=== PATIENT | male | born 1965 | race Caucasian/White ===

== ENCOUNTER 2017-11-29 12:58 | Inpatient (IN) | payer OTHER ==
[~2017-11-29] VITALS: Ht 182.9 cm; Wt 134.9 kg
[2017-11-29 18:39] VITALS: BP 126/82; PULSE 64; RESP 18; TEMP 98.6; O2SAT 96
[2017-11-29 18:43] VITALS: BP 146/83; PULSE 92; RESP 18; TEMP 97.7; O2SAT 97
[2017-11-29 20:00] VITALS: BP 136/78; PULSE 95; RESP 18; TEMP 97.8; O2SAT 96
[2017-11-29] MEDS ORDERED: HUMALOG SQ (20:04)
[2017-11-29] MEDS ORDERED: GLUCAGON 1 MG/ML VIAL OTHER PRN (22:45)
[2017-11-29] MEDS ORDERED: DEXTROSE 50% IN WATER 50 ML VIAL(D50) IV PUSH PRN (22:45)
[2017-11-29] MEDS ORDERED: SODIUM CHLORIDE 0.9% FLUSH 10 ML FLUSH IV FLUSH PRN (22:45)
[2017-11-29] MEDS ORDERED: ONDANSETRON HCL 4 MG/2 ML VIAL IVP PRN (22:45)
[2017-11-29] MEDS ORDERED: NALOXONE HCL 0.4 MG/ML AMP IV PUSH PRN (22:45)
[2017-11-29] MEDS ORDERED: ACETAMINOPHEN 325 MG TAB PO PRN (22:45)
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
[2017-11-30] VITALS: BP 156/86; PULSE 97; RESP 18; TEMP 99; O2SAT 95
[2017-11-30] MEDS ORDERED: MORPHINE SULFATE 4 MG/ML INJ IV SCH (00:20)
[2017-11-30] MEDS ORDERED: SODIUM CHLORIDE 0.9% FLUSH 10 ML FLUSH IVF PRN ×2 (00:45)
[2017-11-30 01:10] LABS: AUTOMATED NEUTROPHIL # 6.8 TH/MM3 (1.8-7.7); BASOPHIL # 0.1 TH/MM3 (0-0.2); BASOPHIL % 0.9 % (0.0-2.0); EOSINOPHIL # 0.1 TH/MM3 (0-0.4); HEMATOCRIT 22.2 % (39.0-51.0); HEMOGLOBIN 7.8 GM/DL (13.0-17.0); LYMPH % 9.5 % (9.0-44.0); LYMPHOCYTE # 0.8 TH/MM3 (1.0-4.8); MEAN CELL VOLUME 104.9 FL (80.0-100.0); MEAN CORPUSCULAR HEMOGLOBIN 36.7 PG (27.0-34.0); MEAN PLATELET VOLUME 6.1 FL (7.0-11.0); MONO % 4.4 % (0.0-8.0); MONOCYTE # 0.4 TH/MM3 (0-0.9); NEUT % 84.2 % (16.0-70.0); PLATELET COUNT 181 TH/MM3 (150-450); RED BLOOD COUNT 2.12 MIL/MM3 (4.50-5.90); WHITE BLOOD COUNT 8.1 TH/MM3 (4.0-11.0)
[2017-11-30] MEDS ORDERED: PROCHLORPERAZINE INJ 10 MG/2 ML VIAL IV PUSH PRN (01:30)
[2017-11-30] MEDS ORDERED: RESP: ALBUTEROL 2.5 MG/IPRATROPIUM 0.5 MG NEB (PRN) NEB (01:30)
[2017-11-30 01:56] LABS: ALBUMIN 1.3 GM/DL (3.4-5.0); BICARBONATE 29.5 MEQ/L (21.0-32.0); CALCIUM 7.3 MG/DL (8.5-10.1); CALCIUM-PROTEIN CORRECTED 7.8 MG/DL (8.5-10.1); CREATININE 2.07 MG/DL (0.60-1.30); MAGNESIUM 1.4 MG/DL (1.5-2.5); TOTAL BILIRUBIN ADULT 0.5 MG/DL (0.2-1.0); TOTAL PROTEIN 6.1 GM/DL (6.4-8.2)
[2017-11-30] MEDS: LINEZOLID 600 MG PREMIX 300 ML IV SCH ×2 (01:56→14:41)
[2017-11-30] MEDS: LEVOFLOXACIN 250 MG PREMIX INJ 50 ML IV SCH (01:56)
[2017-11-30] MEDS: ACETAMINOPHEN/HYDROcodone 325 MG/10 MG TAB PO PRN ×4 (01:58→20:02)
[2017-11-30] MEDS ORDERED: MAGNESIUM SULFATE 1 GM PREMIX 100 ML IV ONE (02:15)
[2017-11-30 04:00] VITALS: BP 134/80; PULSE 98; RESP 18; TEMP 98.2; O2SAT 93
[2017-11-30 08:00] VITALS: BP 132/77; PULSE 93; RESP 18; TEMP 98.5; O2SAT 93
[2017-11-30] MEDS: INSULIN ASPART SUPPLEMENTAL SCALE SQ SCH ×4 (08:00→20:59)
[2017-11-30] MEDS: SODIUM CHLORIDE 0.9% FLUSH 10 ML FLUSH IVF SCH (08:41)
[2017-11-30] MEDS: PANTOPRAZOLE SOD 40 MG DELAYED RELEASE TAB PO SCH ×2 (08:41→20:58)
[2017-11-30] MEDS: MAGNESIUM OXIDE 400 MG TAB PO SCH ×2 (08:41→20:58)
[2017-11-30] MEDS: FOLIC ACID 1 MG TAB PO SCH (08:41)
[2017-11-30] MEDS: MULTIVITAMINS/MINERALS THERAPEUTIC TAB PO SCH (08:41)
[2017-11-30] MEDS: THIAMINE HCL 100 MG TAB PO SCH (08:41)
[2017-11-30] MEDS: CARVEDILOL 12.5 MG TAB PO SCH ×2 (08:41→20:58)
[2017-11-30] MEDS: SODIUM CHLORIDE 0.9% FLUSH 10 ML FLUSH IV FLUSH SCH ×2 (08:45→20:59)
--- NOTE | 2017-11-30 09:01 | HHI.PR ---
Subjective Remarks in no acute distress. no fever. pain is mild. overall looks comfortable. Objective Vitals Vital Signs Date Time Temp Pulse Resp B/P (MAP) Pulse Ox O2 Delivery O2 Flow Rate FiO2 11/30/17 08:00 98.5 93 18 132/77 (95) 93 11/30/17 04:00 98.2 98 18 134/80 (98) 93 11/30/17 00:00 99.0 97 18 156/86 (109) 95 11/29/17 20:00 97.8 95 18 136/78 (97) 96 11/29/17 18:43 97.7 92 18 146/83 (104) 97 I/O 11/29/17 11/29/17 11/29/17 11/30/17 11/30/17 11/30/17 07:00 15:00 23:00 07:00 15:00 23:00 Intake Total 450 ml Output Total 1000 ml Balance -550 ml Intake Oral 0 ml IV Total 450 ml Output Urine Total 1000 ml Result Diagram: 11/30/17 0059 11/30/17 0059 Objective Remarks GENERAL: This is a well-nourished, well-developed patient, in no apparent distress. CARDIOVASCULAR: Regular rate and regular rhythm without murmurs, gallops, or rubs. RESPIRATORY: diminished air entry in right base. GASTROINTESTINAL: Abdomen soft, non-tender, nondistended. Normal, active bowel sounds MUSCULOSKELETAL: Extremities without clubbing, cyanosis, or edema. NEURO: Alert & Oriented x4 to person, place, time, situation. Moves all ext x4 Medications and IVs Inpatient Medications Acetaminophen (Tylenol) 650 mg Q4H PRN PO TEMP > 100.4; Start 11/29/17 at 22:45 Acetaminophen/ Hydrocodone Bitart ([place] 10-325 Mg) 1 tab Q4H PRN PO pain > 4 Last administered on 11/30/17at 07:59; Start 11/30/17 at 00:45 Albuterol/ Ipratropium (Duoneb Neb) 1 ampule Q4HR NEB PRN NEB SOB/WHEEZING; Start 11/30/17 at 01:30 Carvedilol (Coreg) 12.5 mg Q12HR PO Last administered on 11/30/17at 08:41; Start 11/30/17 at 09:00 Dextrose (D50w (Vial) Inj) 50 ml UNSCH PRN IV PUSH HYPOGLYCEMIA-SEE COMMENTS; Start 11/29/17 at 22:45 Folic Acid (Folate) 1 mg DAILY PO Last administered on 11/30/17at 08:41; Start at 09:00; Stop 12/05/17 at 08:59 Glucagon (Glucagon Inj) 1 mg UNSCH PRN OTHER HYPOGLYCEMIA-SEE COMMENTS; Start 11/29/17 at 22:45 Heparin Sodium (Porcine) (Heparin Central Flush) UNSCH PRN IV FLUSH SEE PROTOCOL; Start 11/30/17 at 00:45 Insulin Aspart (NovoLOG SUPPLEMENTAL SCALE) 1 ACHS SLIDING SCALE SQ ; Start 11/30/17 at 08:00 Insulin Detemir (Levemir Inj) 10 units HS SQ ; Start 11/30/17 at 21:00 Levofloxacin/ Dextrose 50 ml @ 50 mls/hr Q24H IV Last administered on 11/30/17at 01:56; Start 11/30/17 at 01:30 Linezolid 300 ml @ 300 mls/hr Q12H IV Last administered on 11/30/17at 01:56; Start 11/30/17 at 02:30 Magnesium Oxide (Mag-Ox) 400 mg Q12HR PO Last administered on 11/30/17at 08:41; Start 11/30/17 at 09:00 Magnesium Sulfate/ Dextrose 100 ml @ 100 mls/hr ONCE ONCE IV Last administered on 11/30/17at 02:10; Start 11/30/17 at 02:15; Stop 11/30/17 at 03:14; Status DC Morphine Sulfate (Morphine Inj) 4 mg NOW IV Last administered on 11/30/17at 00:53 ; Start 11/30/17 at 00:20; Stop 11/30/17 at 02:30; Status DC Multivitamins/ Minerals Therapeutic (Theragran M Tab) 1 tab DAILY PO Last administered on 11/30/17at 08:41; Start 11/30/17 at 09:00; Stop 12/05/17 at 08:59 Naloxone HCl (Narcan Inj) 0.4 mg UNSCH PRN IV PUSH SEE LABEL COMMENTS; Start at 22:45 Ondansetron HCl (Zofran Inj) 4 mg Q6H PRN IVP NAUSEA OR VOMITING; Start at 22:45; Stop 11/30/17 at 01:24; Status DC Pantoprazole Sodium (Protonix) 40 mg Q12HR PO Last administered on 11/30/17at 08: 41; Start 11/30/17 at 09:00 Prochlorperazine Edisylate (Compazine Inj) 5 mg Q4H PRN IV PUSH NAUSEA OR VOMITING; Start 11/30/17 at 01:30 Sodium Chloride (NS Flush) UNSCH PRN IVF SEE PROTOCOL; Start 11/30/17 at 00:45 Thiamine HCl (Vitamin B1) 100 mg DAILY PO Last administered on 11/30/17at 08:41; Start 11/30/17 at 09:00 A/P Problem List: (1) Empyema lung ICD Code: J86.9 - Pyothorax without fistula Assessment and Plan A/P Right lung empyema MRSA cultures from thoracentesis and urine specimen at [place] -Consult cardiothoracic surgery -appreciate assistance -NPO. -Continue Linezolide 600 mg IV BID and Levaquin 250 mg IV QD -Patient had a history of respiratory failure requiring BiPAP at [place], monitor respiratory status -Contact isolation -Duonebulizers q4h PRN sob/wheezing -[place] 10/325 q4h p.o. PRN pain with Morphine 2 mg IV q3h breakthrough for pain -will consider ID consult Type 2 Diabetes Mellitus -Continue Levemir 10 units subcu nightly -Accu-Cheks before meals and at bedtime with low-dose NovoLog sliding scale coverage -PRN Hypoglycemia protocol -Monitor trends and blood glucose readings and adjust treatments as indicated Anemia - Hgb 7.8/HCT 22.2 - recheck CBC in a.m. and follow results, transfuse if needed Acute renal failure - BUN - 26, creatinine 2.07, egfr 34 -Monitor renal indices -Avoid nephrotoxins -Monitor I&O -consider nephrology consultation Hypertension -Lisinopril from home was held at [place] due to acute renal failure -Continue to hold lisinopril while awaiting results of CMP -Continue carvedilol 12.5 mg twice daily Hypomagnesemia -Magnesium 1.4 -continue p.o. Mag Ox 400 mg BID -Magnesium 1 gm IV x one dose -recheck with am labs and replace as needed History of DVT Bilateral LE edema and pain -bilateral LE doppler us to r/o DVT Visual floaters Cataracts and diabetic retinopathy -Evaluated and diagnosed by an l[facility] at [facility] -Patient to follow-up with ophthalmology as an outpatient DVT prophylaxis -Await results of lower extremity Doppler prior to initiating SCDs/teds - patient has a history of DVT left lower extremity 2005 -Hold chemoprophylaxis secondary to possible lung decortication surgery Jolanta Christianson MD Nov 30, 2017 09:01
--- NOTE | 2017-11-30 10:44 | PD.WCN.NOT ---
Wound Consult Description: Wound consult ordered by Sharif GERONTOLOGY AIDE for wound management Communicated with: Adele LYNNE , Recommendation: 1. Encourage patient to reposition every 2 hours for comfort and offloading. 2. Apply thin layer of Remedy Calazime cream to inner buttocks and R lateral thigh daily or as needed for comfort.Leave open to air 3. Please do not use foam on sacrum nor cotton underpad.Ensure patient is not laying on any devices. Additional Information: Patient was seen today by marketing copywriter on for wound management .Patient alert and oriented x3 no complaints of distress/discomfort at this time.Patient was able to independently reposition self to left side.Foam dressing dated 11/28 removed from sacral area to reveal dried BM under dressing.Sacral/buttocks cleansed with normal saline .Operations Dispatcher visualized sacral/inner buttocks area patient is 100% intact skin blanchable in all areas Partially removed scab noted to R sacral area suggestive of old partial thickness wound.scab removed with skin care.Patient denies any sacral/buttocks discomfort.Assessment of R thigh find Partial thickness open area measuring 0.4cm x 0.3cm x0.1cm to lateral right thigh Wound base is 100% pink non granular tissue,wound edges well defined and even with wound base, no odor or drainage noted.Periwound is unremarkable with no erythema noted.Patient has Calix catheter with StatLock placed on right side of inner thigh.Wound is asymmetrical circular shape which might indicate pressure related device injury.Patient states he does not know cause of injury But, would not be surprised if he fell asleep on Calix catheter tubing/ specimen port.Calazime cream applied in thin layer to inner buttocks and R lateral thigh.Patient had no further questions or concerns for marketing copywriter. [facility] Nov 30, 2017 10:44
[2017-11-30 12:00] VITALS: BP 127/78; PULSE 83; RESP 16; TEMP 97.9; O2SAT 92
--- NOTE | 2017-11-30 12:58 | RADRPT ---
EXAM DATE/TIME: 11/30/2017 12:45 [place] COMPARISON: No previous studies available for comparison. INDICATIONS : Pleural effusion. RADIATION DOSE: 18.56 CTDIvol (mGy) MEDICAL HISTORY : Cardiovascular disease. Hypertension. Diabetes mellitus type 2. SURGICAL HISTORY : None. ENCOUNTER: Initial ACUITY: 1 day PAIN SCALE: 5/10 LOCATION: chest TECHNIQUE: Volumetric scanning of the chest was performed. Using automated exposure control and adjustment of t he mA and/or kV according to patient size, radiation dose was kept as low as reasonably achievable to obtain optimal diagnostic quality images. DICOM format image data is available electronically for r eview and comparison. Follow-up recommendations for detected pulmonary nodules are based at a minimum on nodule size and pa tient risk factors according to Fleischner Society Guidelines. FINDINGS: There is a complex right pleural effusion containing multiple locules of air and fluid most character istic of an empyema. There is a loculated smaller left effusion without loculated air. There is lung consolidation adjacent to the loculated right effusion is present right lung base. Mini mal left basilar airspace disease as well. No significant adenopathy. Right-sided PICC line tip is in the superior vena cava. Heart size is normal. Trace pericardial fluid . Upper abdomen reveals slightly lobulated liver which can indicate cirrhosis. No acute findings in the upper abdomen. CONCLUSION: 1. Complex right pleural effusion with multiple locules of air and fluid. Primary differential diagno sis is a right-sided empyema. 2. Smaller left effusion without loculated air. 3. Lung consolidation adjacent to complex right effusion as above. Minimal left basal airspace diseas e. 4. Right PICC line tip in superior vena cava. Edis Wetzel MD on November 30, 2017 at 12:54 Board Certified Radiologist. This report was verified electronically.
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
--- NOTE | 2017-11-30 15:00 | RADRPT ---
EXAM DATE/TIME: 11/30/2017 14:01 [place] COMPARISON: No previous studies available for comparison. INDICATIONS : Bilateral leg swelling. MEDICAL HISTORY : Hypertension. Dizziness. Chest pain. Diabetes. Alcohol abuse. SURGICAL HISTORY : Orbital socket repair. ENCOUNTER: Initial ACUITY: 1 day PAIN SCORE: 0/10 LOCATION: Bilateral legs. TECHNIQUE: Venous ultrasound of the left and right leg was performed from the inguinal ligament to the proximal calf. Real-time, color Doppler and spectral tracing, compression and augmentation techniques were us ed. FINDINGS: RIGHT LEG: There is normal compressibility of the deep venous system from the inguinal region to the proximal ca lf. No echogenic clot is seen in the lumen of the common femoral, femoral, popliteal, and posterior tibial veins. There is a normal response of the venous system to proximal and distal augmentation an d respiration. LEFT LEG: There is normal compressibility of the deep venous system from the inguinal region to the proximal ca lf. No echogenic clot is seen in the lumen of the common femoral, femoral, popliteal, and posterior tibial veins. There is a normal response of the venous system to proximal and distal augmentation an d respiration. CONCLUSION: 1. Negative for deep venous thrombosis bilateral lower extremity. Raghavendra Escobar MD on November 30, 2017 at 14:56 Board Certified Radiologist. This report was verified electronically.
[2017-11-30 16:00] VITALS: BP 127/78; PULSE 88; RESP 16; TEMP 97.7; O2SAT 96
[2017-11-30 20:00] VITALS: BP 127/76; PULSE 78; RESP 18; TEMP 97.7; O2SAT 95
[2017-11-30] MEDS: INSULIN DETEMIR 100 UNITS/ML VIAL SQ SCH (20:59)
[2017-11-30] MEDS: MORPHINE SULFATE 2 MG/ML SYRINGE IV PUSH PRN (21:05)
[2017-12-01] VITALS: BP 131/76; PULSE 88; RESP 18; TEMP 98.1; O2SAT 91
[2017-12-01] MEDS: ACETAMINOPHEN/HYDROcodone 325 MG/10 MG TAB PO PRN ×6 (00:06→21:27)
[2017-12-01] MEDS: LEVOFLOXACIN 250 MG PREMIX INJ 50 ML IV SCH (01:06)
[2017-12-01] MEDS: MORPHINE SULFATE 2 MG/ML SYRINGE IV PUSH PRN (01:06)
[2017-12-01] MEDS: LINEZOLID 600 MG PREMIX 300 ML IV SCH ×2 (02:09→14:39)
[2017-12-01 06:45] LABS: AUTOMATED NEUTROPHIL # 6.2 TH/MM3 (1.8-7.7); BASOPHIL # 0.1 TH/MM3 (0-0.2); EOSINOPHIL # 0.1 TH/MM3 (0-0.4); EOSINOPHIL % 1.1 % (0.0-4.0); HEMATOCRIT 21.1 % (39.0-51.0); HEMOGLOBIN 7.4 GM/DL (13.0-17.0); LYMPHOCYTE # 0.7 TH/MM3 (1.0-4.8); MEAN CELL VOLUME 105.1 FL (80.0-100.0); MEAN CORPUSCULAR HEMOGLOBIN 36.8 PG (27.0-34.0); MEAN PLATELET VOLUME 6.5 FL (7.0-11.0); MONO % 4.7 % (0.0-8.0); MONOCYTE # 0.3 TH/MM3 (0-0.9); NEUT % 83.2 % (16.0-70.0); PLATELET COUNT 155 TH/MM3 (150-450); RED BLOOD COUNT 2.01 MIL/MM3 (4.50-5.90); RED CELL DISTRIBUTION WIDTH 13.9 % (11.6-17.2); WHITE BLOOD COUNT 7.4 TH/MM3 (4.0-11.0)
[2017-12-01 07:05] LABS: BICARBONATE 27.2 MEQ/L (21.0-32.0); CALCIUM 7.5 MG/DL (8.5-10.1); CREATININE 1.73 MG/DL (0.60-1.30)
[2017-12-01] MEDS: INSULIN ASPART SUPPLEMENTAL SCALE SQ SCH ×4 (07:25→21:39)
[2017-12-01] MEDS: MAGNESIUM OXIDE 400 MG TAB PO SCH ×2 (07:57→21:28)
[2017-12-01] MEDS: THIAMINE HCL 100 MG TAB PO SCH (07:57)
[2017-12-01] MEDS: PANTOPRAZOLE SOD 40 MG DELAYED RELEASE TAB PO SCH ×2 (07:57→21:27)
[2017-12-01] MEDS: SODIUM CHLORIDE 0.9% FLUSH 10 ML FLUSH IV FLUSH SCH ×2 (07:58→21:31)
[2017-12-01] MEDS: SODIUM CHLORIDE 0.9% FLUSH 10 ML FLUSH IVF SCH (07:58)
[2017-12-01] MEDS: FOLIC ACID 1 MG TAB PO SCH (07:58)
[2017-12-01] MEDS: MULTIVITAMINS/MINERALS THERAPEUTIC TAB PO SCH (07:58)
[2017-12-01] MEDS: CARVEDILOL 12.5 MG TAB PO SCH ×2 (07:58→21:26)
[2017-12-01 08:00] VITALS: BP 127/75; PULSE 86; RESP 17; TEMP 98.2; O2SAT 92
--- NOTE | 2017-12-01 10:31 | HHI.PR ---
Subjective Remarks in no acute distress. resting comfortably. denies pain or sob. no fever. Objective Vitals Vital Signs Date Time Temp Pulse Resp B/P (MAP) Pulse Ox O2 Delivery O2 Flow Rate FiO2 12/01/17 08:00 98.2 86 17 127/75 (92) 92 12/01/17 01:11 18 12/01/17 00:00 98.1 88 18 131/76 (94) 91 11/30/17 21:10 18 11/30/17 20:00 97.7 78 18 127/76 (93) 95 11/30/17 16:00 97.7 88 16 127/78 (94) 96 11/30/17 12:00 97.9 83 16 127/78 (94) 92 I/O 11/30/17 11/30/17 11/30/17 12/01/17 12/01/17 12/01/17 07:00 15:00 23:00 07:00 15:00 23:00 Intake Total 450 ml 480 ml 240 ml Output Total 1000 ml 850 ml 450 ml Balance -550 ml -370 ml 240 ml -450 ml Intake Oral 0 ml 480 ml 240 ml IV Total 450 ml Output Urine Total 1000 ml 850 ml 450 ml # Bowel Movements 1 Result Diagram: 12/01/17 0513 12/01/17 0513 Imaging Last Impressions Chest CT 11/30/17 1232 Signed Impressions: Service Date/Time: Thursday, November 30, 2017 12:45 - CONCLUSION: 1. Complex right pleural effusion with multiple locules of air and fluid. Primary differential diagnosis is a right-sided empyema. 2. Smaller left effusion without loculated air. 3. Lung consolidation adjacent to complex right effusion as above. Minimal left basal airspace disease. 4. Right PICC line tip in superior vena cava. Edis Wetzel MD Lower Extremity Ultrasound 11/30/17 0000 Signed Impressions: Service Date/Time: Thursday, November 30, 2017 14:01 - CONCLUSION: 1. Negative for deep venous thrombosis bilateral lower extremity. Raghavendra Escobar MD Objective Remarks GENERAL: This is a well-nourished, well-developed patient, in no apparent distress. CARDIOVASCULAR: Regular rate and regular rhythm without murmurs, gallops, or rubs. RESPIRATORY: diminished air entry in right base. GASTROINTESTINAL: Abdomen soft, non-tender, nondistended. Normal, active bowel sounds MUSCULOSKELETAL: Extremities without clubbing, cyanosis, or edema. NEURO: Alert & Oriented x4 to person, place, time, situation. Moves all ext x4 Medications and IVs Inpatient Medications Acetaminophen (Tylenol) 650 mg Q4H PRN PO TEMP > 100.4; Start 11/29/17 at 22:45 Acetaminophen/ Hydrocodone Bitart ([place] 10-325 Mg) 1 tab Q4H PRN PO pain > 4 Last administered on 12/01/17at 07:56; Start 11/30/17 at 00:45 Albuterol/ Ipratropium (Duoneb Neb) 1 ampule Q4HR NEB PRN NEB SOB/WHEEZING; Start 11/30/17 at 01:30 Carvedilol (Coreg) 12.5 mg Q12HR PO Last administered on 12/01/17at 07:58; Start 11/30/17 at 09:00 Dextrose (D50w (Vial) Inj) 50 ml UNSCH PRN IV PUSH HYPOGLYCEMIA-SEE COMMENTS; Start 11/29/17 at 22:45 Folic Acid (Folate) 1 mg DAILY PO Last administered on 12/01/17at 07:58; Start at 09:00; Stop 12/05/17 at 08:59 Glucagon (Glucagon Inj) 1 mg UNSCH PRN OTHER HYPOGLYCEMIA-SEE COMMENTS; Start 11/29/17 at 22:45 Heparin Sodium (Porcine) (Heparin Central Flush) UNSCH PRN IV FLUSH SEE PROTOCOL; Start 11/30/17 at 00:45 Insulin Aspart (NovoLOG SUPPLEMENTAL SCALE) 1 ACHS SLIDING SCALE SQ Last administered on 11/30/17at 16:58; Start 11/30/17 at 08:00 Insulin Detemir (Levemir Inj) 10 units HS SQ Last administered on 11/30/17at 20: 59; Start 11/30/17 at 21:00 Levofloxacin/ Dextrose 50 ml @ 50 mls/hr Q24H IV Last administered on 12/01/17at 01:06; Start 11/30/17 at 01:30 Linezolid 300 ml @ 300 mls/hr Q12H IV Last administered on 12/01/17at 02:09; Start 11/30/17 at 02:30 Magnesium Oxide (Mag-Ox) 400 mg Q12HR PO Last administered on 12/01/17 07:57; Start 11/30/17 at 09:00 Magnesium Sulfate/ Dextrose 100 ml @ 100 mls/hr ONCE ONCE IV Last administered on 11/30/17at 02:10; Start 11/30/17 at 02:15; Stop 11/30/17 at 03:14; Status DC Morphine Sulfate (Morphine Inj) 4 mg NOW IV Last administered on 11/30/17at 00:53 ; Start 11/30/17 at 00:20; Stop 11/30/17 at 02:30; Status DC Multivitamins/ Minerals Therapeutic (Theragran M Tab) 1 tab DAILY PO Last administered on 12/01/17 07:58; Start 11/30/17 at 09:00; Stop 12/05/17 at 08:59 Naloxone HCl (Narcan Inj) 0.4 mg UNSCH PRN IV PUSH SEE LABEL COMMENTS; Start at 22:45 Ondansetron HCl (Zofran Inj) 4 mg Q6H PRN IVP NAUSEA OR VOMITING; Start at 22:45; Stop 11/30/17 at 01:24; Status DC Pantoprazole Sodium (Protonix) 40 mg Q12HR PO Last administered on 12/01/17at 07: 57; Start 11/30/17 at 09:00 Prochlorperazine Edisylate (Compazine Inj) 5 mg Q4H PRN IV PUSH NAUSEA OR VOMITING; Start 11/30/17 at 01:30 Sodium Chloride (NS Flush) UNSCH PRN IVF SEE PROTOCOL; Start 11/30/17 at 00:45 Thiamine HCl (Vitamin B1) 100 mg DAILY PO Last administered on 12/01/17at 07:57; Start 11/30/17 at 09:00 A/P Problem List: (1) Empyema lung ICD Code: J86.9 - Pyothorax without fistula Assessment and Plan A/P Right lung empyema MRSA cultures from thoracentesis and urine specimen at [facility] -CT of the chest with Complex right pleural effusion with multiple locules of air and fluid. Primary differential diagnosis is a right-sided empyema. 2. Smaller left effusion without loculated air. 3. Lung consolidation adjacent to complex right effusion and minimal left basal airspace disease. -Consulted cardiothoracic surgery -appreciate assistance -Continue Linezolide 600 mg IV BID and Levaquin 250 mg IV QD -ID consult appreciated. -Patient had a history of respiratory failure requiring BiPAP at [facility], monitor respiratory status -Contact isolation -Duonebulizers q4h PRN sob/wheezing -[place] 10/325 q4h p.o. PRN pain with Morphine 2 mg IV q3h breakthrough for pain Type 2 Diabetes Mellitus -Continue Levemir 10 units subcu nightly -Accu-Cheks before meals and at bedtime with low-dose NovoLog sliding scale coverage -PRN Hypoglycemia protocol -Monitor trends and blood glucose readings and adjust treatments as indicated Anemia - chronic likely due to chronic disease - will monitor. Acute renal failure - improving. -Monitor renal indices -Avoid nephrotoxins -Monitor I&O Hypertension -Lisinopril from home was held at [facility] due to acute renal failure -Continue to hold lisinopril while awaiting results of CMP -Continue carvedilol 12.5 mg twice daily Hypomagnesemia-replaced. History of DVT Bilateral LE edema and pain -bilateral LE doppler us negative for DVT. Visual floaters Cataracts and diabetic retinopathy -Evaluated and diagnosed by an oil burner at [facility] -Patient to follow-up with ophthalmology as an outpatient DVT prophylaxis -Await results of lower extremity Doppler prior to initiating SCDs/teds - patient has a history of DVT left lower extremity 2004 -Hold chemoprophylaxis secondary to possible lung decortication surgery Jolanta Christianson MD Dec 01, 2017 10:31
[2017-12-01 12:00] VITALS: BP 111/60; PULSE 75; RESP 18; TEMP 97.5; O2SAT 96
[2017-12-01 16:00] VITALS: BP 116/67; PULSE 75; RESP 17; TEMP 97.8; O2SAT 97
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
[2017-12-01 20:00] VITALS: BP 127/75; PULSE 82; RESP 17; TEMP 97.7; O2SAT 96
[2017-12-01] MEDS: INSULIN DETEMIR 100 UNITS/ML VIAL SQ SCH (21:38)
[2017-12-02] VITALS (8 sets, daily range): BP systolic 114–136; BP diastolic 71–85; PULSE 81–106; RESP 16–18; TEMP 97.9–98.9; O2SAT 92–96
[2017-12-02] MEDS: ACETAMINOPHEN/HYDROcodone 325 MG/10 MG TAB PO PRN ×6 (01:47→21:47)
[2017-12-02] MEDS: LINEZOLID 600 MG PREMIX 300 ML IV SCH ×2 (01:47→13:53)
[2017-12-02] MEDS: LEVOFLOXACIN 250 MG PREMIX INJ 50 ML IV SCH (01:47)
[2017-12-02] MEDS: INSULIN ASPART SUPPLEMENTAL SCALE SQ SCH ×4 (08:00→21:00)
[2017-12-02] MEDS: FOLIC ACID 1 MG TAB PO SCH (08:14)
[2017-12-02] MEDS: MAGNESIUM OXIDE 400 MG TAB PO SCH ×2 (08:14→21:47)
[2017-12-02] MEDS: THIAMINE HCL 100 MG TAB PO SCH (08:14)
[2017-12-02] MEDS: MULTIVITAMINS/MINERALS THERAPEUTIC TAB PO SCH (08:14)
[2017-12-02] MEDS: PANTOPRAZOLE SOD 40 MG DELAYED RELEASE TAB PO SCH ×2 (08:15→21:47)
[2017-12-02] MEDS: CARVEDILOL 12.5 MG TAB PO SCH ×2 (08:15→21:47)
[2017-12-02] MEDS: SODIUM CHLORIDE 0.9% FLUSH 10 ML FLUSH IV FLUSH SCH ×3 (08:16→21:52)
[2017-12-02] MEDS: SODIUM CHLORIDE 0.9% FLUSH 10 ML FLUSH IVF SCH (08:16)
--- NOTE | 2017-12-02 09:25 | HHI.PR ---
Subjective Remarks in no acute distress. denies sob. no fever. Objective Vitals Vital Signs Date Time Temp Pulse Resp B/P (MAP) Pulse Ox O2 Delivery O2 Flow Rate FiO2 12/02/17 08:00 98.4 101 16 128/76 (93) 92 12/02/17 04:00 97.9 81 17 127/79 (95) 94 12/02/17 01:02 94 12/02/17 00:00 98.1 94 17 127/71 (89) 95 12/01/17 20:00 97.7 82 17 127/75 (92) 96 12/01/17 16:00 97.8 75 17 116/67 (83) 97 12/01/17 12:00 97.5 75 18 111/60 (77) 96 I/O 12/01/17 12/01/17 12/01/17 12/02/17 12/02/17 12/02/17 07:00 15:00 23:00 07:00 15:00 23:00 Intake Total 240 ml 300 ml 840 ml 240 ml Output Total 450 ml 300 ml 600 ml Balance 240 ml -150 ml 540 ml -360 ml Intake Oral 240 ml 840 ml 240 ml IV Total 300 ml Output Urine Total 450 ml 300 ml 600 ml # Bowel Movements 1 0 Result Diagram: 12/01/17 0513 12/01/17 0513 Imaging Last Impressions Chest CT 11/30/17 1232 Signed Impressions: Service Date/Time: Thursday, November 30, 2017 12:45 - CONCLUSION: 1. Complex right pleural effusion with multiple locules of air and fluid. Primary differential diagnosis is a right-sided empyema. 2. Smaller left effusion without loculated air. 3. Lung consolidation adjacent to complex right effusion as above. Minimal left basal airspace disease. 4. Right PICC line tip in superior vena cava. Edis Wetzel MD Lower Extremity Ultrasound 11/30/17 0000 Signed Impressions: Service Date/Time: Thursday, November 30, 2017 14:01 - CONCLUSION: 1. Negative for deep venous thrombosis bilateral lower extremity. Raghavendra Escobar MD Objective Remarks GENERAL: This is a well-nourished, well-developed patient, in no apparent distress. CARDIOVASCULAR: Regular rate and regular rhythm without murmurs, gallops, or rubs. RESPIRATORY: diminished air entry in right base. GASTROINTESTINAL: Abdomen soft, non-tender, nondistended. Normal, active bowel sounds MUSCULOSKELETAL: Extremities without clubbing, cyanosis, or edema. NEURO: Alert & Oriented x4 to person, place, time, situation. Moves all ext x4 Medications and IVs Inpatient Medications Acetaminophen (Tylenol) 650 mg Q4H PRN PO TEMP > 100.4; Start 11/29/17 at 22:45 Acetaminophen/ Hydrocodone Bitart ([place]oy 10-325 Mg) 1 tab Q4H PRN PO pain > 4 Last administered on 12/02/17at 05:35; Start 11/30/17 at 00:45 Albuterol/ Ipratropium (Duoneb Neb) 1 ampule Q4HR NEB PRN NEB SOB/WHEEZING; Start 11/30/17 at 01:30 Carvedilol (Coreg) 12.5 mg Q12HR PO Last administered on 12/02/17at 08:15; Start 11/30/17 at 09:00 Dextrose (D50w (Vial) Inj) 50 ml UNSCH PRN IV PUSH HYPOGLYCEMIA-SEE COMMENTS; Start 11/29/17 at 22:45 Folic Acid (Folate) 1 mg DAILY PO Last administered on 12/02/17at 08:14; Start at 09:00; Stop 12/05/17 at 08:59 Glucagon (Glucagon Inj) 1 mg UNSCH PRN OTHER HYPOGLYCEMIA-SEE COMMENTS; Start 11/29/17 at 22:45 Heparin Sodium (Porcine) (Heparin Central Flush) UNSCH PRN IV FLUSH SEE PROTOCOL; Start 11/30/17 at 00:45 Insulin Aspart (NovoLOG SUPPLEMENTAL SCALE) 1 ACHS SLIDING SCALE SQ Last administered on 12/01/17at 21:39; Start 11/30/17 at 08:00 Insulin Detemir (Levemir Inj) 10 units HS SQ Last administered on 12/01/17 21: 38; Start 11/30/17 at 21:00 Levofloxacin/ Dextrose 50 ml @ 50 mls/hr Q24H IV Last administered on 12/02/17at 01:47; Start 11/30/17 at 01:30 Linezolid 300 ml @ 300 mls/hr Q12H IV Last administered on 12/02/17at 01:47; Start 11/30/17 at 02:30 Magnesium Oxide (Mag-Ox) 400 mg Q12HR PO Last administered on 12/02/17at 08:14; Start 11/30/17 at 09:00 Magnesium Sulfate/ Dextrose 100 ml @ 100 mls/hr ONCE ONCE IV Last administered on 11/30/17at 02:10; Start 11/30/17 at 02:15; Stop 11/30/17 at 03:14; Status DC Morphine Sulfate (Morphine Inj) 4 mg NOW IV Last administered on 11/30/17at 00:53 ; Start 11/30/17 at 00:20; Stop 11/30/17 at 02:30; Status DC Multivitamins/ Minerals Therapeutic (Theragran M Tab) 1 tab DAILY PO Last administered on 12/02/17at 08:14; Start 11/30/17 at 09:00; Stop 12/05/17 at 08:59 Naloxone HCl (Narcan Inj) 0.4 mg UNSCH PRN IV PUSH SEE LABEL COMMENTS; Start at 22:45 Ondansetron HCl (Zofran Inj) 4 mg Q6H PRN IVP NAUSEA OR VOMITING; Start at 22:45; Stop 11/30/17 at 01:24; Status DC Pantoprazole Sodium (Protonix) 40 mg Q12HR PO Last administered on 12/02/17at 08: 15; Start 11/30/17 at 09:00 Prochlorperazine Edisylate (Compazine Inj) 5 mg Q4H PRN IV PUSH NAUSEA OR VOMITING; Start 11/30/17 at 01:30 Sodium Chloride (NS Flush) UNSCH PRN IVF SEE PROTOCOL; Start 11/30/17 at 00:45 Thiamine HCl (Vitamin B1) 100 mg DAILY PO Last administered on 12/02/17at 08:14; Start 11/30/17 at 09:00 A/P Problem List: (1) Empyema lung ICD Code: J86.9 - Pyothorax without fistula Assessment and Plan A/P Right lung empyema MRSA cultures from thoracentesis and urine specimen at [place] -CT of the chest with Complex right pleural effusion with multiple locules of air and fluid. Primary differential diagnosis is a right-sided empyema. 2. Smaller left effusion without loculated air. 3. Lung consolidation adjacent to complex right effusion and minimal left basal airspace disease. -awaiting CT surgery f/u and recommendations. -Continue Linezolide and Levaquin -ID following. -Patient had a history of respiratory failure requiring BiPAP at [place], monitor respiratory status -Contact isolation -continue neb treatment. -continue pain control. Type 2 Diabetes Mellitus -Continue Levemir 10 units subcu nightly -Accu-Cheks before meals and at bedtime with low-dose NovoLog sliding scale coverage -PRN Hypoglycemia protocol -Monitor trends and blood glucose readings and adjust treatments as indicated Anemia - chronic likely due to chronic disease - will monitor. Acute renal failure - improving. -Monitor renal indices -Avoid nephrotoxins -Monitor I&O Hypertension- BP controlled. -Lisinopril from home was held at [place] due to acute renal failure -Continue to hold lisinopril. -Continue carvedilol 12.5 mg twice daily Hypomagnesemia-replaced. History of DVT Bilateral LE edema and pain -bilateral LE doppler us negative for DVT. Visual floaters Cataracts and diabetic retinopathy -Evaluated and diagnosed by an nuclear equipment research engineer at [facility] -Patient to follow-up with ophthalmology as an outpatient DVT prophylaxis -Hold chemoprophylaxis secondary to possible lung decortication surgery Jolanta Christianson MD Dec 02, 2017 09:25
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
[2017-12-02] MEDS ORDERED: CEFAZOLIN INJ 500 MG in SODIUM CHLORIDE 0.9% IRR BTL 500 ML IRRIGATION SCH (16:15)
[2017-12-02] MEDS ORDERED: CHLORHEXIDINE GLUCONATE 4% SOLN 120 ML BTL TOPICAL SCH (16:15)
[2017-12-02] MEDS ORDERED: ceFAZolin 2 GM PREMIX 50 ML IV SCH (16:15)
[2017-12-02] MEDS ORDERED: CEFAZOLIN INJ 2,000 MG in SODIUM CHLORIDE 0.9% INJ 100 ML IV SCH (17:30)
[2017-12-02] MEDS: INSULIN DETEMIR 100 UNITS/ML VIAL SQ SCH (21:51)
[2017-12-03] VITALS (13 sets, daily range): BP systolic 113–146; BP diastolic 59–89; PULSE 84–105; RESP 16–19; TEMP 97.6–98.8; O2SAT 92–97
[2017-12-03] MEDS: ACETAMINOPHEN/HYDROcodone 325 MG/10 MG TAB PO PRN ×6 (02:03→23:28)
[2017-12-03] MEDS: LINEZOLID 600 MG PREMIX 300 ML IV SCH ×2 (02:04→14:04)
[2017-12-03] MEDS: LEVOFLOXACIN 250 MG PREMIX INJ 50 ML IV SCH (02:04)
[2017-12-03 07:01] LABS: INTERNATIONAL NORMALIZED RATIO 1.3 RATIO; PROTHROMBIN TIME - PATIENT 12.8 SEC (9.8-11.6)
[2017-12-03] MEDS: INSULIN ASPART SUPPLEMENTAL SCALE SQ SCH ×4 (07:54→21:00)
[2017-12-03] MEDS: MULTIVITAMINS/MINERALS THERAPEUTIC TAB PO SCH (08:49)
[2017-12-03] MEDS: CARVEDILOL 12.5 MG TAB PO SCH ×2 (08:49→21:28)
[2017-12-03] MEDS: MAGNESIUM OXIDE 400 MG TAB PO SCH ×2 (08:49→21:29)
[2017-12-03] MEDS: PANTOPRAZOLE SOD 40 MG DELAYED RELEASE TAB PO SCH ×2 (08:49→21:29)
[2017-12-03] MEDS: THIAMINE HCL 100 MG TAB PO SCH (08:49)
[2017-12-03] MEDS: FOLIC ACID 1 MG TAB PO SCH (08:49)
[2017-12-03] MEDS: SODIUM CHLORIDE 0.9% FLUSH 10 ML FLUSH IVF SCH (08:50)
[2017-12-03] MEDS: SODIUM CHLORIDE 0.9% FLUSH 10 ML FLUSH IV FLUSH SCH ×4 (08:50→21:28)
--- NOTE | 2017-12-03 09:38 | HHI.PR ---
Subjective Remarks in no acute distress. resting comfortably with no sob, pain or new complaints. d/w the RN and no acute issues over night. Objective Vitals Vital Signs Date Time Temp Pulse Resp B/P (MAP) Pulse Ox O2 Delivery O2 Flow Rate FiO2 12/03/17 08:00 98.4 88 19 115/62 (79) 92 12/03/17 04:00 98.7 95 18 129/62 (84) 92 12/03/17 00:00 98.7 92 18 135/82 (99) 94 12/02/17 23:14 94 12/02/17 20:00 98.9 97 18 132/85 (101) 96 12/02/17 16:00 98.1 88 18 136/76 (96) 95 12/02/17 12:00 98.5 93 17 114/76 (89) 92 I/O 12/02/17 12/02/17 12/02/17 12/03/17 12/03/17 12/03/17 07:00 15:00 23:00 07:00 15:00 23:00 Intake Total 590 ml 1620 ml 290 ml 300 ml Output Total 600 ml 875 ml 750 ml Balance -10 ml 745 ml -460 ml 300 ml Intake Oral 240 ml 1320 ml 240 ml IV Total 350 ml 300 ml 50 ml 300 ml Output Urine Total 600 ml 875 ml 750 ml # Bowel Movements 0 1 0 Result Diagram: 12/01/17 0513 12/01/17 0513 Imaging Last Impressions Chest CT 11/30/17 1232 Signed Impressions: Service Date/Time: Thursday, November 30, 2017 12:45 - CONCLUSION: 1. Complex right pleural effusion with multiple locules of air and fluid. Primary differential diagnosis is a right-sided empyema. 2. Smaller left effusion without loculated air. 3. Lung consolidation adjacent to complex right effusion as above. Minimal left basal airspace disease. 4. Right PICC line tip in superior vena cava. Edis Wetzel MD Lower Extremity Ultrasound 11/30/17 0000 Signed Impressions: Service Date/Time: Thursday, November 30, 2017 14:01 - CONCLUSION: 1. Negative for deep venous thrombosis bilateral lower extremity. Raghavendra Escobar MD Objective Remarks GENERAL: This is a well-nourished, well-developed patient, in no apparent distress. CARDIOVASCULAR: Regular rate and regular rhythm without murmurs, gallops, or rubs. RESPIRATORY: diminished air entry in right base. GASTROINTESTINAL: Abdomen soft, non-tender, nondistended. Normal, active bowel sounds MUSCULOSKELETAL: Extremities without clubbing, cyanosis, or edema. NEURO: Alert & Oriented x4 to person, place, time, situation. Moves all ext x4 Medications and IVs Inpatient Medications Acetaminophen (Tylenol) 650 mg Q4H PRN PO TEMP > 100.4; Start 11/29/17 at 22:45 Acetaminophen/ Hydrocodone Bitart ([place] 10-325 Mg) 1 tab Q4H PRN PO pain > 4 Last administered on 12/03/17at 06:06; Start 11/30/17 at 00:45 Albuterol/ Ipratropium (Duoneb Neb) 1 ampule Q4HR NEB PRN NEB SOB/WHEEZING; Start 11/30/17 at 01:30 Carvedilol (Coreg) 12.5 mg Q12HR PO Last administered on 12/03/17at 08:49; Start 11/30/17 at 09:00 Cefazolin Sodium 500 mg/Sodium Chloride 505 ml @ 0 mls/hr MARINE GEOLOGIST IRRIGATION ; Start 12/02/17 at 16:15; Stop 12/09/17 at 16:14 Cefazolin Sodium 2000 mg/Sodium Chloride 120 ml @ 240 mls/hr MARINE GEOLOGIST IV ; Start 12/02/17 at 17:30; Stop 12/07/17 at 17:29 Cefazolin Sodium/ Dextrose 50 ml @ 150 mls/hr MARINE GEOLOGIST IV ; Start 12/02/17 at 16 :15; Stop 12/02/17 at 17:21; Status DC Chlorhexidine Gluconate (Hibiclens 4% Top Soln) 1 applic MARINE GEOLOGIST TOPICAL ; Start 12/02/17 at 16:15; Stop 12/09/17 at 16:14 Dextrose (D50w (Vial) Inj) 50 ml UNSCH PRN IV PUSH HYPOGLYCEMIA-SEE COMMENTS; Start 11/29/17 at 22:45 Folic Acid (Folate) 1 mg DAILY PO Last administered on 12/03/17at 08:49; Start at 09:00; Stop 12/05/17 at 08:59 Glucagon (Glucagon Inj) 1 mg UNSCH PRN OTHER HYPOGLYCEMIA-SEE COMMENTS; Start 11/29/17 at 22:45 Heparin Sodium (Porcine) (Heparin Central Flush) UNSCH PRN IV FLUSH SEE PROTOCOL; Start 11/30/17 at 00:45 Insulin Aspart (NovoLOG SUPPLEMENTAL SCALE) 1 ACHS SLIDING SCALE SQ Last administered on 12/01/17 21:39; Start 11/30/17 at 08:00 Insulin Detemir (Levemir Inj) 10 units HS SQ Last administered on 12/02/17 21: 51; Start 11/30/17 at 21:00 Levofloxacin/ Dextrose 50 ml @ 50 mls/hr Q24H IV Last administered on 12/03/17 02:04; Start 11/30/17 at 01:30 Linezolid 300 ml @ 300 mls/hr Q12H IV Last administered on 12/03/17 02:04; Start 11/30/17 at 02:30 Magnesium Oxide (Mag-Ox) 400 mg Q12HR PO Last administered on 12/03/17 08:49; Start 11/30/17 at 09:00 Magnesium Sulfate/ Dextrose 100 ml @ 100 mls/hr ONCE ONCE IV Last administered on 11/30/17 02:10; Start 11/30/17 at 02:15; Stop 11/30/17 at 03:14; Status DC Morphine Sulfate (Morphine Inj) 4 mg NOW IV Last administered on 11/30/17 00:53 ; Start 11/30/17 at 00:20; Stop 11/30/17 at 02:30; Status DC Multivitamins/ Minerals Therapeutic (Theragran M Tab) 1 tab DAILY PO Last administered on 12/03/17at 08:49; Start 11/30/17 at 09:00; Stop 12/05/17 at 08:59 Naloxone HCl (Narcan Inj) 0.4 mg UNSCH PRN IV PUSH SEE LABEL COMMENTS; Start at 22:45 Ondansetron HCl (Zofran Inj) 4 mg Q6H PRN IVP NAUSEA OR VOMITING; Start at 22:45; Stop 11/30/17 at 01:24; Status DC Pantoprazole Sodium (Protonix) 40 mg Q12HR PO Last administered on 12/03/17at 08: 49; Start 11/30/17 at 09:00 Prochlorperazine Edisylate (Compazine Inj) 5 mg Q4H PRN IV PUSH NAUSEA OR VOMITING; Start 11/30/17 at 01:30 Sodium Chloride (NS Flush) 2 ml UNSCH PRN IV FLUSH FLUSH AFTER USING IV ACCESS ; Start 12/02/17 at 16:15 Thiamine HCl (Vitamin B1) 100 mg DAILY PO Last administered on 12/03/17at 08:49; Start 11/30/17 at 09:00 A/P Problem List: (1) Empyema lung ICD Code: J86.9 - Pyothorax without fistula Assessment and Plan A/P Right lung empyema MRSA cultures from thoracentesis and urine specimen at [facility] -CT of the chest with Complex right pleural effusion with multiple locules of air and fluid. Primary differential diagnosis is a right-sided empyema. 2. Smaller left effusion without loculated air. 3. Lung consolidation adjacent to complex right effusion and minimal left basal airspace disease. -CT surgery f/u appreciated and plan for decortication on Tuesday. -Continue Linezolide and Levaquin -ID following. -Patient had a history of respiratory failure requiring BiPAP at [facility], monitor respiratory status -Contact isolation -continue neb treatment. -continue pain control. Type 2 Diabetes Mellitus -Continue Levemir 10 units subcu nightly -Accu-Cheks before meals and at bedtime with low-dose NovoLog sliding scale coverage -PRN Hypoglycemia protocol -Monitor trends and blood glucose readings and adjust treatments as indicated Anemia - chronic likely due to chronic disease - repeat CBC today and will transfuse with PRBC if needed. Acute renal failure - improving. -Monitor renal indices -Avoid nephrotoxins -Monitor I&O Hypertension- BP controlled. -Lisinopril from home was held at [facility] due to acute renal failure -Continue to hold lisinopril. -Continue carvedilol 12.5 mg twice daily Hypomagnesemia-replaced. History of DVT Bilateral LE edema and pain -bilateral LE doppler us negative for DVT. Visual floaters Cataracts and diabetic retinopathy -Evaluated and diagnosed by an automotive welder at [facility] -Patient to follow-up with ophthalmology as an outpatient DVT prophylaxis -Hold chemoprophylaxis secondary to possible lung decortication surgery Discharge Planning awaiting decortication on Tuesday- per CT surgery. Jolanta Christianson MD Dec 03, 2017 09:38
[2017-12-03 14:54] LABS: AUTOMATED NEUTROPHIL # 4.1 TH/MM3 (1.8-7.7); BASOPHIL % 0.6 % (0.0-2.0); LYMPH % 10.6 % (9.0-44.0); LYMPHOCYTE # 0.5 TH/MM3 (1.0-4.8); MEAN CORPUSCULAR HEMOGLOBIN 36.3 PG (27.0-34.0); MEAN CORPUSCULAR HGB CONC 34.6 % (32.0-36.0); MONO % 5.4 % (0.0-8.0); MONOCYTE # 0.3 TH/MM3 (0-0.9); NEUT % 82.4 % (16.0-70.0); PLATELET COUNT 84 TH/MM3 (150-450); RED CELL DISTRIBUTION WIDTH 14.2 % (11.6-17.2); WHITE BLOOD COUNT 4.9 TH/MM3 (4.0-11.0)
[2017-12-03 15:00] LABS: HEMOGLOBIN 6.5 GM/DL (13.0-17.0)
[2017-12-03 15:01] LABS: HEMATOCRIT 18.9 % (39.0-51.0)
[2017-12-03] MEDS ORDERED: FUROSEMIDE 20 MG/2 ML VIAL IV PUSH PRN (16:30)
[2017-12-03] MEDS: INSULIN DETEMIR 100 UNITS/ML VIAL SQ SCH (21:29)
[2017-12-04] VITALS (12 sets, daily range): BP systolic 119–154; BP diastolic 73–91; PULSE 82–103; RESP 16–19; TEMP 97.7–98.7; O2SAT 92–96
[2017-12-04] MEDS: LINEZOLID 600 MG PREMIX 300 ML IV SCH ×2 (02:38→18:29)
[2017-12-04] MEDS: LEVOFLOXACIN 250 MG PREMIX INJ 50 ML IV SCH (02:38)
[2017-12-04] MEDS: ACETAMINOPHEN/HYDROcodone 325 MG/10 MG TAB PO PRN ×5 (03:56→20:39)
[2017-12-04] MEDS: INSULIN ASPART SUPPLEMENTAL SCALE SQ SCH ×4 (07:16→20:38)
[2017-12-04] MEDS: SODIUM CHLORIDE 0.9% FLUSH 10 ML FLUSH IV FLUSH SCH ×4 (07:16→20:34)
[2017-12-04 07:31] LABS: HEMATOCRIT 20.2 % (39.0-51.0); HEMOGLOBIN 7.2 GM/DL (13.0-17.0)
[2017-12-04] MEDS: MAGNESIUM OXIDE 400 MG TAB PO SCH ×2 (07:43→20:35)
[2017-12-04] MEDS: MULTIVITAMINS/MINERALS THERAPEUTIC TAB PO SCH (07:43)
[2017-12-04] MEDS: FOLIC ACID 1 MG TAB PO SCH (07:43)
[2017-12-04] MEDS: CARVEDILOL 12.5 MG TAB PO SCH ×2 (07:44→20:35)
[2017-12-04] MEDS: PANTOPRAZOLE SOD 40 MG DELAYED RELEASE TAB PO SCH ×2 (07:44→20:35)
[2017-12-04] MEDS: THIAMINE HCL 100 MG TAB PO SCH (07:44)
[2017-12-04] MEDS: SODIUM CHLORIDE 0.9% FLUSH 10 ML FLUSH IVF SCH (07:45)
[2017-12-04 08:04] LABS: BICARBONATE 28.7 MEQ/L (21.0-32.0); CALCIUM 7.2 MG/DL (8.5-10.1); CREATININE 1.43 MG/DL (0.60-1.30)
[2017-12-04 08:21] LABS: CALCIUM-PROTEIN CORRECTED 7.7 MG/DL (8.5-10.1); TOTAL PROTEIN 6.1 GM/DL (6.4-8.2)
--- NOTE | 2017-12-04 10:52 | HHI.PR ---
Subjective Remarks in no acute distress. resting comfortably with no sob. no fever. H/H trend noted. d/w the RN. Objective Vitals Vital Signs Date Time Temp Pulse Resp B/P (MAP) Pulse Ox O2 Delivery O2 Flow Rate FiO2 12/04/17 08:00 98.4 91 19 137/86 (103) 92 12/04/17 04:05 96 12/04/17 04:00 98.6 94 17 137/80 (99) 92 12/04/17 00:00 98.7 100 17 133/76 (95) 92 12/03/17 23:47 105 12/03/17 23:35 98.5 105 16 131/82 94 12/03/17 23:24 98.8 101 16 146/89 (108) 94 12/03/17 20:04 90 12/03/17 20:00 97.7 99 17 131/83 (99) 94 12/03/17 19:00 97.6 93 16 121/73 93 12/03/17 18:45 98.3 18 118/66 92 12/03/17 18:40 98.3 91 16 118/66 92 12/03/17 16:00 98.1 89 19 127/74 (91) 97 12/03/17 12:00 98.3 84 19 113/59 (77) 96 I/O 12/03/17 12/03/17 12/03/17 12/04/17 12/04/17 12/04/17 07:00 15:00 23:00 07:00 15:00 23:00 Intake Total 290 ml 300 ml 1365 ml 670 ml Output Total 750 ml 1000 ml 1800 ml Balance -460 ml 300 ml 365 ml -1130 ml Intake Oral 240 ml 960 ml 240 ml IV Total 50 ml 300 ml Packed Cells 400 ml 400 ml Blood Product IV Normal Saline Flush 5 ml 30 ml Output Urine Total 750 ml 1000 ml 1800 ml # Bowel Movements 0 1 Result Diagram: 12/04/17 0600 12/04/17 0600 Imaging Last Impressions Chest CT 11/30/17 1232 Signed Impressions: Service Date/Time: Thursday, November 30, 2017 12:45 - CONCLUSION: 1. Complex right pleural effusion with multiple locules of air and fluid. Primary differential diagnosis is a right-sided empyema. 2. Smaller left effusion without loculated air. 3. Lung consolidation adjacent to complex right effusion as above. Minimal left basal airspace disease. 4. Right PICC line tip in superior vena cava. Edis Wetzel MD Lower Extremity Ultrasound 11/30/17 0000 Signed Impressions: Service Date/Time: Thursday, November 30, 2017 14:01 - CONCLUSION: 1. Negative for deep venous thrombosis bilateral lower extremity. Raghavendra Escobar MD Objective Remarks GENERAL: This is a well-nourished, well-developed patient, in no apparent distress. CARDIOVASCULAR: Regular rate and regular rhythm without murmurs, gallops, or rubs. RESPIRATORY: diminished air entry in right base. GASTROINTESTINAL: Abdomen soft, non-tender, nondistended. Normal, active bowel sounds MUSCULOSKELETAL: Extremities without clubbing, cyanosis, or edema. NEURO: Alert & Oriented x4 to person, place, time, situation. Moves all ext x4 Medications and IVs Inpatient Medications Acetaminophen (Tylenol) 650 mg Q4H PRN PO TEMP > 100.4; Start 11/29/17 at 22:45 Acetaminophen/ Hydrocodone Bitart ([place] 10-325 Mg) 1 tab Q4H PRN PO pain > 4 Last administered on 12/04/17at 07:44; Start 11/30/17 at 00:45 Albuterol/ Ipratropium (Duoneb Neb) 1 ampule Q4HR NEB PRN NEB SOB/WHEEZING; Start 11/30/17 at 01:30 Carvedilol (Coreg) 12.5 mg Q12HR PO Last administered on 12/04/17at 07:44; Start 11/30/17 at 09:00 Cefazolin Sodium 500 mg/Sodium Chloride 505 ml @ 0 mls/hr SLINGER SEQUINS IRRIGATION ; Start 12/02/17 at 16:15; Stop 12/09/17 at 16:14 Cefazolin Sodium 2000 mg/Sodium Chloride 120 ml @ 240 mls/hr SLINGER SEQUINS IV ; Start 12/02/17 at 17:30; Stop 12/07/17 at 17:29 Cefazolin Sodium/ Dextrose 50 ml @ 150 mls/hr SLINGER SEQUINS IV ; Start 12/02/17 at 16 :15; Stop 12/02/17 at 17:21; Status DC Chlorhexidine Gluconate (Hibiclens 4% Top Soln) 1 applic SLINGER SEQUINS TOPICAL ; Start 12/02/17 at 16:15; Stop 12/09/17 at 16:14 Dextrose (D50w (Vial) Inj) 50 ml UNSCH PRN IV PUSH HYPOGLYCEMIA-SEE COMMENTS; Start 11/29/17 at 22:45 Folic Acid (Folate) 1 mg DAILY PO Last administered on 12/04/17 07:43; Start at 09:00; Stop 12/05/17 at 08:59 Furosemide (Lasix Inj) 20 mg UNSCH X1 PRN IV PUSH INBETWEEN BLOOD INFUSING Last administered on 12/03/17at 21:34; Start 12/03/17 at 16:30; Stop 12/04/17 at 16: 29 Glucagon (Glucagon Inj) 1 mg UNSCH PRN OTHER HYPOGLYCEMIA-SEE COMMENTS; Start 11/29/17 at 22:45 Heparin Sodium (Porcine) (Heparin Central Flush) UNSCH PRN IV FLUSH SEE PROTOCOL; Start 11/30/17 at 00:45 Insulin Aspart (NovoLOG SUPPLEMENTAL SCALE) 1 ACHS SLIDING SCALE SQ Last administered on 12/01/17at 21:39; Start 11/30/17 at 08:00 Insulin Detemir (Levemir Inj) 10 units HS SQ Last administered on 12/03/17 21: 29; Start 11/30/17 at 21:00 Levofloxacin/ Dextrose 50 ml @ 50 mls/hr Q24H IV Last administered on 12/04/17 02:38; Start 11/30/17 at 01:30 Linezolid 300 ml @ 300 mls/hr Q12H IV Last administered on 12/04/17at 02:38; Start 11/30/17 at 02:30 Magnesium Oxide (Mag-Ox) 400 mg Q12HR PO Last administered on 12/04/17 07:43; Start 11/30/17 at 09:00 Magnesium Sulfate/ Dextrose 100 ml @ 100 mls/hr ONCE ONCE IV Last administered on 11/30/17 02:10; Start 11/30/17 at 02:15; Stop 11/30/17 at 03:14; Status DC Morphine Sulfate (Morphine Inj) 4 mg NOW IV Last administered on 11/30/17at 00:53 ; Start 11/30/17 at 00:20; Stop 11/30/17 at 02:30; Status DC Multivitamins/ Minerals Therapeutic (Theragran M Tab) 1 tab DAILY PO Last administered on 12/04/17at 07:43; Start 11/30/17 at 09:00; Stop 12/05/17 at 08:59 Naloxone HCl (Narcan Inj) 0.4 mg UNSCH PRN IV PUSH SEE LABEL COMMENTS; Start at 22:45 Ondansetron HCl (Zofran Inj) 4 mg Q6H PRN IVP NAUSEA OR VOMITING; Start at 22:45; Stop 11/30/17 at 01:24; Status DC Pantoprazole Sodium (Protonix) 40 mg Q12HR PO Last administered on 12/04/17at 07: 44; Start 11/30/17 at 09:00 Prochlorperazine Edisylate (Compazine Inj) 5 mg Q4H PRN IV PUSH NAUSEA OR VOMITING; Start 11/30/17 at 01:30 Sodium Chloride (NS Flush) 2 ml UNSCH PRN IV FLUSH FLUSH AFTER USING IV ACCESS ; Start 12/02/17 at 16:15 Thiamine HCl (Vitamin B1) 100 mg DAILY PO Last administered on 12/04/17at 07:44; Start 11/30/17 at 09:00 A/P Problem List: (1) Empyema lung ICD Code: J86.9 - Pyothorax without fistula Assessment and Plan A/P Right lung empyema MRSA cultures from thoracentesis and urine specimen at [facility] -CT of the chest with Complex right pleural effusion with multiple locules of air and fluid. Primary differential diagnosis is a right-sided empyema. 2. Smaller left effusion without loculated air. 3. Lung consolidation adjacent to complex right effusion and minimal left basal airspace disease. -CT surgery f/u appreciated and plan for decortication on Tuesday. -Continue Linezolide and Levaquin -ID following. -Patient had a history of respiratory failure requiring BiPAP at [facility], monitor respiratory status -Contact isolation -continue neb treatment. -continue pain control. Type 2 Diabetes Mellitus -Continue Levemir 10 units subcu nightly -Accu-Cheks before meals and at bedtime with low-dose NovoLog sliding scale coverage -PRN Hypoglycemia protocol -Monitor trends and blood glucose readings and adjust treatments as indicated Anemia - chronic likely due to chronic disease -H/H is still 7.220- and patient is going to OR tomorrow - will transfuse with PRBC again today- H/H tomorrow. Acute renal failure - improving. -Monitor renal indices -Avoid nephrotoxins -Monitor I&O Hypertension- BP controlled. -Lisinopril from home was held at [facility] due to acute renal failure -Continue to hold lisinopril. -Continue carvedilol 12.5 mg twice daily Hypomagnesemia-replaced. History of DVT Bilateral LE edema and pain -bilateral LE doppler us negative for DVT. Visual floaters Cataracts and diabetic retinopathy -Evaluated and diagnosed by an carton forming machine helper at [facility] -Patient to follow-up with ophthalmology as an outpatient DVT prophylaxis -Hold chemoprophylaxis secondary to possible lung decortication surgery Discharge Planning awaiting decortication on Tuesday- per CT surgery. Jolanta Christianson MD Dec 04, 2017 10:52
[2017-12-04] MEDS ORDERED: FUROSEMIDE 20 MG/2 ML VIAL IV PUSH ONE (11:00)
[2017-12-04] MEDS: INSULIN DETEMIR 100 UNITS/ML VIAL SQ SCH (20:36)
[2017-12-05] VITALS: BP 151/87; PULSE 104; RESP 18; TEMP 98.3; O2SAT 94
[2017-12-05] MEDS: ACETAMINOPHEN/HYDROcodone 325 MG/10 MG TAB PO PRN ×3 (01:29→09:52)
[2017-12-05] MEDS: LEVOFLOXACIN 250 MG PREMIX INJ 50 ML IV SCH (01:29)
[2017-12-05] MEDS: LINEZOLID 600 MG PREMIX 300 ML IV SCH ×2 (01:32→13:30)
[2017-12-05] MEDS ORDERED: LACTATED RINGER'S 1000 ML IV PRN (02:00)
[2017-12-05] MEDS ORDERED: CHLORHEXIDINE GLUCONATE 2 % 1 PACK (2 CLOTHS) TOPICAL PRN (02:00)
[2017-12-05] MEDS ORDERED: POVIDONE IODINE 5% (ANTISEPSIS KIT) 4 APPLICATIONS EACH NARE PRN (02:00)
[2017-12-05 03:23] VITALS: PULSE 91
[2017-12-05 04:00] VITALS: BP 137/79; PULSE 94; RESP 20; TEMP 97.9; O2SAT 92
[2017-12-05 06:29] LABS: HEMATOCRIT 23.4 % (39.0-51.0); HEMOGLOBIN 8.4 GM/DL (13.0-17.0)
[2017-12-05 08:00] VITALS: BP 143/81; PULSE 86; RESP 19; TEMP 98.1; O2SAT 94
[2017-12-05] MEDS: INSULIN ASPART SUPPLEMENTAL SCALE SQ SCH ×4 (08:00→21:00)
[2017-12-05] MEDS: SODIUM CHLORIDE 0.9% FLUSH 10 ML FLUSH IV FLUSH SCH ×2 (09:00→21:24)
[2017-12-05] MEDS: MAGNESIUM OXIDE 400 MG TAB PO SCH ×2 (09:06→21:25)
[2017-12-05] MEDS: THIAMINE HCL 100 MG TAB PO SCH (09:06)
[2017-12-05] MEDS: CARVEDILOL 12.5 MG TAB PO SCH ×2 (09:06→21:23)
[2017-12-05] MEDS: PANTOPRAZOLE SOD 40 MG DELAYED RELEASE TAB PO SCH ×2 (09:06→21:23)
[2017-12-05] MEDS: SODIUM CHLORIDE 0.9% FLUSH 10 ML FLUSH IVF SCH (09:07)
--- NOTE | 2017-12-05 09:17 | HHI.PR ---
Subjective Remarks in no acute distress. denies sob or pain. afebrile. Objective Vitals Vital Signs Date Time Temp Pulse Resp B/P (MAP) Pulse Ox O2 Delivery O2 Flow Rate FiO2 12/05/17 08:00 98.1 86 19 143/81 (101) 94 12/05/17 04:00 97.9 94 20 137/79 (98) 92 12/05/17 03:23 91 12/05/17 00:00 98.3 104 18 151/87 (108) 94 12/04/17 23:58 103 12/04/17 22:01 98.5 99 18 154/90 95 12/04/17 20:03 95 12/04/17 20:00 98.7 92 18 140/88 (105) 96 12/04/17 16:00 98.6 86 19 143/84 (103) 96 12/04/17 14:23 97.9 86 16 136/82 95 12/04/17 14:07 97.8 87 16 133/91 95 12/04/17 12:00 97.7 82 19 119/73 (88) 96 I/O 12/04/17 12/04/17 12/04/17 12/05/17 12/05/17 12/05/17 07:00 15:00 23:00 07:00 15:00 23:00 Intake Total 1020 ml 5 ml 1300 ml 765 ml 0 ml Output Total 1800 ml 1000 ml 1600 ml Balance -780 ml 5 ml 300 ml -835 ml 0 ml Intake Oral 240 ml 960 ml 0 ml 0 ml IV Total 350 ml 350 ml Packed Cells 400 ml 325 ml 400 ml Blood Product IV Normal Saline Flush 30 ml 5 ml 15 ml 15 ml Output Urine Total 1800 ml 1000 ml 1600 ml # Bowel Movements 1 Result Diagram: 12/05/17 0600 12/04/17 0600 Imaging Last Impressions Chest CT 11/30/17 1232 Signed Impressions: Service Date/Time: Thursday, November 30, 2017 12:45 - CONCLUSION: 1. Complex right pleural effusion with multiple locules of air and fluid. Primary differential diagnosis is a right-sided empyema. 2. Smaller left effusion without loculated air. 3. Lung consolidation adjacent to complex right effusion as above. Minimal left basal airspace disease. 4. Right PICC line tip in superior vena cava. Edis Wetzel MD Lower Extremity Ultrasound 11/30/17 0000 Signed Impressions: Service Date/Time: Thursday, November 30, 2017 14:01 - CONCLUSION: 1. Negative for deep venous thrombosis bilateral lower extremity. Raghavendra Escobar MD Objective Remarks GENERAL: This is a well-nourished, well-developed patient, in no apparent distress. CARDIOVASCULAR: Regular rate and regular rhythm without murmurs, gallops, or rubs. RESPIRATORY: diminished air entry in right base. GASTROINTESTINAL: Abdomen soft, non-tender, nondistended. Normal, active bowel sounds MUSCULOSKELETAL: Extremities without clubbing, cyanosis, or edema. NEURO: Alert & Oriented x4 to person, place, time, situation. Moves all ext x4 Medications and IVs Inpatient Medications Acetaminophen (Tylenol) 650 mg Q4H PRN PO TEMP > 100.4; Start 11/29/17 at 22:45 Acetaminophen/ Hydrocodone Bitart ([place] 10-325 Mg) 1 tab Q4H PRN PO pain > 4 Last administered on 12/05/17at 05:57; Start 11/30/17 at 00:45 Albuterol/ Ipratropium (Duoneb Neb) 1 ampule Q4HR NEB PRN NEB SOB/WHEEZING; Start 11/30/17 at 01:30 Carvedilol (Coreg) 12.5 mg Q12HR PO Last administered on 12/04/17at 20:35; Start 11/30/17 at 09:00 Cefazolin Sodium 500 mg/Sodium Chloride 505 ml @ 0 mls/hr CLOTH SHEARING SUPERVISOR IRRIGATION ; Start 12/02/17 at 16:15; Stop 12/09/17 at 16:14 Cefazolin Sodium 2000 mg/Sodium Chloride 120 ml @ 240 mls/hr CLOTH SHEARING SUPERVISOR IV ; Start 12/02/17 at 17:30; Stop 12/07/17 at 17:29 Cefazolin Sodium/ Dextrose 50 ml @ 150 mls/hr CLOTH SHEARING SUPERVISOR IV ; Start 12/02/17 at 16 :15; Stop 12/02/17 at 17:21; Status DC Chlorhexidine Gluconate (Chlorhexidine 2% Cloth) 3 pack CLOTH SHEARING SUPERVISOR PRN TOPICAL SEE LABEL COMMENTS; Start 12/05/17 at 02:00; Stop 12/08/17 at 01:59 Chlorhexidine Gluconate (Hibiclens 4% Top Soln) 1 applic CLOTH SHEARING SUPERVISOR TOPICAL ; Start 12/02/17 at 16:15; Stop 12/09/17 at 16:14 Dextrose (D50w (Vial) Inj) 50 ml UNSCH PRN IV PUSH HYPOGLYCEMIA-SEE COMMENTS; Start 11/29/17 at 22:45 Folic Acid (Folate) 1 mg DAILY PO Last administered on 12/04/17at 07:43; Start at 09:00; Stop 12/05/17 at 08:59; Status DC Furosemide (Lasix Inj) 20 mg ONCE ONCE IV PUSH Last administered on 12/04/17at 18:17; Start 12/04/17 at 11:00; Stop 12/04/17 at 11:22; Status DC Glucagon (Glucagon Inj) 1 mg UNSCH PRN OTHER HYPOGLYCEMIA-SEE COMMENTS; Start 11/29/17 at 22:45 Heparin Sodium (Porcine) (Heparin Central Flush) UNSCH PRN IV FLUSH SEE PROTOCOL; Start 11/30/17 at 00:45 Insulin Aspart (NovoLOG SUPPLEMENTAL SCALE) 1 ACHS SLIDING SCALE SQ Last administered on 12/04/17at 20:38; Start 11/30/17 at 08:00 Insulin Detemir (Levemir Inj) 10 units HS SQ Last administered on 12/04/17at 20: 36; Start 11/30/17 at 21:00 Lactated Ringer's 1,000 ml @ 30 mls/hr Q24H PRN IV SEE LABEL COMMENTS; Start at 02:00; Stop 12/08/17 at 01:59 Levofloxacin/ Dextrose 50 ml @ 50 mls/hr Q24H IV Last administered on 12/05/17at 01:29; Start 11/30/17 at 01:30 Linezolid 300 ml @ 300 mls/hr Q12H IV Last administered on 12/05/17at 01:32; Start 11/30/17 at 02:30 Magnesium Oxide (Mag-Ox) 400 mg Q12HR PO Last administered on 12/04/17at 20:35; Start 11/30/17 at 09:00 Magnesium Sulfate/ Dextrose 100 ml @ 100 mls/hr ONCE ONCE IV Last administered on 11/30/17at 02:10; Start 11/30/17 at 02:15; Stop 11/30/17 at 03:14; Status DC Morphine Sulfate (Morphine Inj) 4 mg NOW IV Last administered on 11/30/17at 00:53 ; Start 11/30/17 at 00:20; Stop 11/30/17 at 02:30; Status DC Multivitamins/ Minerals Therapeutic (Theragran M Tab) 1 tab DAILY PO Last administered on 12/04/17at 07:43; Start 11/30/17 at 09:00; Stop 12/05/17 at 08:59; Status DC Naloxone HCl (Narcan Inj) 0.4 mg UNSCH PRN IV PUSH SEE LABEL COMMENTS; Start at 22:45 Ondansetron HCl (Zofran Inj) 4 mg Q6H PRN IVP NAUSEA OR VOMITING; Start at 22:45; Stop 11/30/17 at 01:24; Status DC Pantoprazole Sodium (Protonix) 40 mg Q12HR PO Last administered on 12/04/17at 20: 35; Start 11/30/17 at 09:00 Povidone Iodine (Betadine 5% Antisepsis Kit) 1 applic CLOTH SHEARING SUPERVISOR PRN EACH NARE SEE LABEL COMMENTS; Start 12/05/17 at 02:00; Stop 12/08/17 at 01:59 Prochlorperazine Edisylate (Compazine Inj) 5 mg Q4H PRN IV PUSH NAUSEA OR VOMITING; Start 11/30/17 at 01:30 Sodium Chloride (NS Flush) 2 ml UNSCH PRN IV FLUSH FLUSH AFTER USING IV ACCESS ; Start 12/02/17 at 16:15 Thiamine HCl (Vitamin B1) 100 mg DAILY PO Last administered on 12/04/17at 07:44; Start 11/30/17 at 09:00 A/P Problem List: (1) Empyema lung ICD Code: J86.9 - Pyothorax without fistula Assessment and Plan A/P Right lung empyema MRSA cultures from thoracentesis and urine specimen at [facility] -CT of the chest with Complex right pleural effusion with multiple locules of air and fluid. Primary differential diagnosis is a right-sided empyema. 2. Smaller left effusion without loculated air. 3. Lung consolidation adjacent to complex right effusion and minimal left basal airspace disease. -CT surgery f/u appreciated and plan for decortication today. -Continue Linezolide and Levaquin -ID following. -Patient had a history of respiratory failure requiring BiPAP at [facility], monitor respiratory status -Contact isolation -continue neb treatment. -continue pain control. Type 2 Diabetes Mellitus -Continue Levemir 10 units subq nightly -Accu-Cheks before meals and at bedtime with low-dose NovoLog sliding scale coverage -Monitor trends and blood glucose readings and adjust treatments as indicated Anemia - chronic likely due to chronic disease -s/p PRBC transfusion with improved H/H. - continue to monitor. Acute renal failure - improving. -Monitor renal indices -Avoid nephrotoxins -Monitor I&O Hypertension- BP controlled. -Lisinopril from home was held at [facility] due to acute renal failure -Continue to hold lisinopril. -Continue carvedilol 12.5 mg twice daily Hypomagnesemia-replaced. History of DVT Bilateral LE edema and pain -bilateral LE doppler us negative for DVT. Visual floaters Cataracts and diabetic retinopathy -Evaluated and diagnosed by an workers compensation legal secretary at [facility] -Patient to follow-up with ophthalmology as an outpatient DVT prophylaxis -Hold chemoprophylaxis for planned surgery. Discharge Planning awaiting decortication today- per CT surgery. Jolanta Christianson MD Dec 05, 2017 09:17
[2017-12-05] MEDS ORDERED: ACETAMINOPHEN 1000 MG/100 ML 100 ML IV ONE (11:44)
[2017-12-05] MEDS ORDERED: fentaNYL CITRATE 250 MCG/5 ML AMP ONE (11:45)
[2017-12-05 12:00] VITALS: BP 150/87; PULSE 90; RESP 19; TEMP 97.8; O2SAT 94
[2017-12-05] MEDS ORDERED: ROCURONIUM INJ 50 MG/5 ML SYRINGE IV PUSH ONE (12:00)
[2017-12-05] MEDS ORDERED: LIDOCAINE HCL 1% PF 5 ML SYRINGE OTHER ONE (12:00)
[2017-12-05] MEDS ORDERED: PHENYLEPH/NS 1000 MCG/10 ML SYR IV ONE (12:00)
[2017-12-05] MEDS ORDERED: GLYCOPYRROLATE 1 MG/5 ML SYRINGE IV PUSH ONE (12:00)
[2017-12-05] MEDS ORDERED: LACTATED RINGER'S 1000 ML INJ 1,000 ML IV ONE (12:00)
[2017-12-05] MEDS ORDERED: PROPOFOL 200 MG/20 ML AMP IV ONE (12:00)
[2017-12-05] MEDS ORDERED: NEOSTIGMINE 5 MG/5 ML SYRINGE IV PUSH ONE (12:00)
[2017-12-05] MEDS ORDERED: BUPIVACAINE LIPOSO PF 1.3% INJ 20 ML, DEXAMETHASONE INJ 4 MG, MORPHINE INJ 8 MG in SODI... IRRIGATION ONE (12:30)
[2017-12-05 14:15] LABS: HEMATOCRIT 22.6 % (39.0-51.0); INTERNATIONAL NORMALIZED RATIO 1.3 RATIO; PROTHROMBIN TIME - PATIENT 13.4 SEC (9.8-11.6)
--- NOTE | 2017-12-05 15:20 | EKG ---
Date Performed: 12/05/2017 Time Performed: 07:07:49 PTAGE: 52 years EKG: Sinus rhythm NORMAL ECG NO PREVIOUS TRACING DOCTOR: Brennen Kessler Interpretating Date/Time 12/05/2017 15:13:31
[2017-12-05] MEDS ORDERED: ACETAMINOPHEN 325 MG TAB PO PRN (15:45)
[2017-12-05] MEDS ORDERED: MAGNESIUM HYDROXIDE SUSP 30 ML CUP PO PRN (15:45)
[2017-12-05] MEDS ORDERED: ACETAMINOPHEN/HYDROcodone 325 MG/5 MG TAB PO PRN (15:45)
[2017-12-05] MEDS ORDERED: ONDANSETRON HCL 4 MG/2 ML VIAL IV PUSH PRN (15:45)
[2017-12-05] MEDS ORDERED: Post-op Orders (for Pharmacy) OTHER ONE (15:45)
[2017-12-05] MEDS ORDERED: RESP: ALBUTEROL 2.5 MG/3 ML NEB (PRN) NEB (15:45)
[2017-12-05] MEDS ORDERED: DO NOT ADM ANY ANTICOAGULANT DRUGS PRN (16:30)
[2017-12-05] MEDS ORDERED: *morphine SULFATE 8 MG/ML PERIprocedure ONLY ONE ×2 (16:31→16:49)
--- NOTE | 2017-12-05 16:50 | RADRPT ---
EXAM DATE/TIME: 12/05/2017 16:13 [facility] COMPARISON: CT THORAX W/O CONTRAST, November 30, 2017, 12:45. INDICATIONS : Post thoracotomy. MEDICAL HISTORY : Cardiovascular disease. Hypertension. Diabetes mellitus type 2. SURGICAL HISTORY : None. ENCOUNTER: Initial ACUITY: 1 day PAIN SCORE: Non-responsive. LOCATION: Bilateral chest FINDINGS: A chest tube is noted within the right hydropneumothorax. Minimal residual air and fluid is noted on the right. Subcutaneous emphysema is noted within the right chest wall. Right-sided PICC line is note d with its tip in the superior vena cava. Scattered patchiness is noted bilaterally consistent with p ulmonary vascular congestion or infiltrates. CONCLUSION: Right-sided chest tube noted in good position in the right hydropneumothorax with minimal residual ai r and fluid noted. Scattered patchiness is noted bilaterally suggestive of pulmonary vascular conges tion or infiltrates. Small amount of subcutaneous emphysema within the right chest wall. Valentino Mooney MD on December 05, 2017 at 16:45 Board Certified Radiologist. This report was verified electronically.
[2017-12-05] MEDS: KETOROLAC TROMETHAMINE 30 MG/ML (IVP) VIAL IV PUSH SCH (16:55)
[2017-12-05] MEDS: ACETAMINOPHEN 1000 MG/100 ML 100 ML IV SCH (18:00)
--- NOTE | 2017-12-05 18:44 | PD.OP ---
cc: Adalgisa Biggs MD Operative Report Date of Surgery: Dec 05, 2017 Preoperative Diagnosis: Postoperative Diagnosis: Procedure: 1. Right Posterolateral Thoracotomy 2. Decortication and Drainage of Intrathoracic Abscesses 3. Drainage of Subcutaneous Chest Wall Abscess 4. Placement of Wound Vac 5. Intercostal Nerve Block Surgeon: Adalgisa Biggs Sandfill Operator(s): Hermes Roberts Operation and Findings: PREOPERATIVE DIAGNOSIS 1. Right Organized Empyema 2. Loculated Abscess Cavities 3. Pneumonia 4. Anemia POSTOPERATIVE DIAGNOSIS same PROCEDURES 1. Right Posterolateral Thoracotomy 2. Decortication and Drainage of Intrathoracic Abscesses 3. Drainage of Subcutaneous Chest Wall Abscess 4. Placement of Wound Vac 5. Intercostal Nerve Block SURGEON Adalgisa Biggs MD PIANO STRINGER JANET Ladd ANESTHESIA General endotracheal. ASSIGNMENT MANAGER STEVAN Dean MD OPERATIVE TIME Please see record. COMPLICATIONS None. INDICATION FOR PROCEDURE The patient is a 52 yo gentleman with sepsis and right empyema presenting for surgical correction of above pathology. DESCRIPTION OF PROCEDURE The patient was brought to the operating suite and placed in supine position. Following satisfactory induction of general single-lumen endotracheal anesthesia , the patient was placed in the left lateral decubitus position. The right chest and surrounding area was then prepped and draped in the usual sterile fashion. A standard posterolateral thoracotomy was performed. During this entry process a 11cm x 15 cm abscess cavity was identified and drained in the lateral chest wall. Specimen was sent for cultures. The pleural space was entered. Exploration of the chest revealed a stage IV Empyema with a thick peel encasing the lung as well as the parietal pleura. The peel was very densely adherent to the visceral pleura and the underlying lung was very consolidated. Additional loculated abscess cavities were also identified within the thoracic cavity. All loculations and fluid pockets were evacuated. Circumferential decortication was performed and specimen sent for microbiological analysis. The pleural space was copiously irrigated with antibiotic solution. At this point the closure was undertaken. A 32-Moldovan chest tube was placed. Intercostal nerve block was performed at the level of the incision and 3 rib spaces above and below using Exparel with Decadron solution. The pericostal space was approximated with interrupted #1 Vicryl sutures in a pericostal fashion. The serratus and Latissimus dorsi were closed with running 0-Vicryl and the remaining wounds closed with 3-0, and 4-0 Monocryl. A separate incision was made into the subcutaneous abscess cavity in the anterior axillary line and the cavity drained and irrigated. The wound was then packed with a wound-vac gauze and attached to the suction device. The patient tolerated the procedure well and postoperatively went to the PACU in stable condition. Adalgisa Biggs MD Dec 05, 2017 18:44
[2017-12-05 20:00] VITALS: BP 143/57; PULSE 72; RESP 18; TEMP 97; O2SAT 98
[2017-12-05] MEDS: ACETAMINOPHEN/HYDROcodone 325 MG/5 MG TAB PO PRN (21:22)
[2017-12-05] MEDS: INSULIN DETEMIR 100 UNITS/ML VIAL SQ SCH (21:26)
[2017-12-05] MEDS: DOCUSATE CALCIUM 240 MG CAP PO SCH (21:36)
[2017-12-05] MEDS: RESP: ALBUTEROL 2.5 MG/3 ML NEB (SCH) NEB (21:42)
[2017-12-06] VITALS (8 sets, daily range): BP systolic 105–125; BP diastolic 59–75; PULSE 65–75; RESP 17–18; TEMP 97.1–97.8; O2SAT 95–99
[2017-12-06] MEDS: MORPHINE SULFATE 2 MG/ML SYRINGE IV PUSH PRN ×2 (00:09→03:18)
[2017-12-06] MEDS: ACETAMINOPHEN 1000 MG/100 ML 100 ML IV SCH ×3 (00:11→12:39)
[2017-12-06] MEDS: KETOROLAC TROMETHAMINE 30 MG/ML (IVP) VIAL IV PUSH SCH ×3 (00:11→12:35)
[2017-12-06] MEDS: ACETAMINOPHEN/HYDROcodone 325 MG/5 MG TAB PO PRN ×6 (01:58→20:12)
[2017-12-06] MEDS: LEVOFLOXACIN 250 MG PREMIX INJ 50 ML IV SCH (01:58)
[2017-12-06] MEDS: LINEZOLID 600 MG PREMIX 300 ML IV SCH ×2 (01:59→14:55)
[2017-12-06] MEDS: RESP: ALBUTEROL 2.5 MG/3 ML NEB (SCH) NEB ×4 (04:06→20:56)
--- NOTE | 2017-12-06 05:54 | RADRPT ---
EXAM DATE/TIME: 12/06/2017 04:57 [place] COMPARISON: CT THORAX W/O CONTRAST, November 30, 2017, 12:45. CHEST SINGLE AP, December 05, 2017, 16:13. INDICATIONS : Short of breath, coughing, evaluate post thoracotomy and chest tube right side MEDICAL HISTORY : Diabetes mellitus type II. Hypertension Cardiovascular disease. right lung empyema, MRSA SURGICAL HISTORY : jaw, tear ducts, thoracentesis, thoracotomy ENCOUNTER: Subsequent ACUITY: 4 - 6 days PAIN SCORE: 10/10 LOCATION: Right chest FINDINGS: A single view of the chest demonstrates pleural-parenchymal density throughout the right hemithorax. Right-sided chest tube. Small basilar pneumothorax. Right-sided rib fractures. Minimal left basilar d ensity. Right-sided PICC line with tip in the SVC. CONCLUSION: Small basilar pneumothorax. Alonso Briseno MD on December 06, 2017 at 5:51 Board Certified Radiologist. This report was verified electronically.
[2017-12-06 06:39] LABS: AUTOMATED NEUTROPHIL # 6.9 TH/MM3 (1.8-7.7); BASOPHIL % 0.2 % (0.0-2.0); EOSINOPHIL % 0.1 % (0.0-4.0); HEMATOCRIT 25.9 % (39.0-51.0); HEMOGLOBIN 9.1 GM/DL (13.0-17.0); LYMPH % 6.9 % (9.0-44.0); LYMPHOCYTE # 0.5 TH/MM3 (1.0-4.8); MEAN CELL VOLUME 94.5 FL (80.0-100.0); MEAN CORPUSCULAR HEMOGLOBIN 33.1 PG (27.0-34.0); MEAN PLATELET VOLUME 7.2 FL (7.0-11.0); MONO % 2.8 % (0.0-8.0); MONOCYTE # 0.2 TH/MM3 (0-0.9); PLATELET COUNT 102 TH/MM3 (150-450); RED BLOOD COUNT 2.74 MIL/MM3 (4.50-5.90); RED CELL DISTRIBUTION WIDTH 19.1 % (11.6-17.2); WHITE BLOOD COUNT 7.7 TH/MM3 (4.0-11.0)
[2017-12-06 07:08] LABS: BICARBONATE 27.2 MEQ/L (21.0-32.0); CALCIUM 7.3 MG/DL (8.5-10.1); CREATININE 1.45 MG/DL (0.60-1.30)
[2017-12-06 07:39] LABS: CALCIUM-PROTEIN CORRECTED 8.1 MG/DL (8.5-10.1); TOTAL PROTEIN 5.7 GM/DL (6.4-8.2)
[2017-12-06 08:05] LABS: OVALOCYTES 1+ (NORMAL)
[2017-12-06] MEDS: MAGNESIUM OXIDE 400 MG TAB PO SCH ×2 (08:49→20:11)
[2017-12-06] MEDS: THIAMINE HCL 100 MG TAB PO SCH (08:49)
[2017-12-06] MEDS: CARVEDILOL 12.5 MG TAB PO SCH ×2 (08:49→20:11)
[2017-12-06] MEDS: INSULIN ASPART SUPPLEMENTAL SCALE SQ SCH ×4 (08:50→20:13)
[2017-12-06] MEDS: SODIUM CHLORIDE 0.9% FLUSH 10 ML FLUSH IVF SCH (08:50)
[2017-12-06] MEDS: SODIUM CHLORIDE 0.9% FLUSH 10 ML FLUSH IV FLUSH SCH ×2 (08:51→20:18)
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
[2017-12-06] MEDS: SODIUM CHLOR 0.9% 1000 ML INJ 1,000 ML IV SCH ×2 (14:45→20:15)
--- NOTE | 2017-12-06 14:45 | HHI.PR ---
Subjective Remarks The patient was resting comfortably in bed. He said he felt a lot better. He said the pain control is working. He says his pain gets worse when he moves around. Discussed with nursing at the bedside. Objective Vitals Vital Signs Date Time Temp Pulse Resp B/P (MAP) Pulse Ox O2 Delivery O2 Flow Rate FiO2 12/06/17 12:00 97.8 73 18 121/67 (85) 95 12/06/17 08:00 97.7 65 18 120/66 (84) 98 12/06/17 04:09 99 Nasal Cannula 2.00 12/06/17 04:00 97.1 66 18 116/67 (83) 99 12/06/17 00:00 97.2 75 18 125/75 (92) 98 12/05/17 20:00 97.0 72 18 143/57 (85) 98 12/05/17 18:45 97.8 78 16 126/75 (92) 96 Nasal Cannula 2 12/05/17 18:30 16 12/05/17 18:00 79 16 123/72 (89) 95 Nasal Cannula 2 12/05/17 17:55 15 12/05/17 17:30 81 15 120/70 (87) 95 Nasal Cannula 2 12/05/17 17:15 83 15 119/65 (83) 98 Nasal Cannula 3 12/05/17 17:00 80 15 119/72 (88) 98 Nasal Cannula 3 12/05/17 16:54 15 12/05/17 16:45 83 15 120/68 (85) 97 Nasal Cannula 3 12/05/17 16:36 15 12/05/17 16:30 82 15 127/79 (95) 99 Nasal Cannula 4 12/05/17 16:15 84 15 135/80 (98) 96 Nasal Cannula 4 12/05/17 16:05 97.7 86 16 130/74 (92) 95 Nasal Cannula 4 I/O 12/05/17 12/05/17 12/05/17 12/06/17 12/06/17 12/06/17 07:00 15:00 23:00 07:00 15:00 23:00 Intake Total 765 ml 0 ml 2673 ml 870 ml 200 ml Output Total 1600 ml 1850 ml 1230 ml Balance -835 ml 0 ml 823 ml -360 ml 200 ml Intake Oral 0 ml 0 ml 320 ml IV Total 350 ml 550 ml 200 ml Packed Cells 400 ml 500 ml Platelets 173 ml Blood Product IV Normal Saline Flush 15 ml Other 2000 ml Output Urine Total 1600 ml 950 ml 350 ml Chest Tube Drainage Total 400 ml 580 ml Drainage Total 300 ml Estimated Blood Loss 500 ml # Bowel Movements 0 Result Diagram: 12/06/17 0600 12/06/17 0600 Imaging Last Impressions Chest X-Ray 12/06/17 0500 Signed Impressions: Service Date/Time: Wednesday, December 06, 2017 04:57 - CONCLUSION: Small basilar pneumothorax. Alonso Briseno MD Chest CT 11/30/17 1232 Signed Impressions: Service Date/Time: Thursday, November 30, 2017 12:45 - CONCLUSION: 1. Complex right pleural effusion with multiple locules of air and fluid. Primary differential diagnosis is a right-sided empyema. 2. Smaller left effusion without loculated air. 3. Lung consolidation adjacent to complex right effusion as above. Minimal left basal airspace disease. 4. Right PICC line tip in superior vena cava. Edis Wetzel MD Lower Extremity Ultrasound 11/30/17 0000 Signed Impressions: Service Date/Time: Thursday, November 30, 2017 14:01 - CONCLUSION: 1. Negative for deep venous thrombosis bilateral lower extremity. Raghavendra Escobar MD Objective Remarks GENERAL: This is a well-nourished, well-developed patient, in no apparent distress. CARDIOVASCULAR: Regular rate and regular rhythm without murmurs, gallops, or rubs. RESPIRATORY: diminished air entry in right base. GASTROINTESTINAL: Abdomen soft, non-tender, nondistended. MUSCULOSKELETAL: Extremities without clubbing, cyanosis, or edema. Chest tube and wound VAC in place. NEURO: Alert & Oriented x4 to person, place, time, situation. Moves all ext x4 Medications and IVs Current Medications Medications (Trade) Dose Ordered Sig/Bryan Route Start Time Stop Time Status Last Admin (Narcan Inj) 0.4 mg UNSCH PRN IV PUSH 11/29/17 22:45 (D50w (Vial) Inj) 50 ml UNSCH PRN IV PUSH 11/29/17 22:45 (Glucagon Inj) 1 mg UNSCH PRN OTHER 11/29/17 22:45 (NovoLOG SUPPLEMENTAL SCALE) 1 ACHS SLIDING SCALE SQ 11/30/17 08:00 12/06/17 12:35 (Morphine Inj) 2 mg Q3H PRN IV PUSH 11/30/17 00:15 12/06/17 03:18 (NS Flush) DAILY IVF 11/30/17 09:00 12/06/17 08:50 (Heparin Central Flush) DAILY IV FLUSH 11/30/17 09:00 12/06/17 08:50 (NS Flush) UNSCH PRN IVF 11/30/17 00:45 (Heparin Central Flush) UNSCH PRN IV FLUSH 11/30/17 00:45 (NS Flush) UNSCH PRN IVF 11/30/17 00:45 Linezolid 300 ml @ 300 mls/hr Q12H IV 11/30/17 02:30 12/06/17 01:59 Levofloxacin/ Dextrose 50 ml @ 50 mls/hr Q24H IV 11/30/17 01:30 12/06/17 01:58 (Compazine Inj) 5 mg Q4H PRN IV PUSH 11/30/17 01:30 (Coreg) 12.5 mg Q12HR PO 11/30/17 09:00 12/06/17 08:49 (Levemir Inj) 10 units HS SQ 11/30/17 21:00 12/05/17 21:26 (Vitamin B1) 100 mg DAILY PO 11/30/17 09:00 12/06/17 08:49 (Mag-Ox) 400 mg Q12HR PO 11/30/17 09:00 12/06/17 08:49 (NS Flush) 2 ml BID IV FLUSH 12/02/17 21:00 12/06/17 08:51 (NS Flush) 2 ml UNSCH PRN IV FLUSH 12/02/17 16:15 Cefazolin Sodium 500 mg/Sodium Chloride 505 ml @ 0 mls/hr GARAGE MANAGER IRRIGATION 12/02/17 16:15 12/09/17 16:14 (Hibiclens 4% Top Soln) 1 applic GARAGE MANAGER TOPICAL 12/02/17 16:15 12/09/17 16:14 Cefazolin Sodium 2000 mg/Sodium Chloride 120 ml @ 240 mls/hr GARAGE MANAGER IV 12/02/17 17:30 12/07/17 17:29 12/05/17 13:00 Lactated Ringer's 1,000 ml @ 30 mls/hr Q24H PRN IV 12/05/17 02:00 12/08/17 01:59 (Betadine 5% Antisepsis Kit) 1 applic GARAGE MANAGER PRN EACH NARE 12/05/17 02:00 12/08/17 01:59 (Chlorhexidine 2% Cloth) 3 pack GARAGE MANAGER PRN TOPICAL 12/05/17 02:00 12/08/17 01:59 (Albuterol Neb) 2.5 mg Q6HR NEB NEB 12/05/17 16:00 12/06/17 08:25 (Albuterol Neb) 2.5 mg Q2HR NEB PRN NEB 12/05/17 15:45 (Protonix) 40 mg HS PO 12/05/17 21:00 12/05/17 21:23 (Zofran Inj) 4 mg Q6H PRN IV PUSH 12/05/17 15:45 (Surfak) 240 mg HS PO 12/05/17 21:00 12/05/17 21:36 (Milk Of Magnesia Liq) 30 ml DAILY PRN PO 12/05/17 15:45 (Tylenol) 650 mg Q4H PRN PO 12/05/17 15:45 (Mehoopany 5-325 Mg) 1 tab Q3H PRN PO 12/05/17 15:45 (Mehoopany 5-325 Mg) 2 tab Q3H PRN PO 12/05/17 15:45 12/06/17 12:40 Miscellaneous Information ALL NURSING DEPARTME... UNSCH PRN .XX 12/05/17 16:30 12/06/17 16:29 A/P Problem List: (1) Empyema lung ICD Code: J86.9 - Pyothorax without fistula Assessment and Plan Right lung empyema MRSA cultures from thoracentesis and urine specimen at [place]. CT of the chest with complex right pleural effusion with multiple locules of air and fluid. Primary differential diagnosis is a right-sided empyema; Smaller left effusion without loculated air; Lung consolidation adjacent to complex right effusion and minimal left basal airspace disease. CT surgery consult appreciated. S/p decortication 12/06. - Continue Linezolid and Levaquin per ID. - Patient had a history of respiratory failure requiring BiPAP at [facility], monitor respiratory status. - continue neb treatment. - continue pain control. -Rehab efforts. Type 2 Diabetes Mellitus Well-controlled at this time. - Continue Levemir 10 units subq nightly - Accu-Cheks before meals and at bedtime with low-dose NovoLog sliding scale coverage - Monitor trends and blood glucose readings and adjust treatments as indicated Anemia - chronic likely due to chronic disease -s/p PRBC transfusion with improved H/H. - continue to monitor. Acute renal failure Improving. - Monitor renal indices. - Avoid nephrotoxins. - Monitor I&O. Hypertension BP controlled. Lisinopril from home was held at [facility] due to acute renal failure. - Continue to hold lisinopril. - Continue carvedilol 12.5 mg twice daily. History of DVT Bilateral LE edema and pain. - bilateral LE doppler us negative for DVT. Visual floaters Cataracts and diabetic retinopathy. - Evaluated and diagnosed by an management development specialist at [facility]. - Patient to follow-up with ophthalmology as an outpatient. DVT prophylaxis: Stuart Riley DO Dec 06, 2017 14:45
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
[2017-12-06] MEDS: PANTOPRAZOLE SOD 40 MG DELAYED RELEASE TAB PO SCH (20:11)
[2017-12-06] MEDS: DOCUSATE CALCIUM 240 MG CAP PO SCH (20:12)
[2017-12-06] MEDS: INSULIN DETEMIR 100 UNITS/ML VIAL SQ SCH (20:13)
[2017-12-07] VITALS (7 sets, daily range): BP systolic 114–133; BP diastolic 60–72; PULSE 78–83; RESP 16–18; TEMP 97.6–98.2; O2SAT 95–98
[2017-12-07] MEDS: ACETAMINOPHEN/HYDROcodone 325 MG/5 MG TAB PO PRN ×3 (00:13→12:17)
[2017-12-07] MEDS: LEVOFLOXACIN 250 MG PREMIX INJ 50 ML IV SCH (02:29)
[2017-12-07] MEDS: LINEZOLID 600 MG PREMIX 300 ML IV SCH ×2 (02:29→15:19)
[2017-12-07] MEDS: RESP: ALBUTEROL 2.5 MG/3 ML NEB (SCH) NEB ×4 (03:17→19:52)
[2017-12-07 07:03] LABS: HEMATOCRIT 21.6 % (39.0-51.0); HEMOGLOBIN 7.5 GM/DL (13.0-17.0); MEAN CELL VOLUME 95.2 FL (80.0-100.0); MEAN CORPUSCULAR HEMOGLOBIN 33.1 PG (27.0-34.0); MEAN CORPUSCULAR HGB CONC 34.8 % (32.0-36.0); MEAN PLATELET VOLUME 7.5 FL (7.0-11.0); PLATELET COUNT 71 TH/MM3 (150-450); RED BLOOD COUNT 2.26 MIL/MM3 (4.50-5.90); RED CELL DISTRIBUTION WIDTH 18.7 % (11.6-17.2); WHITE BLOOD COUNT 4.5 TH/MM3 (4.0-11.0)
[2017-12-07 07:23] LABS: BICARBONATE 26.4 MEQ/L (21.0-32.0); CALCIUM 7.4 MG/DL (8.5-10.1); CREATININE 1.54 MG/DL (0.60-1.30); MAGNESIUM 1.8 MG/DL (1.5-2.5)
[2017-12-07 07:50] LABS: CALCIUM-PROTEIN CORRECTED 8.2 MG/DL (8.5-10.1); TOTAL PROTEIN 5.6 GM/DL (6.4-8.2)
[2017-12-07] MEDS: INSULIN ASPART SUPPLEMENTAL SCALE SQ SCH ×4 (08:00→20:01)
[2017-12-07] MEDS: THIAMINE HCL 100 MG TAB PO SCH (08:37)
[2017-12-07] MEDS: SODIUM CHLORIDE 0.9% FLUSH 10 ML FLUSH IV FLUSH SCH ×2 (08:37→20:01)
[2017-12-07] MEDS: MAGNESIUM OXIDE 400 MG TAB PO SCH ×2 (08:37→20:01)
[2017-12-07] MEDS: SODIUM CHLORIDE 0.9% FLUSH 10 ML FLUSH IVF SCH (08:37)
[2017-12-07] MEDS: MORPHINE SULFATE 2 MG/ML SYRINGE IV PUSH PRN ×3 (08:37→22:24)
[2017-12-07] MEDS: CARVEDILOL 12.5 MG TAB PO SCH ×2 (08:38→20:00)
[2017-12-07] MEDS: SODIUM CHLOR 0.9% 1000 ML INJ 1,000 ML IV SCH (08:38)
[2017-12-07] MEDS ORDERED: ACETAMINOPHEN/HYDROcodone 325 MG/5 MG TAB PO PRN (15:00)
--- NOTE | 2017-12-07 15:06 | HHI.PR ---
Subjective Remarks The patient was complaining of pain at the chest tube and wound VAC site. Otherwise he has no acute complaints. He said he has been urinating more. He has been having bowel movements. Discussed with nursing. Objective Vitals Vital Signs Date Time Temp Pulse Resp B/P (MAP) Pulse Ox O2 Delivery O2 Flow Rate FiO2 12/07/17 13:20 16 12/07/17 12:00 97.7 79 18 116/68 (84) 97 12/07/17 09:03 16 12/07/17 08:00 97.8 79 16 126/72 (90) 96 12/07/17 03:18 96 12/07/17 00:00 97.6 78 18 133/60 (84) 95 12/06/17 20:58 99 21 12/06/17 20:00 97.3 72 18 120/66 (84) 98 12/06/17 16:00 97.2 69 17 105/59 (74) 97 I/O 12/06/17 12/06/17 12/06/17 12/07/17 12/07/17 12/07/17 07:00 15:00 23:00 07:00 15:00 23:00 Intake Total 870 ml 200 ml 1500 ml 240 ml Output Total 1230 ml 1130 ml 1100 ml 140 ml Balance -360 ml 200 ml 370 ml -860 ml -140 ml Intake Oral 320 ml 1200 ml 240 ml IV Total 550 ml 200 ml 300 ml Output Urine Total 350 ml 500 ml 1100 ml Stool Total 50 ml Chest Tube Drainage Total 580 ml 260 ml 140 ml Drainage Total 300 ml 320 ml Bladder Scan Volume Amount 35 ml # Bowel Movements 0 0 1 Result Diagram: 12/07/17 0640 12/07/17 0640 Imaging Last Impressions Chest X-Ray 12/06/17 0500 Signed Impressions: Service Date/Time: Wednesday, December 06, 2017 04:57 - CONCLUSION: Small basilar pneumothorax. Alonso Briseno MD Chest CT 11/30/17 1232 Signed Impressions: Service Date/Time: Thursday, November 30, 2017 12:45 - CONCLUSION: 1. Complex right pleural effusion with multiple locules of air and fluid. Primary differential diagnosis is a right-sided empyema. 2. Smaller left effusion without loculated air. 3. Lung consolidation adjacent to complex right effusion as above. Minimal left basal airspace disease. 4. Right PICC line tip in superior vena cava. Edis Wetzel MD Lower Extremity Ultrasound 11/30/17 0000 Signed Impressions: Service Date/Time: Thursday, November 30, 2017 14:01 - CONCLUSION: 1. Negative for deep venous thrombosis bilateral lower extremity. Raghavendra Escobar MD Objective Remarks GENERAL: This is a well-nourished, well-developed patient, in no apparent distress. HEENT: NC, AT. CARDIOVASCULAR: Regular rate and regular rhythm without murmurs, gallops, or rubs. RESPIRATORY: Adventitious sounds on the right, clear on the left. GASTROINTESTINAL: Abdomen soft, non-tender, nondistended. MUSCULOSKELETAL: Extremities without clubbing, cyanosis, or edema. Chest tube and wound VAC in place. NEURO: Alert & Oriented x4 to person, place, time, situation. Moves all ext x4. PSYCH: Mood and affect appropriate. Procedures Right Posterolateral Thoracotomy Decortication and Drainage of Intrathoracic Abscesses Drainage of Subcutaneous Chest Wall Abscess Medications and IVs Current Medications Medications (Trade) Dose Ordered Sig/Bryan Route Start Time Stop Time Status Last Admin (Narcan Inj) 0.4 mg UNSCH PRN IV PUSH 11/29/17 22:45 (D50w (Vial) Inj) 50 ml UNSCH PRN IV PUSH 11/29/17 22:45 (Glucagon Inj) 1 mg UNSCH PRN OTHER 11/29/17 22:45 (NovoLOG SUPPLEMENTAL SCALE) 1 ACHS SLIDING SCALE SQ 11/30/17 08:00 12/07/17 12:21 (NS Flush) DAILY IVF 11/30/17 09:00 12/07/17 08:37 (Heparin Central Flush) DAILY IV FLUSH 11/30/17 09:00 12/07/17 08:37 (NS Flush) UNSCH PRN IVF 11/30/17 00:45 (Heparin Central Flush) UNSCH PRN IV FLUSH 11/30/17 00:45 (NS Flush) UNSCH PRN IVF 11/30/17 00:45 Linezolid 300 ml @ 300 mls/hr Q12H IV 11/30/17 02:30 12/07/17 02:29 Levofloxacin/ Dextrose 50 ml @ 50 mls/hr Q24H IV 11/30/17 01:30 12/07/17 02:29 (Compazine Inj) 5 mg Q4H PRN IV PUSH 11/30/17 01:30 (Coreg) 12.5 mg Q12HR PO 11/30/17 09:00 12/07/17 08:38 (Levemir Inj) 10 units HS SQ 11/30/17 21:00 12/06/17 20:13 (Vitamin B1) 100 mg DAILY PO 11/30/17 09:00 12/07/17 08:37 (Mag-Ox) 400 mg Q12HR PO 11/30/17 09:00 12/07/17 08:37 (NS Flush) 2 ml BID IV FLUSH 12/02/17 21:00 12/07/17 08:37 (NS Flush) 2 ml UNSCH PRN IV FLUSH 12/02/17 16:15 Cefazolin Sodium 500 mg/Sodium Chloride 505 ml @ 0 mls/hr OFFICE MANAGER IRRIGATION 12/02/17 16:15 12/09/17 16:14 (Hibiclens 4% Top Soln) 1 applic OFFICE MANAGER TOPICAL 12/02/17 16:15 12/09/17 16:14 Cefazolin Sodium 2000 mg/Sodium Chloride 120 ml @ 240 mls/hr OFFICE MANAGER IV 12/02/17 17:30 12/07/17 17:29 12/05/17 13:00 Lactated Ringer's 1,000 ml @ 30 mls/hr Q24H PRN IV 12/05/17 02:00 12/08/17 01:59 (Betadine 5% Antisepsis Kit) 1 applic OFFICE MANAGER PRN EACH NARE 12/05/17 02:00 12/08/17 01:59 (Chlorhexidine 2% Cloth) 3 pack OFFICE MANAGER PRN TOPICAL 12/05/17 02:00 12/08/17 01:59 (Albuterol Neb) 2.5 mg Q6HR NEB NEB 12/05/17 16:00 12/07/17 08:21 (Albuterol Neb) 2.5 mg Q2HR NEB PRN NEB 12/05/17 15:45 (Protonix) 40 mg HS PO 12/05/17 21:00 12/06/17 20:11 (Zofran Inj) 4 mg Q6H PRN IV PUSH 12/05/17 15:45 (Surfak) 240 mg HS PO 12/05/17 21:00 12/06/17 20:12 (Milk Of Magnesia Liq) 30 ml DAILY PRN PO 12/05/17 15:45 (Tylenol) 650 mg Q4H PRN PO 12/05/17 15:45 Sodium Chloride 1,000 ml @ 100 mls/hr Q10H IV 12/06/17 14:45 12/07/17 08:38 ([place] 5-325 Mg) 1 tab Q4H PRN PO 12/07/17 15:00 UNV (Morphine Inj) 2 mg Q4H PRN IV PUSH 12/07/17 15:00 UNV (Roxicodone) 15 mg Q4H PRN PO 12/07/17 15:00 UNV A/P Problem List: (1) Empyema lung ICD Code: J86.9 - Pyothorax without fistula Assessment and Plan Right lung empyema MRSA cultures from thoracentesis and urine specimen at [place]. CT of the chest with complex right pleural effusion with multiple locules of air and fluid. Primary differential diagnosis is a right-sided empyema; Smaller left effusion without loculated air; Lung consolidation adjacent to complex right effusion and minimal left basal airspace disease. CT surgery consult appreciated. S/p right posterolateral thoracotomy; Decortication and drainage of intrathoracic abscesses; Drainage of subcutaneous chest wall abscess 12/05. - Continue Linezolid and Levaquin per ID. - Patient had a history of respiratory failure requiring BiPAP at [place], monitor respiratory status. - continue neb treatment. - continue pain control. - Rehab efforts. Type 2 Diabetes Mellitus Well-controlled at this time. - Continue Levemir 10 units subq nightly - Accu-Cheks before meals and at bedtime with low-dose NovoLog sliding scale coverage - Monitor trends and blood glucose readings and adjust treatments as indicated Anemia Exacerbated by surgery. - follow CBC and transfuse as needed. Acute renal failure Improving. - Monitor renal indices. - Avoid nephrotoxins. - Monitor I&O. Hypertension BP controlled. Lisinopril from home was held at [place] due to acute renal failure. - Continue to hold lisinopril. - Continue carvedilol 12.5 mg twice daily. History of DVT Bilateral LE edema and pain. - bilateral LE doppler us negative for DVT. Visual floaters Cataracts and diabetic retinopathy. - Evaluated and diagnosed by an stem dryer maintainer at [facility]. - Patient to follow-up with ophthalmology as an outpatient. DVT prophylaxis: SCDs Discharge Planning Ideally transfer back to [place] if able to manage chest tube and wound vac there Stuart Diamond DO Dec 07, 2017 15:06
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
[2017-12-07] MEDS: DOCUSATE CALCIUM 240 MG CAP PO SCH (20:00)
[2017-12-07] MEDS: PANTOPRAZOLE SOD 40 MG DELAYED RELEASE TAB PO SCH (20:00)
[2017-12-07] MEDS: INSULIN DETEMIR 100 UNITS/ML VIAL SQ SCH (20:05)
[2017-12-08] VITALS: BP 137/81; PULSE 88; RESP 17; TEMP 98.2; O2SAT 97
[2017-12-08] MEDS: LINEZOLID 600 MG PREMIX 300 ML IV SCH ×2 (00:33→13:44)
[2017-12-08] MEDS: LEVOFLOXACIN 250 MG PREMIX INJ 50 ML IV SCH (00:33)
[2017-12-08] MEDS: RESP: ALBUTEROL 2.5 MG/3 ML NEB (SCH) NEB ×4 (03:13→20:56)
[2017-12-08 05:14] LABS: HEMATOCRIT 21.9 % (39.0-51.0); HEMOGLOBIN 7.7 GM/DL (13.0-17.0); MEAN CELL VOLUME 94.5 FL (80.0-100.0); MEAN CORPUSCULAR HEMOGLOBIN 33.1 PG (27.0-34.0); MEAN PLATELET VOLUME 7.7 FL (7.0-11.0); PLATELET COUNT 74 TH/MM3 (150-450); RED BLOOD COUNT 2.32 MIL/MM3 (4.50-5.90); RED CELL DISTRIBUTION WIDTH 17.8 % (11.6-17.2); WHITE BLOOD COUNT 3.5 TH/MM3 (4.0-11.0)
[2017-12-08 05:47] LABS: BICARBONATE 27.1 MEQ/L (21.0-32.0); CALCIUM 7.4 MG/DL (8.5-10.1); CREATININE 1.18 MG/DL (0.60-1.30); MAGNESIUM 1.8 MG/DL (1.5-2.5)
[2017-12-08 07:39] VITALS: BP 120/70; PULSE 82; RESP 18; TEMP 99.2; O2SAT 96
[2017-12-08] MEDS: INSULIN ASPART SUPPLEMENTAL SCALE SQ SCH ×4 (08:00→19:50)
[2017-12-08] MEDS: SODIUM CHLORIDE 0.9% FLUSH 10 ML FLUSH IVF SCH (08:15)
[2017-12-08] MEDS: MAGNESIUM OXIDE 400 MG TAB PO SCH ×2 (08:18→19:39)
[2017-12-08] MEDS: CARVEDILOL 12.5 MG TAB PO SCH ×2 (08:18→19:40)
[2017-12-08] MEDS: SODIUM CHLORIDE 0.9% FLUSH 10 ML FLUSH IV FLUSH SCH ×2 (08:18→19:40)
[2017-12-08] MEDS: THIAMINE HCL 100 MG TAB PO SCH (08:18)
[2017-12-08] MEDS: MORPHINE SULFATE 2 MG/ML SYRINGE IV PUSH PRN ×2 (08:22→19:40)
[2017-12-08 12:00] VITALS: BP 118/64; PULSE 91; RESP 18; TEMP 98.2; O2SAT 95
--- NOTE | 2017-12-08 14:59 | HHI.PR ---
Subjective Remarks The pt was resting comfortably in bed. He had no acute complaints. He said his pain control was better. He has been having bowel movements. Discussed with nursing. Objective Vitals Vital Signs Date Time Temp Pulse Resp B/P (MAP) Pulse Ox O2 Delivery O2 Flow Rate FiO2 12/08/17 07:39 99.2 82 18 120/70 (87) 96 12/08/17 00:00 98.2 88 17 137/81 (99) 97 12/07/17 20:00 98.2 79 17 114/65 (81) 96 12/07/17 19:53 96 12/07/17 16:54 16 12/07/17 16:23 16 12/07/17 16:00 97.8 83 17 117/60 (79) 98 I/O 12/07/17 12/07/17 12/07/17 12/08/17 12/08/17 12/08/17 07:00 15:00 23:00 07:00 15:00 23:00 Intake Total 240 ml 50 ml 2780 ml 590 ml Output Total 1100 ml 140 ml 1225 ml 550 ml Balance -860 ml -90 ml 1555 ml 40 ml Intake Oral 240 ml 1680 ml 240 ml IV Total 50 ml 1100 ml 350 ml Output Urine Total 1100 ml 1025 ml 350 ml Chest Tube Drainage Total 140 ml 150 ml 150 ml Drainage Total 50 ml 50 ml # Bowel Movements 1 2 Result Diagram: 12/08/17 0503 12/08/17 0503 Imaging Last Impressions Chest X-Ray 12/06/17 0500 Signed Impressions: Service Date/Time: Wednesday, December 06, 2017 04:57 - CONCLUSION: Small basilar pneumothorax. Alonso Briseno MD Chest CT 11/30/17 1232 Signed Impressions: Service Date/Time: Thursday, November 30, 2017 12:45 - CONCLUSION: 1. Complex right pleural effusion with multiple locules of air and fluid. Primary differential diagnosis is a right-sided empyema. 2. Smaller left effusion without loculated air. 3. Lung consolidation adjacent to complex right effusion as above. Minimal left basal airspace disease. 4. Right PICC line tip in superior vena cava. Edis Wetzel MD Lower Extremity Ultrasound 11/30/17 0000 Signed Impressions: Service Date/Time: Thursday, November 30, 2017 14:01 - CONCLUSION: 1. Negative for deep venous thrombosis bilateral lower extremity. Raghavendra Escobar MD Objective Remarks GENERAL: This is a well-nourished, well-developed patient, in no apparent distress. HEENT: NC, AT. CARDIOVASCULAR: Regular rate and regular rhythm without murmurs, gallops, or rubs. RESPIRATORY: Adventitious sounds on the right, clear on the left. GASTROINTESTINAL: Abdomen soft, non-tender, nondistended. MUSCULOSKELETAL: Extremities without clubbing, cyanosis, or edema. Chest tube and wound VAC in place. NEURO: Alert & Oriented x4 to person, place, time, situation. Moves all ext x4. PSYCH: Mood and affect appropriate. Procedures Right Posterolateral Thoracotomy Decortication and Drainage of Intrathoracic Abscesses Drainage of Subcutaneous Chest Wall Abscess Medications and IVs Current Medications Medications (Trade) Dose Ordered Sig/Bryan Route Start Time Stop Time Status Last Admin (Narcan Inj) 0.4 mg UNSCH PRN IV PUSH 11/29/17 22:45 (D50w (Vial) Inj) 50 ml UNSCH PRN IV PUSH 11/29/17 22:45 (Glucagon Inj) 1 mg UNSCH PRN OTHER 11/29/17 22:45 (NovoLOG SUPPLEMENTAL SCALE) 1 ACHS SLIDING SCALE SQ 11/30/17 08:00 12/08/17 12:44 (NS Flush) DAILY IVF 11/30/17 09:00 12/07/17 08:37 (Heparin Central Flush) DAILY IV FLUSH 11/30/17 09:00 12/08/17 08:17 (NS Flush) UNSCH PRN IVF 11/30/17 00:45 (Heparin Central Flush) UNSCH PRN IV FLUSH 11/30/17 00:45 (NS Flush) UNSCH PRN IVF 11/30/17 00:45 Linezolid 300 ml @ 300 mls/hr Q12H IV 11/30/17 02:30 12/08/17 13:44 Levofloxacin/ Dextrose 50 ml @ 50 mls/hr Q24H IV 11/30/17 01:30 12/08/17 00:33 (Compazine Inj) 5 mg Q4H PRN IV PUSH 11/30/17 01:30 (Coreg) 12.5 mg Q12HR PO 11/30/17 09:00 12/08/17 08:18 (Levemir Inj) 10 units HS SQ 11/30/17 21:00 12/07/17 20:05 (Vitamin B1) 100 mg DAILY PO 11/30/17 09:00 12/08/17 08:18 (Mag-Ox) 400 mg Q12HR PO 11/30/17 09:00 12/08/17 08:18 (NS Flush) 2 ml BID IV FLUSH 12/02/17 21:00 12/08/17 08:18 (NS Flush) 2 ml UNSCH PRN IV FLUSH 12/02/17 16:15 Cefazolin Sodium 500 mg/Sodium Chloride 505 ml @ 0 mls/hr SUPERVISOR DIAGNOSTIC IRRIGATION 12/02/17 16:15 12/09/17 16:14 (Hibiclens 4% Top Soln) 1 applic SUPERVISOR DIAGNOSTIC TOPICAL 12/02/17 16:15 12/09/17 16:14 (Albuterol Neb) 2.5 mg Q6HR NEB NEB 12/05/17 16:00 12/08/17 08:13 (Albuterol Neb) 2.5 mg Q2HR NEB PRN NEB 12/05/17 15:45 (Protonix) 40 mg HS PO 12/05/17 21:00 12/07/17 20:00 (Zofran Inj) 4 mg Q6H PRN IV PUSH 12/05/17 15:45 (Surfak) 240 mg HS PO 12/05/17 21:00 12/07/17 20:00 (Milk Of Magnesia Liq) 30 ml DAILY PRN PO 12/05/17 15:45 (Tylenol) 650 mg Q4H PRN PO 12/05/17 15:45 ([place] 5-325 Mg) 1 tab Q4H PRN PO 12/07/17 15:00 12/07/17 20:00 (Morphine Inj) 2 mg Q4H PRN IV PUSH 12/07/17 15:00 12/08/17 08:22 (Roxicodone) 15 mg Q4H PRN PO 12/07/17 15:00 12/08/17 13:44 A/P Problem List: (1) Empyema lung ICD Code: J86.9 - Pyothorax without fistula Assessment and Plan Right lung empyema MRSA cultures from thoracentesis and urine specimen at [place]. CT of the chest with complex right pleural effusion with multiple locules of air and fluid. Primary differential diagnosis is a right-sided empyema; Smaller left effusion without loculated air; Lung consolidation adjacent to complex right effusion and minimal left basal airspace disease. CT surgery consult appreciated. S/p right posterolateral thoracotomy; Decortication and drainage of intrathoracic abscesses; Drainage of subcutaneous chest wall abscess 12/05. - Continue Linezolid and Levaquin per ID. - Patient had a history of respiratory failure requiring BiPAP at [place], monitor respiratory status. - continue neb treatment. - continue pain control. - Rehab efforts. - continue chest tube and wound vac per [facility]. Wound care nurse has been consulted. Type 2 Diabetes Mellitus Well-controlled at this time. - Continue Levemir 10 units subq nightly - Accu-Cheks before meals and at bedtime with low-dose NovoLog sliding scale coverage - Monitor trends and blood glucose readings and adjust treatments as indicated Pancytopenia Possibly s/t bone marrow suppression from EtOH abuse, sepsis. - follow CBC and transfuse as needed. Acute renal failure Continues to improve. - Monitor renal indices. - Avoid nephrotoxins. - Monitor I&O. - D/c IVFs. Hypertension BP controlled. Lisinopril from home was held at [place] due to acute renal failure. - Continue to hold lisinopril. - Continue carvedilol 12.5 mg twice daily. History of DVT Bilateral LE edema and pain. - bilateral LE doppler us negative for DVT. Visual floaters Cataracts and diabetic retinopathy. - Evaluated and diagnosed by an customer assistant at [facility]. - Patient to follow-up with ophthalmology as an outpatient. DVT prophylaxis: SCDs Discharge Planning Ideally transfer back to [place] if able to manage chest tube and wound vac there Stuart Diamond DO Dec 08, 2017 14:59
[2017-12-08 16:00] VITALS: BP 129/71; PULSE 90; RESP 20; TEMP 98.2; O2SAT 97
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
[2017-12-08] MEDS ORDERED: POTASSIUM CHLORIDE 20 MEQ CONTROLLED RELEASE TAB PO ONE (17:30)
[2017-12-08] MEDS ORDERED: FUROSEMIDE 40 MG/4 ML VIAL IV PUSH ONE (17:30)
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
[2017-12-08] MEDS: PANTOPRAZOLE SOD 40 MG DELAYED RELEASE TAB PO SCH (19:40)
[2017-12-08] MEDS: DOCUSATE CALCIUM 240 MG CAP PO SCH (19:40)
[2017-12-08] MEDS: INSULIN DETEMIR 100 UNITS/ML VIAL SQ SCH (19:49)
[2017-12-08 20:00] VITALS: BP 149/77; PULSE 96; RESP 18; TEMP 97.6; O2SAT 97
[2017-12-08 20:56] VITALS: O2SAT 99
[2017-12-08] MEDS ORDERED: MAGNESIUM OXIDE 400 MG TAB PO SCH (21:00)
[2017-12-09] VITALS: BP 141/85; PULSE 106; RESP 18; TEMP 98.1; O2SAT 93
[2017-12-09] MEDS: LINEZOLID 600 MG PREMIX 300 ML IV SCH (02:58)
[2017-12-09] MEDS: RESP: ALBUTEROL 2.5 MG/3 ML NEB (SCH) NEB ×2 (03:46→12:14)
[2017-12-09 07:04] LABS: HEMATOCRIT 21.8 % (39.0-51.0); HEMOGLOBIN 7.4 GM/DL (13.0-17.0); MEAN CELL VOLUME 95.7 FL (80.0-100.0); MEAN CORPUSCULAR HEMOGLOBIN 32.6 PG (27.0-34.0); MEAN CORPUSCULAR HGB CONC 34.1 % (32.0-36.0); MEAN PLATELET VOLUME 7.4 FL (7.0-11.0); PLATELET COUNT 82 TH/MM3 (150-450); RED BLOOD COUNT 2.28 MIL/MM3 (4.50-5.90); RED CELL DISTRIBUTION WIDTH 17.7 % (11.6-17.2); WHITE BLOOD COUNT 3.5 TH/MM3 (4.0-11.0)
[2017-12-09] MEDS: INSULIN ASPART SUPPLEMENTAL SCALE SQ SCH ×4 (07:59→19:58)
[2017-12-09 08:00] VITALS: BP 137/85; PULSE 96; RESP 18; TEMP 97.9; O2SAT 94
[2017-12-09] MEDS: MORPHINE SULFATE 2 MG/ML SYRINGE IV PUSH PRN (08:53)
[2017-12-09] MEDS: SODIUM CHLORIDE 0.9% FLUSH 10 ML FLUSH IV FLUSH SCH ×2 (08:54→19:57)
[2017-12-09] MEDS: SODIUM CHLORIDE 0.9% FLUSH 10 ML FLUSH IVF SCH (08:56)
[2017-12-09] MEDS: MAGNESIUM OXIDE 400 MG TAB PO SCH ×2 (08:57→19:57)
[2017-12-09] MEDS: THIAMINE HCL 100 MG TAB PO SCH (08:57)
[2017-12-09] MEDS: CARVEDILOL 12.5 MG TAB PO SCH ×2 (08:57→19:57)
[2017-12-09 12:00] VITALS: BP 141/82; PULSE 93; RESP 18; TEMP 98.5; O2SAT 95
--- NOTE | 2017-12-09 13:06 | HHI.PR ---
Subjective Remarks The patient he was resting comfortably in bed. He said he had a lot of swelling. He said that he was pretty comfortable. No acute complaints. Discussed with nursing. Objective Vitals Vital Signs Date Time Temp Pulse Resp B/P (MAP) Pulse Ox O2 Delivery O2 Flow Rate FiO2 12/09/17 12:10 18 12/09/17 12:00 98.5 93 18 141/82 (101) 95 12/09/17 08:58 18 12/09/17 08:00 97.9 96 18 137/85 (102) 94 12/09/17 00:00 98.1 106 18 141/85 (103) 93 12/08/17 20:56 99 21 12/08/17 20:00 97.6 96 18 149/77 (101) 97 12/08/17 16:00 98.2 90 20 129/71 (90) 97 I/O 12/08/17 12/08/17 12/08/17 12/09/17 12/09/17 12/09/17 07:00 15:00 23:00 07:00 15:00 23:00 Intake Total 590 ml 300 ml 720 ml 240 ml Output Total 550 ml 625 ml 925 ml Balance 40 ml 300 ml 95 ml -685 ml Intake Oral 240 ml 720 ml 240 ml IV Total 350 ml 300 ml Output Urine Total 350 ml 400 ml 600 ml Chest Tube Drainage Total 150 ml 150 ml 270 ml Drainage Total 50 ml 75 ml 55 ml # Voids 1 # Bowel Movements 1 1 Result Diagram: 12/09/17 0636 12/08/17 0503 Imaging Last Impressions Chest X-Ray 12/06/17 0500 Signed Impressions: Service Date/Time: Wednesday, December 06, 2017 04:57 - CONCLUSION: Small basilar pneumothorax. Alonso Briseno MD Chest CT 11/30/17 1232 Signed Impressions: Service Date/Time: Thursday, November 30, 2017 12:45 - CONCLUSION: 1. Complex right pleural effusion with multiple locules of air and fluid. Primary differential diagnosis is a right-sided empyema. 2. Smaller left effusion without loculated air. 3. Lung consolidation adjacent to complex right effusion as above. Minimal left basal airspace disease. 4. Right PICC line tip in superior vena cava. Edis Wetzel MD Lower Extremity Ultrasound 11/30/17 0000 Signed Impressions: Service Date/Time: Thursday, November 30, 2017 14:01 - CONCLUSION: 1. Negative for deep venous thrombosis bilateral lower extremity. Raghavendra Escobar MD Objective Remarks GENERAL: This is a well-nourished, well-developed patient, in no apparent distress. HEENT: NC, AT. CARDIOVASCULAR: Regular rate and regular rhythm without murmurs, gallops, or rubs. RESPIRATORY: Adventitious sounds on the right, clear on the left. GASTROINTESTINAL: Abdomen soft, non-tender, nondistended. MUSCULOSKELETAL: Extremities without clubbing, cyanosis. Has anasarca. Chest tube and wound VAC in place. NEURO: Alert & Oriented x4 to person, place, time, situation. Moves all ext x4. PSYCH: Mood and affect appropriate. Procedures Right Posterolateral Thoracotomy Decortication and Drainage of Intrathoracic Abscesses Drainage of Subcutaneous Chest Wall Abscess Medications and IVs Current Medications Medications (Trade) Dose Ordered Sig/Bryan Route Start Time Stop Time Status Last Admin (Narcan Inj) 0.4 mg UNSCH PRN IV PUSH 11/29/17 22:45 (D50w (Vial) Inj) 50 ml UNSCH PRN IV PUSH 11/29/17 22:45 (Glucagon Inj) 1 mg UNSCH PRN OTHER 11/29/17 22:45 (NovoLOG SUPPLEMENTAL SCALE) 1 ACHS SLIDING SCALE SQ 11/30/17 08:00 12/08/17 19:50 (NS Flush) DAILY IVF 11/30/17 09:00 12/09/17 08:56 (Heparin Central Flush) DAILY IV FLUSH 11/30/17 09:00 12/08/17 08:17 (NS Flush) UNSCH PRN IVF 11/30/17 00:45 12/09/17 08:57 (Heparin Central Flush) UNSCH PRN IV FLUSH 11/30/17 00:45 12/09/17 08:57 (NS Flush) UNSCH PRN IVF 11/30/17 00:45 Linezolid 300 ml @ 300 mls/hr Q12H IV 11/30/17 02:30 12/09/17 02:58 (Compazine Inj) 5 mg Q4H PRN IV PUSH 11/30/17 01:30 (Coreg) 12.5 mg Q12HR PO 11/30/17 09:00 12/09/17 08:57 (Levemir Inj) 10 units HS SQ 11/30/17 21:00 12/08/17 19:49 (Vitamin B1) 100 mg DAILY PO 11/30/17 09:00 12/09/17 08:57 (Mag-Ox) 400 mg Q12HR PO 11/30/17 09:00 12/09/17 08:57 (NS Flush) 2 ml BID IV FLUSH 12/02/17 21:00 12/09/17 08:54 (NS Flush) 2 ml UNSCH PRN IV FLUSH 12/02/17 16:15 Cefazolin Sodium 500 mg/Sodium Chloride 505 ml @ 0 mls/hr SUPERVISOR EVAPORATOR IRRIGATION 12/02/17 16:15 12/09/17 16:14 (Hibiclens 4% Top Soln) 1 applic SUPERVISOR EVAPORATOR TOPICAL 12/02/17 16:15 12/09/17 16:14 (Albuterol Neb) 2.5 mg Q6HR NEB NEB 12/05/17 16:00 12/09/17 12:14 (Albuterol Neb) 2.5 mg Q2HR NEB PRN NEB 12/05/17 15:45 (Protonix) 40 mg HS PO 12/05/17 21:00 12/08/17 19:40 (Zofran Inj) 4 mg Q6H PRN IV PUSH 12/05/17 15:45 (Surfak) 240 mg HS PO 12/05/17 21:00 12/08/17 19:40 (Milk Of Magnesia Liq) 30 ml DAILY PRN PO 12/05/17 15:45 (Tylenol) 650 mg Q4H PRN PO 12/05/17 15:45 ([place] 5-325 Mg) 1 tab Q4H PRN PO 12/07/17 15:00 12/07/17 20:00 (Morphine Inj) 2 mg Q4H PRN IV PUSH 12/07/17 15:00 12/09/17 08:53 (Roxicodone) 15 mg Q4H PRN PO 12/07/17 15:00 12/09/17 11:10 (Mag-Ox) 400 mg Q12HR PO 12/08/17 21:00 12/10/17 09:01 UNV A/P Problem List: (1) Empyema lung ICD Code: J86.9 - Pyothorax without fistula Assessment and Plan Right lung empyema MRSA cultures from thoracentesis and urine specimen at [place]. CT of the chest with complex right pleural effusion with multiple locules of air and fluid. Primary differential diagnosis is a right-sided empyema; Smaller left effusion without loculated air; Lung consolidation adjacent to complex right effusion and minimal left basal airspace disease. CT surgery consult appreciated. S/p right posterolateral thoracotomy; Decortication and drainage of intrathoracic abscesses; Drainage of subcutaneous chest wall abscess 12/05. - Continue Linezolid and DC Levaquin per ID. - Patient had a history of respiratory failure requiring BiPAP at [place], monitor respiratory status. - continue neb treatment. - continue pain control. - Rehab efforts. - continue chest tube and wound vac per CTS. Wound care nurse consult appreciated. Type 2 Diabetes Mellitus Well-controlled at this time. - Continue Levemir 10 units subq nightly - Accu-Cheks before meals and at bedtime with low-dose NovoLog sliding scale coverage - Monitor trends and blood glucose readings and adjust treatments as indicated Pancytopenia Possibly s/t bone marrow suppression from EtOH abuse, sepsis. - follow CBC and transfuse as needed. Acute renal failure Continues to improve. - Monitor renal indices as being diuresed. - Avoid nephrotoxins. - Monitor I&O. Hypertension BP controlled. Lisinopril from home was held at [place] due to acute renal failure. - Continue to hold lisinopril. - Continue carvedilol 12.5 mg twice daily. History of DVT Bilateral LE edema and pain. - bilateral LE doppler us negative for DVT. Anasarca The patient has diffuse edema. -Start Lasix 40 mg IV daily and follow BMP. Visual floaters Cataracts and diabetic retinopathy. - Evaluated and diagnosed by an drill press set up operator at [facility]. - Patient to follow-up with ophthalmology as an outpatient. DVT prophylaxis: SCDs Discharge Planning Ideally transfer back to [place] if able to manage chest tube and wound vac there Stuart Diamond DO Dec 09, 2017 13:05
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
[2017-12-09] MEDS: CEFTAROLINE INJ 600 MG in SODIUM CHLORIDE 0.9% INJ 100 ML IV SCH (15:14)
[2017-12-09] MEDS: SODIUM CHLORIDE 0.9% FLUSH 10 ML FLUSH IV FLUSH PRN (15:15)
[2017-12-09 16:00] VITALS: BP 136/82; PULSE 89; RESP 18; TEMP 97.7; O2SAT 98
[2017-12-09] MEDS: PANTOPRAZOLE SOD 40 MG DELAYED RELEASE TAB PO SCH (19:57)
[2017-12-09] MEDS: INSULIN DETEMIR 100 UNITS/ML VIAL SQ SCH (19:57)
[2017-12-09] MEDS: DOCUSATE CALCIUM 240 MG CAP PO SCH (19:57)
[2017-12-09 20:00] VITALS: BP 142/86; PULSE 89; RESP 18; TEMP 98.4; O2SAT 97
[2017-12-10] VITALS: BP 144/88; PULSE 96; RESP 20; TEMP 98.7; O2SAT 98
[2017-12-10] MEDS: CEFTAROLINE INJ 600 MG in SODIUM CHLORIDE 0.9% INJ 100 ML IV SCH ×2 (04:13→16:43)
[2017-12-10 04:41] LABS: HEMATOCRIT 21.2 % (39.0-51.0); HEMOGLOBIN 7.4 GM/DL (13.0-17.0); MEAN CELL VOLUME 94.3 FL (80.0-100.0); MEAN CORPUSCULAR HEMOGLOBIN 32.8 PG (27.0-34.0); MEAN CORPUSCULAR HGB CONC 34.8 % (32.0-36.0); MEAN PLATELET VOLUME 7.2 FL (7.0-11.0); PLATELET COUNT 71 TH/MM3 (150-450); RED BLOOD COUNT 2.25 MIL/MM3 (4.50-5.90); RED CELL DISTRIBUTION WIDTH 17.4 % (11.6-17.2); WHITE BLOOD COUNT 3.2 TH/MM3 (4.0-11.0)
[2017-12-10 05:03] LABS: BICARBONATE 28.3 MEQ/L (21.0-32.0); CALCIUM 7.7 MG/DL (8.5-10.1); CREATININE 1.05 MG/DL (0.60-1.30); MAGNESIUM 1.6 MG/DL (1.5-2.5)
[2017-12-10] MEDS: INSULIN ASPART SUPPLEMENTAL SCALE SQ SCH ×4 (07:46→20:39)
[2017-12-10 08:00] VITALS: BP_SYST 135; PULSE 84; RESP 18; TEMP 98.5; O2SAT 96
[2017-12-10] MEDS: THIAMINE HCL 100 MG TAB PO SCH (09:21)
[2017-12-10] MEDS: FUROSEMIDE 40 MG/4 ML VIAL IV PUSH SCH (09:21)
[2017-12-10] MEDS: MAGNESIUM OXIDE 400 MG TAB PO SCH ×2 (09:22→20:38)
[2017-12-10] MEDS: CARVEDILOL 12.5 MG TAB PO SCH ×2 (09:22→20:37)
[2017-12-10] MEDS: SODIUM CHLORIDE 0.9% FLUSH 10 ML FLUSH IV FLUSH SCH ×2 (09:23→20:38)
[2017-12-10] MEDS: SODIUM CHLORIDE 0.9% FLUSH 10 ML FLUSH IVF SCH (09:31)
--- NOTE | 2017-12-10 11:39 | HHI.PR ---
Subjective Remarks The patient stated that he had some burning with urination. He said that he has a fresh gown on and feels a lot better. He says he is not urinating that much with the Lasix. Discussed with nursing. Objective Vitals Vital Signs Date Time Temp Pulse Resp B/P (MAP) Pulse Ox O2 Delivery O2 Flow Rate FiO2 12/10/17 00:00 98.7 96 20 144/88 (106) 98 12/09/17 20:00 98.4 89 18 142/86 (104) 97 12/09/17 16:13 18 12/09/17 16:00 97.7 89 18 136/82 (100) 98 12/09/17 12:00 98.5 93 18 141/82 (101) 95 I/O 12/09/17 12/09/17 12/09/17 12/10/17 12/10/17 12/10/17 07:00 15:00 23:00 07:00 15:00 23:00 Intake Total 540 ml 1200 ml 100 ml Output Total 925 ml 700 ml 940 ml Balance -385 ml 500 ml -840 ml Intake Oral 240 ml 1200 ml IV Total 300 ml 100 ml Output Urine Total 600 ml 500 ml 650 ml Chest Tube Drainage Total 270 ml 150 ml 190 ml Drainage Total 55 ml 50 ml 100 ml # Voids 1 # Bowel Movements 1 1 Result Diagram: 12/10/17 0425 12/10/17 0425 Imaging Last Impressions Chest X-Ray 12/06/17 0500 Signed Impressions: Service Date/Time: Wednesday, December 06, 2017 04:57 - CONCLUSION: Small basilar pneumothorax. Alonso Briseno MD Chest CT 11/30/17 1232 Signed Impressions: Service Date/Time: Thursday, November 30, 2017 12:45 - CONCLUSION: 1. Complex right pleural effusion with multiple locules of air and fluid. Primary differential diagnosis is a right-sided empyema. 2. Smaller left effusion without loculated air. 3. Lung consolidation adjacent to complex right effusion as above. Minimal left basal airspace disease. 4. Right PICC line tip in superior vena cava. Edis Wetzel MD Lower Extremity Ultrasound 11/30/17 0000 Signed Impressions: Service Date/Time: Thursday, November 30, 2017 14:01 - CONCLUSION: 1. Negative for deep venous thrombosis bilateral lower extremity. Raghavendra Escobar MD Objective Remarks GENERAL: This is a well-nourished, well-developed patient, in no apparent distress. HEENT: NC, AT. CARDIOVASCULAR: Regular rate and regular rhythm without murmurs, gallops, or rubs. RESPIRATORY: Adventitious sounds on the right, clear on the left. GASTROINTESTINAL: Abdomen soft, non-tender, nondistended. MUSCULOSKELETAL: Extremities without clubbing, cyanosis. Has anasarca. Chest tube and wound VAC in place. NEURO: Alert & Oriented x4 to person, place, time, situation. Moves all ext x4. PSYCH: Mood and affect appropriate. Procedures Right Posterolateral Thoracotomy Decortication and Drainage of Intrathoracic Abscesses Drainage of Subcutaneous Chest Wall Abscess Medications and IVs Current Medications Medications (Trade) Dose Ordered Sig/Bryan Route Start Time Stop Time Status Last Admin (Narcan Inj) 0.4 mg UNSCH PRN IV PUSH 11/29/17 22:45 (D50w (Vial) Inj) 50 ml UNSCH PRN IV PUSH 11/29/17 22:45 (Glucagon Inj) 1 mg UNSCH PRN OTHER 11/29/17 22:45 (NovoLOG SUPPLEMENTAL SCALE) 1 ACHS SLIDING SCALE SQ 11/30/17 08:00 12/09/17 19:58 (NS Flush) DAILY IVF 11/30/17 09:00 12/10/17 09:31 (Heparin Central Flush) DAILY IV FLUSH 11/30/17 09:00 12/10/17 09:22 (NS Flush) UNSCH PRN IVF 11/30/17 00:45 12/09/17 08:57 (Heparin Central Flush) UNSCH PRN IV FLUSH 11/30/17 00:45 12/09/17 08:57 (NS Flush) UNSCH PRN IVF 11/30/17 00:45 (Compazine Inj) 5 mg Q4H PRN IV PUSH 11/30/17 01:30 (Coreg) 12.5 mg Q12HR PO 11/30/17 09:00 12/10/17 09:22 (Levemir Inj) 10 units HS SQ 11/30/17 21:00 12/09/17 19:57 (Vitamin B1) 100 mg DAILY PO 11/30/17 09:00 12/10/17 09:21 (Mag-Ox) 400 mg Q12HR PO 11/30/17 09:00 12/10/17 09:22 (NS Flush) 2 ml BID IV FLUSH 12/02/17 21:00 12/10/17 09:23 (NS Flush) 2 ml UNSCH PRN IV FLUSH 12/02/17 16:15 12/09/17 15:15 (Albuterol Neb) 2.5 mg Q2HR NEB PRN NEB 12/05/17 15:45 12/09/17 16:12 (Protonix) 40 mg HS PO 12/05/17 21:00 12/09/17 19:57 (Zofran Inj) 4 mg Q6H PRN IV PUSH 12/05/17 15:45 (Surfak) 240 mg HS PO 12/05/17 21:00 12/09/17 19:57 (Milk Of Magnesia Liq) 30 ml DAILY PRN PO 12/05/17 15:45 (Tylenol) 650 mg Q4H PRN PO 12/05/17 15:45 ([place] 5-325 Mg) 1 tab Q4H PRN PO 12/07/17 15:00 12/07/17 20:00 (Morphine Inj) 2 mg Q4H PRN IV PUSH 12/07/17 15:00 12/09/17 08:53 (Roxicodone) 15 mg Q4H PRN PO 12/07/17 15:00 12/10/17 09:21 (Lasix Inj) 40 mg DAILY IV PUSH 12/10/17 09:00 12/10/17 09:21 Ceftaroline Fosamil 600 mg/ Sodium Chloride 100 ml @ 100 mls/hr Q12H IV 12/09/17 16:00 12/10/17 04:13 A/P Problem List: (1) Empyema lung ICD Code: J86.9 - Pyothorax without fistula Assessment and Plan Right lung empyema MRSA cultures from thoracentesis and urine specimen at [place]. CT of the chest with complex right pleural effusion with multiple locules of air and fluid. Primary differential diagnosis is a right-sided empyema; Smaller left effusion without loculated air; Lung consolidation adjacent to complex right effusion and minimal left basal airspace disease. CT surgery consult appreciated. S/p right posterolateral thoracotomy; Decortication and drainage of intrathoracic abscesses; Drainage of subcutaneous chest wall abscess 12/05. Cultures are growing MRSA. - Ceftaroline per infectious disease. - Patient had a history of respiratory failure requiring BiPAP at [place], monitor respiratory status. - continue neb treatment. - continue pain control. - Rehab efforts. - continue chest tube and wound vac per CTS. Wound care nurse consult appreciated. Type 2 Diabetes Mellitus Well-controlled at this time. - Continue Levemir 10 units subq nightly - Accu-Cheks before meals and at bedtime with low-dose NovoLog sliding scale coverage - Monitor trends and blood glucose readings and adjust treatments as indicated Pancytopenia Possibly s/t bone marrow suppression from EtOH abuse, sepsis. - follow CBC and transfuse as needed. Stable at this time. Acute renal failure Continues to improve. - Monitor renal indices as being diuresed. - Avoid nephrotoxins. - Monitor I&O. Hypertension BP controlled. Lisinopril from home was held at [facility] due to acute renal failure. - Continue to hold lisinopril. - Continue carvedilol 12.5 mg twice daily. History of DVT Bilateral LE edema and pain. - bilateral LE doppler us negative for DVT. Anasarca The patient has diffuse edema. - Continue Lasix 40 mg IV daily and follow BMP. Visual floaters Cataracts and diabetic retinopathy. - Evaluated and diagnosed by an deputy insurance commissioner at [facility]. - Patient to follow-up with ophthalmology as an outpatient. DVT prophylaxis: SCDs Discharge Planning Ideally transfer back to [facility] if able to manage chest tube and wound vac there Stuart Diamond DO Dec 10, 2017 11:39
[2017-12-10 12:00] VITALS: BP 132/70; PULSE 92; RESP 18; TEMP 98.5; O2SAT 97
[2017-12-10 16:00] VITALS: BP 120/68; PULSE 83; RESP 17; TEMP 98; O2SAT 98
[2017-12-10 20:00] VITALS: BP 149/83; PULSE 85; RESP 20; TEMP 97.9; O2SAT 95
[2017-12-10] MEDS: PANTOPRAZOLE SOD 40 MG DELAYED RELEASE TAB PO SCH (20:37)
[2017-12-10] MEDS: DOCUSATE CALCIUM 240 MG CAP PO SCH (20:37)
[2017-12-10] MEDS: INSULIN DETEMIR 100 UNITS/ML VIAL SQ SCH (20:38)
[2017-12-11] VITALS: BP 138/86; PULSE 84; RESP 20; TEMP 98.2; O2SAT 96
[2017-12-11 04:00] VITALS: BP 132/76; PULSE 79; RESP 20; TEMP 97.8; O2SAT 96
[2017-12-11] MEDS: CEFTAROLINE INJ 600 MG in SODIUM CHLORIDE 0.9% INJ 100 ML IV SCH ×2 (05:26→16:01)
[2017-12-11 05:52] LABS: HEMATOCRIT 22.4 % (39.0-51.0); HEMOGLOBIN 7.7 GM/DL (13.0-17.0); MEAN CELL VOLUME 93.8 FL (80.0-100.0); MEAN CORPUSCULAR HEMOGLOBIN 32.2 PG (27.0-34.0); MEAN CORPUSCULAR HGB CONC 34.4 % (32.0-36.0); MEAN PLATELET VOLUME 7.2 FL (7.0-11.0); PLATELET COUNT 50 TH/MM3 (150-450); RED BLOOD COUNT 2.39 MIL/MM3 (4.50-5.90); WHITE BLOOD COUNT 2.1 TH/MM3 (4.0-11.0)
[2017-12-11 06:06] LABS: BICARBONATE 29.5 MEQ/L (21.0-32.0); CALCIUM 7.5 MG/DL (8.5-10.1); CREATININE 0.96 MG/DL (0.60-1.30); MAGNESIUM 1.6 MG/DL (1.5-2.5)
[2017-12-11] MEDS: INSULIN ASPART SUPPLEMENTAL SCALE SQ SCH ×4 (07:13→22:38)
[2017-12-11 08:00] VITALS: BP 129/78; PULSE 78; RESP 18; TEMP 98.1; O2SAT 97
[2017-12-11] MEDS: FUROSEMIDE 40 MG/4 ML VIAL IV PUSH SCH (08:52)
[2017-12-11] MEDS: SODIUM CHLORIDE 0.9% FLUSH 10 ML FLUSH IV FLUSH SCH ×2 (08:53→22:35)
[2017-12-11] MEDS: THIAMINE HCL 100 MG TAB PO SCH (08:54)
[2017-12-11] MEDS: CARVEDILOL 12.5 MG TAB PO SCH ×2 (08:54→22:34)
[2017-12-11] MEDS: MAGNESIUM OXIDE 400 MG TAB PO SCH ×2 (08:54→22:34)
[2017-12-11] MEDS: SODIUM CHLORIDE 0.9% FLUSH 10 ML FLUSH IVF SCH (08:55)
[2017-12-11 12:00] VITALS: BP 133/83; PULSE 89; RESP 17; TEMP 98; O2SAT 98
--- NOTE | 2017-12-11 14:48 | HHI.PR ---
Subjective Remarks The pt was sitting up in bed. He felt like he was feeling better. He felt like the tape over his chest tube had come off. He has been urinating a lot with the Lasix. Discussed with nursing. Objective Vitals Vital Signs Date Time Temp Pulse Resp B/P (MAP) Pulse Ox O2 Delivery O2 Flow Rate FiO2 12/11/17 12:00 98.0 89 17 133/83 (100) 98 12/11/17 08:00 98.1 78 18 129/78 (95) 97 12/11/17 04:00 97.8 79 20 132/76 (94) 96 12/11/17 04:00 Room Air 12/11/17 00:00 Room Air 12/11/17 00:00 98.2 84 20 138/86 (103) 96 12/10/17 20:00 97.9 85 20 149/83 (105) 95 12/10/17 20:00 Room Air 12/10/17 16:00 98.0 83 17 120/68 (85) 98 I/O 12/10/17 12/10/17 12/10/17 12/11/17 12/11/17 12/11/17 07:00 15:00 23:00 07:00 15:00 23:00 Intake Total 100 ml 1420 ml 240 ml Output Total 940 ml 1930 ml 750 ml Balance -840 ml -510 ml -510 ml Intake Oral 1320 ml 240 ml IV Total 100 ml 100 ml Output Urine Total 650 ml 1650 ml 550 ml Chest Tube Drainage Total 190 ml 150 ml Drainage Total 100 ml 130 ml 200 ml # Bowel Movements 1 0 Result Diagram: 12/11/17 0540 12/11/17 0540 Imaging Last Impressions Chest X-Ray 12/06/17 0500 Signed Impressions: Service Date/Time: Wednesday, December 06, 2017 04:57 - CONCLUSION: Small basilar pneumothorax. Alonso Briseno MD Chest CT 11/30/17 1232 Signed Impressions: Service Date/Time: Thursday, November 30, 2017 12:45 - CONCLUSION: 1. Complex right pleural effusion with multiple locules of air and fluid. Primary differential diagnosis is a right-sided empyema. 2. Smaller left effusion without loculated air. 3. Lung consolidation adjacent to complex right effusion as above. Minimal left basal airspace disease. 4. Right PICC line tip in superior vena cava. Edis Wetzel MD Lower Extremity Ultrasound 11/30/17 0000 Signed Impressions: Service Date/Time: Thursday, November 30, 2017 14:01 - CONCLUSION: 1. Negative for deep venous thrombosis bilateral lower extremity. Raghavendra Escobar MD Objective Remarks GENERAL: This is a well-nourished, well-developed patient, in no apparent distress. HEENT: NC, AT. CARDIOVASCULAR: Regular rate and regular rhythm without murmurs, gallops, or rubs. RESPIRATORY: Adventitious sounds on the right, clear on the left. GASTROINTESTINAL: Abdomen soft, non-tender, nondistended. MUSCULOSKELETAL: Extremities without clubbing, cyanosis. Has anasarca. Chest tube and wound VAC in place. NEURO: Alert & Oriented x4 to person, place, time, situation. Moves all ext x4. PSYCH: Mood and affect appropriate. Procedures Right Posterolateral Thoracotomy Decortication and Drainage of Intrathoracic Abscesses Drainage of Subcutaneous Chest Wall Abscess Medications and IVs Current Medications Medications (Trade) Dose Ordered Sig/Bryan Route Start Time Stop Time Status Last Admin (Narcan Inj) 0.4 mg UNSCH PRN IV PUSH 11/29/17 22:45 (D50w (Vial) Inj) 50 ml UNSCH PRN IV PUSH 11/29/17 22:45 (Glucagon Inj) 1 mg UNSCH PRN OTHER 11/29/17 22:45 (NovoLOG SUPPLEMENTAL SCALE) 1 ACHS SLIDING SCALE SQ 11/30/17 08:00 12/11/17 12:58 (NS Flush) DAILY IVF 11/30/17 09:00 12/10/17 09:31 (Heparin Central Flush) DAILY IV FLUSH 11/30/17 09:00 12/10/17 09:22 (NS Flush) UNSCH PRN IVF 11/30/17 00:45 12/09/17 08:57 (Heparin Central Flush) UNSCH PRN IV FLUSH 11/30/17 00:45 12/09/17 08:57 (NS Flush) UNSCH PRN IVF 11/30/17 00:45 (Compazine Inj) 5 mg Q4H PRN IV PUSH 11/30/17 01:30 (Coreg) 12.5 mg Q12HR PO 4/4/18 09:00 12/11/17 08:54 (Levemir Inj) 10 units HS SQ 11/30/17 21:00 12/10/17 20:38 (Vitamin B1) 100 mg DAILY PO 11/30/17 09:00 12/11/17 08:54 (Mag-Ox) 400 mg Q12HR PO 11/30/17 09:00 12/11/17 08:54 (NS Flush) 2 ml BID IV FLUSH 12/02/17 21:00 12/11/17 08:53 (NS Flush) 2 ml UNSCH PRN IV FLUSH 12/02/17 16:15 12/09/17 15:15 (Albuterol Neb) 2.5 mg Q2HR NEB PRN NEB 12/05/17 15:45 12/09/17 16:12 (Protonix) 40 mg HS PO 12/05/17 21:00 12/10/17 20:37 (Zofran Inj) 4 mg Q6H PRN IV PUSH 12/05/17 15:45 (Surfak) 240 mg HS PO 12/05/17 21:00 12/10/17 20:37 (Milk Of Magnesia Liq) 30 ml DAILY PRN PO 12/05/17 15:45 (Tylenol) 650 mg Q4H PRN PO 12/05/17 15:45 ([place] 5-325 Mg) 1 tab Q4H PRN PO 12/07/17 15:00 12/07/17 20:00 (Morphine Inj) 2 mg Q4H PRN IV PUSH 12/07/17 15:00 12/09/17 08:53 (Roxicodone) 15 mg Q4H PRN PO 12/07/17 15:00 12/11/17 09:39 (Lasix Inj) 40 mg DAILY IV PUSH 12/10/17 09:00 12/11/17 08:52 Ceftaroline Fosamil 600 mg/ Sodium Chloride 100 ml @ 100 mls/hr Q12H IV 12/09/17 16:00 12/11/17 05:26 A/P Problem List: (1) Empyema lung ICD Code: J86.9 - Pyothorax without fistula Assessment and Plan Right lung empyema MRSA cultures from thoracentesis and urine specimen at [place]. CT of the chest with complex right pleural effusion with multiple locules of air and fluid. Primary differential diagnosis is a right-sided empyema; Smaller left effusion without loculated air; Lung consolidation adjacent to complex right effusion and minimal left basal airspace disease. CT surgery consult appreciated. S/p right posterolateral thoracotomy; Decortication and drainage of intrathoracic abscesses; Drainage of subcutaneous chest wall abscess 12/05. Cultures are growing MRSA. - Ceftaroline per infectious disease. - Patient had a history of respiratory failure requiring BiPAP at [place], monitor respiratory status. - continue neb treatment. - continue pain control. - Rehab efforts. - continue chest tube and wound vac per CTS and wound care nurse. Chest tube is draining less. Type 2 Diabetes Mellitus Well-controlled at this time. - Continue Levemir 10 units subq nightly - Accu-Cheks before meals and at bedtime with low-dose NovoLog sliding scale coverage - Monitor trends and blood glucose readings and adjust treatments as indicated Pancytopenia Possibly s/t bone marrow suppression from EtOH abuse, sepsis. - follow CBC and transfuse as needed. - hold off on DVT prophylaxis. Acute renal failure Continues to improve. - Monitor renal indices as being diuresed. - Avoid nephrotoxins. - Monitor I&O. Hypertension BP controlled. Lisinopril from home was held at [place] due to acute renal failure. - Continue to hold lisinopril. - Continue carvedilol 12.5 mg twice daily. History of DVT Bilateral LE edema and pain. - bilateral LE doppler us negative for DVT. Anasarca The patient has diffuse edema. - Continue Lasix 40 mg IV daily and follow BMP. Visual floaters Cataracts and diabetic retinopathy. - Evaluated and diagnosed by an regulatory affairs director at [facility]. - Patient to follow-up with ophthalmology as an outpatient. DVT prophylaxis: SCDs Discharge Planning Ideally transfer back to [place] if able to manage chest tube and wound vac there Stuart Diamond DO Dec 11, 2017 14:48
[2017-12-11 16:00] VITALS: BP 131/77; PULSE 88; RESP 16; TEMP 98; O2SAT 98
[2017-12-11 20:00] VITALS: BP 125/79; PULSE 83; RESP 17; TEMP 98.6; O2SAT 97
[2017-12-11] MEDS: DOCUSATE CALCIUM 240 MG CAP PO SCH (21:00)
[2017-12-11] MEDS: PANTOPRAZOLE SOD 40 MG DELAYED RELEASE TAB PO SCH (22:33)
[2017-12-11] MEDS: INSULIN DETEMIR 100 UNITS/ML VIAL SQ SCH (22:38)
[2017-12-12] VITALS (7 sets, daily range): BP systolic 111–131; BP diastolic 67–82; PULSE 74–89; RESP 17–18; TEMP 97.4–98.6; O2SAT 95–98
[2017-12-12] MEDS: CEFTAROLINE INJ 600 MG in SODIUM CHLORIDE 0.9% INJ 100 ML IV SCH ×2 (03:22→14:40)
[2017-12-12 03:56] LABS: BACTERIA, URINE RARE /hpf; BILIRUBIN, URINE NEG (NEG); BLOOD, URINE MOD (NEG); GLUCOSE,URINE NEG (NEG); KETONE, URINE NEG (NEG); MUCUS URINE FEW /lpf (OCC); NITRITE,URINE NEG (NEG); PH, URINE 7.5 (5.0-8.5); URINE COLOR YELLOW (YELLW/STRAW); URINE LEUKOCYTE ESTERASE MOD (NEG)
[2017-12-12 07:11] LABS: AUTOMATED NEUTROPHIL # 1.6 TH/MM3 (1.8-7.7); BASOPHIL % 0.7 % (0.0-2.0); EOSINOPHIL # 0.1 TH/MM3 (0-0.4); EOSINOPHIL % 3.9 % (0.0-4.0); LYMPH % 23.3 % (9.0-44.0); LYMPHOCYTE # 0.6 TH/MM3 (1.0-4.8); MEAN CELL VOLUME 93.5 FL (80.0-100.0); MEAN CORPUSCULAR HEMOGLOBIN 32.7 PG (27.0-34.0); MEAN PLATELET VOLUME 7.4 FL (7.0-11.0); MONO % 11.8 % (0.0-8.0); MONOCYTE # 0.3 TH/MM3 (0-0.9); NEUT % 60.3 % (16.0-70.0); PLATELET COUNT 68 TH/MM3 (150-450); RED BLOOD COUNT 2.08 MIL/MM3 (4.50-5.90); RED CELL DISTRIBUTION WIDTH 17.2 % (11.6-17.2); WHITE BLOOD COUNT 2.7 TH/MM3 (4.0-11.0)
[2017-12-12 07:21] LABS: HEMATOCRIT 19.4 % (39.0-51.0); HEMOGLOBIN 6.8 GM/DL (13.0-17.0)
[2017-12-12] MEDS: THIAMINE HCL 100 MG TAB PO SCH (07:49)
[2017-12-12] MEDS: CARVEDILOL 12.5 MG TAB PO SCH ×2 (07:49→23:07)
[2017-12-12] MEDS: SODIUM CHLORIDE 0.9% FLUSH 10 ML FLUSH IVF SCH (07:50)
[2017-12-12] MEDS: FUROSEMIDE 40 MG/4 ML VIAL IV PUSH SCH (07:50)
[2017-12-12] MEDS: SODIUM CHLORIDE 0.9% FLUSH 10 ML FLUSH IV FLUSH SCH ×2 (07:50→23:14)
[2017-12-12] MEDS: INSULIN ASPART SUPPLEMENTAL SCALE SQ SCH ×4 (07:50→23:12)
[2017-12-12] MEDS: MAGNESIUM OXIDE 400 MG TAB PO SCH ×2 (07:50→23:07)
--- NOTE | 2017-12-12 12:52 | HHI.PR ---
Subjective Remarks The patient was resting comfortably in bed. He was receiving a blood transfusion. He said that he slept well. He has been having bowel movements. Discussed with nursing. Objective Vitals Vital Signs Date Time Temp Pulse Resp B/P (MAP) Pulse Ox O2 Delivery O2 Flow Rate FiO2 12/12/17 11:45 97.4 74 17 116/67 98 12/12/17 11:22 97.7 79 18 111/72 97 12/12/17 08:00 98.2 76 18 124/81 (95) 98 12/12/17 00:00 98.6 89 17 126/74 (91) 95 12/11/17 20:00 98.6 83 17 125/79 (94) 97 12/11/17 20:00 Room Air 12/11/17 16:00 98.0 88 16 131/77 (95) 98 I/O 12/11/17 12/11/17 12/11/17 12/12/17 12/12/17 12/12/17 06:59 14:59 22:59 06:59 14:59 22:59 Intake Total 240 ml 1300 ml 340 ml 10 ml Output Total 750 ml 2165 ml 900 ml Balance -510 ml -865 ml -560 ml 10 ml Intake Oral 240 ml 1200 ml 240 ml IV Total 100 ml 100 ml Blood Product IV Normal Saline Flush 10 ml Output Urine Total 550 ml 1975 ml 600 ml Chest Tube Drainage Total 130 ml 150 ml Drainage Total 200 ml 60 ml 150 ml # Voids 2 # Bowel Movements 0 2 1 Result Diagram: 12/12/17 0620 12/11/17 0540 Imaging Last Impressions Chest X-Ray 12/06/17 0500 Signed Impressions: Service Date/Time: Wednesday, December 06, 2017 04:57 - CONCLUSION: Small basilar pneumothorax. Alonso Briseno MD Chest CT 11/30/17 1232 Signed Impressions: Service Date/Time: Thursday, November 30, 2017 12:45 - CONCLUSION: 1. Complex right pleural effusion with multiple locules of air and fluid. Primary differential diagnosis is a right-sided empyema. 2. Smaller left effusion without loculated air. 3. Lung consolidation adjacent to complex right effusion as above. Minimal left basal airspace disease. 4. Right PICC line tip in superior vena cava. Edis Wetzel MD Lower Extremity Ultrasound 11/30/17 0000 Signed Impressions: Service Date/Time: Thursday, November 30, 2017 14:01 - CONCLUSION: 1. Negative for deep venous thrombosis bilateral lower extremity. Raghavendra Escobar MD Objective Remarks GENERAL: This is a well-nourished, well-developed patient, in no apparent distress. HEENT: NC, AT. CARDIOVASCULAR: Regular rate and regular rhythm without murmurs, gallops, or rubs. RESPIRATORY: Adventitious sounds on the right, clear on the left. GASTROINTESTINAL: Abdomen soft, non-tender, nondistended. MUSCULOSKELETAL: Extremities without clubbing, cyanosis. Has anasarca. Chest tube and wound VAC in place. NEURO: Alert & Oriented x4 to person, place, time, situation. Moves all ext x4. PSYCH: Mood and affect appropriate. Procedures Right Posterolateral Thoracotomy Decortication and Drainage of Intrathoracic Abscesses Drainage of Subcutaneous Chest Wall Abscess Medications and IVs Current Medications Medications (Trade) Dose Ordered Sig/Bryan Route Start Time Stop Time Status Last Admin (Narcan Inj) 0.4 mg UNSCH PRN IV PUSH 11/29/17 22:45 (D50w (Vial) Inj) 50 ml UNSCH PRN IV PUSH 11/29/17 22:45 (Glucagon Inj) 1 mg UNSCH PRN OTHER 11/29/17 22:45 (NovoLOG SUPPLEMENTAL SCALE) 1 ACHS SLIDING SCALE SQ 11/30/17 08:00 12/11/17 22:38 (NS Flush) DAILY IVF 11/30/17 09:00 12/12/17 07:50 (Heparin Central Flush) DAILY IV FLUSH 11/30/17 09:00 12/12/17 07:50 (NS Flush) UNSCH PRN IVF 11/30/17 00:45 12/09/17 08:57 (Heparin Central Flush) UNSCH PRN IV FLUSH 11/30/17 00:45 12/09/17 08:57 (NS Flush) UNSCH PRN IVF 11/30/17 00:45 (Compazine Inj) 5 mg Q4H PRN IV PUSH 11/30/17 01:30 (Coreg) 12.5 mg Q12HR PO 11/30/17 09:00 12/12/17 07:49 (Levemir Inj) 10 units HS SQ 11/30/17 21:00 12/11/17 22:38 (Vitamin B1) 100 mg DAILY PO 11/30/17 09:00 12/12/17 07:49 (Mag-Ox) 400 mg Q12HR PO 11/30/17 09:00 12/12/17 07:50 (NS Flush) 2 ml BID IV FLUSH 12/02/17 21:00 12/11/17 22:35 (NS Flush) 2 ml UNSCH PRN IV FLUSH 12/02/17 16:15 12/09/17 15:15 (Albuterol Neb) 2.5 mg Q2HR NEB PRN NEB 12/05/17 15:45 12/09/17 16:12 (Protonix) 40 mg HS PO 12/05/17 21:00 12/11/17 22:33 (Zofran Inj) 4 mg Q6H PRN IV PUSH 12/05/17 15:45 (Surfak) 240 mg HS PO 12/05/17 21:00 12/10/17 20:37 (Milk Of Magnesia Liq) 30 ml DAILY PRN PO 12/05/17 15:45 (Tylenol) 650 mg Q4H PRN PO 12/05/17 15:45 (Taylor 5-325 Mg) 1 tab Q4H PRN PO 12/07/17 15:00 12/07/17 20:00 (Morphine Inj) 2 mg Q4H PRN IV PUSH 12/07/17 15:00 12/09/17 08:53 (Roxicodone) 15 mg Q4H PRN PO 12/07/17 15:00 12/12/17 07:49 (Lasix Inj) 40 mg DAILY IV PUSH 12/10/17 09:00 12/12/17 07:50 Ceftaroline Fosamil 600 mg/ Sodium Chloride 100 ml @ 100 mls/hr Q12H IV 12/09/17 16:00 12/12/17 03:22 A/P Problem List: (1) Empyema lung ICD Code: J86.9 - Pyothorax without fistula Assessment and Plan Right lung empyema MRSA cultures from thoracentesis and urine specimen at [place]. CT of the chest with complex right pleural effusion with multiple locules of air and fluid. Primary differential diagnosis is a right-sided empyema; Smaller left effusion without loculated air; Lung consolidation adjacent to complex right effusion and minimal left basal airspace disease. CT surgery consult appreciated. S/p right posterolateral thoracotomy; Decortication and drainage of intrathoracic abscesses; Drainage of subcutaneous chest wall abscess 12/05. Cultures are growing MRSA. - Ceftaroline per infectious disease. - Patient had a history of respiratory failure requiring BiPAP at [place], monitor respiratory status. - continue neb treatments. - continue pain control with a bowel regimen. - Rehab efforts. - continue chest tube and wound vac per CTS and wound care nurse. Chest tube is draining less. Type 2 Diabetes Mellitus Well-controlled at this time. - Continue Levemir 10 units subq nightly. - Accu-Cheks before meals and at bedtime with low-dose NovoLog sliding scale coverage. - Monitor trends and blood glucose readings and adjust treatments as indicated. Pancytopenia Possibly s/t bone marrow suppression from EtOH abuse, sepsis. - follow CBC and transfuse as needed. 1 unit red cells ordered 12/12. - hold off on DVT prophylaxis. Acute renal failure Continues to improve. - Monitor renal indices as being diuresed. - Avoid nephrotoxins. - Monitor I&O. Hypertension BP controlled. Lisinopril from home was held at [place] due to acute renal failure. - Continue to hold lisinopril. - Continue carvedilol 12.5 mg twice daily. History of DVT Bilateral LE edema and pain. - bilateral LE doppler us negative for DVT. Anasarca The patient has diffuse edema. - Continue Lasix 40 mg IV daily and follow BMP. Visual floaters Cataracts and diabetic retinopathy. - Evaluated and diagnosed by an support merchandiser at [facility]. - Patient to follow-up with ophthalmology as an outpatient. DVT prophylaxis: SCDs Discharge Planning Ideally transfer back to [place] if able to manage chest tube and wound vac there. May need to keep here until chest tube is out Stuart Diamond DO Dec 12, 2017 12:52
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
--- NOTE | 2017-12-12 14:33 | PD.WCN.NOT ---
Wound Consult Description: Wound consult ordered by Sharif AOC DIRECTOR COMBAT PLANS OFFICER for wound management Communicated with: Sammi WINTER Recommendation: Change wound VAC to right lateral chest Tuesday as ordered using a small wound VAC dressing. Wound VAC settings @125mmHg low continuous suction. Additional Information: Patient seen on for wound VAC to right lateral chest wound. Neg Pressure Wound Therapy Wound Location Wound Location: Right lateral chest wound Wound Description Length: 0.7cm Width: 3.8cm Depth: 1.8cm Underminin.5cm @3 o'clock Wound bed appearance: 100% moist adipose tissue Periwound appearance: Unremarkable Settings Suction: 125 mmHg, Continuous Intensity: Low Other Information: Windowpaned Foam type: Black Number of pieces: 1 Additonal Information Tape removed from around wound. Wound VAC removed from right lateral chest wound with measurements above. 1 piece black foam removed from wound bed. Wound is moist with adipose tissue and minimal active sero-sang drainage noted during cleansing with NS and gauze. Periwound is unremarkable and was skin prepped with Cavilon skin barrier film. Wound was window paned using VAC drape. One piece of black granufoam was placed in wound bed and secured with wound VAC drape and bridged distally to wound bed protecting intact skin with VAC drape. Sensitrac pad was placed over a mushroomed piece of black granufoam and attached to the tubing and a new canister was placed, discarding a full canister of sanguinous drainage and communicated to MOY Chapa. Wound VAC was turned on with settings @125mmHg low continuous suction and working properly without leaks when leaving patient room. Patient tolerated wound VAC change well. Tape was applied and used to reinforce dressing and chest tube as previously found upon entering patient room. Ostomy Date of Surgery: Dec 05, 2017 Sakshi Payan [facility] Dec 12, 2017 14:33
[2017-12-12] MEDS: DOCUSATE CALCIUM 240 MG CAP PO SCH (23:07)
[2017-12-12] MEDS: PANTOPRAZOLE SOD 40 MG DELAYED RELEASE TAB PO SCH (23:07)
[2017-12-12] MEDS: INSULIN DETEMIR 100 UNITS/ML VIAL SQ SCH (23:12)
[2017-12-13] VITALS: BP 136/82; PULSE 82; RESP 18; TEMP 98.2; O2SAT 95
[2017-12-13] MEDS: CEFTAROLINE INJ 600 MG in SODIUM CHLORIDE 0.9% INJ 100 ML IV SCH ×2 (04:35→15:40)
[2017-12-13 05:19] LABS: BASOPHIL % 1.1 % (0.0-2.0); EOSINOPHIL # 0.2 TH/MM3 (0-0.4); EOSINOPHIL % 4.4 % (0.0-4.0); HEMOGLOBIN 7.4 GM/DL (13.0-17.0); LYMPH % 22.7 % (9.0-44.0); LYMPHOCYTE # 0.8 TH/MM3 (1.0-4.8); MEAN CELL VOLUME 91.1 FL (80.0-100.0); MEAN CORPUSCULAR HEMOGLOBIN 32.2 PG (27.0-34.0); MEAN CORPUSCULAR HGB CONC 35.3 % (32.0-36.0); MEAN PLATELET VOLUME 7.6 FL (7.0-11.0); MONO % 15.5 % (0.0-8.0); MONOCYTE # 0.5 TH/MM3 (0-0.9); NEUT % 56.3 % (16.0-70.0); PLATELET COUNT 76 TH/MM3 (150-450); RED CELL DISTRIBUTION WIDTH 17.4 % (11.6-17.2); WHITE BLOOD COUNT 3.5 TH/MM3 (4.0-11.0)
[2017-12-13 05:25] LABS: HEMATOCRIT 20.9 % (39.0-51.0)
[2017-12-13 08:00] VITALS: BP 133/86; PULSE 73; RESP 18; TEMP 97.9; O2SAT 97
[2017-12-13] MEDS: INSULIN ASPART SUPPLEMENTAL SCALE SQ SCH ×4 (08:00→22:17)
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
[2017-12-13] MEDS: FUROSEMIDE 40 MG/4 ML VIAL IV PUSH SCH (10:01)
[2017-12-13] MEDS: MAGNESIUM OXIDE 400 MG TAB PO SCH ×2 (10:02→22:10)
[2017-12-13] MEDS: THIAMINE HCL 100 MG TAB PO SCH (10:02)
[2017-12-13] MEDS: SODIUM CHLORIDE 0.9% FLUSH 10 ML FLUSH IVF SCH (10:02)
[2017-12-13] MEDS: SODIUM CHLORIDE 0.9% FLUSH 10 ML FLUSH IV FLUSH SCH ×2 (10:02→22:14)
[2017-12-13] MEDS: CARVEDILOL 12.5 MG TAB PO SCH ×2 (10:02→22:11)
[2017-12-13 12:00] VITALS: BP 128/79; PULSE 79; RESP 18; TEMP 98.4; O2SAT 97
--- NOTE | 2017-12-13 14:39 | HHI.PR ---
Subjective Remarks Follow up empyema, diabetes, anemia. Chest tube removed today. Patient states that he feels "OK". Denies chest pain, dyspnea. Objective Vitals Vital Signs Date Time Temp Pulse Resp B/P (MAP) Pulse Ox O2 Delivery O2 Flow Rate FiO2 12/13/17 12:00 98.4 79 18 128/79 (95) 97 12/13/17 08:00 97.9 73 18 133/86 (102) 97 12/13/17 00:00 98.2 82 18 136/82 (100) 95 12/12/17 20:00 97.8 87 18 131/82 (98) 96 12/12/17 16:00 98.1 86 18 116/67 (83) 96 I/O 12/12/17 12/12/17 12/12/17 12/13/17 12/13/17 12/13/17 07:00 15:00 23:00 07:00 15:00 23:00 Intake Total 340 ml 420 ml 1060 ml Output Total 900 ml 1760 ml 600 ml Balance -560 ml 420 ml -700 ml -600 ml Intake Oral 240 ml 960 ml IV Total 100 ml 100 ml Packed Cells 400 ml Blood Product IV Normal Saline Flush 20 ml Output Urine Total 600 ml 1550 ml 500 ml Chest Tube Drainage Total 150 ml 110 ml 100 ml Drainage Total 150 ml 100 ml 0 ml # Voids 2 # Bowel Movements 1 1 Result Diagram: 12/13/17 0439 12/11/17 0540 Imaging Last Impressions Chest X-Ray 12/06/17 0500 Signed Impressions: Service Date/Time: Wednesday, December 06, 2017 04:57 - CONCLUSION: Small basilar pneumothorax. Alonso Briseno MD Chest CT 11/30/17 1232 Signed Impressions: Service Date/Time: Thursday, November 30, 2017 12:45 - CONCLUSION: 1. Complex right pleural effusion with multiple locules of air and fluid. Primary differential diagnosis is a right-sided empyema. 2. Smaller left effusion without loculated air. 3. Lung consolidation adjacent to complex right effusion as above. Minimal left basal airspace disease. 4. Right PICC line tip in superior vena cava. Edis Wetzel MD Lower Extremity Ultrasound 11/30/17 0000 Signed Impressions: Service Date/Time: Thursday, November 30, 2017 14:01 - CONCLUSION: 1. Negative for deep venous thrombosis bilateral lower extremity. Raghavendra Escobar MD Objective Remarks General: No acute distress. Heart: Regular rate and rhythm. No murmur. Lungs: Decreased breath sounds on the right. Breathing is nonlabored. Abdomen: Soft, nontender, nondistended. Back: Bandages in place over chest tube site. Extremities: 2+ lower extremity edema. Psych: Alert and oriented. Neuro: Normal speech. No focal deficits noted. Procedures Right Posterolateral Thoracotomy Decortication and Drainage of Intrathoracic Abscesses Drainage of Subcutaneous Chest Wall Abscess Urinary Catheter: No Vascular Central Line Catheter: No A/P Problem List: (1) Empyema lung ICD Code: J86.9 - Pyothorax without fistula Assessment and Plan 1. Right lung empyema: Cultures growing MRSA. Appreciate CT surgery recommendations. Status post posterolateral thoracotomy, decortication and drainage of intrathoracic abscesses, drainage of subcutaneous chest wall abscess on 12/05/17. Appreciate infectious disease recommendations. Continue Teflaro. Chest tube removed today. 2. Type 2 diabetes mellitus: Well controlled. Continue Levemir. Monitor Accu- Cheks and cover with sliding scale insulin. 3. Pancytopenia: Possibly secondary to bone marrow suppression from alcohol abuse, sepsis. Monitor labs. Received transfusion of 1 unit PRBCs yesterday. 4. Acute renal failure: Improving. Monitor BUN and creatinine. Avoid nephrotoxins. Monitor intake/output. 5. Hypertension: Blood pressure controlled. Lisinopril on hold secondary to acute renal failure. Continue carvedilol 12.5 mg twice daily. 6. History of DVT: Lower extremity Doppler negative for DVT. 7. Anasarca: Patient has diffuse edema. Continue Lasix. 8. Visual floaters: Patient has cataracts, diabetic retinopathy. He has been evaluated by ophthalmology at [facility]. Follow-up with ophthalmology as an outpatient. 9. DVT prophylaxis: SCDs. Avoid chemical prophylaxis secondary to pancytopenia. Discharge Planning Discussed with CT surgery. Chest tube removed. Chest x-ray to be done this afternoon. If chest x-ray is unremarkable, plan would be for transfer back to [facility] today. Arnulfo Mathew MD Dec 13, 2017 14:39
[2017-12-13] MEDS ORDERED: HYDR-3516 PO (14:43)
[2017-12-13] MEDS ORDERED: Furosemide IV PUSH (14:43)
[2017-12-13] MEDS ORDERED: MAGN400T2 PO (14:43)
[2017-12-13] MEDS ORDERED: LEVEMIR SQ (14:43)
[2017-12-13] MEDS ORDERED: OXYC-392 PO (14:43)
[2017-12-13] MEDS ORDERED: CARV12.5 PO (14:43)
[2017-12-13] MEDS ORDERED: THIA100 PO (14:43)
--- NOTE | 2017-12-13 15:59 | RADRPT ---
EXAM DATE/TIME: 12/13/2017 15:19 [place] COMPARISON: CHEST SINGLE AP, December 06, 2017, 4:57. INDICATIONS : Post chest tube removal, evaluate for pneumothorax MEDICAL HISTORY : Cardiovascular disease. Diabetes mellitus type II. Hypertension. right lung empyema, MRSA SURGICAL HISTORY : jaw, tear ducts, thoracentesis, thoracotomy ENCOUNTER: Subsequent ACUITY: 2 weeks PAIN SCORE: 0/10 LOCATION: Bilateral chest FINDINGS: A single view of the chest demonstrates removal of right-sided chest tube. No pneumothorax. Pleural-p arenchymal density throughout the right chest. Right-sided PICC line stable. Left lung relatively terry ar The cardiomediastinal contours are unremarkable. Osseous structures are intact. CONCLUSION: Removal of right-sided chest tube without pneumothorax. Alonso Briseno MD on December 13, 2017 at 15:55 Board Certified Radiologist. This report was verified electronically.
[2017-12-13 16:00] VITALS: BP 132/74; PULSE 87; RESP 18; TEMP 98.4; O2SAT 96
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
--- NOTE | 2017-12-13 16:35 | PD.TRANSFR ---
Transfer Summary Admission Date Nov 29, 2017 at 18:31 Transfer Date: Dec 13, 2017 Admitting Diagnosis Right lung Empyema . Diagnoses: (1) Empyema lung Procedures Right Posterolateral Thoracotomy Decortication and Drainage of Intrathoracic Abscesses Drainage of Subcutaneous Chest Wall Abscess Imaging Last Impressions Chest X-Ray 12/13/17 0000 Signed Impressions: Service Date/Time: Wednesday, December 13, 2017 15:19 - CONCLUSION: Removal of right-sided chest tube without pneumothorax. Alonso Briseno MD Chest CT 11/30/17 1232 Signed Impressions: Service Date/Time: Thursday, November 30, 2017 12:45 - CONCLUSION: 1. Complex right pleural effusion with multiple locules of air and fluid. Primary differential diagnosis is a right-sided empyema. 2. Smaller left effusion without loculated air. 3. Lung consolidation adjacent to complex right effusion as above. Minimal left basal airspace disease. 4. Right PICC line tip in superior vena cava. Edis Wetzel MD Lower Extremity Ultrasound 11/30/17 0000 Signed Impressions: Service Date/Time: Thursday, November 30, 2017 14:01 - CONCLUSION: 1. Negative for deep venous thrombosis bilateral lower extremity. Raghavendra Escobar MD Significant Findings Laboratory Tests Test 12/11/17 05:40 12/12/17 03:25 12/12/17 06:20 12/13/17 04:39 White Blood Count 2.1 TH/MM3 (4.0-11.0) 2.7 TH/MM3 (4.0-11.0) 3.5 TH/MM3 (4.0-11.0) Red Blood Count 2.39 MIL/MM3 (4.50-5.90) 2.08 MIL/MM3 (4.50-5.90) 2.30 MIL/MM3 (4.50-5.90) Hemoglobin 7.7 GM/DL (13.0-17.0) 6.8 GM/DL (13.0-17.0) 7.4 GM/DL (13.0-17.0) Hematocrit 22.4 % (39.0-51.0) 19.4 % (39.0-51.0) 20.9 % (39.0-51.0) Platelet Count 50 TH/MM3 (150-450) 68 TH/MM3 (150-450) 76 TH/MM3 (150-450) Calcium Level 7.5 MG/DL (8.5-10.1) Chloride Level 108 MEQ/L (98-107) Anion Gap 4 MEQ/L (5-15) Estimat Glomerular Filtration Rate 82 ML/MIN (>89) Urine Occult Blood MOD (NEG) Urine Leukocyte Esterase MOD (NEG) Urine RBC 53 /hpf (0-3) Urine WBC 19 /hpf (0-5) Urine Bacteria RARE /hpf (NONE) Urine Mucus FEW /lpf (OCC) Monocytes (%) (Auto) 11.8 % (0.0-8.0) 15.5 % (0.0-8.0) Neutrophils # (Auto) 1.6 TH/MM3 (1.8-7.7) Lymphocytes # (Auto) 0.6 TH/MM3 (1.0-4.8) 0.8 TH/MM3 (1.0-4.8) Platelet Estimate LOW (NORMAL) LOW (NORMAL) Red Cell Distribution Width 17.4 % (11.6-17.2) Eosinophils (%) (Auto) 4.4 % (0.0-4.0) Transfer Summary Brought forward from admission history and physical: "Mr. Lopez is a 52-year- old male with a history of type 2 diabetes mellitus and hypertension who was admitted to [facility] on 11/18/2017 for evaluation of complaints of weakness, dizziness, and nausea and vomiting. The patient was believed to be in alcohol withdrawal as well as sepsis related to pneumonia and was admitted. Over the course of his hospitalization, he developed a persistent right-sided pleural effusion. He had a thoracentesis on 11/22 with 1400 cc out and cultures positive for MRSA. He was also noted to have a urinary tract infection which was also MRSA positive. The patient was accepted in transfer to [facility] by Dr. Richards for right lung empyema with possible decortication of lung by cardiothoracic surgery. He was admitted to the hospitalist team for medical management. The patient is seen in his hospital room. He complains of pain in his lower extremities and in the area where his right chest tube was removed. He reports the pain is severe, aching and has not been alleviated by the morphine 2 mg IV every 4 hours as needed offered at [facility]. He had a PICC placed 11/22, and on 11/21 he had an echocardiogram showing preserved systolic function with an EF of 60-65%. He has been having some visual floaters especially in the right eye and was seen by ophthalmology at [place]. He was diagnosed with bilateral cataracts and mild diabetic retinopathy. He was instructed to follow-up with ophthalmology as an outpatient. The patient reports to me that he was clean from alcohol for 4-5 years but started drinking occasionally in the beginning of August. He denies daily alcohol use and denies current alcohol withdrawal." Hospital course: The patient was admitted for management of empyema with cultures positive for MRSA. Cardiothoracic surgery was consulted. Right posterolateral thoracotomy with decortication and drainage of intrathoracic abscess was done on 12/05/17. Chest tube was placed. Wound VAC was placed. Infectious disease was consulted. Antibiotics were adjusted. Wound care assisted with wound management. PT worked with the patient. He improved clinically and the chest tube was removed by CT surgery. He was cleared for transfer back to [facility] for further management. Other issues being monitored and managed during this hospitalization include diabetes mellitus, pancytopenia, acute renal failure, hypertension, anasarca. The patient was continued on diuretics. Glucose was monitored and covered with sliding scale insulin. BUN and creatinine were monitored and improved throughout the hospitalization. Proposed Disposition: Trnsfr to Other Facility Arnulfo Mathew MD Dec 13, 2017 16:35
[2017-12-13 20:00] VITALS: BP 129/83; PULSE 84; RESP 18; TEMP 98.2; O2SAT 96
[2017-12-13] MEDS: DOCUSATE CALCIUM 240 MG CAP PO SCH (21:00)
[2017-12-13] MEDS: PANTOPRAZOLE SOD 40 MG DELAYED RELEASE TAB PO SCH (22:11)
[2017-12-13] MEDS: INSULIN DETEMIR 100 UNITS/ML VIAL SQ SCH (22:17)
[2017-12-14] VITALS (9 sets, daily range): BP systolic 112–154; BP diastolic 67–90; PULSE 77–92; RESP 17–20; TEMP 97.4–99.2; O2SAT 94–97
[2017-12-14] MEDS: CEFTAROLINE INJ 600 MG in SODIUM CHLORIDE 0.9% INJ 100 ML IV SCH ×2 (03:48→14:38)
[2017-12-14] MEDS: INSULIN ASPART SUPPLEMENTAL SCALE SQ SCH ×4 (08:00→21:00)
[2017-12-14] MEDS: SODIUM CHLORIDE 0.9% FLUSH 10 ML FLUSH IV FLUSH SCH ×2 (08:30→21:15)
[2017-12-14] MEDS: SODIUM CHLORIDE 0.9% FLUSH 10 ML FLUSH IVF SCH (08:30)
[2017-12-14] MEDS: FUROSEMIDE 40 MG/4 ML VIAL IV PUSH SCH (08:31)
[2017-12-14] MEDS: THIAMINE HCL 100 MG TAB PO SCH (08:31)
[2017-12-14] MEDS: MAGNESIUM OXIDE 400 MG TAB PO SCH ×2 (08:31→21:14)
[2017-12-14] MEDS: CARVEDILOL 12.5 MG TAB PO SCH ×2 (08:31→21:14)
--- NOTE | 2017-12-14 11:01 | RADRPT ---
EXAM DATE/TIME: 12/14/2017 10:34 [place] COMPARISON: CHEST SINGLE AP, December 13, 2017, 15:19. INDICATIONS : Shortness of breath today. MEDICAL HISTORY : Cardiovascular disease. Diabetes mellitus type II. Hypertension. SURGICAL HISTORY : None. ENCOUNTER: Subsequent ACUITY: 1 day PAIN SCORE: 0/10 LOCATION: Bilateral chest FINDINGS: PICC line in good position. Persistent effusion and consolidation changes on the right. The left elisa ng is clear. The heart and pulmonary vascularity are normal. CONCLUSION: Stable chest. Kike Valdez MD FACR on December 14, 2017 at 10:59 Board Certified Radiologist. This report was verified electronically.
--- NOTE | 2017-12-14 11:30 | HHI.PR ---
Subjective Remarks Follow up empyema, diabetes, anemia. The patient had a little more shortness of breath today. Denies chest pain at this time. States that he has been up out of bed without worsening of his symptoms. Objective Vitals Vital Signs Date Time Temp Pulse Resp B/P (MAP) Pulse Ox O2 Delivery O2 Flow Rate FiO2 12/14/17 08:00 98.2 92 20 138/82 (100) 95 12/14/17 00:00 99.2 83 18 128/80 (96) 96 12/13/17 20:00 98.2 84 18 129/83 (98) 96 12/13/17 16:00 98.4 87 18 132/74 (93) 96 12/13/17 12:00 98.4 79 18 128/79 (95) 97 I/O 12/13/17 12/13/17 12/13/17 12/14/17 12/14/17 12/14/17 07:00 15:00 23:00 07:00 15:00 23:00 Intake Total 980 ml Output Total 600 ml 1000 ml 300 ml 150 ml Balance -600 ml -20 ml -300 ml -150 ml Intake Oral 980 ml Output Urine Total 500 ml 1000 ml 300 ml Chest Tube Drainage Total 100 ml Drainage Total 0 ml 150 ml Result Diagram: 12/13/17 0439 12/11/17 0540 Imaging Last Impressions Chest X-Ray 12/14/17 0000 Signed Impressions: Service Date/Time: Thursday, December 14, 2017 10:34 - CONCLUSION: Stable chest. Kike Valdez MD FACR Chest CT 11/30/17 1232 Signed Impressions: Service Date/Time: Thursday, November 30, 2017 12:45 - CONCLUSION: 1. Complex right pleural effusion with multiple locules of air and fluid. Primary differential diagnosis is a right-sided empyema. 2. Smaller left effusion without loculated air. 3. Lung consolidation adjacent to complex right effusion as above. Minimal left basal airspace disease. 4. Right PICC line tip in superior vena cava. Edis Wetzel MD Lower Extremity Ultrasound 11/30/17 0000 Signed Impressions: Service Date/Time: Thursday, November 30, 2017 14:01 - CONCLUSION: 1. Negative for deep venous thrombosis bilateral lower extremity. Raghavendra Escobar MD Objective Remarks General: No acute distress. Heart: Regular rate and rhythm. No murmur. Lungs: Decreased breath sounds on the right. Breathing is nonlabored. Abdomen: Soft, nontender, nondistended. Back: Bandages in place over chest tube site. Extremities: 2+ lower extremity edema. Psych: Alert and oriented. Neuro: Normal speech. No focal deficits noted. Procedures Right Posterolateral Thoracotomy Decortication and Drainage of Intrathoracic Abscesses Drainage of Subcutaneous Chest Wall Abscess Urinary Catheter: No Vascular Central Line Catheter: No A/P Problem List: (1) Empyema lung ICD Code: J86.9 - Pyothorax without fistula Assessment and Plan 1. Right lung empyema: Cultures growing MRSA. Appreciate CT surgery recommendations. Status post posterolateral thoracotomy, decortication and drainage of intrathoracic abscesses, drainage of subcutaneous chest wall abscess on 12/05/17. Appreciate infectious disease recommendations. Continue Teflaro. Chest tube removed today. 2. Type 2 diabetes mellitus: Well controlled. Continue Levemir. Monitor Accu- Cheks and cover with sliding scale insulin. 3. Pancytopenia: Possibly secondary to bone marrow suppression from alcohol abuse, sepsis. Monitor labs. Received transfusion of 1 unit PRBCs 12/12/17. Labs are pending today. 4. Acute renal failure: Improving. Monitor BUN and creatinine. Avoid nephrotoxins. Monitor intake/output. Labs are pending today. 5. Hypertension: Blood pressure controlled. Lisinopril on hold secondary to acute renal failure. Continue carvedilol 12.5 mg twice daily. 6. History of DVT: Lower extremity Doppler negative for DVT. 7. Anasarca: Patient has diffuse edema. Continue Lasix. 8. Visual floaters: Patient has cataracts, diabetic retinopathy. He has been evaluated by ophthalmology at [facility]. Follow-up with ophthalmology as an outpatient. 9. DVT prophylaxis: SCDs. Avoid chemical prophylaxis secondary to pancytopenia. Discharge Planning Transfer to [facility] today. Discussed with Dr. Steinberg at [place], who will accept the patient in transfer. Arnulfo Mathew MD Dec 14, 2017 11:30
[2017-12-14 12:17] LABS: AUTOMATED NEUTROPHIL # 1.8 TH/MM3 (1.8-7.7); BASOPHIL % 0.6 % (0.0-2.0); EOSINOPHIL # 0.1 TH/MM3 (0-0.4); EOSINOPHIL % 3.6 % (0.0-4.0); LYMPH % 20.6 % (9.0-44.0); LYMPHOCYTE # 0.6 TH/MM3 (1.0-4.8); MEAN CELL VOLUME 91.1 FL (80.0-100.0); MEAN CORPUSCULAR HEMOGLOBIN 31.5 PG (27.0-34.0); MEAN CORPUSCULAR HGB CONC 34.5 % (32.0-36.0); MEAN PLATELET VOLUME 7.7 FL (7.0-11.0); MONO % 14.4 % (0.0-8.0); MONOCYTE # 0.4 TH/MM3 (0-0.9); NEUT % 60.8 % (16.0-70.0); PLATELET COUNT 80 TH/MM3 (150-450); RED BLOOD COUNT 2.01 MIL/MM3 (4.50-5.90); RED CELL DISTRIBUTION WIDTH 17.3 % (11.6-17.2)
[2017-12-14 12:21] LABS: HEMATOCRIT 18.3 % (39.0-51.0); HEMOGLOBIN 6.3 GM/DL (13.0-17.0)
[2017-12-14 12:44] LABS: BICARBONATE 30.9 MEQ/L (21.0-32.0); CALCIUM 7.5 MG/DL (8.5-10.1); CREATININE 1.08 MG/DL (0.60-1.30)
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
[2017-12-14] MEDS ORDERED: FUROSEMIDE 20 MG/2 ML VIAL IV PUSH ONE (13:15)
[2017-12-14] MEDS ORDERED: SODIUM CHLOR 0.9% 250 ML INJ 250 ML IV ONE (13:15)
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
[2017-12-14] MEDS ORDERED: CEFTAR600P IV (14:15)
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
[2017-12-14] MEDS ORDERED: PEG (High)/E-LYTE SOLN 4000 ML BTL PO ONE (16:00)
[2017-12-14] MEDS ORDERED: MAGNESIUM CITRATE SOLN 300 ML BTL PO ONE ×2 (16:00→18:00)
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
[2017-12-14] MEDS: INSULIN DETEMIR 100 UNITS/ML VIAL SQ SCH (21:00)
[2017-12-14] MEDS: PANTOPRAZOLE SOD 40 MG DELAYED RELEASE TAB PO SCH (21:14)
[2017-12-14] MEDS: DOCUSATE CALCIUM 240 MG CAP PO SCH (21:14)
[2017-12-14] MEDS ORDERED: LACTATED RINGER'S 1000 ML IV PRN (23:00)
[2017-12-15] VITALS: BP 121/80; PULSE 76; RESP 20; O2SAT 95
[2017-12-15 01:14] LABS: AUTOMATED NEUTROPHIL # 3.2 TH/MM3 (1.8-7.7); BASOPHIL % 0.8 % (0.0-2.0); EOSINOPHIL # 0.2 TH/MM3 (0-0.4); EOSINOPHIL % 4.4 % (0.0-4.0); HEMATOCRIT 24.2 % (39.0-51.0); HEMOGLOBIN 8.7 GM/DL (13.0-17.0); LYMPH % 20.1 % (9.0-44.0); MEAN CELL VOLUME 89.3 FL (80.0-100.0); MEAN CORPUSCULAR HGB CONC 35.8 % (32.0-36.0); MEAN PLATELET VOLUME 7.5 FL (7.0-11.0); MONO % 13.2 % (0.0-8.0); MONOCYTE # 0.7 TH/MM3 (0-0.9); NEUT % 61.5 % (16.0-70.0); PLATELET COUNT 116 TH/MM3 (150-450); RED BLOOD COUNT 2.71 MIL/MM3 (4.50-5.90); RED CELL DISTRIBUTION WIDTH 16.5 % (11.6-17.2); WHITE BLOOD COUNT 5.2 TH/MM3 (4.0-11.0)
[2017-12-15 01:24] LABS: % SATURATION IRON PROFILE 26.7 % (20-50); DIRECT BILIRUBIN ADULT 0.6 MG/DL (0.0-0.2); IRON (FE) 46 MCG/DL (65-175); TOTAL IRON BINDING CAPACITY 172 MCG/DL (250-450)
[2017-12-15 01:34] LABS: INTERNATIONAL NORMALIZED RATIO 1.3 RATIO; PROTHROMBIN TIME - PATIENT 13.1 SEC (9.8-11.6)
[2017-12-15 01:49] LABS: FERRITIN 980 NG/ML (26-388); INDIRECT BILIRUBIN 0.9 MG/DL (0.0-0.8); TOTAL BILIRUBIN ADULT 1.5 MG/DL (0.2-1.0)
[2017-12-15 04:00] VITALS: BP 133/81; PULSE 79; RESP 20; O2SAT 95
[2017-12-15] MEDS: CEFTAROLINE INJ 600 MG in SODIUM CHLORIDE 0.9% INJ 100 ML IV SCH ×2 (04:08→17:13)
[2017-12-15 05:53] LABS: AUTOMATED NEUTROPHIL # 2.4 TH/MM3 (1.8-7.7); BASOPHIL % 0.8 % (0.0-2.0); EOSINOPHIL # 0.2 TH/MM3 (0-0.4); EOSINOPHIL % 4.5 % (0.0-4.0); HEMATOCRIT 22.8 % (39.0-51.0); HEMOGLOBIN 8.1 GM/DL (13.0-17.0); LYMPH % 20.7 % (9.0-44.0); LYMPHOCYTE # 0.8 TH/MM3 (1.0-4.8); MEAN CELL VOLUME 89.7 FL (80.0-100.0); MEAN CORPUSCULAR HEMOGLOBIN 31.7 PG (27.0-34.0); MEAN CORPUSCULAR HGB CONC 35.4 % (32.0-36.0); MONO % 15.1 % (0.0-8.0); MONOCYTE # 0.6 TH/MM3 (0-0.9); NEUT % 58.9 % (16.0-70.0); PLATELET COUNT 107 TH/MM3 (150-450); RED BLOOD COUNT 2.54 MIL/MM3 (4.50-5.90); RED CELL DISTRIBUTION WIDTH 16.4 % (11.6-17.2)
[2017-12-15 06:17] LABS: BICARBONATE 31.7 MEQ/L (21.0-32.0); CALCIUM 7.3 MG/DL (8.5-10.1); CREATININE 0.97 MG/DL (0.60-1.30)
[2017-12-15 06:43] LABS: CALCIUM-PROTEIN CORRECTED 7.8 MG/DL (8.5-10.1); TOTAL PROTEIN 6.2 GM/DL (6.4-8.2)
[2017-12-15] MEDS: INSULIN ASPART SUPPLEMENTAL SCALE SQ SCH ×4 (07:26→20:27)
[2017-12-15 08:00] VITALS: BP 146/86; PULSE 88; RESP 19; TEMP 98; O2SAT 97
[2017-12-15] MEDS: CARVEDILOL 12.5 MG TAB PO SCH ×2 (08:46→20:17)
[2017-12-15] MEDS: SODIUM CHLORIDE 0.9% FLUSH 10 ML FLUSH IV FLUSH SCH ×2 (08:47→20:29)
[2017-12-15] MEDS: SODIUM CHLORIDE 0.9% FLUSH 10 ML FLUSH IVF SCH (08:47)
[2017-12-15] MEDS: FUROSEMIDE 40 MG/4 ML VIAL IV PUSH SCH (08:47)
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
--- NOTE | 2017-12-15 11:08 | HHI.PR ---
Subjective Remarks Follow up empyema, diabetes, anemia. Patient going for EGD/colonoscopy this morning. Denies bleeding. No abdominal pain, nausea, vomiting. Denies chest pain or dyspnea. Objective Vitals Vital Signs Date Time Temp Pulse Resp B/P (MAP) Pulse Ox O2 Delivery O2 Flow Rate FiO2 12/15/17 08:00 98.0 88 19 146/86 (106) 97 12/15/17 06:07 18 12/15/17 04:00 79 20 133/81 (98) 95 12/15/17 00:00 76 20 121/80 (94) 95 12/14/17 21:45 97.8 85 18 152/88 96 12/14/17 20:00 97.6 86 18 154/90 (111) 96 12/14/17 18:35 97.7 80 18 131/83 95 12/14/17 18:19 97.4 77 17 140/81 97 12/14/17 15:00 98.2 81 19 112/67 94 12/14/17 14:43 82 17 126/73 96 12/14/17 12:00 97.9 91 17 134/73 (93) 97 I/O 12/14/17 12/14/17 12/14/17 12/15/17 12/15/17 12/15/17 07:00 15:00 23:00 07:00 15:00 23:00 Intake Total 10 ml 1580 ml 0 ml Output Total 300 ml 150 ml 1860 ml 100 ml Balance -300 ml -140 ml -280 ml -100 ml 0 ml Intake Oral 680 ml 0 ml IV Total 130 ml Packed Cells 750 ml Blood Product IV Normal Saline Flush 10 ml 20 ml Output Urine Total 300 ml 1850 ml Drainage Total 150 ml 10 ml 100 ml # Voids 1 # Bowel Movements 1 4 Result Diagram: 12/15/17 0510 12/15/17 0510 Imaging Last Impressions Abdomen Ultrasound 12/15/17 0000 Signed Impressions: Service Date/Time: November 07:50 - CONCLUSION: 1. Limited visualization of the pancreas and aorta. 2. Mild splenomegaly. 3. Small hepatic and renal cysts, as above. 4. Complex right and very small simple appearing left pleural effusions. Braxton Melissa MD Chest X-Ray 12/14/17 0000 Signed Impressions: Service Date/Time: Thursday, December 14, 2017 10:34 - CONCLUSION: Stable chest. Kike Valdez MD FACR Chest CT 11/30/17 1232 Signed Impressions: Service Date/Time: Thursday, November 30, 2017 12:45 - CONCLUSION: 1. Complex right pleural effusion with multiple locules of air and fluid. Primary differential diagnosis is a right-sided empyema. 2. Smaller left effusion without loculated air. 3. Lung consolidation adjacent to complex right effusion as above. Minimal left basal airspace disease. 4. Right PICC line tip in superior vena cava. Edis Wetzel MD Lower Extremity Ultrasound 11/30/17 0000 Signed Impressions: Service Date/Time: Thursday, November 30, 2017 14:01 - CONCLUSION: 1. Negative for deep venous thrombosis bilateral lower extremity. Raghavendra Escobar MD Objective Remarks General: No acute distress. Heart: Regular rate and rhythm. No murmur. Lungs: Decreased breath sounds on the right. Breathing is nonlabored. Abdomen: Soft, nontender, nondistended. Extremities: 2+ lower extremity edema. Chronic venous stasis changes. Psych: Alert and oriented. Neuro: Normal speech. No focal deficits noted. Procedures Right Posterolateral Thoracotomy Decortication and Drainage of Intrathoracic Abscesses Drainage of Subcutaneous Chest Wall Abscess Urinary Catheter: No Vascular Central Line Catheter: No A/P Problem List: (1) Empyema lung ICD Code: J86.9 - Pyothorax without fistula Assessment and Plan 1. Right lung empyema: Cultures growing MRSA. Appreciate CT surgery recommendations. Status post posterolateral thoracotomy, decortication and drainage of intrathoracic abscesses, drainage of subcutaneous chest wall abscess on 12/05/17. Appreciate infectious disease recommendations. Continue Teflaro 4 weeks after surgery (stop date 01/02/18). Chest tube removed. 2. Type 2 diabetes mellitus: Well controlled. Continue Levemir. Monitor Accu- Cheks and cover with sliding scale insulin. 3. Pancytopenia: Possibly secondary to bone marrow suppression from alcohol abuse, sepsis. Monitor labs. Received transfusion of 1 unit PRBCs 12/12/17. Hemoglobin decreased yesterday. Given transfusion of 2 units PRBCs. Appreciate hematology recommendations. GI workup in progress. 4. Acute renal failure: Improving. Monitor BUN and creatinine. Avoid nephrotoxins. Monitor intake/output. 5. Hypertension: Blood pressure controlled. Lisinopril on hold secondary to acute renal failure. Continue carvedilol 12.5 mg twice daily. 6. History of DVT: Lower extremity Doppler negative for DVT. 7. Anasarca: Patient has diffuse edema. Continue Lasix. 8. Visual floaters: Patient has cataracts, diabetic retinopathy. He has been evaluated by ophthalmology at [facility]. Follow-up with ophthalmology as an outpatient. 9. DVT prophylaxis: SCDs. Avoid chemical prophylaxis secondary to pancytopenia. Discharge Planning Transfer to [facility] when stable. Arnulfo Mathew MD Dec 15, 2017 11:08
--- NOTE | 2017-12-15 11:37 | PD.ONC.PN ---
Subjective Subjective Remarks Afebrile overnight. Patient resting in bed in nad. No complaints. Objective Data Date Time Temp Pulse Resp B/P (MAP) Pulse Ox O2 Delivery O2 Flow Rate FiO2 12/15/17 08:00 98.0 88 19 146/86 (106) 97 12/15/17 06:07 18 12/15/17 04:00 79 20 133/81 (98) 95 12/15/17 00:00 76 20 121/80 (94) 95 12/14/17 21:45 97.8 85 18 152/88 96 12/14/17 20:00 97.6 86 18 154/90 (111) 96 12/14/17 18:35 97.7 80 18 131/83 95 12/14/17 18:19 97.4 77 17 140/81 97 12/14/17 15:00 98.2 81 19 112/67 94 12/14/17 14:43 82 17 126/73 96 12/14/17 12:00 97.9 91 17 134/73 (93) 97 12/15/17 12/15/17 12/15/17 07:00 15:00 23:00 Intake Total 0 ml Output Total 100 ml Balance -100 ml 0 ml Result Diagram: 12/15/17 0510 12/15/17 0510 Laboratory Results Laboratory Tests Test 12/15/17 00:40 12/15/17 05:10 White Blood Count 5.2 TH/MM3 4.0 TH/MM3 Red Blood Count 2.71 MIL/MM3 2.54 MIL/MM3 Hemoglobin 8.7 GM/DL 8.1 GM/DL Hematocrit 24.2 % 22.8 % Mean Corpuscular Volume 89.3 FL 89.7 FL Mean Corpuscular Hemoglobin 32.0 PG 31.7 PG Mean Corpuscular Hemoglobin Concent 35.8 % 35.4 % Red Cell Distribution Width 16.5 % 16.4 % Platelet Count 116 TH/MM3 107 TH/MM3 Mean Platelet Volume 7.5 FL 7.0 FL Neutrophils (%) (Auto) 61.5 % 58.9 % Lymphocytes (%) (Auto) 20.1 % 20.7 % Monocytes (%) (Auto) 13.2 % 15.1 % Eosinophils (%) (Auto) 4.4 % 4.5 % Basophils (%) (Auto) 0.8 % 0.8 % Neutrophils # (Auto) 3.2 TH/MM3 2.4 TH/MM3 Lymphocytes # (Auto) 1.0 TH/MM3 0.8 TH/MM3 Monocytes # (Auto) 0.7 TH/MM3 0.6 TH/MM3 Eosinophils # (Auto) 0.2 TH/MM3 0.2 TH/MM3 Basophils # (Auto) 0.0 TH/MM3 0.0 TH/MM3 CBC Comment DIFF FINAL AUTO DIFF Differential Comment AUTO DIFF CONFIRMED Prothrombin Time 13.1 SEC Prothromb Time International Ratio 1.3 RATIO Activated Partial Thromboplast Time 28.7 SEC Fibrinogen 334 mg/dL Iron Level 46 MCG/DL Total Iron Binding Capacity 172 MCG/DL Percent Iron Saturation 26.7 % Ferritin 980 NG/ML Total Bilirubin 1.5 MG/DL Direct Bilirubin 0.6 MG/DL Indirect Bilirubin 0.9 MG/DL Lactate Dehydrogenase 214 U/L Vitamin B12 Level 949 PG/ML Platelet Estimate LOW Platelet Morphology Comment NORMAL Blood Urea Nitrogen 9 MG/DL Creatinine 0.97 MG/DL Random Glucose 89 MG/DL Total Protein 6.2 GM/DL Calcium Level 7.3 MG/DL Sodium Level 142 MEQ/L Potassium Level 3.7 MEQ/L Chloride Level 104 MEQ/L Carbon Dioxide Level 31.7 MEQ/L Anion Gap 6 MEQ/L Estimat Glomerular Filtration Rate 81 ML/MIN Protein Corrected Calcium 7.8 MG/DL Culture Results Microbiology Date/Time Source Procedure Growth Status 12/14/17 22:00 Stool Stool Stool Occult Blood (DEE) - Final HEMOCCULT NEGATIVE Complete Imaging Studies Last 24 hours Impressions Abdomen Ultrasound 12/15/17 0000 Signed Impressions: Service Date/Time: November 07:50 - CONCLUSION: 1. Limited visualization of the pancreas and aorta. 2. Mild splenomegaly. 3. Small hepatic and renal cysts, as above. 4. Complex right and very small simple appearing left pleural effusions. Braxton Melissa MD Administered Medications Medications (Trade) Dose Ordered Sig/Bryan Route PRN Reason Start Time Stop Time Status Last Admin Dose Admin Insulin Aspart (NovoLOG SUPPLEMENTAL SCALE) 1 ACHS SLIDING SCALE SQ 11/30/17 08:00 12/13/17 22:17 Sodium Chloride (NS Flush) DAILY IVF 11/30/17 09:00 12/15/17 08:47 Heparin Sodium (Porcine) (Heparin Central Flush) DAILY IV FLUSH 11/30/17 09:00 12/14/17 08:30 Sodium Chloride (NS Flush) UNSCH PRN IVF SEE PROTOCOL 11/30/17 00:45 12/09/17 08:57 Heparin Sodium (Porcine) (Heparin Central Flush) UNSCH PRN IV FLUSH SEE PROTOCOL 11/30/17 00:45 12/09/17 08:57 Carvedilol (Coreg) 12.5 mg Q12HR PO 11/30/17 09:00 12/15/17 08:46 Insulin Detemir (Levemir Inj) 10 units HS SQ 11/30/17 21:00 12/14/17 21:00 Thiamine HCl (Vitamin B1) 100 mg DAILY PO 11/30/17 09:00 12/14/17 08:31 Magnesium Oxide (Mag-Ox) 400 mg Q12HR PO 11/30/17 09:00 12/14/17 21:14 Sodium Chloride (NS Flush) 2 ml BID IV FLUSH 12/02/17 21:00 12/14/17 21:15 Sodium Chloride (NS Flush) 2 ml UNSCH PRN IV FLUSH FLUSH AFTER USING IV ACCESS 12/02/17 16:15 12/09/17 15:15 Albuterol Sulfate (Albuterol Neb) 2.5 mg Q2HR NEB PRN NEB WHEEZING 12/05/17 15:45 12/09/17 16:12 Pantoprazole Sodium (Protonix) 40 mg HS PO 12/05/17 21:00 12/14/17 21:14 Docusate Calcium (Surfak) 240 mg HS PO 12/05/17 21:00 12/14/17 21:14 Acetaminophen/ Hydrocodone Bitart ([place] 5-325 Mg) 1 tab Q4H PRN PO PAIN SCALE 3 TO 5 12/07/17 15:00 12/07/17 20:00 Morphine Sulfate (Morphine Inj) 2 mg Q4H PRN IV PUSH breakthrough pain 12/07/17 15:00 12/09/17 08:53 Oxycodone HCl (Roxicodone) 15 mg Q4H PRN PO pain 6-10 12/07/17 15:00 12/15/17 05:07 Furosemide (Lasix Inj) 40 mg DAILY IV PUSH 12/10/17 09:00 12/15/17 08:47 Ceftaroline Fosamil 600 mg/ Sodium Chloride 100 ml @ 100 mls/hr Q12H IV 12/09/17 16:00 12/15/17 04:08 Objective Remarks GENERAL: Pleasant middle aged male, sitting up in bed in nad. SKIN: Warm and dry. HEAD: Normocephalic. EYES: No injection or drainage. NECK: Supple, trachea midline. CARDIOVASCULAR: Regular rate and rhythm RESPIRATORY: diminished at right base, wound vac in place, right posterior chest wall. GASTROINTESTINAL: Abdomen soft, non-tender, nondistended. EXTREMITIES: No cyanosis NEUROLOGICAL: awake and alert. normal speech. Assessment/Plan Problem List: (1) Pancytopenia ICD Codes: D61.818 - Other pancytopenia Plan: --abdominal ultrasound shows mild splenomegaly --brian negative. --s/p pRBC most recently on 12/14 with improvement in hgb --iron and TIBC are low and ferritin significantly elevated, more consistent with inflammation then iron deficiency --B12/-->no deficiency (2) Empyema lung ICD Codes: J86.9 - Pyothorax without fistula Plan: --Thoracentesis at [place] on 11/22 showed 1400 mL with culture positive for MRSA. --right video-assisted thoracoscopy with decortication. He required drainage of intrathoracic abscess. +drainage of a subcutaneous chest wall abscess and placement of a wound VAC. --on abx Assessment 52y/o male with pancytopenia transferred to [place] from [facility] on 11/29/2017, with a right lung empyema. history of diabetes, hypertension, history of alcohol abuse. Plan 1. await GI workup 2. monitor CBC 3. continue supportive care Attending Statement The exam, history, and the medical decision-making described in the above note were completed with the assistance of the mid-level provider. I reviewed and agree with the findings presented. I attest that I had a [id number] encounter with the patient on the same day, and personally performed and documented my assessment and findings in the medical record. Pt seen and examined. Hgb stable. Platelet count increase > 100K. US confirm suspicion for liver disease, noted splenomegaly contribute to thrombocytopenia secondary to hypersplenism. No specific tx required. Pt advised to stop drinking, he agrees and seen contrite to want to quit. Follow CBC in AM. No acute bleeding. R chest tube and wound vac still inplace. Marian Lew Dec 15, 2017 11:37 Saundra Wilson MD Dec 15, 2017 17:18
[2017-12-15] MEDS ORDERED: PROPOFOL 200 MG/20 ML AMP IV ONE (12:00)
[2017-12-15] MEDS ORDERED: LIDOCAINE HCL 1% PF 5 ML SYRINGE OTHER ONE (12:00)
[2017-12-15] MEDS ORDERED: DO NOT ADM ANY ANTICOAGULANT DRUGS PRN (12:27)
--- NOTE | 2017-12-15 12:28 | GIPROC ---
[facility] [address] [facility]. [facility], [address] COLONOSCOPY PROCEDURE REPORT EXAM DATE: 12/15/2017 PATIENT NAME: Jovanny Lopez MR #: [id number] BIRTHDATE: 1965 ENDOSCOPIST: Josie Jones MD ORDER #: [id number] INVENTORY ASSOCIATE AND DRIVER: Brianne Florentino and Hilda Ervin STATUS: inpatient INDICATIONS: The patient is a 52 yr old male here for a colonoscopy due to anemia PROCEDURE PERFORMED: Colonoscopy with polypectomy MEDICATIONS: None and Per Anesthesia. PREP QUALITY: fair PREP TYPE:Other: ESTIMATED BLOOD LOSS: None CONSENT: The patient understands the risks and benefits of the procedure and understands that these risks include, but are not limited to: sedation, allergic reaction, infection, perforation and/or bleeding. Alternative means of evaluation and treatment include, among others: physical exam, x-rays, and/or surgical intervention. The patient elects to proceed with this endoscopic procedure. medical equipment was checked for proper function. Hand hygiene and appropriate measures for infection prevention was taken. After the risks, benefits and alternatives of the procedure were thoroughly explained, Informed consent was verified, confirmed and timeout was successfully executed by the treatment team. A digital exam revealed a nodule prostate The Pentax EC-[id number] endoscope was introduced through the anus and advanced to the cecum, which was identified by both the appendix and ileocecal valve. The instrument was then slowly withdrawn as the colon was fully examined. COLON FINDINGS: Diverticulosis sigmoid,descending polyp pedunculated descending colon-1 cm-hot snare polypectomy with complete removal. Retroflexed views revealed internal hemorrhoids and Retroflexed views revealed medium internal hemorrhoids The scope was then completely withdrawn from the patient and the procedure terminated. PROCEDURE WITHDRAWAL TIME:10minutes ADVERSE EVENTS: There were no complications. IMPRESSIONS: 1. Diverticulosis sigmoid,descending polyp pedunculated descending colon-1 cm-hot snare polypectomy with complete removal 2. Retroflexed views revealed internal hemorrhoids 3. Retroflexed views revealed medium internal hemorrhoids 4. Revealed a nodule prostate RECOMMENDATIONS: 1. Await biopsy results. Biopsy results will not be ready for 7-10 days. If you don't hear from us in two weeks, call our office for results. 2. Benefiber 2 tsp daily 3. Yearly rectal exams RECALL: Return 1 year Colonoscopy Josie Jones MD eSigned: Josie Jones MD 12/15/2017 12:28 PM cc:
--- NOTE | 2017-12-15 12:32 | GIPROC ---
[facility] [address] [facility]. [facility], [address] EGD PROCEDURE REPORT EXAM DATE: 12/15/2017 PATIENT NAME: Jovanny Lopez MR #: [id number] BIRTHDATE: 1965 ATTENDING: Josie Jones MD ORDER #: [id number] BLOOD BANK CUSTODIAN: Brianne Florentino and Hilda Ervin STATUS: inpatient INDICATIONS: The patient is a 52 yr old male here for an EGD due to anemia PROCEDURE PERFORMED: EGD w/ biopsy MEDICATIONS: None and Per Anesthesia. TOPICAL ANESTHETIC: none CONSENT: The patient understands the risks and benefits of the procedure and understands that these risks include, but are not limited to: sedation, allergic reaction, infection, perforation and/or bleeding. Alternative means of evaluation and treatment include, among others: physical exam, x-rays, and/or surgical intervention. The patient elects to proceed with this endoscopic procedure. medical equipment was checked for proper function. Hand hygiene and appropriate measures for infection prevention was taken. After the risks, benefits and alternatives of the procedure were thoroughly explained, Informed consent was verified, confirmed and timeout was successfully executed by the treatment team. The patient was anesthetized with topical anesthesia and the EC-[id number] (Pedi C) endoscope was introduced through the mouth and advanced to the second portion of the duodenum. Retroflexed views revealed a hiatal hernia The gastroscope was then slowly withdrawn and removed. Gastritis antrum-biopsy esophagitis dital esophagus-biopsy duodenum normal-biopsy. ADVERSE EVENTS: There were no complications. IMPRESSIONS: 1. Gastritis antrum-biopsy esophagitis dital esophagus-biopsy duodenum normal-biopsy 2. Retroflexed views revealed a hiatal hernia RECOMMENDATIONS: 1. Await biopsy results. Biopsy results will not be ready for 7-10 days. If you don't hear from us in two weeks, call our office for biopsy results. 2. Anti-reflux regimen 3. Continue PPI 4. Avoid NSAIDS 5. Fu urology op for enlarged prostate capsule endoscopy op if still anemic ok for anticoagulation from gi point PATIENT CONDITION: stable DISPOSITION: Inpatient REPEAT EXAM: Return 3 years EGD Josie Bratu MD eSigned: Josie Jones MD 12/15/2017 12:32 PM cc: PATIENT NAME: Jovanny Lopez MR#: [id number]
[2017-12-15 13:00] VITALS: BP 146/86; PULSE 88; RESP 19; TEMP 98; O2SAT 97
[2017-12-15] MEDS: MAGNESIUM OXIDE 400 MG TAB PO SCH ×2 (13:10→20:17)
[2017-12-15] MEDS: THIAMINE HCL 100 MG TAB PO SCH (13:11)
[2017-12-15 16:00] VITALS: BP 129/67; PULSE 91; RESP 18; TEMP 97.6; O2SAT 93
[2017-12-15 20:00] VITALS: BP 125/79; PULSE 97; RESP 20; TEMP 98.4; O2SAT 96
[2017-12-15] MEDS: PANTOPRAZOLE SOD 40 MG DELAYED RELEASE TAB PO SCH (20:17)
[2017-12-15] MEDS: DOCUSATE CALCIUM 240 MG CAP PO SCH (20:18)
[2017-12-15] MEDS: INSULIN DETEMIR 100 UNITS/ML VIAL SQ SCH (20:21)
[2017-12-16] VITALS: BP 112/71; PULSE 83; RESP 20; TEMP 99.1; O2SAT 97
[2017-12-16] MEDS: CEFTAROLINE INJ 600 MG in SODIUM CHLORIDE 0.9% INJ 100 ML IV SCH ×2 (05:06→15:27)
[2017-12-16] MEDS: SODIUM CHLORIDE 0.9% FLUSH 10 ML FLUSH IV FLUSH PRN (05:11)
[2017-12-16 06:28] LABS: AUTOMATED NEUTROPHIL # 2.4 TH/MM3 (1.8-7.7); BASOPHIL % 0.6 % (0.0-2.0); EOSINOPHIL # 0.2 TH/MM3 (0-0.4); EOSINOPHIL % 4.9 % (0.0-4.0); HEMATOCRIT 23.1 % (39.0-51.0); LYMPH % 21.7 % (9.0-44.0); LYMPHOCYTE # 0.9 TH/MM3 (1.0-4.8); MEAN CELL VOLUME 91.4 FL (80.0-100.0); MEAN CORPUSCULAR HEMOGLOBIN 31.6 PG (27.0-34.0); MEAN CORPUSCULAR HGB CONC 34.6 % (32.0-36.0); MEAN PLATELET VOLUME 7.5 FL (7.0-11.0); MONO % 14.6 % (0.0-8.0); MONOCYTE # 0.6 TH/MM3 (0-0.9); NEUT % 58.2 % (16.0-70.0); PLATELET COUNT 125 TH/MM3 (150-450); RED BLOOD COUNT 2.53 MIL/MM3 (4.50-5.90); RED CELL DISTRIBUTION WIDTH 16.9 % (11.6-17.2); WHITE BLOOD COUNT 4.2 TH/MM3 (4.0-11.0)
[2017-12-16 06:56] LABS: BICARBONATE 31.1 MEQ/L (21.0-32.0); CALCIUM 7.4 MG/DL (8.5-10.1); CREATININE 1.07 MG/DL (0.60-1.30)
[2017-12-16 07:12] LABS: CALCIUM-PROTEIN CORRECTED 7.9 MG/DL (8.5-10.1); TOTAL PROTEIN 6.1 GM/DL (6.4-8.2)
[2017-12-16 08:00] VITALS: BP 118/68; PULSE 82; RESP 17; TEMP 98.1; O2SAT 95
[2017-12-16] MEDS: INSULIN ASPART SUPPLEMENTAL SCALE SQ SCH ×2 (08:00→12:00)
[2017-12-16] MEDS: SODIUM CHLORIDE 0.9% FLUSH 10 ML FLUSH IVF SCH (09:00)
[2017-12-16] MEDS: FUROSEMIDE 40 MG/4 ML VIAL IV PUSH SCH (09:15)
[2017-12-16] MEDS: CARVEDILOL 12.5 MG TAB PO SCH (09:16)
[2017-12-16] MEDS: MAGNESIUM OXIDE 400 MG TAB PO SCH (09:16)
[2017-12-16] MEDS: SODIUM CHLORIDE 0.9% FLUSH 10 ML FLUSH IV FLUSH SCH (09:23)
[2017-12-16 10:20] VITALS: O2SAT 93
--- NOTE | 2017-12-16 10:40 | PD.ONC.PN ---
Subjective Subjective Remarks Afebrile overnight. Patient states he has a bit of discomfort at the site of his wound vac, but otherwise without complaints. no bleeding. Objective Data Date Time Temp Pulse Resp B/P (MAP) Pulse Ox O2 Delivery O2 Flow Rate FiO2 12/16/17 10:20 93 21 12/16/17 08:00 98.1 82 17 118/68 (85) 95 12/16/17 00:00 99.1 83 20 112/71 (85) 97 12/15/17 21:39 21 12/15/17 20:00 98.4 97 20 125/79 (94) 96 12/15/17 16:00 97.6 91 18 129/67 (87) 93 12/15/17 13:00 98.0 88 19 146/86 (106) 97 12/15/17 12:33 97.0 72 18 126/77 (93) 96 12/16/17 12/16/17 12/16/17 07:00 15:00 23:00 Intake Total 100 ml Output Total 0 ml Balance 100 ml Result Diagram: 12/16/17 0600 12/16/17 0600 Laboratory Results Laboratory Tests Test 12/16/17 06:00 White Blood Count 4.2 TH/MM3 Red Blood Count 2.53 MIL/MM3 Hemoglobin 8.0 GM/DL Hematocrit 23.1 % Mean Corpuscular Volume 91.4 FL Mean Corpuscular Hemoglobin 31.6 PG Mean Corpuscular Hemoglobin Concent 34.6 % Red Cell Distribution Width 16.9 % Platelet Count 125 TH/MM3 Mean Platelet Volume 7.5 FL Neutrophils (%) (Auto) 58.2 % Lymphocytes (%) (Auto) 21.7 % Monocytes (%) (Auto) 14.6 % Eosinophils (%) (Auto) 4.9 % Basophils (%) (Auto) 0.6 % Neutrophils # (Auto) 2.4 TH/MM3 Lymphocytes # (Auto) 0.9 TH/MM3 Monocytes # (Auto) 0.6 TH/MM3 Eosinophils # (Auto) 0.2 TH/MM3 Basophils # (Auto) 0.0 TH/MM3 CBC Comment AUTO DIFF Blood Urea Nitrogen 10 MG/DL Creatinine 1.07 MG/DL Random Glucose 84 MG/DL Total Protein 6.1 GM/DL Calcium Level 7.4 MG/DL Sodium Level 140 MEQ/L Potassium Level 3.6 MEQ/L Chloride Level 104 MEQ/L Carbon Dioxide Level 31.1 MEQ/L Anion Gap 5 MEQ/L Estimat Glomerular Filtration Rate 72 ML/MIN Protein Corrected Calcium 7.9 MG/DL Culture Results Microbiology Date/Time Source Procedure Growth Status 12/14/17 22:00 Stool Stool Stool Occult Blood (DEE) - Final HEMOCCULT NEGATIVE Complete Administered Medications Medications (Trade) Dose Ordered Sig/Bryan Route PRN Reason Start Time Stop Time Status Last Admin Dose Admin Insulin Aspart (NovoLOG SUPPLEMENTAL SCALE) 1 ACHS SLIDING SCALE SQ 11/30/17 08:00 12/15/17 20:27 Sodium Chloride (NS Flush) DAILY IVF 11/30/17 09:00 12/15/17 08:47 Heparin Sodium (Porcine) (Heparin Central Flush) DAILY IV FLUSH 11/30/17 09:00 12/16/17 09:17 Sodium Chloride (NS Flush) UNSCH PRN IVF SEE PROTOCOL 11/30/17 00:45 12/09/17 08:57 Heparin Sodium (Porcine) (Heparin Central Flush) UNSCH PRN IV FLUSH SEE PROTOCOL 11/30/17 00:45 12/09/17 08:57 Carvedilol (Coreg) 12.5 mg Q12HR PO 11/30/17 09:00 12/16/17 09:16 Insulin Detemir (Levemir Inj) 10 units HS SQ 11/30/17 21:00 12/15/17 20:21 Thiamine HCl (Vitamin B1) 100 mg DAILY PO 11/30/17 09:00 12/15/17 13:11 Magnesium Oxide (Mag-Ox) 400 mg Q12HR PO 11/30/17 09:00 12/16/17 09:16 Sodium Chloride (NS Flush) 2 ml BID IV FLUSH 12/02/17 21:00 12/16/17 09:23 Sodium Chloride (NS Flush) 2 ml UNSCH PRN IV FLUSH FLUSH AFTER USING IV ACCESS 12/02/17 16:15 12/16/17 05:11 Albuterol Sulfate (Albuterol Neb) 2.5 mg Q2HR NEB PRN NEB WHEEZING 12/05/17 15:45 12/09/17 16:12 Pantoprazole Sodium (Protonix) 40 mg HS PO 12/05/17 21:00 12/15/17 20:17 Docusate Calcium (Surfak) 240 mg HS PO 12/05/17 21:00 12/14/17 21:14 Acetaminophen/ Hydrocodone Bitart ([place] 5-325 Mg) 1 tab Q4H PRN PO PAIN SCALE 3 TO 5 12/07/17 15:00 12/07/17 20:00 Morphine Sulfate (Morphine Inj) 2 mg Q4H PRN IV PUSH breakthrough pain 12/07/17 15:00 12/09/17 08:53 Oxycodone HCl (Roxicodone) 15 mg Q4H PRN PO pain 6-10 12/07/17 15:00 12/16/17 09:31 Furosemide (Lasix Inj) 40 mg DAILY IV PUSH 12/10/17 09:00 12/16/17 09:15 Ceftaroline Fosamil 600 mg/ Sodium Chloride 100 ml @ 100 mls/hr Q12H IV 12/09/17 16:00 12/16/17 05:06 Lactated Ringer's 1,000 ml @ 30 mls/hr Q24H PRN IV SEE LABEL COMMENTS 12/14/17 23:00 12/17/17 22:59 12/15/17 11:33 Objective Remarks GENERAL: Pleasant male, sitting up in chair next to bed in [facility]. SKIN: Warm and dry. HEAD: Normocephalic. EYES: No injection or drainage. NECK: Supple, trachea midline. CARDIOVASCULAR: Regular rate and rhythm RESPIRATORY: right lung sounds diminished, anterior lange clear. GASTROINTESTINAL: Abdomen soft, non-tender, nondistended. EXTREMITIES: No cyanosis NEUROLOGICAL: awake and alert. normal speech. moving all extremities. Assessment/Plan Problem List: (1) Pancytopenia ICD Codes: D61.818 - Other pancytopenia Plan: 12/16: noted recovery of WBC and platelets. hgb stable. d/w patient we will continue to monitor. --abdominal ultrasound shows mild splenomegaly --brian negative. --s/p pRBC most recently on 12/14 with improvement in hgb --iron and TIBC are low and ferritin significantly elevated, more consistent with inflammation then iron deficiency --B12/-->no deficiency (2) Empyema lung ICD Codes: J86.9 - Pyothorax without fistula Plan: --Thoracentesis at [place] on 11/22 showed 1400 mL with culture positive for MRSA. --right video-assisted thoracoscopy with decortication. He required drainage of intrathoracic abscess. +drainage of a subcutaneous chest wall abscess and placement of a wound VAC. --on abx Assessment 52y/o male with pancytopenia transferred to [place] from [facility] on 11/29/2017, with a right lung empyema. history of diabetes, hypertension, history of alcohol abuse. Plan 1. monitor blood counts 2. no blood transfusion needed at present. 3. continue supportive care. Attending Statement Agree with above, as discussed Hgb 8.0, platelet 125K, follow up physicians back home. Pt DC before could be seen. Marian Lew Dec 16, 2017 10:39 Saundra Wilson MD Dec 16, 2017 19:00
--- NOTE | 2017-12-16 10:56 | HHI.PR ---
Subjective Remarks Follow up empyema, diabetes, anemia. Patient has no complaints at this time. Denies chest pain or dyspnea. No nausea or vomiting. No bleeding reported. Objective Vitals Vital Signs Date Time Temp Pulse Resp B/P (MAP) Pulse Ox O2 Delivery O2 Flow Rate FiO2 12/16/17 10:20 93 21 12/16/17 08:00 98.1 82 17 118/68 (85) 95 12/16/17 00:00 99.1 83 20 112/71 (85) 97 12/15/17 21:39 21 12/15/17 20:00 98.4 97 20 125/79 (94) 96 12/15/17 16:00 97.6 91 18 129/67 (87) 93 12/15/17 13:00 98.0 88 19 146/86 (106) 97 12/15/17 12:33 97.0 72 18 126/77 (93) 96 I/O 12/15/17 12/15/17 12/15/17 12/16/17 12/16/17 12/16/17 07:00 15:00 23:00 07:00 15:00 23:00 Intake Total 520 ml 340 ml 100 ml Output Total 100 ml 100 ml 0 ml Balance -100 ml 520 ml 240 ml 100 ml Intake Oral 120 ml 240 ml IV Total 0 ml 100 ml 100 ml Other 400 ml Drainage Total 100 ml 100 ml 0 ml # Voids 2 # Bowel Movements 4 0 Result Diagram: 12/16/17 0600 12/16/17 0600 Imaging Last Impressions Abdomen Ultrasound 12/15/17 0000 Signed Impressions: Service Date/Time: November 07:50 - CONCLUSION: 1. Limited visualization of the pancreas and aorta. 2. Mild splenomegaly. 3. Small hepatic and renal cysts, as above. 4. Complex right and very small simple appearing left pleural effusions. Braxton Melissa MD Chest X-Ray 12/14/17 0000 Signed Impressions: Service Date/Time: Thursday, December 14, 2017 10:34 - CONCLUSION: Stable chest. Kike Valdez MD FACR Chest CT 11/30/17 1232 Signed Impressions: Service Date/Time: Thursday, November 30, 2017 12:45 - CONCLUSION: 1. Complex right pleural effusion with multiple locules of air and fluid. Primary differential diagnosis is a right-sided empyema. 2. Smaller left effusion without loculated air. 3. Lung consolidation adjacent to complex right effusion as above. Minimal left basal airspace disease. 4. Right PICC line tip in superior vena cava. Edis Wetzel MD Lower Extremity Ultrasound 11/30/17 0000 Signed Impressions: Service Date/Time: Thursday, November 30, 2017 14:01 - CONCLUSION: 1. Negative for deep venous thrombosis bilateral lower extremity. Raghavendra Escobar MD Objective Remarks General: No acute distress. Heart: Regular rate and rhythm. No murmur. Lungs: Decreased breath sounds on the right. Breathing is nonlabored. Abdomen: Soft, nontender, nondistended. Extremities: 2+ lower extremity edema. Chronic venous stasis changes. Psych: Alert and oriented. Neuro: Normal speech. No focal deficits noted. Procedures Right Posterolateral Thoracotomy Decortication and Drainage of Intrathoracic Abscesses Drainage of Subcutaneous Chest Wall Abscess Urinary Catheter: No Vascular Central Line Catheter: No A/P Problem List: (1) Empyema lung ICD Code: J86.9 - Pyothorax without fistula Assessment and Plan 1. Right lung empyema: Cultures growing MRSA. Appreciate CT surgery recommendations. Status post posterolateral thoracotomy, decortication and drainage of intrathoracic abscesses, drainage of subcutaneous chest wall abscess on 12/05/17. Appreciate infectious disease recommendations. Continue Teflaro 4 weeks after surgery (stop date 01/02/18). Chest tube removed. 2. Type 2 diabetes mellitus: Well controlled. Continue Levemir. Monitor Accu- Cheks and cover with sliding scale insulin. 3. Pancytopenia: Possibly secondary to bone marrow suppression from alcohol abuse, sepsis. Monitor labs. Received transfusion of 1 unit PRBCs 12/12/17. Hemoglobin is stable. Given transfusion of 2 units PRBCs on 12/14/17. Received a total of 9 units PRBCs during this hospitalization. Appreciate hematology, gastroenterology recommendations. 4. Acute renal failure: Improving. Monitor BUN and creatinine. Avoid nephrotoxins. Monitor intake/output. 5. Hypertension: Blood pressure controlled. Lisinopril on hold secondary to acute renal failure. Continue carvedilol 12.5 mg twice daily. 6. History of DVT: Lower extremity Doppler negative for DVT. 7. Anasarca: Patient has diffuse edema. Continue Lasix. 8. Visual floaters: Patient has cataracts, diabetic retinopathy. He has been evaluated by ophthalmology at [facility]. Follow-up with ophthalmology as an outpatient. 9. DVT prophylaxis: SCDs. Avoid chemical prophylaxis secondary to pancytopenia. Discharge Planning Transfer to [facility] when a bed is available. Arnulfo Mathew MD Dec 16, 2017 10:56
[2017-12-16] MEDS: THIAMINE HCL 100 MG TAB PO SCH (10:57)
[2017-12-16] MEDS: MORPHINE SULFATE 2 MG/ML SYRINGE IV PUSH PRN (10:57)
--- NOTE | 2017-12-16 10:59 | HHI.DCPOC ---
Discharge Care Plan Diagnosis: (1) Empyema lung (2) Emphysema of lung (3) Chronic anemia (4) Pancytopenia Goals to Promote Your Health * To prevent worsening of your condition and complications * To maintain your health at the optimal level Directions to Meet Your Goals Take your medications as prescribed Follow your dietary instruction Follow activity as directed Keep your appointments as scheduled Take your immunizations and boosters as scheduled If your symptoms worsen call your PCP, if no PCP go to Urgent Care Center or Emergency Room Smoking is Dangerous to Your Health. Avoid second hand smoke Call the 24-hour hour crisis hotline for domestic abuse at Arnulfo Mathew MD Dec 16, 2017 10:59
--- NOTE | 2017-12-16 11:06 | HHI.GIFU ---
Subjective Remarks Pt in bedside chair Denies nausea, vomiting Denies abdominal pain, states feels gassy Has not had BM since GI procedures (Brooke Kirkland) Objective Vitals I&O Vital Signs Date Time Temp Pulse Resp B/P (MAP) Pulse Ox O2 Delivery O2 Flow Rate FiO2 12/16/17 10:20 93 21 12/16/17 08:00 98.1 82 17 118/68 (85) 95 12/16/17 00:00 99.1 83 20 112/71 (85) 97 12/15/17 21:39 21 12/15/17 20:00 98.4 97 20 125/79 (94) 96 12/15/17 16:00 97.6 91 18 129/67 (87) 93 12/15/17 13:00 98.0 88 19 146/86 (106) 97 12/15/17 12:33 97.0 72 18 126/77 (93) 96 I/O 12/15/17 12/15/17 12/15/17 12/16/17 12/16/17 12/16/17 07:00 15:00 23:00 07:00 15:00 23:00 Intake Total 520 ml 340 ml 100 ml Output Total 100 ml 100 ml 0 ml Balance -100 ml 520 ml 240 ml 100 ml Intake Oral 120 ml 240 ml IV Total 0 ml 100 ml 100 ml Other 400 ml Drainage Total 100 ml 100 ml 0 ml # Voids 2 # Bowel Movements 4 0 Laboratory Laboratory Tests Test 12/16/17 06:00 White Blood Count 4.2 Red Blood Count 2.53 Hemoglobin 8.0 Hematocrit 23.1 Mean Corpuscular Volume 91.4 Mean Corpuscular Hemoglobin 31.6 Mean Corpuscular Hemoglobin Concent 34.6 Red Cell Distribution Width 16.9 Platelet Count 125 Mean Platelet Volume 7.5 Neutrophils (%) (Auto) 58.2 Lymphocytes (%) (Auto) 21.7 Monocytes (%) (Auto) 14.6 Eosinophils (%) (Auto) 4.9 Basophils (%) (Auto) 0.6 Neutrophils # (Auto) 2.4 Lymphocytes # (Auto) 0.9 Monocytes # (Auto) 0.6 Eosinophils # (Auto) 0.2 Basophils # (Auto) 0.0 CBC Comment AUTO DIFF Blood Urea Nitrogen 10 Creatinine 1.07 Random Glucose 84 Total Protein 6.1 Calcium Level 7.4 Sodium Level 140 Potassium Level 3.6 Chloride Level 104 Carbon Dioxide Level 31.1 Anion Gap 5 Estimat Glomerular Filtration Rate 72 Protein Corrected Calcium 7.9 Date/Time Source Procedure Growth Status 12/05/17 13:20 Fluid Pleural Fluid Fungal Smear - Final NO FUNGAL ELEMENTS SEEN. Resulted 12/05/17 13:20 Fluid Pleural Fluid Fungal Culture - Preliminary NO GROWTH IN 1 WEEK Resulted 12/14/17 22:00 Stool Stool Stool Occult Blood (DEE) - Final HEMOCCULT NEGATIVE Complete 12/12/17 03:25 Urine Clean Catch Urine Culture - Final NO GROWTH IN 48 HOURS. Complete 12/05/17 13:20 Wound Other Fungal Smear - Final NO FUNGAL ELEMENTS SEEN. Resulted 12/05/17 13:20 Wound Other Fungal Culture - Preliminary NO GROWTH IN 1 WEEK Resulted Imaging Last Impressions Abdomen Ultrasound 12/15/17 0000 Signed Impressions: Service Date/Time: November 07:50 - CONCLUSION: 1. Limited visualization of the pancreas and aorta. 2. Mild splenomegaly. 3. Small hepatic and renal cysts, as above. 4. Complex right and very small simple appearing left pleural effusions. Braxton Melissa MD Chest X-Ray 12/14/17 0000 Signed Impressions: Service Date/Time: Thursday, December 14, 2017 10:34 - CONCLUSION: Stable chest. Kike Valdez MD FACR Chest CT 11/30/17 1232 Signed Impressions: Service Date/Time: Thursday, November 30, 2017 12:45 - CONCLUSION: 1. Complex right pleural effusion with multiple locules of air and fluid. Primary differential diagnosis is a right-sided empyema. 2. Smaller left effusion without loculated air. 3. Lung consolidation adjacent to complex right effusion as above. Minimal left basal airspace disease. 4. Right PICC line tip in superior vena cava. Edis Wetzel MD Lower Extremity Ultrasound 11/30/17 0000 Signed Impressions: Service Date/Time: Thursday, November 30, 2017 14:01 - CONCLUSION: 1. Negative for deep venous thrombosis bilateral lower extremity. Raghavendra Escobar MD Physical Exam HEENT: Normocephalic; atraumatic CHEST: Even/unlabored CARDIAC: RRR ABDOMEN: Soft, nondistended, nontender; bowel sounds active SKIN: Normal; no rash; no jaundice. MINE WIRER: No focal deficits; alert and oriented times three. (Brooke Kirkland) Assessment and Plan Plan ASSESSMENT - Anemia- normocytic- H/H as low as 6.3/18.3 on 12/14- No obvious GIB- Hemoccult stool negative S/P EGD and colonoscopy yesterday (12/15) --> Gastritis in the antrum. Esophagitis in the distal esophagus. Normal duodenum. Hiatal hernia. Diverticulosis in the sigmoid colon. Pedunculated polyp in the descending colon, polypectomy. Internal hemorrhoids. Nodule prostate. H/H remains stable today- currently 04/20.1 - Thrombocytopenia- platelets improving, currently 125- Hematology following Abdomen US --> Mild splenomegaly. Small hepatic and renal cysts. Complex right and very small simple appearing left pleural effusions. Limited visualization of the pancreas and aorta. Hematology notes Iron and TIBC low, ferritin slightly elevated most likely secondary to inflammation - Hyperbilirubinemia noted- T bili-1.5 Indirect-0.9 Direct-0.6 LDH-214 - Empyema- S/P thoracentesis with MRSA (+) culture- Drainage of subcutaneous chest wall abscess with placement of wound vac. PLAN - LEI - OK for anticoagulation from a GI standpoint - Protonix - Avoid NSAIDs - Benefiber 2 tsp daily - Urology follow up outpatient for enlarged prostate - Hematology following - Monitor H/H - Capsule endoscopy OP if still anemic - EGD and colon biopsy pending - GI will sign off, have pt follow up with GI after discharge Pt has been seen and examined by myself and Dr. Jones and this note is written on her behalf (Brooke Kirkland) Physician Comments seen, examined agree with above pedal edema, skin rash as per medical team ok to dc form gi poinr fu gi in 4 weeks capsule endo op (Josie Jones MD) Brooke Kirkland Dec 16, 2017 11:06 Josie Jones MD Dec 16, 2017 14:19
[2017-12-16 11:15] LABS: BANDS 10 % (0-6); BASOPHILS 1 % (0-2); LYMPHOCYTES 25 % (9-44); MONOCYTES 10 % (0-8); NEUTROPHIL # MANUAL DIFF 2.5 TH/MM3 (1.8-7.7); POLYS (SEG NEUTROPHILS) 50 % (16-70)
[2017-12-16 11:16] LABS: SMUDGE CELLS PRESENT PRESENT; TOXIC GRANULATION 2+ (NORMAL)
[2017-12-16 12:00] VITALS: BP 110/68; PULSE 84; RESP 17; TEMP 97.7; O2SAT 95
--- NOTE | 2017-12-16 12:56 | PD.WCN.NOT ---
Wound Consult Description: Right lateral chest wound Recommendation: Change wound VAC to right lateral chest Tuesday as ordered using a small wound VAC dressing. Wound VAC settings @125mmHg low continuous suction. Neg Pressure Wound Therapy Wound Location Wound Location: Right lateral chest wound Wound Description Length: 0.7cm Width: 3.8cm Depth: 1.5cm Wound bed appearance: 100% moist adipose tissue Periwound appearance: Other (maceration noted to distal periwound) Settings Suction: 125 mmHg, Continuous Intensity: Low Other Information: Windowpaned Foam type: Black Number of pieces: 1 Additonal Information Patient was seen today by resume writer for wound vac dressing change.Patient alert and oriented x3.Patient medicated for pain prior to resume writer arrival.Sponge / dressing removed wound cleansed with normal saline pat dry skin prep applied to periwound draped for periwound protection.Single sponge applied to wound base track pad applied suction started @125mmHg low continuous suction with no leaks noted.Patient will be transferring to [facility].Wet to dry dressing to be applied prior to discharge.Patient tolerated wound care well. Ostomy Date of Surgery: Dec 05, 2017 Zaida Vázquez [facility] Dec 16, 2017 12:56
== END 2017-12-16 15:55 | disposition short-term general hospital (02) | DRG 163 ==
LOC: N07B 18:31 → HCPC 12-05 13:26 → N07B 12-05 19:08
PROVIDERS: ADMIT Family Medicine; ATTEND Family Medicine
PROC: 30233N1 Transfusion of Nonautologous Red Blood Cells into Peripheral Vein, Percutaneous Approach (ICD-10-PCS; 2017-12-03)
PROC: 0W9930Z Drainage of Right Pleural Cavity with Drainage Device, Percutaneous Approach (ICD-10-PCS; 2017-12-05)
PROC: 0W980ZX Drainage of Chest Wall, Open Approach, Diagnostic (ICD-10-PCS; 2017-12-05)
PROC: 3E0T3BZ Introduction of Anesthetic Agent into Peripheral Nerves and Plexi, Percutaneous Approach (ICD-10-PCS; 2017-12-05)
PROC: 6A550Z2 Pheresis of Platelets, Single (ICD-10-PCS; 2017-12-05)
PROC: 0BNK0ZZ Release Right Lung, Open Approach (ICD-10-PCS; principal; 2017-12-05 12:15)
PROC: 0DBM8ZX Excision of Descending Colon, Via Natural or Artificial Opening Endoscopic, Diagnostic (ICD-10-PCS; 2017-12-15)
PROC: 0DB98ZX Excision of Duodenum, Via Natural or Artificial Opening Endoscopic, Diagnostic (ICD-10-PCS; 2017-12-15)
PROC: 0DB68ZX Excision of Stomach, Via Natural or Artificial Opening Endoscopic, Diagnostic (ICD-10-PCS; 2017-12-15)
PROC: 0DB38ZX Excision of Lower Esophagus, Via Natural or Artificial Opening Endoscopic, Diagnostic (ICD-10-PCS; 2017-12-15)
DX: J86.9 Pyothorax without fistula (principal); J18.9 Pneumonia, unspecified organism; N17.9 Acute kidney failure, unspecified; D61.818 Other pancytopenia; L89.159 Pressure ulcer of sacral region, unspecified stage; N39.0 Urinary tract infection, site not specified; J90 Pleural effusion, not elsewhere classified; L02.213 Cutaneous abscess of chest wall; E83.42 Hypomagnesemia; I07.1 Rheumatic tricuspid insufficiency; E11.22 Type 2 diabetes mellitus with diabetic chronic kidney disease; H43.391 Other vitreous opacities, right eye; I12.9 Hypertensive chronic kidney disease with stage 1 through stage 4 chronic kidney disease, or unspecified chronic kidney disease; N18.9 Chronic kidney disease, unspecified; E11.319 Type 2 diabetes mellitus with unspecified diabetic retinopathy without macular edema; R11.2 Nausea with vomiting, unspecified; E11.36 Type 2 diabetes mellitus with diabetic cataract; D69.59 Other secondary thrombocytopenia; S71.101A Unspecified open wound, right thigh, initial encounter; S31.000A Unspecified open wound of lower back and pelvis without penetration into retroperitoneum, initial encounter; X58.XXXA Exposure to other specified factors, initial encounter; Y93.9 Activity, unspecified; Y92.9 Unspecified place or not applicable; Y99.9 Unspecified external cause status; D63.8 Anemia in other chronic diseases classified elsewhere; B95.62 Methicillin resistant Staphylococcus aureus infection as the cause of diseases classified elsewhere; I87.8 Other specified disorders of veins; K21.0 Gastro-esophageal reflux disease with esophagitis; R30.0 Dysuria; K76.9 Liver disease, unspecified; J43.9 Emphysema, unspecified; K44.9 Diaphragmatic hernia without obstruction or gangrene; K57.30 Diverticulosis of large intestine without perforation or abscess without bleeding; K64.8 Other hemorrhoids; R79.1 Abnormal coagulation profile; N28.1 Cyst of kidney, acquired; T36.8X5A Adverse effect of other systemic antibiotics, initial encounter; Y92.239 Unspecified place in hospital as the place of occurrence of the external cause; D12.4 Benign neoplasm of descending colon; N40.0 Benign prostatic hyperplasia without lower urinary tract symptoms; Z82.49 Family history of ischemic heart disease and other diseases of the circulatory system; Z87.891 Personal history of nicotine dependence; Z86.718 Personal history of other venous thrombosis and embolism; Z81.8 Family history of other mental and behavioral disorders; Z91.19 Patient's noncompliance with other medical treatment and regimen; Z78.9 Other specified health status; D73.1 Hypersplenism; K29.70 Gastritis, unspecified, without bleeding; R60.0 Localized edema; R21 Rash and other nonspecific skin eruption; Z79.4 Long term (current) use of insulin
CPT/HCPCS: 36430; 71045; 71250; 76700; 80048; 80053; 81001; 82247; 82248; 82272; 82607; 82728; 82948; 83540; 83550; 83615; 83735; 84155; 85007; 85014; 85018; 85025; 85027; 85049; 85384; 85610; 85730; 86403; 86850; 86880; 86900; 86901; 86920; 87015; 87070; 87086; 87102; 87116; 87147; 87186; 87205; 87206; 88305; 88312; 93005; 93970; 94150; 94640; 94664; C9290; J0131; J0690; J0712; J1100; J1642; J1815; J1885; J1940; J1956; J2020; J2270; J2370; J2710; J3010; J3475; J7030; J7050; J7120; J7613; P9016; P9035

== ENCOUNTER 2017-12-20 11:41 | Inpatient (IN) | payer OTHER ==
[~2017-12-20] VITALS: Ht 180.3 cm; Wt 93.0 kg
[~2017-12-20 11:41] MED LIST: CARV12.5 PO; CEFTAR600P IV; Furosemide IV PUSH; HUMALOG SQ; HYDR-3516 PO; LEVEMIR SQ; MAGN400T2 PO; OXYC-392 PO; THIA100 PO
[2017-12-20] MEDS ORDERED: CEFTAROLINE INJ 600 MG in SODIUM CHLORIDE 0.9% INJ 100 ML IV SCH (18:00)
[2017-12-20] MEDS ORDERED: [UNRECOGNIZED DRUG - REMARK] SCH (18:00)
[2017-12-20] MEDS ORDERED: NALOXONE HCL 0.4 MG/ML AMP IV PUSH PRN (18:00)
[2017-12-20] MEDS ORDERED: SODIUM CHLORIDE 0.9% FLUSH 10 ML FLUSH IV FLUSH PRN (18:00)
[2017-12-20 20:00] VITALS: BP 152/92; PULSE 79; RESP 20; TEMP 98; O2SAT 97
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
[2017-12-20] MEDS: SODIUM CHLORIDE 0.9% FLUSH 10 ML FLUSH IV FLUSH SCH (23:14)
[2017-12-21] VITALS: BP 155/82; PULSE 81; RESP 20; TEMP 98.3; O2SAT 96
[2017-12-21] MEDS ORDERED: TYLE325T PO (00:11)
[2017-12-21] MEDS ORDERED: OXYC1TAB36 PO (00:11)
[2017-12-21] MEDS ORDERED: FOLI400T PO (00:11)
[2017-12-21] MEDS ORDERED: LISI-515 PO (00:11)
[2017-12-21] MEDS ORDERED: FURO1TAB60 PO (00:11)
[2017-12-21 04:00] VITALS: BP 135/85; PULSE 75; RESP 20; TEMP 99; O2SAT 96
[2017-12-21 05:25] LABS: AUTOMATED NEUTROPHIL # 1.6 TH/MM3 (1.8-7.7); BASOPHIL % 1.1 % (0.0-2.0); EOSINOPHIL # 0.2 TH/MM3 (0-0.4); EOSINOPHIL % 6.2 % (0.0-4.0); HEMATOCRIT 21.9 % (39.0-51.0); HEMOGLOBIN 7.6 GM/DL (13.0-17.0); LYMPH % 32.6 % (9.0-44.0); LYMPHOCYTE # 1.1 TH/MM3 (1.0-4.8); MEAN CELL VOLUME 91.1 FL (80.0-100.0); MEAN CORPUSCULAR HEMOGLOBIN 31.7 PG (27.0-34.0); MEAN CORPUSCULAR HGB CONC 34.8 % (32.0-36.0); MEAN PLATELET VOLUME 7.3 FL (7.0-11.0); MONO % 10.6 % (0.0-8.0); MONOCYTE # 0.3 TH/MM3 (0-0.9); NEUT % 49.5 % (16.0-70.0); PLATELET COUNT 181 TH/MM3 (150-450); RED CELL DISTRIBUTION WIDTH 17.9 % (11.6-17.2); WHITE BLOOD COUNT 3.3 TH/MM3 (4.0-11.0)
[2017-12-21 05:34] LABS: BICARBONATE 27.2 MEQ/L (21.0-32.0); CALCIUM 7.3 MG/DL (8.5-10.1); CREATININE 1.1 MG/DL (0.60-1.30)
[2017-12-21 05:56] LABS: CALCIUM-PROTEIN CORRECTED 7.7 MG/DL (8.5-10.1); TOTAL PROTEIN 6.3 GM/DL (6.4-8.2)
[2017-12-21 08:00] VITALS: BP 155/85; PULSE 73; RESP 18; TEMP 98.5; O2SAT 96
[2017-12-21] MEDS: CARVEDILOL 12.5 MG TAB PO SCH ×2 (09:00→20:59)
[2017-12-21] MEDS: FOLIC ACID 1 MG TAB PO SCH (09:00)
[2017-12-21] MEDS: THIAMINE HCL 100 MG TAB PO SCH (09:00)
[2017-12-21] MEDS: LISINOPRIL 20 MG TAB PO SCH (09:00)
[2017-12-21] MEDS: FUROSEMIDE 40 MG TAB PO SCH (09:01)
[2017-12-21] MEDS: SODIUM CHLORIDE 0.9% FLUSH 10 ML FLUSH IV FLUSH SCH ×2 (09:01→21:01)
[2017-12-21] MEDS: CEFTAROLINE INJ 600 MG in SODIUM CHLORIDE 0.9% INJ 100 ML IV SCH ×2 (09:01→21:01)
[2017-12-21] MEDS ORDERED: DEXTROSE 50% IN WATER 50 ML VIAL(D50) IV PUSH PRN (11:30)
[2017-12-21] MEDS ORDERED: GLUCAGON 1 MG/ML VIAL OTHER PRN (11:30)
--- NOTE | 2017-12-21 11:31 | HHI.PR ---
Subjective Remarks Follow-up recurrent Right lung empyema December 21, 2017-patient seen and examined,+SOB, no cough production. Afebrile Objective Vitals Vital Signs Date Time Temp Pulse Resp B/P (MAP) Pulse Ox O2 Delivery O2 Flow Rate FiO2 12/21/17 08:00 98.5 73 18 155/85 (108) 96 12/21/17 04:00 99.0 75 20 135/85 (102) 96 12/21/17 00:00 98.3 81 20 155/82 (106) 96 12/20/17 20:00 98.0 79 20 152/92 (112) 97 I/O 12/20/17 12/20/17 12/20/17 12/21/17 12/21/17 12/21/17 07:00 15:00 23:00 07:00 15:00 23:00 Intake Total 340 ml Output Total 850 ml Balance -510 ml Intake Oral 240 ml IV Total 100 ml Output Urine Total 850 ml Result Diagram: 12/21/17 0450 12/21/17 0450 Objective Remarks GENERAL: NAD SKIN: Warm and dry. HEAD: Normocephalic. EYES: No scleral icterus. No injection or drainage. NECK: Supple, trachea midline. No JVD or lymphadenopathy. CARDIOVASCULAR: Regular rate and rhythm without murmurs, gallops, or rubs. RESPIRATORY: Breath sounds decrease bilaterally R>L. No accessory muscle use. GASTROINTESTINAL: Abdomen soft, non-tender, nondistended. MUSCULOSKELETAL: No cyanosis, or edema. BACK: Nontender without obvious deformity. No CVA tenderness. A/P Problem List: (1) Empyema lung ICD Code: J86.9 - Pyothorax without fistula Status: Acute (2) Diabetes ICD Code: E11.9 - Type 2 diabetes mellitus without complications Status: Chronic (3) HTN (hypertension) ICD Code: I10 - Essential (primary) hypertension Status: Chronic (4) Pancytopenia ICD Code: D61.818 - Other pancytopenia Status: Chronic Assessment and Plan 52-year-old man with Recurrent empyema/abscess CT results reviewed from [facility] shows suspicious for abscess in the right side -Consult cardio thoracic surgery -Continue Teflaro IV pending infectious disease specialist evaluation -Pain management with IV morphine and oxycodone Hypertension, chronic, currently controlled -Continue Coreg and Lasix, monitor vitals Diabetes, chronic, type II, controlled with no acute complications -Accu-Cheks and sliding scale insulin Pancytopenia, chronic -Continue to monitor labs DVT prophylaxis: SCDs Problem Qualifiers (1) Diabetes: Qualified Codes: E11.9 - Type 2 diabetes mellitus without complications; Z79.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
[2017-12-21 12:00] VITALS: BP 126/79; PULSE 68; RESP 18; TEMP 98.3; O2SAT 96
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
--- NOTE | 2017-12-21 13:00 | PD.WCN.NOT ---
Wound Consult Description: Wound consult ordered by for wound management of right mid back Communicated with: Sammi WINTER 7 glasgowDr.Pontey Recommendation: 1. Cleanse Medial back incision sites with normal saline pat dry. 2. Gently pack Maxorb AG cut in strips into wound base cover with dry dressing.Change daily. 3. Follow up with outpatient wound center if needed Additional Information: Patient was seen this morning by health science writer and Sammi WINTER for wound management.Patient alert and oriented sitting in recliner chair.Dressing removed from R flank/back .Stock Checkerer was able to visualized surgical incision sites.Cleansed with normal saline pat dry.Upper surgical incision measures 0.4cm x3.2 cm x >1.0cm Wound base is 100% moist pink non granular tissue scant serosanguineous drainage noted to prior dressing without odor.Distal surgical incision measures 0.2cm x 2.0cm x >1.0cm wound base is 100% moist pink non granular tissue.Scant serosanguineous drainage noted to prior dressing with out odor.Wound cleansed with normal saline pat dry Maxorb ll cut in strips gently packed in wound base till resistance was felt.Tail left exposed and wounds covered with dry dressing.Patient tolerated wound care well no questions or concerns upon writers departure. Zaida Vázquez [facility] Dec 21, 2017 13:00
[2017-12-21] MEDS: INSULIN ASPART SUPPLEMENTAL SCALE SQ SCH ×3 (13:07→21:00)
--- NOTE | 2017-12-21 14:00 | RADRPT ---
EXAM DATE/TIME: 12/21/2017 13:02 [place] COMPARISON: CHEST SINGLE AP, December 14, 2017, 10:34. INDICATIONS : Pneumonia. Patient complains of right side pain at area where abscess was drained. MEDICAL HISTORY : Cardiovascular disease. Diabetes mellitus type II. Hypertension. SURGICAL HISTORY : None. ENCOUNTER: Initial ACUITY: 1 day PAIN SCORE: 7/10 LOCATION: Right chest FINDINGS: Right basilar consolidation is noted consistent with possible pneumonia. Clinical correlation is aroldo mmended. Small right pleural effusion is noted. Right-sided PICC line has its tip in super vena cava. The left lung is clear. Degenerative changes and scoliosis of the thoracic spine are noted. CONCLUSION: 1. Right basilar consolidation consistent with possible pneumonia. Clinical correlation is recommende d. 2. Small right pleural effusion. Valentino Mooney MD on December 21, 2017 at 13:56 Board Certified Radiologist. This report was verified electronically.
[2017-12-21] MEDS: MORPHINE SULFATE 4 MG/ML INJ IV PUSH PRN (14:47)
[2017-12-21 16:00] VITALS: BP 138/80; PULSE 65; RESP 18; TEMP 98.2; O2SAT 97
--- NOTE | 2017-12-21 16:27 | PD.WCN.NOT ---
Wound Consult Description: Wound consult ordered by for wound management of right mid back Communicated with: Patient MYO Chapa Recommendation: 1. Cleanse Right Lateral Upper Chest post chest tube removal site with normal saline pat dry. 2. Gently place a cut piece of Maxorb AG into wound base cover with dry dressing. 3. Change with every wound VAC change M-W-F and PRN for saturation or dislodgement. 1. Change wound VAC to Right Mid Lateral Chest M-W-F 2. Use small granufoam dressing 3. Settings @125mmHg low continuous suction Additional Information: Patient seen on for wound VAC application to right mid lateral chest. Neg Pressure Wound Therapy Wound Location Wound Location: Right mid lateral chest Wound Description Length: 0.4cm Width: 3.5cm Depth: 1.4cm Wound bed appearance: ~50% beefy red granulation tissue ~50% white tissue Moist wound bed with no active drainage and no odor Periwound appearance: Other (Erythematous, edematous) Settings Suction: 125 mmHg, Continuous Intensity: Low Other Information: Bridged Foam type: Black Number of pieces: 1 Additonal Information Maxorb removed from wound bed on mid right lateral chest wound. Wound was cleansed with NS and gauze and measured above. Periwound was skin prepped using Cavilon barrier film and draped with Vac transparent film to protect intact skin. One piece of black granufoam was cut in a cinnamon roll fashion, placed in wound and bridged distally, leaving a round piece at the end for trac pad placement. Wound VAC was turned on with settings @125mmHg low continuous suction and working properly without leaks. Patient tolerated wound VAC dressing application well. Next wound VAC to be changed on Tuesday12/23/17 by analysis consultant. Sakshi Payan [facility] Dec 21, 2017 16:27
[2017-12-21 19:54] VITALS: BP 139/76; PULSE 72; RESP 18; TEMP 98.1; O2SAT 98
[2017-12-22] VITALS: BP 144/74; PULSE 68; RESP 18; TEMP 97.9; O2SAT 93
[2017-12-22 05:43] LABS: AUTOMATED NEUTROPHIL # 1.6 TH/MM3 (1.8-7.7); BASOPHIL % 1.4 % (0.0-2.0); EOSINOPHIL # 0.2 TH/MM3 (0-0.4); EOSINOPHIL % 7.3 % (0.0-4.0); HEMATOCRIT 22.1 % (39.0-51.0); HEMOGLOBIN 7.7 GM/DL (13.0-17.0); LYMPH % 32.3 % (9.0-44.0); LYMPHOCYTE # 1.1 TH/MM3 (1.0-4.8); MEAN CELL VOLUME 90.1 FL (80.0-100.0); MEAN CORPUSCULAR HEMOGLOBIN 31.2 PG (27.0-34.0); MEAN CORPUSCULAR HGB CONC 34.6 % (32.0-36.0); MEAN PLATELET VOLUME 7.5 FL (7.0-11.0); MONO % 10.8 % (0.0-8.0); MONOCYTE # 0.4 TH/MM3 (0-0.9); NEUT % 48.2 % (16.0-70.0); PLATELET COUNT 173 TH/MM3 (150-450); RED BLOOD COUNT 2.46 MIL/MM3 (4.50-5.90); RED CELL DISTRIBUTION WIDTH 17.6 % (11.6-17.2); WHITE BLOOD COUNT 3.4 TH/MM3 (4.0-11.0)
[2017-12-22 06:16] LABS: BICARBONATE 25.6 MEQ/L (21.0-32.0); CALCIUM 7.5 MG/DL (8.5-10.1)
[2017-12-22 08:00] VITALS: BP 122/77; PULSE 98; RESP 18; TEMP 98.2; O2SAT 93
[2017-12-22] MEDS: INSULIN ASPART SUPPLEMENTAL SCALE SQ SCH ×4 (08:00→21:00)
[2017-12-22] MEDS: LISINOPRIL 20 MG TAB PO SCH (09:07)
[2017-12-22] MEDS: SODIUM CHLORIDE 0.9% FLUSH 10 ML FLUSH IV FLUSH SCH ×2 (09:07→22:17)
[2017-12-22] MEDS: THIAMINE HCL 100 MG TAB PO SCH (09:07)
[2017-12-22] MEDS: FOLIC ACID 1 MG TAB PO SCH (09:07)
[2017-12-22] MEDS: FUROSEMIDE 40 MG TAB PO SCH (09:07)
[2017-12-22] MEDS: CARVEDILOL 12.5 MG TAB PO SCH ×2 (09:07→22:11)
[2017-12-22] MEDS: CEFTAROLINE INJ 600 MG in SODIUM CHLORIDE 0.9% INJ 100 ML IV SCH ×2 (09:08→22:12)
--- NOTE | 2017-12-22 10:19 | HHI.PR ---
Subjective Remarks Follow-up recurrent Right lung empyema December 21, 2017-patient seen and examined,+SOB, no cough production. Afebrile December 22, 2017-patient seen and examined, wound VAC in place with minimal drainage. Denies any significant shortness of breath. Currently afebrile Objective Vitals Vital Signs Date Time Temp Pulse Resp B/P (MAP) Pulse Ox O2 Delivery O2 Flow Rate FiO2 12/22/17 08:00 98.2 98 18 122/77 (92) 93 12/22/17 00:00 97.9 68 18 144/74 (97) 93 12/21/17 19:54 98.1 72 18 139/76 (97) 98 12/21/17 16:00 98.2 65 18 138/80 (99) 97 12/21/17 12:00 98.3 68 18 126/79 (95) 96 I/O 12/21/17 12/21/17 12/21/17 12/22/17 12/22/17 12/22/17 07:00 15:00 23:00 07:00 15:00 23:00 Intake Total 340 ml 1160 ml Output Total 850 ml Balance -510 ml 1160 ml Intake Oral 240 ml 960 ml IV Total 100 ml 200 ml Output Urine Total 850 ml # Voids 5 # Bowel Movements 1 Result Diagram: 12/22/17 0530 12/22/17 0530 Imaging Last Impressions Chest X-Ray 12/21/17 0000 Signed Impressions: Service Date/Time: Thursday, December 21, 2017 13:02 - CONCLUSION: 1. Right basilar consolidation consistent with possible pneumonia. Clinical correlation is recommended. 2. Small right pleural effusion. Valentino Mooney MD Objective Remarks GENERAL: NAD SKIN: Warm and dry. HEAD: Normocephalic. EYES: No scleral icterus. No injection or drainage. NECK: Supple, trachea midline. No JVD or lymphadenopathy. CARDIOVASCULAR: Regular rate and rhythm without murmurs, gallops, or rubs. RESPIRATORY: Breath sounds decrease bilaterally R>L. Wound VAC in place. No accessory muscle use. GASTROINTESTINAL: Abdomen soft, non-tender, nondistended. MUSCULOSKELETAL: No cyanosis, or edema. BACK: Nontender without obvious deformity. No CVA tenderness. A/P Problem List: (1) Empyema lung ICD Code: J86.9 - Pyothorax without fistula Status: Acute (2) Diabetes ICD Code: E11.9 - Type 2 diabetes mellitus without complications Status: Chronic (3) HTN (hypertension) ICD Code: I10 - Essential (primary) hypertension Status: Chronic (4) Pancytopenia ICD Code: D61.818 - Other pancytopenia Status: Chronic Assessment and Plan 52-year-old man with Recurrent empyema/abscess CT results reviewed from [facility] shows suspicious for abscess in the right side -Appreciate input from cardio thoracic surgery, continue with wound VAC -Continue Teflaro IV per infectious disease specialist -Pain management with IV morphine and oxycodone Hypertension, chronic, currently controlled -Continue Coreg and Lasix, monitor vitals Diabetes, chronic, type II, controlled with no acute complications -Accu-Cheks and sliding scale insulin Pancytopenia, chronic -Continue to monitor labs DVT prophylaxis: SCDs Problem Qualifiers (1) Diabetes: Qualified Codes: E11.9 - Type 2 diabetes mellitus without complications; Z79.4 - local intermodal truck driver (current) use of insulin (2) HTN (hypertension): Qualified Codes: I10 - Essential (primary) hypertension Alonso Stoll MD Dec 22, 2017 10:19
[2017-12-22 12:00] VITALS: BP 107/63; PULSE 68; RESP 18; TEMP 98; O2SAT 97
[2017-12-22 16:00] VITALS: BP 125/73; PULSE 67; RESP 18; TEMP 98; O2SAT 98
[2017-12-22 20:00] VITALS: BP 126/81; PULSE 73; RESP 18; TEMP 98.6; O2SAT 95
--- NOTE | 2017-12-22 20:03 | HHI.IDPN ---
Subjective Subjective Remarks is a 52 y/o CM with PMHx of HTN, diabetes, H/O DVT and alcohol abuse who was recently admitted to [facility] on 11/18/17 with weakness. While hospitalized at [facility], patient was treated for alcohol withdrawal and sepsis secondary to pneumonia. Patient developed persistent right-sided pleural effusion underwent a thoracocentesis on 11/22 with 1400 cc of fluid removed with cultures positive for MRSA. He also had a urine culture positive for MRSA. Patient had echocardiogram done on 11/21 revealing preserved EF of 60 - 65%. Patient had a PICC line placed 11/22. Patient was treated with IV Vanco, Levaquin and IV Zyvox. Patient developed acute renal failure likely secondary to vancomycin. Blood cultures were negative. Patient was accepted as a transfer to [facility] by Dr. Pena for possible decortication of lung by cardiothoracic surgery. Patient was seen by CTS at [facility] and underwent decortication as well as drainage of right chest wall abscess. Patient post op had a wound vac to the right chest wall and also had a chest tube. Upon DC patient was supposed to have been on Wound vac for right chest wall abscess but unsure if he was on it. Patient seems to have been on Teflaro IV. Patient was on Vanco IV and had acute renal failure. Patient was on Zyvox and developed severe pancytopenia. Infectious disease has been consulted for evaluation and medical management of MRSA empyema and right chest wall abscess. Overnight events reviewed No fevers No rash No diarrhea Reports Wound vac not draining much. Does not think wound vac doing much. Right CT prior site with drainage. Antibiotics Teflaro IV Lines Line sites with no e.o infection Past Medical History reviewed Allergies: Coded Allergies: No Known Allergies (Verified Allergy, Unknown, 11/29/17) Objective . Vital Signs Date Time Temp Pulse Resp B/P (MAP) Pulse Ox O2 Delivery O2 Flow Rate FiO2 12/22/17 17:21 18 12/22/17 16:00 98.0 67 18 125/73 (90) 98 12/22/17 12:00 98.0 68 18 107/63 (78) 97 12/22/17 08:00 98.2 98 18 122/77 (92) 93 12/22/17 00:00 97.9 68 18 144/74 (97) 93 12/22/17 12/22/17 12/23/17 15:00 23:00 07:00 Intake Total 1380 ml Output Total 0 ml Balance 1380 ml Intake Oral 1280 ml IV Total 100 ml Drainage Total 0 ml # Voids 7 # Bowel Movements 1 . Laboratory Tests Test 12/21/17 04:50 12/22/17 05:30 White Blood Count 3.3 TH/MM3 3.4 TH/MM3 Red Blood Count 2.40 MIL/MM3 2.46 MIL/MM3 Hemoglobin 7.6 GM/DL 7.7 GM/DL Hematocrit 21.9 % 22.1 % Mean Corpuscular Volume 91.1 FL 90.1 FL Mean Corpuscular Hemoglobin 31.7 PG 31.2 PG Mean Corpuscular Hemoglobin Concent 34.8 % 34.6 % Red Cell Distribution Width 17.9 % 17.6 % Platelet Count 181 TH/MM3 173 TH/MM3 Mean Platelet Volume 7.3 FL 7.5 FL Neutrophils (%) (Auto) 49.5 % 48.2 % Lymphocytes (%) (Auto) 32.6 % 32.3 % Monocytes (%) (Auto) 10.6 % 10.8 % Eosinophils (%) (Auto) 6.2 % 7.3 % Basophils (%) (Auto) 1.1 % 1.4 % Neutrophils # (Auto) 1.6 TH/MM3 1.6 TH/MM3 Lymphocytes # (Auto) 1.1 TH/MM3 1.1 TH/MM3 Monocytes # (Auto) 0.3 TH/MM3 0.4 TH/MM3 Eosinophils # (Auto) 0.2 TH/MM3 0.2 TH/MM3 Basophils # (Auto) 0.0 TH/MM3 0.0 TH/MM3 CBC Comment DIFF FINAL DIFF FINAL Differential Comment Laboratory Tests Test 12/21/17 04:50 12/22/17 05:30 12/22/17 12:35 Blood Urea Nitrogen 9 MG/DL 8 MG/DL Creatinine 1.10 MG/DL 1.00 MG/DL Random Glucose 84 MG/DL 97 MG/DL Total Protein 6.3 GM/DL Calcium Level 7.3 MG/DL 7.5 MG/DL Sodium Level 139 MEQ/L 137 MEQ/L Potassium Level 3.8 MEQ/L 3.7 MEQ/L Chloride Level 106 MEQ/L 104 MEQ/L Carbon Dioxide Level 27.2 MEQ/L 25.6 MEQ/L Anion Gap 6 MEQ/L 7 MEQ/L Estimat Glomerular Filtration Rate 70 ML/MIN 78 ML/MIN Protein Corrected Calcium 7.7 MG/DL Lactic Acid Level 0.9 mmol/L Imaging Last Impressions Chest X-Ray 12/21/17 0000 Signed Impressions: Service Date/Time: Thursday, December 21, 2017 13:02 - CONCLUSION: 1. Right basilar consolidation consistent with possible pneumonia. Clinical correlation is recommended. 2. Small right pleural effusion. Valentino Mooney MD Physical Exam GENERAL: This is a well-nourished, well-developed patient, in no apparent distress. SKIN: No rashes, ecchymoses or lesions. Cool and dry. HEAD: Atraumatic. Normocephalic. No temporal or scalp tenderness. EYES: Pupils equal round and reactive. Extraocular motions intact. No scleral icterus. No injection or drainage. ENT: Nose without bleeding, purulent drainage or septal hematoma. Throat without erythema, tonsillar hypertrophy or exudate. Uvula midline. Airway patent. NECK: Trachea midline. Supple, nontender, no meningeal signs. CARDIOVASCULAR: HS audible. RESPIRATORY: Decreased AE in Right base. Right chest wall with surgical scar and surrounding swelling and induration noted. GASTROINTESTINAL: Abdomen soft, non-tender, nondistended. MUSCULOSKELETAL: Extremities without clubbing, cyanosis, or edema. No joint tenderness, effusion, or edema noted. No calf tenderness. Negative Homans sign bilaterally. NEUROLOGICAL: Awake and alert. Non focal exam Psych cooperative IV line sites with no e.o infection Assessment & Plan Remarks Right side MRSA empyema Right MRSA chest wall abscess Acute renal failure from vanco IV Acute pancytopenia from Linezolid(Zyvox) Alcoholism, aspiration risk. PICC line in place. Recs Continue Teflaro IV for above reasons. Consult Pulmonology: dylon Tobias. dw patient he is agreeable with bronch due to persistent infiltrates. Concern new organisms? New HCAP. Patient not able to cough up sputum Bronch might help diagnostically and therapeutically. Follow cultures Follow clinically. Donna Orosco MD Dec 22, 2017 20:03
[2017-12-23] VITALS: BP 117/69; PULSE 73; RESP 17; TEMP 98.3; O2SAT 96
[2017-12-23 08:00] VITALS: BP 115/59; PULSE 69; RESP 20; TEMP 98; O2SAT 96
[2017-12-23] MEDS: INSULIN ASPART SUPPLEMENTAL SCALE SQ SCH ×4 (08:00→21:00)
[2017-12-23] MEDS: FUROSEMIDE 40 MG TAB PO SCH (09:00)
[2017-12-23] MEDS: FOLIC ACID 1 MG TAB PO SCH (09:01)
[2017-12-23] MEDS: LISINOPRIL 20 MG TAB PO SCH (09:01)
[2017-12-23] MEDS: SODIUM CHLORIDE 0.9% FLUSH 10 ML FLUSH IV FLUSH SCH ×2 (09:01→22:09)
[2017-12-23] MEDS: CARVEDILOL 12.5 MG TAB PO SCH ×2 (09:01→22:08)
[2017-12-23] MEDS: THIAMINE HCL 100 MG TAB PO SCH (09:02)
[2017-12-23] MEDS: CEFTAROLINE INJ 600 MG in SODIUM CHLORIDE 0.9% INJ 100 ML IV SCH ×2 (09:23→22:09)
--- NOTE | 2017-12-23 11:54 | MB ---
cc: Zhao Ortega MD, Tanuja MD DATE: 12/23/2017 REQUESTING PHYSICIAN: Donna Orosco MD REASON FOR CONSULTATION: Evaluation of bronchitis. HISTORY OF PRESENT ILLNESS: Mr. Lopez is a pleasant 52-year-old male with a history of hypertension, diabetes mellitus, alcohol use, and a history of DVT. The patient was admitted to [facility]. He was found to have pleural effusion and possible empyema. He was found to have MR and was treated with IV vancomycin and developed renal failure. Because of persistent empyema, he was sent to this hospital. He underwent decortication. He was treated with Levaquin and Zyvox and transferred back to [facility]. While he was over there, it was noted that he had increased shortness of breath and chest x-ray shows more effusion. The patient is sent back over here. He has mild right-sided chest pain. He does not have any fever. He is not able to cough up any phlegm. No nausea or vomiting. PAST MEDICAL HISTORY: Significant for a history of recent decortication, MRSA, empyema, renal failure, hypertension, diabetes mellitus, history of deep venous thrombosis many years ago. MEDICATIONS: He is currently takin. Insulin. 2. Coreg 12.5 mg q. 12 hours. 3. Folic acid 1 mg a day. 4. Lisinopril 20 mg a day. 5. Lasix 40 mg a day. 6. Thiamine 100 mg daily. 7. Rocephin 1 gram q. 12 hours. 8. Oxycodone for pain. ALLERGIES: NO KNOWN DRUG ALLERGIES. SOCIAL HISTORY: He is and lives alone. He has a history of smoking, as well as drinking more than a 6-pack a day. Denies any drug use. 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 FAMILY HISTORY: He has grown children. REVIEW OF SYSTEMS: Normally, he is up, around and active. He has a recent loss of weight. He has a history of deep venous thrombosis in the past. No pulmonary embolism. No seizure, stroke or epilepsy. PHYSICAL EXAMINATION: GENERAL: A well-developed, well-nourished male not in acute distress. VITAL SIGNS: Blood pressure 115/59, heart rate 60, respirations 20, temperature 98. HEENT: Pupils are equal and reactive to light. Oral mucosa and nasal mucosa normal. NECK: Supple. JVP noted. CHEST: He has decreased breath sounds on the right chest with dull percussion note. He has a healed scar of thoracotomy. CARDIOVASCULAR: S1, S2 normal. ABDOMEN: Soft, nontender, nondistended. Bowel sounds are present. EXTREMITIES: No edema. IMPRESSION: 1. Persistent right lower lobe infiltrate with effusion. 2. 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 3. Hypertension. 4. Diabetes mellitus. 5. Alcohol abuse. PLAN: I discussed with the patient he will need bronchoscopy. I explained to him the procedure and the complications including complications of anesthesia, pneumothorax requiring chest tube, bleeding complication, injury to the blood vessel, lungs, nose, arrhythmia, and hypoxia. He understands and wants to proceed with it. We will schedule him for bronchoscopy. We will also get a CT scan of the chest without contrast. Continue antibiotic per ID recommendation. Further recommendations will dependent upon the course in the hospital. Thank you, Dr. Donna Orosco for this consult. Zhao Ortega MD ADA/DL , 11:14 AM , 11:53 AM
[2017-12-23 12:00] VITALS: BP 143/79; PULSE 83; RESP 20; TEMP 98.3; O2SAT 95
[2017-12-23 12:02] LABS: AUTOMATED NEUTROPHIL # 1.6 TH/MM3 (1.8-7.7); BASOPHIL % 1.3 % (0.0-2.0); EOSINOPHIL # 0.2 TH/MM3 (0-0.4); HEMATOCRIT 21.7 % (39.0-51.0); HEMOGLOBIN 7.5 GM/DL (13.0-17.0); LYMPH % 29.4 % (9.0-44.0); LYMPHOCYTE # 0.9 TH/MM3 (1.0-4.8); MEAN CORPUSCULAR HEMOGLOBIN 31.6 PG (27.0-34.0); MEAN CORPUSCULAR HGB CONC 34.7 % (32.0-36.0); MEAN PLATELET VOLUME 7.2 FL (7.0-11.0); MONO % 11.1 % (0.0-8.0); MONOCYTE # 0.3 TH/MM3 (0-0.9); NEUT % 52.2 % (16.0-70.0); PLATELET COUNT 169 TH/MM3 (150-450); RED BLOOD COUNT 2.38 MIL/MM3 (4.50-5.90); RED CELL DISTRIBUTION WIDTH 18.1 % (11.6-17.2); WHITE BLOOD COUNT 3.1 TH/MM3 (4.0-11.0)
[2017-12-23 12:09] LABS: INTERNATIONAL NORMALIZED RATIO 1.3 RATIO; PROTHROMBIN TIME - PATIENT 13.2 SEC (9.8-11.6)
--- NOTE | 2017-12-23 12:24 | RADRPT ---
EXAM DATE/TIME: 12/23/2017 12:01 [place] COMPARISON: No previous studies available for comparison. INDICATIONS : Pneumonia, follow up abscess drain RADIATION DOSE: 15.87 CTDIvol (mGy) MEDICAL HISTORY : Hypertension. Cardiovascular disease Diabetes SURGICAL HISTORY : None. ENCOUNTER: Initial ACUITY: 1 day PAIN SCALE: 0/10 LOCATION: Bilateral chest TECHNIQUE: Volumetric scanning of the chest was performed. Using automated exposure control and adjustment of t he mA and/or kV according to patient size, radiation dose was kept as low as reasonably achievable to obtain optimal diagnostic quality images. DICOM format image data is available electronically for r eview and comparison. Follow-up recommendations for detected pulmonary nodules are based at a minimum on nodule size and pa tient risk factors according to Fleischner Society Guidelines. FINDINGS: Comparison is November 30. Previous loculated left pleural effusion has resolved. On the right side there is a persistent complex loculated air and fluid collection along the posterio r right hemithorax. The amount of air has increased since November 30. At the right lung base there is so me loculated air outside the rib cage measuring up to 6 x 3.4 cm likely representing extension of the empyema into the soft tissues. Right-sided PICC line is in superior vena cava. The amount of consolidation in the right lung base morgan s improved slightly. Upper abdomen reveals liver cirrhosis and presumed varices around the spleen. CONCLUSION: 1. Increase in loculated air within the complex right pleural effusion since November 30. The overall siz e of the presumed right empyema is relatively stable. There is also now loculated air in the lower ri ght lateral chest wall likely representing extension of the empyema into the soft tissues. Slight imp rovement in right basilar lung consolidation. 2. Resolution of previous left pleural effusion. 3. New right-sided posterior sixth rib fracture. Multiple remote healed rib fractures. Edis Wetzel MD on December 23, 2017 at 12:12 Board Certified Radiologist. This report was verified electronically.
--- NOTE | 2017-12-23 13:45 | HHI.PR ---
Subjective Remarks Follow-up recurrent Right lung empyema December 21, 2017-patient seen and examined,+SOB, no cough production. Afebrile December 22, 2017-patient seen and examined, wound VAC in place with minimal drainage. Denies any significant shortness of breath. Currently afebrile December 23, 2017-patient seen and examined, still with persistent lung infiltrates for which pulmonary medicine has been consulted for evaluation for bronchoscopy Objective Vitals Vital Signs Date Time Temp Pulse Resp B/P (MAP) Pulse Ox O2 Delivery O2 Flow Rate FiO2 12/23/17 12:00 98.3 83 20 143/79 (100) 95 12/23/17 10:01 18 12/23/17 08:00 98.0 69 20 115/59 (77) 96 12/23/17 00:00 98.3 73 17 117/69 (85) 96 12/22/17 20:00 98.6 73 18 126/81 (96) 95 12/22/17 16:00 98.0 67 18 125/73 (90) 98 I/O 12/22/17 12/22/17 12/22/17 12/23/17 12/23/17 12/23/17 06:59 14:59 22:59 06:59 14:59 22:59 Intake Total 1380 ml Output Total 0 ml Balance 1380 ml Intake Oral 1280 ml IV Total 100 ml Drainage Total 0 ml # Voids 7 # Bowel Movements 1 Result Diagram: 12/23/17 1145 12/22/17 0530 Imaging Last Impressions Chest CT 12/23/17 0000 Signed Impressions: Service Date/Time: Saturday, December 23, 2017 12:01 - CONCLUSION: 1. Increase in loculated air within the complex right pleural effusion since November 30. The overall size of the presumed right empyema is relatively stable. There is also now loculated air in the lower right lateral chest wall likely representing extension of the empyema into the soft tissues. Slight improvement in right basilar lung consolidation. 2. Resolution of previous left pleural effusion. 3. New right-sided posterior sixth rib fracture. Multiple remote healed rib fractures. Edis Wetzel MD Chest X-Ray 12/21/17 0000 Signed Impressions: Service Date/Time: Thursday, December 21, 2017 13:02 - CONCLUSION: 1. Right basilar consolidation consistent with possible pneumonia. Clinical correlation is recommended. 2. Small right pleural effusion. Valentino Mooney MD Objective Remarks GENERAL: NAD SKIN: Warm and dry. HEAD: Normocephalic. EYES: No scleral icterus. No injection or drainage. NECK: Supple, trachea midline. No JVD or lymphadenopathy. CARDIOVASCULAR: Regular rate and rhythm without murmurs, gallops, or rubs. RESPIRATORY: Breath sounds decrease bilaterally R>L. Wound VAC in place. No accessory muscle use. GASTROINTESTINAL: Abdomen soft, non-tender, nondistended. MUSCULOSKELETAL: No cyanosis, or edema. BACK: Nontender without obvious deformity. No CVA tenderness. A/P Problem List: (1) Empyema lung ICD Code: J86.9 - Pyothorax without fistula Status: Acute (2) Diabetes ICD Code: E11.9 - Type 2 diabetes mellitus without complications Status: Chronic (3) HTN (hypertension) ICD Code: I10 - Essential (primary) hypertension Status: Chronic (4) Pancytopenia ICD Code: D61.818 - Other pancytopenia Status: Chronic Assessment and Plan 52-year-old man with Recurrent empyema/abscess CT results reviewed from [facility] shows suspicious for abscess in the right side -Appreciate input from cardio thoracic surgery, continue with wound VAC -Continue Teflaro IV per infectious disease specialist -CT chest reviewed and noted with persistent pulmonary infiltrates, for which pulmonary medicine has been consulted for bronchoscopy -Pain management with IV morphine and oxycodone Hypertension, chronic, currently controlled -Continue Coreg and Lasix, monitor vitals Diabetes, chronic, type II, controlled with no acute complications -Accu-Cheks and sliding scale insulin Pancytopenia, chronic -Continue to monitor labs DVT prophylaxis: SCDs Problem Qualifiers (1) Diabetes: Qualified Codes: E11.9 - Type 2 diabetes mellitus without complications; Z79.4 - senior living (current) use of insulin (2) HTN (hypertension): Qualified Codes: I10 - Essential (primary) hypertension Alonso Stoll MD Dec 23, 2017 13:45
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
[2017-12-23 16:00] VITALS: BP 126/68; PULSE 78; RESP 19; TEMP 98.1; O2SAT 94
[2017-12-23] MEDS: MORPHINE SULFATE 4 MG/ML INJ IV PUSH PRN (16:11)
[2017-12-23 20:00] VITALS: BP 145/87; PULSE 76; RESP 16; TEMP 98.2; O2SAT 95
[2017-12-23 23:00] VITALS: BP 131/68; PULSE 73; RESP 16; TEMP 98.3; O2SAT 95
[2017-12-24 08:00] VITALS: BP 130/77; PULSE 86; RESP 17; TEMP 98.3; O2SAT 93
[2017-12-24] MEDS: INSULIN ASPART SUPPLEMENTAL SCALE SQ SCH ×4 (08:00→19:47)
[2017-12-24] MEDS: THIAMINE HCL 100 MG TAB PO SCH (08:50)
[2017-12-24] MEDS: LISINOPRIL 20 MG TAB PO SCH (08:50)
[2017-12-24] MEDS: FUROSEMIDE 40 MG TAB PO SCH (08:50)
[2017-12-24] MEDS: CARVEDILOL 12.5 MG TAB PO SCH ×2 (08:50→19:45)
[2017-12-24] MEDS: SODIUM CHLORIDE 0.9% FLUSH 10 ML FLUSH IV FLUSH SCH ×2 (08:51→19:51)
[2017-12-24] MEDS: FOLIC ACID 1 MG TAB PO SCH (08:59)
[2017-12-24] MEDS: CEFTAROLINE INJ 600 MG in SODIUM CHLORIDE 0.9% INJ 100 ML IV SCH ×2 (09:13→19:45)
[2017-12-24 12:00] VITALS: BP 135/78; PULSE 75; RESP 17; TEMP 97.7; O2SAT 96
--- NOTE | 2017-12-24 12:16 | HHI.PR ---
Subjective Remarks Follow-up recurrent Right lung empyema December 21, 2017-patient seen and examined,+SOB, no cough production. Afebrile December 22, 2017-patient seen and examined, wound VAC in place with minimal drainage. Denies any significant shortness of breath. Currently afebrile December 23, 2017-patient seen and examined, still with persistent lung infiltrates for which pulmonary medicine has been consulted for evaluation for bronchoscopy December 24, 2017-patient seen and examined, complaining of itching otherwise no significant shortness of breath. Currently afebrile Objective Vitals Vital Signs Date Time Temp Pulse Resp B/P (MAP) Pulse Ox O2 Delivery O2 Flow Rate FiO2 12/24/17 08:00 98.3 86 17 130/77 (94) 93 12/23/17 23:00 98.3 73 16 131/68 (89) 95 12/23/17 20:00 98.2 76 16 145/87 (106) 95 12/23/17 16:16 18 12/23/17 16:00 98.1 78 19 126/68 (87) 94 12/23/17 13:59 18 I/O 12/23/17 12/23/17 12/23/17 12/24/17 12/24/17 12/24/17 07:00 15:00 23:00 07:00 15:00 23:00 Intake Total 720 ml Balance 720 ml Intake Oral 720 ml # Voids 4 Result Diagram: 12/23/17 1145 12/22/17 0530 Imaging Last Impressions Chest CT 12/23/17 0000 Signed Impressions: Service Date/Time: Saturday, December 23, 2017 12:01 - CONCLUSION: 1. Increase in loculated air within the complex right pleural effusion since November 30. The overall size of the presumed right empyema is relatively stable. There is also now loculated air in the lower right lateral chest wall likely representing extension of the empyema into the soft tissues. Slight improvement in right basilar lung consolidation. 2. Resolution of previous left pleural effusion. 3. New right-sided posterior sixth rib fracture. Multiple remote healed rib fractures. Edis Wetzel MD Chest X-Ray 12/21/17 0000 Signed Impressions: Service Date/Time: Thursday, December 21, 2017 13:02 - CONCLUSION: 1. Right basilar consolidation consistent with possible pneumonia. Clinical correlation is recommended. 2. Small right pleural effusion. Valentino Mooney MD Objective Remarks GENERAL: NAD SKIN: Warm and dry. HEAD: Normocephalic. EYES: No scleral icterus. No injection or drainage. NECK: Supple, trachea midline. No JVD or lymphadenopathy. CARDIOVASCULAR: Regular rate and rhythm without murmurs, gallops, or rubs. RESPIRATORY: Breath sounds decrease bilaterally R>L. Wound VAC in place. No accessory muscle use. GASTROINTESTINAL: Abdomen soft, non-tender, nondistended. MUSCULOSKELETAL: No cyanosis, or edema. BACK: Nontender without obvious deformity. No CVA tenderness. A/P Problem List: (1) Empyema lung ICD Code: J86.9 - Pyothorax without fistula Status: Acute (2) Diabetes ICD Code: E11.9 - Type 2 diabetes mellitus without complications Status: Chronic (3) HTN (hypertension) ICD Code: I10 - Essential (primary) hypertension Status: Chronic (4) Pancytopenia ICD Code: D61.818 - Other pancytopenia Status: Chronic Assessment and Plan 52-year-old man with Recurrent empyema/abscess CT results reviewed from shows suspicious for abscess in the right side -Appreciate input from cardio thoracic surgery, continue with wound VAC -Continue Teflaro IV per infectious disease specialist -CT chest reviewed and noted with persistent pulmonary infiltrates, for which pulmonary medicine has been consulted and plan for bronchoscopy next week -Pain management with IV morphine and oxycodone Hypertension, chronic, currently controlled -Continue Coreg and Lasix, monitor vitals Diabetes, chronic, type II, controlled with no acute complications -Accu-Cheks and sliding scale insulin Normochromic normocytic anemia H&H stable and patient at his baseline, transfuse for hemoglobin less than 7 Pancytopenia, chronic -Continue to monitor labs DVT prophylaxis: SCDs Problem Qualifiers (1) Diabetes: Qualified Codes: E11.9 - Type 2 diabetes mellitus without complications; Z79.4 - terminal manager (current) use of insulin (2) HTN (hypertension): Qualified Codes: I10 - Essential (primary) hypertension Alonso Stoll MD Dec 24, 2017 12:16
[2017-12-24 16:00] VITALS: BP 125/69; PULSE 65; RESP 17; TEMP 97.6; O2SAT 98
--- NOTE | 2017-12-24 17:09 | HHI.PR ---
Subjective Remarks 52 YOWM with MRSA empyema, s/p Decortication, rt lung infilt and eff Chest wound to VAC no Fever no CP No SOB Objective Vital Signs Vital Signs Date Time Temp Pulse Resp B/P (MAP) Pulse Ox O2 Delivery O2 Flow Rate FiO2 12/24/17 16:00 97.6 65 17 125/69 (87) 98 12/24/17 12:00 97.7 75 17 135/78 (97) 96 12/24/17 08:00 98.3 86 17 130/77 (94) 93 12/23/17 23:00 98.3 73 16 131/68 (89) 95 12/23/17 20:00 98.2 76 16 145/87 (106) 95 I/O 12/23/17 12/23/17 12/23/17 12/24/17 12/24/17 12/24/17 07:00 15:00 23:00 07:00 15:00 23:00 Intake Total 720 ml Output Total 400 ml Balance 720 ml -400 ml Intake Oral 720 ml Output Urine Total 400 ml # Voids 4 Result Diagram: 12/23/17 1145 12/22/17 0530 Objective Remarks GENERAL: WBWN WM,NAD SKIN: Warm and dry. HEAD: Normocephalic. EYES: No scleral icterus. No injection or drainage. NECK: Supple, trachea midline. No JVD or lymphadenopathy. CARDIOVASCULAR: Regular rate and rhythm without murmurs, gallops, or rubs. RESPIRATORY: Breath sounds equal bilaterally. No accessory muscle use. Decreased BS rt Rt chest wound to VAC GASTROINTESTINAL: Abdomen soft, non-tender, nondistended. MUSCULOSKELETAL: No cyanosis, or edema. BACK: Nontender without obvious deformity. No CVA tenderness. A/P Assessment and Plan IMPRESSION: 1. Persistent right lower lobe infiltrate with effusion. 2. 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 3. Hypertension. 4. Diabetes mellitus. 5. Alcohol abuse. PLAN: Cont Abx Will rere for bronch 12/26 Stable on Zhao Pabon MD Dec 24, 2017 17:09
[2017-12-24 20:00] VITALS: BP 133/78; PULSE 69; RESP 18; TEMP 98.6; O2SAT 97
[2017-12-24] MEDS: diphenhydrAMINE HCL 25 MG CAP PO PRN (22:48)
[2017-12-25] VITALS: BP 136/86; PULSE 74; RESP 18; TEMP 98; O2SAT 97
[2017-12-25 08:00] VITALS: BP 126/75; PULSE 67; RESP 17; TEMP 97.5; O2SAT 97
[2017-12-25] MEDS: INSULIN ASPART SUPPLEMENTAL SCALE SQ SCH ×4 (08:00→20:22)
[2017-12-25] MEDS: FOLIC ACID 1 MG TAB PO SCH (08:29)
[2017-12-25] MEDS: THIAMINE HCL 100 MG TAB PO SCH (08:29)
[2017-12-25] MEDS: FUROSEMIDE 40 MG TAB PO SCH (08:29)
[2017-12-25] MEDS: LISINOPRIL 20 MG TAB PO SCH (08:29)
[2017-12-25] MEDS: CARVEDILOL 12.5 MG TAB PO SCH ×2 (08:29→20:19)
[2017-12-25] MEDS: SODIUM CHLORIDE 0.9% FLUSH 10 ML FLUSH IV FLUSH SCH ×2 (08:30→20:19)
[2017-12-25] MEDS: CEFTAROLINE INJ 600 MG in SODIUM CHLORIDE 0.9% INJ 100 ML IV SCH ×2 (08:31→20:19)
--- NOTE | 2017-12-25 10:29 | HHI.PR ---
Subjective Remarks Follow-up recurrent Right lung empyema December 21, 2017-patient seen and examined,+SOB, no cough production. Afebrile December 22, 2017-patient seen and examined, wound VAC in place with minimal drainage. Denies any significant shortness of breath. Currently afebrile December 23, 2017-patient seen and examined, still with persistent lung infiltrates for which pulmonary medicine has been consulted for evaluation for bronchoscopy December 24, 2017-patient seen and examined, complaining of itching otherwise no significant shortness of breath. Currently afebrile December 25, 2017-patient seen and examined, reported improvement of itching. Significant shortness of breath with deep inspiration otherwise stable. Objective Vitals Vital Signs Date Time Temp Pulse Resp B/P (MAP) Pulse Ox O2 Delivery O2 Flow Rate FiO2 12/25/17 08:28 16 12/25/17 08:00 97.5 67 17 126/75 (92) 97 12/25/17 00:00 98.0 74 18 136/86 (103) 97 12/24/17 20:00 98.6 69 18 133/78 (96) 97 12/24/17 16:00 97.6 65 17 125/69 (87) 98 12/24/17 12:00 97.7 75 17 135/78 (97) 96 I/O 12/24/17 12/24/17 12/24/17 12/25/17 12/25/17 12/25/17 07:00 15:00 23:00 07:00 15:00 23:00 Intake Total 600 ml 480 ml Output Total 400 ml 0 ml 0 ml Balance -400 ml 600 ml 480 ml Intake Oral 500 ml 480 ml IV Total 100 ml Output Urine Total 400 ml Drainage Total 0 ml 0 ml # Voids 6 2 # Bowel Movements 1 1 Result Diagram: 12/23/17 1145 12/22/17 0530 Imaging Last Impressions Chest CT 12/23/17 0000 Signed Impressions: Service Date/Time: Saturday, December 23, 2017 12:01 - CONCLUSION: 1. Increase in loculated air within the complex right pleural effusion since November 30. The overall size of the presumed right empyema is relatively stable. There is also now loculated air in the lower right lateral chest wall likely representing extension of the empyema into the soft tissues. Slight improvement in right basilar lung consolidation. 2. Resolution of previous left pleural effusion. 3. New right-sided posterior sixth rib fracture. Multiple remote healed rib fractures. Edis Wetzel MD Chest X-Ray 12/21/17 0000 Signed Impressions: Service Date/Time: Thursday, December 21, 2017 13:02 - CONCLUSION: 1. Right basilar consolidation consistent with possible pneumonia. Clinical correlation is recommended. 2. Small right pleural effusion. Valentino Mooney MD Objective Remarks GENERAL: NAD SKIN: Warm and dry. HEAD: Normocephalic. EYES: No scleral icterus. No injection or drainage. NECK: Supple, trachea midline. No JVD or lymphadenopathy. CARDIOVASCULAR: Regular rate and rhythm without murmurs, gallops, or rubs. RESPIRATORY: Breath sounds decrease bilaterally R>L. Wound VAC in place. No accessory muscle use. GASTROINTESTINAL: Abdomen soft, non-tender, nondistended. MUSCULOSKELETAL: No cyanosis, or edema. BACK: Nontender without obvious deformity. No CVA tenderness. A/P Problem List: (1) Empyema lung ICD Code: J86.9 - Pyothorax without fistula Status: Acute (2) Diabetes ICD Code: E11.9 - Type 2 diabetes mellitus without complications Status: Chronic (3) HTN (hypertension) ICD Code: I10 - Essential (primary) hypertension Status: Chronic (4) Pancytopenia ICD Code: D61.818 - Other pancytopenia Status: Chronic Assessment and Plan 52-year-old man with Recurrent empyema/abscess CT results reviewed from [facility] shows suspicious for abscess in the right side -Appreciate input from cardio thoracic surgery, continue with wound VAC -Continue Teflaro IV per infectious disease specialist -CT chest reviewed and noted with persistent pulmonary infiltrates, for which pulmonary medicine has been consulted and plan for bronchoscopy tomorrow December 25, 2017 -Pain management with IV morphine and oxycodone -Continue with bronchodilator as needed Hypertension, chronic, currently controlled -Continue Coreg and Lasix, monitor vitals Diabetes, chronic, type II, controlled with no acute complications -Accu-Cheks and sliding scale insulin Normochromic normocytic anemia H&H stable and patient at his baseline, transfuse for hemoglobin less than 7 Pancytopenia, chronic -Continue to monitor labs DVT prophylaxis: SCDs Problem Qualifiers (1) Diabetes: Qualified Codes: E11.9 - Type 2 diabetes mellitus without complications; Z79.4 - alf (current) use of insulin (2) HTN (hypertension): Qualified Codes: I10 - Essential (primary) hypertension Alonso Stoll MD Dec 25, 2017 10:29
[2017-12-25 12:00] VITALS: BP 115/69; PULSE 70; RESP 17; TEMP 97.6; O2SAT 97
[2017-12-25 16:00] VITALS: BP 121/72; PULSE 71; RESP 17; TEMP 97.7; O2SAT 98
--- NOTE | 2017-12-25 16:16 | HHI.PR ---
Subjective Remarks 52 YOWM with MRSA empyema, s/p Decortication, rt lung infilt and eff Chest wound to VAC no Fever no CP No SOB Objective Vital Signs Vital Signs Date Time Temp Pulse Resp B/P (MAP) Pulse Ox O2 Delivery O2 Flow Rate FiO2 12/25/17 12:00 97.6 70 17 115/69 (84) 97 12/25/17 08:28 16 12/25/17 08:00 97.5 67 17 126/75 (92) 97 12/25/17 00:00 98.0 74 18 136/86 (103) 97 12/24/17 20:00 98.6 69 18 133/78 (96) 97 I/O 12/24/17 12/24/17 12/24/17 12/25/17 12/25/17 12/25/17 07:00 15:00 23:00 07:00 15:00 23:00 Intake Total 600 ml 480 ml Output Total 400 ml 0 ml 0 ml Balance -400 ml 600 ml 480 ml Intake Oral 500 ml 480 ml IV Total 100 ml Output Urine Total 400 ml Drainage Total 0 ml 0 ml # Voids 6 2 # Bowel Movements 1 1 Result Diagram: 12/23/17 1145 12/22/17 0530 Objective Remarks GENERAL: WBWN WM,NAD SKIN: Warm and dry. HEAD: Normocephalic. EYES: No scleral icterus. No injection or drainage. NECK: Supple, trachea midline. No JVD or lymphadenopathy. CARDIOVASCULAR: Regular rate and rhythm without murmurs, gallops, or rubs. RESPIRATORY: Breath sounds equal bilaterally. No accessory muscle use. Decreased BS rt Rt chest wound to VAC GASTROINTESTINAL: Abdomen soft, non-tender, nondistended. MUSCULOSKELETAL: No cyanosis, or edema. BACK: Nontender without obvious deformity. No CVA tenderness. A/P Assessment and Plan IMPRESSION: 1. Persistent right lower lobe infiltrate with effusion. 2. 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 3. Hypertension. 4. Diabetes mellitus. 5. Alcohol abuse. PLAN: Cont Abx Will rere for bronch 12/26 Stable on RA NPO after midnight DW MOY Ortgea,Zhao Kaplan MD Dec 25, 2017 16:16
[2017-12-25 20:00] VITALS: BP 128/73; PULSE 72; RESP 18; TEMP 99; O2SAT 96
[2017-12-25] MEDS ORDERED: POVIDONE IODINE 5% (ANTISEPSIS KIT) 4 APPLICATIONS EACH NARE PRN (23:00)
[2017-12-25] MEDS ORDERED: LACTATED RINGER'S 1000 ML IV PRN (23:00)
[2017-12-26] VITALS: BP 127/79; PULSE 71; RESP 18; TEMP 98.3; O2SAT 96
[2017-12-26 04:24] VITALS: BP 133/82; PULSE 67; RESP 18; TEMP 98.3; O2SAT 98
[2017-12-26 08:00] VITALS: BP 122/71; PULSE 67; RESP 18; TEMP 98.3; O2SAT 94
[2017-12-26] MEDS: INSULIN ASPART SUPPLEMENTAL SCALE SQ SCH ×4 (08:00→21:00)
[2017-12-26] MEDS: FUROSEMIDE 40 MG TAB PO SCH (08:24)
[2017-12-26] MEDS: LISINOPRIL 20 MG TAB PO SCH (08:24)
[2017-12-26] MEDS: THIAMINE HCL 100 MG TAB PO SCH (08:24)
[2017-12-26] MEDS: SODIUM CHLORIDE 0.9% FLUSH 10 ML FLUSH IV FLUSH SCH ×2 (08:25→21:59)
[2017-12-26] MEDS: CARVEDILOL 12.5 MG TAB PO SCH ×2 (08:25→21:59)
[2017-12-26] MEDS: FOLIC ACID 1 MG TAB PO SCH (08:25)
--- NOTE | 2017-12-26 10:39 | HHI.PR ---
Subjective Remarks Follow-up recurrent Right lung MRSA empyema December 21, 2017-patient seen and examined,+SOB, no cough production. Afebrile December 22, 2017-patient seen and examined, wound VAC in place with minimal drainage. Denies any significant shortness of breath. Currently afebrile December 23, 2017-patient seen and examined, still with persistent lung infiltrates for which pulmonary medicine has been consulted for evaluation for bronchoscopy December 24, 2017-patient seen and examined, complaining of itching otherwise no significant shortness of breath. Currently afebrile December 25, 2017-patient seen and examined, reported improvement of itching. Significant shortness of breath with deep inspiration otherwise stable. December 26, 2017-patient seen and examined, currently n.p.o. pending bronchoscopy. Reports improvement of shortness of breath Objective Vitals Vital Signs Date Time Temp Pulse Resp B/P (MAP) Pulse Ox O2 Delivery O2 Flow Rate FiO2 12/26/17 08:00 98.3 67 18 122/71 (88) 94 12/26/17 04:24 98.3 67 18 133/82 (99) 98 12/26/17 00:00 98.3 71 18 127/79 (95) 96 12/25/17 22:16 18 12/25/17 20:00 99.0 72 18 128/73 (91) 96 12/25/17 16:00 97.7 71 17 121/72 (88) 98 12/25/17 12:00 97.6 70 17 115/69 (84) 97 I/O 12/25/17 12/25/17 12/25/17 12/26/17 12/26/17 12/26/17 07:00 15:00 23:00 07:00 15:00 23:00 Intake Total 480 ml 600 ml Output Total 0 ml 100 ml Balance 480 ml 600 ml -100 ml Intake Oral 480 ml 500 ml IV Total 100 ml Drainage Total 0 ml 100 ml # Voids 2 6 3 # Bowel Movements 1 1 Result Diagram: 12/23/17 1145 12/22/17 0530 Objective Remarks GENERAL: NAD SKIN: Warm and dry. HEAD: Normocephalic. EYES: No scleral icterus. No injection or drainage. NECK: Supple, trachea midline. No JVD or lymphadenopathy. CARDIOVASCULAR: Regular rate and rhythm without murmurs, gallops, or rubs. RESPIRATORY: Breath sounds decrease bilaterally R>L. Wound VAC in place. No accessory muscle use. GASTROINTESTINAL: Abdomen soft, non-tender, nondistended. MUSCULOSKELETAL: No cyanosis, or edema. BACK: Nontender without obvious deformity. No CVA tenderness. A/P Problem List: (1) Empyema lung ICD Code: J86.9 - Pyothorax without fistula Status: Acute (2) Diabetes ICD Code: E11.9 - Type 2 diabetes mellitus without complications Status: Chronic (3) HTN (hypertension) ICD Code: I10 - Essential (primary) hypertension Status: Chronic (4) Pancytopenia ICD Code: D61.818 - Other pancytopenia Status: Chronic Assessment and Plan 52-year-old man with Recurrent empyema/abscess CT results reviewed from [facility] shows suspicious for abscess in the right side -Appreciate input from cardio thoracic surgery, continue with wound VAC -Continue Teflaro IV per infectious disease specialist -CT chest reviewed and noted with persistent pulmonary infiltrates, for which pulmonary medicine has been consulted and plan for bronchoscopy today December 26, 2017 -Pain management with IV morphine and oxycodone -Continue with bronchodilator as needed Hypertension, chronic, currently controlled -Continue Coreg and Lasix, monitor vitals Diabetes, chronic, type II, controlled with no acute complications -Accu-Cheks and sliding scale insulin Normochromic normocytic anemia H&H stable and patient at his baseline, transfuse for hemoglobin less than 7 Pancytopenia, chronic -Continue to monitor labs DVT prophylaxis: SCDs Problem Qualifiers (1) Diabetes: Qualified Codes: E11.9 - Type 2 diabetes mellitus without complications; Z79.4 - rat exterminator (current) use of insulin (2) HTN (hypertension): Qualified Codes: I10 - Essential (primary) hypertension Alonso Stoll MD Dec 26, 2017 10:39
[2017-12-26] MEDS: CEFTAROLINE INJ 600 MG in SODIUM CHLORIDE 0.9% INJ 100 ML IV SCH ×2 (11:16→21:59)
[2017-12-26 12:00] VITALS: BP 124/70; PULSE 66; RESP 18; TEMP 98.2; O2SAT 97
[2017-12-26] MEDS ORDERED: PROPOFOL 200 MG/20 ML AMP IV ONE (12:00)
--- NOTE | 2017-12-26 12:24 | HHI.IDPN ---
Subjective Subjective Remarks is a 52 y/o CM with PMHx of HTN, diabetes, H/O DVT and alcohol abuse who was recently admitted to [facility] on 11/18/17 with weakness. While hospitalized at [facility], patient was treated for alcohol withdrawal and sepsis secondary to pneumonia. Patient developed persistent right-sided pleural effusion underwent a thoracocentesis on 11/22 with 1400 cc of fluid removed with cultures positive for MRSA. He also had a urine culture positive for MRSA. Patient had echocardiogram done on 11/21 revealing preserved EF of 60 - 65%. Patient had a PICC line placed 11/22. Patient was treated with IV Vanco, Levaquin and IV Zyvox. Patient developed acute renal failure likely secondary to vancomycin. Blood cultures were negative. Patient was accepted as a transfer to [facility] by Dr. Pena for possible decortication of lung by cardiothoracic surgery. Patient was seen by CTS at [facility] and underwent decortication as well as drainage of right chest wall abscess. Patient post op had a wound vac to the right chest wall and also had a chest tube. Upon DC patient was supposed to have been on Wound vac for right chest wall abscess but unsure if he was on it. Patient seems to have been on Teflaro IV. Patient was on Vanco IV and had acute renal failure. Patient was on Zyvox and developed severe pancytopenia. Infectious disease has been consulted for evaluation and medical management of MRSA empyema and right chest wall abscess. Overnight events reviewed No fevers No rash No diarrhea Reports Wound vac not draining much. Does not think wound vac doing much. Right CT prior site with drainage. Antibiotics Teflaro IV Lines Line sites with no e.o infection Past Medical History reviewed Allergies: Coded Allergies: No Known Allergies (Verified Allergy, Unknown, 11/29/17) Objective . Vital Signs Date Time Temp Pulse Resp B/P (MAP) Pulse Ox O2 Delivery O2 Flow Rate FiO2 12/26/17 12:00 98.2 66 18 124/70 (88) 97 12/26/17 08:00 98.3 67 18 122/71 (88) 94 12/26/17 04:24 98.3 67 18 133/82 (99) 98 12/26/17 00:00 98.3 71 18 127/79 (95) 96 12/25/17 22:16 18 12/25/17 20:00 99.0 72 18 128/73 (91) 96 12/25/17 16:00 97.7 71 17 121/72 (88) 98 Imaging Last Impressions Chest X-Ray 12/21/17 0000 Signed Impressions: Service Date/Time: Thursday, December 21, 2017 13:02 - CONCLUSION: 1. Right basilar consolidation consistent with possible pneumonia. Clinical correlation is recommended. 2. Small right pleural effusion. Valentino Mooney MD Physical Exam GENERAL: This is a well-nourished, well-developed patient, in no apparent distress. SKIN: No rashes, ecchymoses or lesions. Cool and dry. HEAD: Atraumatic. Normocephalic. No temporal or scalp tenderness. EYES: Pupils equal round and reactive. Extraocular motions intact. No scleral icterus. No injection or drainage. ENT: Nose without bleeding, purulent drainage or septal hematoma. Throat without erythema, tonsillar hypertrophy or exudate. Uvula midline. Airway patent. NECK: Trachea midline. Supple, nontender, no meningeal signs. CARDIOVASCULAR: HS audible. RESPIRATORY: Decreased AE in Right base. Right chest wall with surgical scar and surrounding swelling and induration noted. GASTROINTESTINAL: Abdomen soft, non-tender, nondistended. MUSCULOSKELETAL: Extremities without clubbing, cyanosis, or edema. No joint tenderness, effusion, or edema noted. No calf tenderness. Negative Homans sign bilaterally. NEUROLOGICAL: Awake and alert. Non focal exam Psych cooperative IV line sites with no e.o infection Assessment & Plan Remarks Right side MRSA empyema Right MRSA chest wall abscess Acute renal failure from vanco IV Acute pancytopenia from Linezolid(Zyvox) Alcoholism, aspiration risk. PICC line in place. Recs Continue Teflaro IV for above reasons. Consult Pulmonology: dylon Tobias. dw patient he is agreeable with bronch due to persistent infiltrates. Concern new organisms? New HCAP. Patient not able to cough up sputum Bronch might help diagnostically and therapeutically. Follow cultures Follow clinically. Donna Orosco MD Dec 26, 2017 12:24
[2017-12-26] MEDS ORDERED: DO NOT ADM ANY ANTICOAGULANT DRUGS PRN (14:56)
--- NOTE | 2017-12-26 15:20 | MP ---
cc: Zhao Ortega MD DATE OF OPERATION: 12/26/2017 PROCEDURE: Bronchoscopy. PREOPERATIVE DIAGNOSIS: Right lower lobe infiltrates. POSTOPERATIVE DIAGNOSIS: Tracheal bronchomalacia, minimal sputum production. DESCRIPTION OF PROCEDURE: Informed consent was obtained from patient. Procedure and the complications, including complication of anesthesia, pneumothorax requiring chest tube, bleeding complication, injury to the blood vessel, lungs or nose, arrhythmia, hypoxia explained and consented for the patient. The patient was brought to endoscopy suite and underwent general anesthesia. LMA tube was placed by anesthesiologist. Bronchoscope done through endotracheal tube. Vocal cords are normal. Trachea is normal. There is tracheal bronchomalacia. Main pawan is sharp. Bronchoscope advanced through the left lung. Left upper lingular, lower lobe were visualized. Minimal sputum was suctioned. No erythema. Then, bronchoscope pulled back, advanced to the right lung. Right upper, middle, lower lobes were visualized. No endobronchial lesion was seen. Small amount of mucus was suctioned. Bronchial alveolar lavage was done. Lavage was sent for routine culture, AFB, fungal culture, cytology, cell count and differential, viral culture and HCT. He tolerated the procedure well. Zhao Ortega MD ADA/SB , 02:48 PM , 03:19 PM
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
--- NOTE | 2017-12-26 15:43 | RADRPT ---
EXAM DATE/TIME: 12/26/2017 15:14 [place] COMPARISON: CHEST SINGLE AP, December 21, 2017, 13:02. INDICATIONS : Post bronchoscopy. MEDICAL HISTORY : Cardiovascular disease. Diabetes mellitus type II. Hypertension. SURGICAL HISTORY : None. ENCOUNTER: Subsequent ACUITY: 4 - 6 days PAIN SCORE: Non-responsive. LOCATION: Bilateral chest FINDINGS: Persistent hazy opacity to the right thorax with tracking density laterally to the apex and with cons olidation in the right lower lung causing loss of delineation of the right hemidiaphragm, slightly pr ogressed from prior exam. The left lung is clear. The heart is normal size. Right subclavian horacio ter projects in the proximal superior vena cava. No evidence of pneumothorax. CONCLUSION: Increasing consolidation and pleural effusion right hemithorax. Raghavendra Escobar MD on December 26, 2017 at 15:41 Board Certified Radiologist. This report was verified electronically.
[2017-12-26] MEDS: MORPHINE SULFATE 4 MG/ML INJ IV PUSH PRN (16:08)
--- NOTE | 2017-12-26 16:55 | PD.WCN.NOT ---
Wound Consult Description: Right mid lateral chest Recommendation: 1. Cleanse Right Lateral Upper Chest post chest tube removal site with normal saline pat dry. 2. Gently place Puracol cut to fit into wound base cover with Maxorb ll secure with boarder gauze dressing 3. Change Maxorb Dressing every 72 hours or as needed for dislodgement or exudate management 4. Please leave Puracol in place x7 days. Additional Information: Patient was seen today [facility] by lyric writer re-eval of posterior chest wall.patient alert and oriented x3 sitting in recliner with wound vac in place.Dressing removed from right chest wall without difficulty. Proximal incision site forming scab no drainage or erythema noted.Distal incision measures ~0.3cm x 2.9cm x 0.4cm wound base is 100% beefy red granular tissue with scant bloody drainage noted with out odor.Wound edges are well defined sloped with wound base.No erythema noted to periwound.Wound cleansed with normal saline pat dry.Wound does not meet criteria at this time to continue wound vac treatment.Maxorb cut to fit applied to wound base and covered with dry dressing.Sign and dated.Patient tolerated wound care very well.Recommendation would to place puracol to wound base and cover with Maxorb ll.Page sent out to cardiothoracics surgeon Dr.Khanna Clinton Pressure Wound Therapy Settings Suction: 125 mmHg, Continuous Intensity: Low Other Information: Bridged Foam type: Black Number of pieces: 1 [facility]ida V[facility]quez [facility] Dec 26, 2017 16:55
--- NOTE | 2017-12-26 17:51 | HHI.PR ---
Subjective Remarks 52 YOWM with MRSA empyema, s/p Decortication, rt lung infilt and eff Chest wound to VAC no Fever no CP No SOB Had bronch, no sig secretions, erythema or lung lesion Objective Vital Signs Vital Signs Date Time Temp Pulse Resp B/P (MAP) Pulse Ox O2 Delivery O2 Flow Rate FiO2 12/26/17 16:00 12/26/17 14:56 98.1 76 16 125/72 (89) 100 Nasal Cannula 2 12/26/17 12:00 98.2 66 18 124/70 (88) 97 12/26/17 08:00 98.3 67 18 122/71 (88) 94 12/26/17 04:24 98.3 67 18 133/82 (99) 98 12/26/17 00:00 98.3 71 18 127/79 (95) 96 12/25/17 22:16 18 12/25/17 20:00 99.0 72 18 128/73 (91) 96 I/O 12/25/17 12/25/17 12/25/17 12/26/17 12/26/17 12/26/17 07:00 15:00 23:00 07:00 15:00 23:00 Intake Total 480 ml 600 ml Output Total 0 ml 100 ml Balance 480 ml 600 ml -100 ml Intake Oral 480 ml 500 ml IV Total 100 ml Drainage Total 0 ml 100 ml # Voids 2 6 3 # Bowel Movements 1 1 Result Diagram: 12/23/17 1145 12/22/17 0530 Objective Remarks GENERAL: WBWN WM,NAD SKIN: Warm and dry. HEAD: Normocephalic. EYES: No scleral icterus. No injection or drainage. NECK: Supple, trachea midline. No JVD or lymphadenopathy. CARDIOVASCULAR: Regular rate and rhythm without murmurs, gallops, or rubs. RESPIRATORY: Breath sounds equal bilaterally. No accessory muscle use. Decreased BS rt Rt chest wound to VAC GASTROINTESTINAL: Abdomen soft, non-tender, nondistended. MUSCULOSKELETAL: No cyanosis, or edema. BACK: Nontender without obvious deformity. No CVA tenderness. A/P Assessment and Plan IMPRESSION: 1. Persistent right lower lobe infiltrate with effusion. 2. 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 3. Hypertension. 4. Diabetes mellitus. 5. Alcohol abuse. PLAN: Cont Abx Stable on RA Check bronch results DW MOY Ortega,Zhao Kaplan MD Dec 26, 2017 17:51
[2017-12-26 20:00] VITALS: BP 137/75; PULSE 65; RESP 20; TEMP 97.6; O2SAT 96
[2017-12-27] VITALS: BP 127/82; PULSE 78; RESP 18; TEMP 98.1; O2SAT 94
[2017-12-27 04:00] VITALS: BP 140/84; PULSE 69; RESP 17; TEMP 97.8; O2SAT 95
[2017-12-27 05:43] LABS: AUTOMATED NEUTROPHIL # 1.2 TH/MM3 (1.8-7.7); BASOPHIL % 1.3 % (0.0-2.0); EOSINOPHIL # 0.2 TH/MM3 (0-0.4); EOSINOPHIL % 7.5 % (0.0-4.0); HEMOGLOBIN 7.1 GM/DL (13.0-17.0); LYMPH % 35.9 % (9.0-44.0); LYMPHOCYTE # 0.9 TH/MM3 (1.0-4.8); MEAN CELL VOLUME 91.1 FL (80.0-100.0); MEAN CORPUSCULAR HEMOGLOBIN 30.8 PG (27.0-34.0); MEAN CORPUSCULAR HGB CONC 33.8 % (32.0-36.0); MEAN PLATELET VOLUME 8.1 FL (7.0-11.0); MONO % 10.7 % (0.0-8.0); MONOCYTE # 0.3 TH/MM3 (0-0.9); NEUT % 44.6 % (16.0-70.0); PLATELET COUNT 134 TH/MM3 (150-450); RED CELL DISTRIBUTION WIDTH 17.7 % (11.6-17.2); WHITE BLOOD COUNT 2.6 TH/MM3 (4.0-11.0)
[2017-12-27] MEDS: MORPHINE SULFATE 4 MG/ML INJ IV PUSH PRN ×5 (06:08→23:20)
[2017-12-27 06:16] LABS: BICARBONATE 29.8 MEQ/L (21.0-32.0); CALCIUM 7.7 MG/DL (8.5-10.1); CREATININE 1.03 MG/DL (0.60-1.30)
[2017-12-27] MEDS: INSULIN ASPART SUPPLEMENTAL SCALE SQ SCH ×4 (07:26→21:00)
[2017-12-27 08:00] VITALS: BP 127/79; PULSE 62; RESP 18; TEMP 98.1; O2SAT 94
[2017-12-27] MEDS: CEFTAROLINE INJ 600 MG in SODIUM CHLORIDE 0.9% INJ 100 ML IV SCH ×2 (08:58→21:39)
[2017-12-27] MEDS: SODIUM CHLORIDE 0.9% FLUSH 10 ML FLUSH IV FLUSH SCH ×2 (08:58→21:39)
[2017-12-27] MEDS: FOLIC ACID 1 MG TAB PO SCH (08:59)
[2017-12-27] MEDS: LISINOPRIL 20 MG TAB PO SCH (09:00)
[2017-12-27] MEDS: FUROSEMIDE 40 MG TAB PO SCH (09:00)
[2017-12-27] MEDS: CARVEDILOL 12.5 MG TAB PO SCH ×2 (09:00→21:39)
[2017-12-27] MEDS: THIAMINE HCL 100 MG TAB PO SCH (09:00)
[2017-12-27 12:00] VITALS: BP 109/63; PULSE 58; RESP 18; TEMP 98.1; O2SAT 95
--- NOTE | 2017-12-27 13:31 | HHI.IDPN ---
Subjective Subjective Remarks is a 52 y/o CM with PMHx of HTN, diabetes, H/O DVT and alcohol abuse who was recently admitted to [facility] on 11/18/17 with weakness. While hospitalized at [facility], patient was treated for alcohol withdrawal and sepsis secondary to pneumonia. Patient developed persistent right-sided pleural effusion underwent a thoracocentesis on 11/22 with 1400 cc of fluid removed with cultures positive for MRSA. He also had a urine culture positive for MRSA. Patient had echocardiogram done on 11/21 revealing preserved EF of 60 - 65%. Patient had a PICC line placed 11/22. Patient was treated with IV Vanco, Levaquin and IV Zyvox. Patient developed acute renal failure likely secondary to vancomycin. Blood cultures were negative. Patient was accepted as a transfer to [facility] by Dr. ePna for possible decortication of lung by cardiothoracic surgery. Patient was seen by CTS at [facility] and underwent decortication as well as drainage of right chest wall abscess. Patient post op had a wound vac to the right chest wall and also had a chest tube. Upon DC patient was supposed to have been on Wound vac for right chest wall abscess but unsure if he was on it. Patient seems to have been on Teflaro IV. Patient was on Vanco IV and had acute renal failure. Patient was on Zyvox and developed severe pancytopenia. Infectious disease has been consulted for evaluation and medical management of MRSA empyema and right chest wall abscess. Overnight events reviewed No fevers No rash No diarrhea Wound vac removed. s/p bronch yday Antibiotics Teflaro IV Lines Line sites with no e.o infection Past Medical History reviewed Allergies: Coded Allergies: No Known Allergies (Verified Allergy, Unknown, 11/29/17) Objective . Vital Signs Date Time Temp Pulse Resp B/P (MAP) Pulse Ox O2 Delivery O2 Flow Rate FiO2 12/27/17 12:00 98.1 58 18 109/63 (78) 95 12/27/17 08:00 98.1 62 18 127/79 (95) 94 12/27/17 04:00 97.8 69 17 140/84 (102) 95 12/27/17 00:00 98.1 78 18 127/82 (97) 94 12/26/17 20:00 97.6 65 20 137/75 (95) 96 4/30/18 16:00 12/26/17 14:56 98.1 76 16 125/72 (89) 100 Nasal Cannula 2 12/27/17 12/27/17 12/28/17 15:00 23:00 07:00 Intake Total 100 ml Balance 100 ml IV Total 100 ml . Laboratory Tests Test 12/27/17 05:00 White Blood Count 2.6 TH/MM3 Red Blood Count 2.30 MIL/MM3 Hemoglobin 7.1 GM/DL Hematocrit 21.0 % Mean Corpuscular Volume 91.1 FL Mean Corpuscular Hemoglobin 30.8 PG Mean Corpuscular Hemoglobin Concent 33.8 % Red Cell Distribution Width 17.7 % Platelet Count 134 TH/MM3 Mean Platelet Volume 8.1 FL Neutrophils (%) (Auto) 44.6 % Lymphocytes (%) (Auto) 35.9 % Monocytes (%) (Auto) 10.7 % Eosinophils (%) (Auto) 7.5 % Basophils (%) (Auto) 1.3 % Neutrophils # (Auto) 1.2 TH/MM3 Lymphocytes # (Auto) 0.9 TH/MM3 Monocytes # (Auto) 0.3 TH/MM3 Eosinophils # (Auto) 0.2 TH/MM3 Basophils # (Auto) 0.0 TH/MM3 CBC Comment DIFF FINAL Differential Comment Laboratory Tests Test 12/27/17 05:00 Blood Urea Nitrogen 9 MG/DL Creatinine 1.03 MG/DL Random Glucose 96 MG/DL Calcium Level 7.7 MG/DL Sodium Level 140 MEQ/L Potassium Level 3.7 MEQ/L Chloride Level 106 MEQ/L Carbon Dioxide Level 29.8 MEQ/L Anion Gap 4 MEQ/L Estimat Glomerular Filtration Rate 75 ML/MIN Microbiology Date/Time Source Procedure Growth Status 12/26/17 14:38 Bronchial Washings Other Fungal Smear - Final NO FUNGAL ELEMENTS SEEN. Resulted 12/26/17 14:38 Bronchial Washings Other Fungal Culture Pending Resulted 12/26/17 14:38 Bronchial Washings Other Acid Fast Stain Pending Received 12/26/17 14:38 Bronchial Washings Other Mycobacterial Culture Pending Received 12/26/17 14:38 Bronchial Washings Other Gram Stain - Final Resulted 12/26/17 14:38 Bronchial Washings Other Bronchial Culture Pending Resulted Imaging Last Impressions Chest X-Ray 12/21/17 0000 Signed Impressions: Service Date/Time: Thursday, December 21, 2017 13:02 - CONCLUSION: 1. Right basilar consolidation consistent with possible pneumonia. Clinical correlation is recommended. 2. Small right pleural effusion. Valentino Mooney MD Physical Exam GENERAL: This is a well-nourished, well-developed patient, in no apparent distress. SKIN: No rashes, ecchymoses or lesions. Cool and dry. HEAD: Atraumatic. Normocephalic. No temporal or scalp tenderness. EYES: Pupils equal round and reactive. Extraocular motions intact. No scleral icterus. No injection or drainage. ENT: Nose without bleeding, purulent drainage or septal hematoma. Throat without erythema, tonsillar hypertrophy or exudate. Uvula midline. Airway patent. NECK: Trachea midline. Supple, nontender, no meningeal signs. CARDIOVASCULAR: HS audible. RESPIRATORY: Decreased AE in Right base. Right chest wall with surgical scar. GASTROINTESTINAL: Abdomen soft, non-tender, nondistended. MUSCULOSKELETAL: Extremities without clubbing, cyanosis, or edema. No joint tenderness, effusion, or edema noted. No calf tenderness. Negative Homans sign bilaterally. NEUROLOGICAL: Awake and alert. Non focal exam Psych cooperative IV line sites with no e.o infection Assessment & Plan Remarks Right side MRSA empyema Right MRSA chest wall abscess Acute renal failure from vanco IV Acute pancytopenia from Linezolid(Zyvox) Alcoholism, aspiration risk. PICC line in place. Recs Continue Teflaro IV for above reasons. dw Pulmonology dylon Tobias bronch findings. Follow cultures Follow clinically. CXR post bronch reviewed by me. Will repeat CXR in am. Possible repeat CT chest depending on CXR results. If large effusion persists may need repeat thoracentesis. Will dw after review of CXR to make further decisions. Donna Orosco MD December 27, 2017 13:31
--- NOTE | 2017-12-27 14:14 | HHI.PR ---
Subjective Remarks Follow-up recurrent Right lung MRSA empyema December 21, 2017-patient seen and examined,+SOB, no cough production. Afebrile December 22, 2017-patient seen and examined, wound VAC in place with minimal drainage. Denies any significant shortness of breath. Currently afebrile December 23, 2017-patient seen and examined, still with persistent lung infiltrates for which pulmonary medicine has been consulted for evaluation for bronchoscopy December 24, 2017-patient seen and examined, complaining of itching otherwise no significant shortness of breath. Currently afebrile December 25, 2017-patient seen and examined, reported improvement of itching. Significant shortness of breath with deep inspiration otherwise stable. December 26, 2017-patient seen and examined, currently n.p.o. pending bronchoscopy. Reports improvement of shortness of breath December 27, 2017-patient seen and examined, No CP/SOB. s/p bronchoscopy on 12/26/17 Objective Vitals Vital Signs Date Time Temp Pulse Resp B/P (MAP) Pulse Ox O2 Delivery O2 Flow Rate FiO2 12/27/17 12:00 98.1 58 18 109/63 (78) 95 12/27/17 08:00 98.1 62 18 127/79 (95) 94 12/27/17 04:00 97.8 69 17 140/84 (102) 95 12/27/17 00:00 98.1 78 18 127/82 (97) 94 12/26/17 20:00 97.6 65 20 137/75 (95) 96 12/26/17 16:00 12/26/17 14:56 98.1 76 16 125/72 (89) 100 Nasal Cannula 2 I/O 12/26/17 12/26/17 12/26/17 12/27/17 12/27/17 12/27/17 07:00 15:00 23:00 07:00 15:00 23:00 Intake Total 580 ml 240 ml 100 ml Output Total 100 ml Balance -100 ml 580 ml 240 ml 100 ml Intake Oral 480 ml 240 ml IV Total 100 ml 100 ml Drainage Total 100 ml # Voids 3 4 2 # Bowel Movements 1 Result Diagram: 12/27/17 0500 12/27/17 0500 Imaging Last Impressions Chest X-Ray 12/26/17 0000 Signed Impressions: Service Date/Time: Tuesday, December 26, 2017 15:14 - CONCLUSION: Increasing consolidation and pleural effusion right hemithorax. Raghavendra Escobar MD Chest CT 12/23/17 0000 Signed Impressions: Service Date/Time: Saturday, December 23, 2017 12:01 - CONCLUSION: 1. Increase in loculated air within the complex right pleural effusion since November 30. The overall size of the presumed right empyema is relatively stable. There is also now loculated air in the lower right lateral chest wall likely representing extension of the empyema into the soft tissues. Slight improvement in right basilar lung consolidation. 2. Resolution of previous left pleural effusion. 3. New right-sided posterior sixth rib fracture. Multiple remote healed rib fractures. Edis Wetzel MD Objective Remarks GENERAL: NAD SKIN: Warm and dry. HEAD: Normocephalic. EYES: No scleral icterus. No injection or drainage. NECK: Supple, trachea midline. No JVD or lymphadenopathy. CARDIOVASCULAR: Regular rate and rhythm without murmurs, gallops, or rubs. RESPIRATORY: Breath sounds decrease bilaterally R>L. No accessory muscle use. GASTROINTESTINAL: Abdomen soft, non-tender, nondistended. MUSCULOSKELETAL: No cyanosis, or edema. BACK: Nontender without obvious deformity. No CVA tenderness. A/P Problem List: (1) Empyema lung ICD Code: J86.9 - Pyothorax without fistula Status: Acute (2) Diabetes ICD Code: E11.9 - Type 2 diabetes mellitus without complications Status: Chronic (3) HTN (hypertension) ICD Code: I10 - Essential (primary) hypertension Status: Chronic (4) Pancytopenia ICD Code: D61.818 - Other pancytopenia Status: Chronic Assessment and Plan 52-year-old man with Recurrent empyema/abscess CT results reviewed from [facility] shows suspicious for abscess in the right side -Appreciate input from cardio thoracic surgery, s/p wound VAC -Continue Teflaro IV per infectious disease specialist -CT chest reviewed and noted with persistent pulmonary infiltrates, for which pulmonary medicine has been consulted and patient is s/p bronchoscopy December 26, 2017 -Pain management with IV morphine and oxycodone -Continue with bronchodilator as needed -CXR 12/26 with increase Pleural effusion and consolidation; Repeat CXR in [place] 12/28/17 Hypertension, chronic, currently controlled -Continue Coreg and Lasix, monitor vitals Diabetes, chronic, type II, controlled with no acute complications -Accu-Cheks and sliding scale insulin Normochromic normocytic anemia H&H stable and patient at his baseline, transfuse for hemoglobin less than 7 Pancytopenia, chronic -Continue to monitor labs DVT prophylaxis: SCDs Problem Qualifiers (1) Diabetes: Qualified Codes: E11.9 - Type 2 diabetes mellitus without complications; 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
[2017-12-27 16:00] VITALS: BP 137/80; PULSE 66; RESP 19; TEMP 98.1; O2SAT 95
[2017-12-27 20:00] VITALS: BP 136/77; PULSE 73; RESP 17; TEMP 98.3; O2SAT 93
--- NOTE | 2017-12-27 20:25 | HHI.PR ---
Subjective Remarks 52 YOWM with MRSA empyema, s/p Decortication, rt lung infilt and eff Chest wound to VAC no Fever no CP No SOB Had bronch, no sig secretions, erythema or lung lesion AFB, Fungal cultures pending Objective Vital Signs Vital Signs Date Time Temp Pulse Resp B/P (MAP) Pulse Ox O2 Delivery O2 Flow Rate FiO2 12/27/17 16:00 98.1 66 19 137/80 (99) 95 12/27/17 12:00 98.1 58 18 109/63 (78) 95 12/27/17 08:00 98.1 62 18 127/79 (95) 94 12/27/17 04:00 97.8 69 17 140/84 (102) 95 12/27/17 00:00 98.1 78 18 127/82 (97) 94 I/O 12/26/17 12/26/17 12/26/17 12/27/17 12/27/17 12/27/17 07:00 15:00 23:00 07:00 15:00 23:00 Intake Total 580 ml 240 ml 100 ml 890 ml Output Total 100 ml Balance -100 ml 580 ml 240 ml 100 ml 890 ml Intake Oral 480 ml 240 ml 890 ml IV Total 100 ml 100 ml Drainage Total 100 ml # Voids 3 4 2 6 # Bowel Movements 1 1 Result Diagram: 12/27/17 0500 12/27/17 0500 Objective Remarks GENERAL: WBWN WM,NAD SKIN: Warm and dry. HEAD: Normocephalic. EYES: No scleral icterus. No injection or drainage. NECK: Supple, trachea midline. No JVD or lymphadenopathy. CARDIOVASCULAR: Regular rate and rhythm without murmurs, gallops, or rubs. RESPIRATORY: Breath sounds equal bilaterally. No accessory muscle use. Decreased BS rt Rt chest wound to VAC GASTROINTESTINAL: Abdomen soft, non-tender, nondistended. MUSCULOSKELETAL: No cyanosis, or edema. BACK: Nontender without obvious deformity. No CVA tenderness. A/P Assessment and Plan IMPRESSION: 1. Persistent right lower lobe infiltrate with effusion. 2. 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 3. Hypertension. 4. Diabetes mellitus. 5. Alcohol abuse. PLAN: Cont Abx Stable on RA Check bronch results DW Zhao Haas MD December 27, 2017 20:25
[2017-12-28] VITALS: BP 124/76; PULSE 70; RESP 17; TEMP 97.3; O2SAT 94
[2017-12-28] MEDS: MORPHINE SULFATE 4 MG/ML INJ IV PUSH PRN ×4 (03:24→22:14)
[2017-12-28 08:00] VITALS: BP 132/71; PULSE 66; RESP 17; TEMP 98; O2SAT 94
[2017-12-28] MEDS: INSULIN ASPART SUPPLEMENTAL SCALE SQ SCH ×4 (08:00→22:14)
[2017-12-28] MEDS: THIAMINE HCL 100 MG TAB PO SCH (08:06)
[2017-12-28] MEDS: LISINOPRIL 20 MG TAB PO SCH (08:06)
[2017-12-28] MEDS: FOLIC ACID 1 MG TAB PO SCH (08:06)
[2017-12-28] MEDS: CARVEDILOL 12.5 MG TAB PO SCH ×2 (08:06→22:13)
[2017-12-28] MEDS: FUROSEMIDE 40 MG TAB PO SCH (08:06)
[2017-12-28] MEDS: SODIUM CHLORIDE 0.9% FLUSH 10 ML FLUSH IV FLUSH SCH ×2 (08:07→23:44)
[2017-12-28] MEDS: POLYETHYLENE GLYCOL 17 GM PKG PO SCH (08:07)
[2017-12-28] MEDS: CEFTAROLINE INJ 600 MG in SODIUM CHLORIDE 0.9% INJ 100 ML IV SCH ×2 (09:06→23:43)
--- NOTE | 2017-12-28 11:29 | RADRPT ---
EXAM DATE/TIME: 12/28/2017 11:00 [place] COMPARISON: CT THORAX W/O CONTRAST, December 23, 2017, 12:01. CHEST SINGLE AP, December 26, 2017, 15:14. INDICATIONS : Shortness of breath. MEDICAL HISTORY : Cardiovascular disease. Diabetes mellitus type II. Hypertension. SURGICAL HISTORY : None. ENCOUNTER: Subsequent ACUITY: 1 week PAIN SCORE: 0/10 LOCATION: Bilateral chest FINDINGS: Portable AP view of the chest demonstrates a normal-sized cardiac silhouette. There is stable moderat e size right pleural-parenchymal opacity. Right upper extremity PICC remains present. Left lung is cl ear. CONCLUSION: Stable chest x-ray with moderate size right pleural effusion with associated consolidation and atelec tasis in the right lower lobe. The prior chest CT on 12/23/2017 demonstrated imaging features suggesti ng empyema. Consider chest tube or surgical drainage. Tenzin Donato MD on December 28, 2017 at 11:23 Board Certified Radiologist. This report was verified electronically.
[2017-12-28 12:00] VITALS: BP 136/87; PULSE 67; RESP 18; TEMP 98.1; O2SAT 97
--- NOTE | 2017-12-28 12:23 | HHI.PR ---
Subjective Remarks Follow-up recurrent Right lung MRSA empyema December 21, 2017-patient seen and examined,+SOB, no cough production. Afebrile December 22, 2017-patient seen and examined, wound VAC in place with minimal drainage. Denies any significant shortness of breath. Currently afebrile December 23, 2017-patient seen and examined, still with persistent lung infiltrates for which pulmonary medicine has been consulted for evaluation for bronchoscopy December 24, 2017-patient seen and examined, complaining of itching otherwise no significant shortness of breath. Currently afebrile December 25, 2017-patient seen and examined, reported improvement of itching. Significant shortness of breath with deep inspiration otherwise stable. December 26, 2017-patient seen and examined, currently n.p.o. pending bronchoscopy. Reports improvement of shortness of breath December 27, 2017-patient seen and examined, No CP/SOB. s/p bronchoscopy on 12/26/17 December 28, 2017-patient seen and examined, has no complaint this a.m. Chest x-ray pending. Objective Vitals Vital Signs Date Time Temp Pulse Resp B/P (MAP) Pulse Ox O2 Delivery O2 Flow Rate FiO2 12/28/17 10:33 16 12/28/17 09:33 18 12/28/17 08:00 98.0 66 17 132/71 (91) 94 12/28/17 00:00 97.3 70 17 124/76 (92) 94 12/27/17 20:00 98.3 73 17 136/77 (96) 93 12/27/17 16:00 98.1 66 19 137/80 (99) 95 I/O 12/27/17 12/27/17 12/27/17 12/28/17 12/28/17 12/28/17 07:00 15:00 23:00 07:00 15:00 23:00 Intake Total 240 ml 100 ml 890 ml Balance 240 ml 100 ml 890 ml Intake Oral 240 ml 890 ml IV Total 100 ml # Voids 2 6 # Bowel Movements 1 Result Diagram: 12/27/17 0500 12/27/17 0500 Objective Remarks GENERAL: NAD SKIN: Warm and dry. HEAD: Normocephalic. EYES: No scleral icterus. No injection or drainage. NECK: Supple, trachea midline. No JVD or lymphadenopathy. CARDIOVASCULAR: Regular rate and rhythm without murmurs, gallops, or rubs. RESPIRATORY: Breath sounds decrease bilaterally R>L. No accessory muscle use. GASTROINTESTINAL: Abdomen soft, non-tender, nondistended. MUSCULOSKELETAL: No cyanosis, or edema. BACK: Nontender without obvious deformity. No CVA tenderness. A/P Problem List: (1) Empyema lung ICD Code: J86.9 - Pyothorax without fistula Status: Acute (2) Diabetes ICD Code: E11.9 - Type 2 diabetes mellitus without complications Status: Chronic (3) HTN (hypertension) ICD Code: I10 - Essential (primary) hypertension Status: Chronic (4) Pancytopenia ICD Code: D61.818 - Other pancytopenia Status: Chronic Assessment and Plan 52-year-old man with Recurrent empyema/abscess CT results reviewed from [facility] shows suspicious for abscess in the right side -Appreciate input from cardio thoracic surgery, s/p wound VAC -Continue Teflaro IV per infectious disease specialist -CT chest reviewed and noted with persistent pulmonary infiltrates, for which pulmonary medicine has been consulted and patient is s/p bronchoscopy December 26, 2017 -Pain management with IV morphine and oxycodone -Continue with bronchodilator as needed -CXR 12/26 with increase Pleural effusion and consolidation; Repeat CXR today 12/28/17 Hypertension, chronic, currently controlled -Continue Coreg and Lasix, monitor vitals Diabetes, chronic, type II, controlled with no acute complications -Accu-Cheks and sliding scale insulin Normochromic normocytic anemia H&H stable and patient at his baseline, transfuse for hemoglobin less than 7 Pancytopenia, chronic -Continue to monitor labs DVT prophylaxis: SCDs Problem Qualifiers (1) Diabetes: Qualified Codes: E11.9 - Type 2 diabetes mellitus without complications; Z79.4 - termite treater helper (current) use of insulin (2) HTN (hypertension): Qualified Codes: I10 - Essential (primary) hypertension Alonso Stoll MD December 28, 2017 12:23
[2017-12-28 16:00] VITALS: BP 133/88; PULSE 66; RESP 19; TEMP 98.5; O2SAT 97
[2017-12-28 20:00] VITALS: BP 148/82; PULSE 97; RESP 19; TEMP 99.2; O2SAT 94
--- NOTE | 2017-12-28 20:38 | HHI.PR ---
Subjective Remarks 52 YOWM with MRSA empyema, s/p Decortication, rt lung infilt and eff Chest wound to VAC no Fever no CP No SOB Had bronch, no sig secretions, erythema or lung lesion AFB, Fungal cultures pending CXr showes mod rt pl eff Objective Vital Signs Vital Signs Date Time Temp Pulse Resp B/P (MAP) Pulse Ox O2 Delivery O2 Flow Rate FiO2 12/28/17 17:10 18 12/28/17 16:00 98.5 66 19 133/88 (103) 97 12/28/17 13:18 18 12/28/17 12:00 98.1 67 18 136/87 (103) 97 12/28/17 08:00 98.0 66 17 132/71 (91) 94 12/28/17 00:00 97.3 70 17 124/76 (92) 94 I/O 12/27/17 12/27/17 12/27/17 12/28/17 12/28/17 12/28/17 07:00 15:00 23:00 07:00 15:00 23:00 Intake Total 240 ml 100 ml 890 ml 645 ml Balance 240 ml 100 ml 890 ml 645 ml Intake Oral 240 ml 890 ml 645 ml IV Total 100 ml # Voids 2 6 10 # Bowel Movements 1 1 Result Diagram: 12/27/17 0500 12/27/17 0500 Objective Remarks GENERAL: WBWN WM,NAD SKIN: Warm and dry. HEAD: Normocephalic. EYES: No scleral icterus. No injection or drainage. NECK: Supple, trachea midline. No JVD or lymphadenopathy. CARDIOVASCULAR: Regular rate and rhythm without murmurs, gallops, or rubs. RESPIRATORY: Breath sounds equal bilaterally. No accessory muscle use. Decreased BS rt Rt chest wound to VAC GASTROINTESTINAL: Abdomen soft, non-tender, nondistended. MUSCULOSKELETAL: No cyanosis, or edema. BACK: Nontender without obvious deformity. No CVA tenderness. A/P Assessment and Plan IMPRESSION: 1. Persistent right lower lobe infiltrate with effusion. 2. 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 3. Hypertension. 4. Diabetes mellitus. 5. Alcohol abuse. PLAN: Cont Abx Stable on RA Check bronch results DW RN Looks comfortable, non toxic May need TC Zhao Ortega MD December 28, 2017 20:38
[2017-12-29] VITALS: BP 137/85; PULSE 74; RESP 19; TEMP 98.8; O2SAT 92
[2017-12-29] MEDS: MORPHINE SULFATE 4 MG/ML INJ IV PUSH PRN ×3 (05:50→15:25)
[2017-12-29] MEDS: INSULIN ASPART SUPPLEMENTAL SCALE SQ SCH ×4 (07:39→21:00)
[2017-12-29 08:00] VITALS: BP 139/88; PULSE 71; RESP 19; TEMP 98.3; O2SAT 97
[2017-12-29] MEDS: CEFTAROLINE INJ 600 MG in SODIUM CHLORIDE 0.9% INJ 100 ML IV SCH ×2 (09:22→22:01)
[2017-12-29] MEDS: SODIUM CHLORIDE 0.9% FLUSH 10 ML FLUSH IV FLUSH SCH ×2 (09:23→22:02)
[2017-12-29] MEDS: LISINOPRIL 20 MG TAB PO SCH (09:24)
[2017-12-29] MEDS: FUROSEMIDE 40 MG TAB PO SCH (09:25)
[2017-12-29] MEDS: CARVEDILOL 12.5 MG TAB PO SCH ×2 (09:25→21:58)
[2017-12-29] MEDS: THIAMINE HCL 100 MG TAB PO SCH (09:25)
[2017-12-29] MEDS: FOLIC ACID 1 MG TAB PO SCH (09:25)
[2017-12-29] MEDS: POLYETHYLENE GLYCOL 17 GM PKG PO SCH (09:25)
[2017-12-29 09:35] LABS: AUTOMATED NEUTROPHIL # 1.4 TH/MM3 (1.8-7.7); BASOPHIL # 0.1 TH/MM3 (0-0.2); BASOPHIL % 2.7 % (0.0-2.0); EOSINOPHIL # 0.2 TH/MM3 (0-0.4); EOSINOPHIL % 7.8 % (0.0-4.0); HEMATOCRIT 21.8 % (39.0-51.0); HEMOGLOBIN 7.5 GM/DL (13.0-17.0); LYMPH % 31.4 % (9.0-44.0); MEAN CORPUSCULAR HEMOGLOBIN 31.5 PG (27.0-34.0); MEAN CORPUSCULAR HGB CONC 34.2 % (32.0-36.0); MONO % 11.6 % (0.0-8.0); MONOCYTE # 0.4 TH/MM3 (0-0.9); NEUT % 46.5 % (16.0-70.0); PLATELET COUNT 121 TH/MM3 (150-450); RED BLOOD COUNT 2.37 MIL/MM3 (4.50-5.90); WHITE BLOOD COUNT 3.1 TH/MM3 (4.0-11.0)
[2017-12-29 10:03] LABS: ALT (GPT) 8 U/L (12-78); AST (GOT) 17 U/L (15-37); BICARBONATE 28.7 MEQ/L (21.0-32.0); CHLORIDE 102 MEQ/L (98-107); CREATININE 1.08 MG/DL (0.60-1.30); GLOMERULAR FILTRATION RATE 71 ML/MIN (>89); GLUCOSE,RANDOM 99 MG/DL (74-106); SODIUM (NA) 137 MEQ/L (136-145)
[2017-12-29 10:07] LABS: ALKALINE PHOSPHATASE 94 U/L (45-117); BLOOD UREA NITROGEN 8 MG/DL (7-18); TOTAL BILIRUBIN ADULT 0.4 MG/DL (0.2-1.0); TOTAL PROTEIN 7.1 GM/DL (6.4-8.2)
--- NOTE | 2017-12-29 10:32 | HHI.PR ---
Subjective Remarks Follow-up recurrent Right lung MRSA empyema December 21, 2017-patient seen and examined,+SOB, no cough production. Afebrile December 22, 2017-patient seen and examined, wound VAC in place with minimal drainage. Denies any significant shortness of breath. Currently afebrile December 23, 2017-patient seen and examined, still with persistent lung infiltrates for which pulmonary medicine has been consulted for evaluation for bronchoscopy December 24, 2017-patient seen and examined, complaining of itching otherwise no significant shortness of breath. Currently afebrile December 25, 2017-patient seen and examined, reported improvement of itching. Significant shortness of breath with deep inspiration otherwise stable. December 26, 2017-patient seen and examined, currently n.p.o. pending bronchoscopy. Reports improvement of shortness of breath December 27, 2017-patient seen and examined, No CP/SOB. s/p bronchoscopy on 12/26/17 December 28, 2017-patient seen and examined, has no complaint this a.m. Chest x-ray pending. December 29, 2017-patient seen and examined, breathing better and no SOB/CP. Afebrile Objective Vitals Vital Signs Date Time Temp Pulse Resp B/P (MAP) Pulse Ox O2 Delivery O2 Flow Rate FiO2 12/29/17 08:00 98.3 71 19 139/88 (105) 97 12/29/17 00:00 98.8 74 19 137/85 (102) 92 12/28/17 20:00 99.2 97 19 148/82 (104) 94 12/28/17 17:10 18 12/28/17 16:00 98.5 66 19 133/88 (103) 97 12/28/17 13:18 18 12/28/17 12:00 98.1 67 18 136/87 (103) 97 I/O 12/28/17 12/28/17 12/28/17 12/29/17 12/29/17 12/29/17 07:00 15:00 23:00 07:00 15:00 23:00 Intake Total 645 ml 340 ml 100 ml Balance 645 ml 340 ml 100 ml Intake Oral 645 ml 240 ml IV Total 100 ml 100 ml # Voids 10 2 # Bowel Movements 1 Result Diagram: 12/29/1718 12/29/17917 Imaging Last Impressions Chest X-Ray 12/28/17 0000 Signed Impressions: Service Date/Time: Thursday, December 28, 2017 11:00 - CONCLUSION: Stable chest x-ray with moderate size right pleural effusion with associated consolidation and atelectasis in the right lower lobe. The prior chest CT on 12/23/2017 demonstrated imaging features suggesting empyema. Consider chest tube or surgical drainage. Tenzin Donato MD Chest CT 12/23/17 0000 Signed Impressions: Service Date/Time: Saturday, December 23, 2017 12:01 - CONCLUSION: 1. Increase in loculated air within the complex right pleural effusion since November 30. The overall size of the presumed right empyema is relatively stable. There is also now loculated air in the lower right lateral chest wall likely representing extension of the empyema into the soft tissues. Slight improvement in right basilar lung consolidation. 2. Resolution of previous left pleural effusion. 3. New right-sided posterior sixth rib fracture. Multiple remote healed rib fractures. Edis Wetzel MD Objective Remarks GENERAL: NAD SKIN: Warm and dry. HEAD: Normocephalic. EYES: No scleral icterus. No injection or drainage. NECK: Supple, trachea midline. No JVD or lymphadenopathy. CARDIOVASCULAR: Regular rate and rhythm without murmurs, gallops, or rubs. RESPIRATORY: Breath sounds decrease bilaterally R>L. No accessory muscle use. GASTROINTESTINAL: Abdomen soft, non-tender, nondistended. MUSCULOSKELETAL: No cyanosis, or edema. BACK: Nontender without obvious deformity. No CVA tenderness. Procedures none A/P Problem List: (1) Empyema lung ICD Code: J86.9 - Pyothorax without fistula Status: Acute (2) Diabetes ICD Code: E11.9 - Type 2 diabetes mellitus without complications Status: Chronic (3) HTN (hypertension) ICD Code: I10 - Essential (primary) hypertension Status: Chronic (4) Pancytopenia ICD Code: D61.818 - Other pancytopenia Status: Chronic Assessment and Plan 52-year-old man with Recurrent empyema/abscess CT results reviewed from [facility] shows suspicious for abscess in the right side -Appreciate input from cardio thoracic surgery, s/p wound VAC -Continue Teflaro IV per infectious disease specialist -CT chest reviewed and noted with persistent pulmonary infiltrates, for which pulmonary medicine has been consulted and patient is s/p bronchoscopy December 26, 2017 without signification secretions, erythema or lung lesion -Continue with bronchodilator as needed -CXR 12/26 with increase Pleural effusion and consolidation; however CXR was stable with moderate right pleural effusion with consolidation RLL Hypertension, chronic, currently controlled -Continue Coreg and Lasix, monitor vitals Diabetes, chronic, type II, controlled with no acute complications -Accu-Cheks and sliding scale insulin Normochromic normocytic anemia H&H stable and patient at his baseline, transfuse for hemoglobin less than 7 Pancytopenia, chronic -Continue to monitor labs DVT prophylaxis: SCDs Problem Qualifiers (1) Diabetes: Qualified Codes: E11.9 - Type 2 diabetes mellitus without complications; Z79.4 - local intermodal truck driver (current) use of insulin (2) HTN (hypertension): Qualified Codes: I10 - Essential (primary) hypertension Alonso Stoll MD December 29, 2017 10:32
[2017-12-29 12:00] VITALS: BP 124/75; PULSE 68; RESP 20; TEMP 98.4; O2SAT 96
--- NOTE | 2017-12-29 14:10 | HHI.IDPN ---
Subjective Subjective Remarks is a 52 y/o CM with PMHx of HTN, diabetes, H/O DVT and alcohol abuse who was recently admitted to [facility] on 11/18/17 with weakness. While hospitalized at [facility], patient was treated for alcohol withdrawal and sepsis secondary to pneumonia. Patient developed persistent right-sided pleural effusion underwent a thoracocentesis on 11/22 with 1400 cc of fluid removed with cultures positive for MRSA. He also had a urine culture positive for MRSA. Patient had echocardiogram done on 11/21 revealing preserved EF of 60 - 65%. Patient had a PICC line placed 11/22. Patient was treated with IV Vanco, Levaquin and IV Zyvox. Patient developed acute renal failure likely secondary to vancomycin. Blood cultures were negative. Patient was accepted as a transfer to [facility] by Dr. Pena for possible decortication of lung by cardiothoracic surgery. Patient was seen by CTS at [facility] and underwent decortication as well as drainage of right chest wall abscess. Patient post op had a wound vac to the right chest wall and also had a chest tube. Upon DC patient was supposed to have been on Wound vac for right chest wall abscess but unsure if he was on it. Patient seems to have been on Teflaro IV. Patient was on Vanco IV and had acute renal failure. Patient was on Zyvox and developed severe pancytopenia. Infectious disease has been consulted for evaluation and medical management of MRSA empyema and right chest wall abscess. Overnight events reviewed No fevers No rash No diarrhea Wound vac removed. s/p bronch yday Antibiotics Teflaro IV Lines Line sites with no e.o infection Past Medical History reviewed Allergies: Coded Allergies: No Known Allergies (Verified Allergy, Unknown, 11/29/17) Objective . Vital Signs Date Time Temp Pulse Resp B/P (MAP) Pulse Ox O2 Delivery O2 Flow Rate FiO2 12/29/17 12:00 98.4 68 20 124/75 (91) 96 12/29/17 08:00 98.3 71 19 139/88 (105) 97 12/29/17 00:00 98.8 74 19 137/85 (102) 92 12/28/17 20:00 99.2 97 19 148/82 (104) 94 12/28/17 17:10 18 12/28/17 16:00 98.5 66 19 133/88 (103) 97 12/29/17 12/29/17 12/30/17 15:00 23:00 07:00 Intake Total 100 ml Balance 100 ml IV Total 100 ml . Laboratory Tests Test 12/29/17 09:18 White Blood Count 3.1 TH/MM3 Red Blood Count 2.37 MIL/MM3 Hemoglobin 7.5 GM/DL Hematocrit 21.8 % Mean Corpuscular Volume 92.0 FL Mean Corpuscular Hemoglobin 31.5 PG Mean Corpuscular Hemoglobin Concent 34.2 % Red Cell Distribution Width 18.0 % Platelet Count 121 TH/MM3 Mean Platelet Volume 8.0 FL Neutrophils (%) (Auto) 46.5 % Lymphocytes (%) (Auto) 31.4 % Monocytes (%) (Auto) 11.6 % Eosinophils (%) (Auto) 7.8 % Basophils (%) (Auto) 2.7 % Neutrophils # (Auto) 1.4 TH/MM3 Lymphocytes # (Auto) 1.0 TH/MM3 Monocytes # (Auto) 0.4 TH/MM3 Eosinophils # (Auto) 0.2 TH/MM3 Basophils # (Auto) 0.1 TH/MM3 CBC Comment DIFF FINAL Differential Comment Laboratory Tests Test 12/29/17 09:18 Blood Urea Nitrogen 8 MG/DL Creatinine 1.08 MG/DL Random Glucose 99 MG/DL Total Protein 7.1 GM/DL Albumin 2.0 GM/DL Calcium Level 8.0 MG/DL Alkaline Phosphatase 94 U/L Aspartate Amino Transf (AST/SGOT) 17 U/L Alanine Aminotransferase (ALT/SGPT) 8 U/L Total Bilirubin 0.4 MG/DL Sodium Level 137 MEQ/L Potassium Level 4.2 MEQ/L Chloride Level 102 MEQ/L Carbon Dioxide Level 28.7 MEQ/L Anion Gap 6 MEQ/L Estimat Glomerular Filtration Rate 71 ML/MIN C-Reactive Protein 3.00 MG/DL Microbiology Date/Time Source Procedure Growth Status 12/26/17 14:38 Bronchial Washings Other Fungal Smear - Final NO FUNGAL ELEMENTS SEEN. Resulted 12/26/17 14:38 Bronchial Washings Other Fungal Culture Pending Resulted 12/26/17 14:38 Bronchial Washings Other Acid Fast Stain Pending Received 12/26/17 14:38 Bronchial Washings Other Mycobacterial Culture Pending Received 12/26/17 14:38 Bronchial Washings Other Gram Stain - Final Complete 12/26/17 14:38 Bronchial Washings Other Bronchial Culture - Final MODERATE GROWTH NORMAL RESPIRATORY MUSA Complete Imaging Last Impressions Chest X-Ray 12/21/17 0000 Signed Impressions: Service Date/Time: Tuesday, December 21, 2017 13:02 - CONCLUSION: 1. Right basilar consolidation consistent with possible pneumonia. Clinical correlation is recommended. 2. Small right pleural effusion. Valentino Mooney MD Physical Exam GENERAL: This is a well-nourished, well-developed patient, in no apparent distress. SKIN: No rashes, ecchymoses or lesions. Cool and dry. HEAD: Atraumatic. Normocephalic. No temporal or scalp tenderness. EYES: Pupils equal round and reactive. Extraocular motions intact. No scleral icterus. No injection or drainage. ENT: Nose without bleeding, purulent drainage or septal hematoma. Throat without erythema, tonsillar hypertrophy or exudate. Uvula midline. Airway patent. NECK: Trachea midline. Supple, nontender, no meningeal signs. CARDIOVASCULAR: HS audible. RESPIRATORY: Decreased AE in Right base. Right chest wall with surgical scar. GASTROINTESTINAL: Abdomen soft, non-tender, nondistended. MUSCULOSKELETAL: Extremities without clubbing, cyanosis, or edema. No joint tenderness, effusion, or edema noted. No calf tenderness. Negative Homans sign bilaterally. NEUROLOGICAL: Awake and alert. Non focal exam Psych cooperative IV line sites with no e.o infection Assessment & Plan Remarks Right side MRSA empyema Right MRSA chest wall abscess Acute renal failure from vanco IV Acute pancytopenia from Linezolid(Zyvox) Alcoholism, aspiration risk. PICC line in place. Recs Continue Teflaro IV for above reasons. dw Pulmonology dw bronch findings. Reviewed CXR from . Persistent loculated effusion. Recommend discussing with CTS about loculated pleural effusion. If no plans for surgery will consider discharging back to [place]. Follow cultures Follow clinically. Donna Orosco MD December 29, 2017 14:10
--- NOTE | 2017-12-29 15:50 | HHI.PR ---
Subjective Remarks 52 YOWM with MRSA empyema, s/p Decortication, rt lung infilt and eff Chest wound to VAC no Fever no CP No SOB Had bronch, no sig secretions, erythema or lung lesion AFB, Fungal cultures pending CXr showes mod rt pl eff Objective Vital Signs Vital Signs Date Time Temp Pulse Resp B/P (MAP) Pulse Ox O2 Delivery O2 Flow Rate FiO2 12/29/17 12:00 98.4 68 20 124/75 (91) 96 12/29/17 08:00 98.3 71 19 139/88 (105) 97 12/29/17 00:00 98.8 74 19 137/85 (102) 92 12/28/17 20:00 99.2 97 19 148/82 (104) 94 12/28/17 17:10 18 12/28/17 16:00 98.5 66 19 133/88 (103) 97 I/O 12/28/17 12/28/17 12/28/17 12/29/17 12/29/17 12/29/17 07:00 15:00 23:00 07:00 15:00 23:00 Intake Total 645 ml 340 ml 100 ml Balance 645 ml 340 ml 100 ml Intake Oral 645 ml 240 ml IV Total 100 ml 100 ml # Voids 10 2 # Bowel Movements 1 Result Diagram: 12/29/1791712/29/17917 Objective Remarks GENERAL: WBWN WM,NAD SKIN: Warm and dry. HEAD: Normocephalic. EYES: No scleral icterus. No injection or drainage. NECK: Supple, trachea midline. No JVD or lymphadenopathy. CARDIOVASCULAR: Regular rate and rhythm without murmurs, gallops, or rubs. RESPIRATORY: Breath sounds equal bilaterally. No accessory muscle use. Decreased BS rt Rt chest wound to VAC GASTROINTESTINAL: Abdomen soft, non-tender, nondistended. MUSCULOSKELETAL: No cyanosis, or edema. BACK: Nontender without obvious deformity. No CVA tenderness. A/P Assessment and Plan IMPRESSION: 1. Persistent right lower lobe infiltrate with effusion. 2. 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 3. Hypertension. 4. Diabetes mellitus. 5. Alcohol abuse. PLAN: Cont Abx Stable on RA Check bronch results DW RN Looks comfortable, non toxic SONDRA Alexander, will reconsult CTS to see if any intervention needed Zhao Ortega MD December 29, 2017 15:50
[2017-12-29 16:00] VITALS: BP 147/88; PULSE 70; RESP 17; TEMP 98.3; O2SAT 95
[2017-12-29 20:00] VITALS: BP 153/94; PULSE 80; RESP 20; TEMP 97.9; O2SAT 96
[2017-12-29] MEDS ORDERED: ALUMINUM/MAGNESIUM/SIMETH 30 ML CUP PO ONE (23:30)
[2017-12-30] VITALS: BP 158/94; PULSE 80; RESP 20; TEMP 98.2; O2SAT 95
[2017-12-30] MEDS: INSULIN ASPART SUPPLEMENTAL SCALE SQ SCH ×4 (07:13→22:47)
[2017-12-30 08:00] VITALS: BP 147/81; PULSE 62; RESP 18; TEMP 98.3; O2SAT 95
[2017-12-30] MEDS: CEFTAROLINE INJ 600 MG in SODIUM CHLORIDE 0.9% INJ 100 ML IV SCH ×2 (08:21→22:47)
[2017-12-30] MEDS: SODIUM CHLORIDE 0.9% FLUSH 10 ML FLUSH IV FLUSH SCH ×2 (08:22→22:47)
[2017-12-30] MEDS: POLYETHYLENE GLYCOL 17 GM PKG PO SCH (08:22)
[2017-12-30] MEDS: CARVEDILOL 12.5 MG TAB PO SCH ×2 (08:23→22:47)
[2017-12-30] MEDS: FOLIC ACID 1 MG TAB PO SCH (08:23)
[2017-12-30] MEDS: THIAMINE HCL 100 MG TAB PO SCH (08:24)
[2017-12-30] MEDS: LISINOPRIL 20 MG TAB PO SCH (08:24)
[2017-12-30] MEDS: FUROSEMIDE 40 MG TAB PO SCH (08:26)
[2017-12-30] MEDS: MORPHINE SULFATE 4 MG/ML INJ IV PUSH PRN (10:58)
[2017-12-30 12:00] VITALS: BP 121/62; PULSE 111; RESP 18; TEMP 97.7; O2SAT 92
[2017-12-30 16:00] VITALS: BP 133/71; PULSE 68; RESP 19; TEMP 98.4; O2SAT 95
--- NOTE | 2017-12-30 18:03 | HHI.PR ---
Subjective Remarks 52 YOWM with MRSA empyema, s/p Decortication, rt lung infilt and eff Chest wound to VAC no Fever no CP No SOB Had bronch, no sig secretions, erythema or lung lesion AFB, Fungal cultures pending CXr showes mod rt pl eff On RA, ambulates Objective Vital Signs Vital Signs Date Time Temp Pulse Resp B/P (MAP) Pulse Ox O2 Delivery O2 Flow Rate FiO2 12/30/17 16:00 98.4 68 19 133/71 (91) 95 12/30/17 12:00 97.7 111 18 121/62 (81) 92 12/30/17 08:00 98.3 62 18 147/81 (103) 95 12/30/17 00:00 98.2 80 20 158/94 (115) 95 12/29/17 20:00 97.9 80 20 153/94 (113) 96 I/O 12/29/17 12/29/17 12/29/17 12/30/17 12/30/17 12/30/17 07:00 15:00 23:00 07:00 15:00 23:00 Intake Total 340 ml 100 ml 620 ml 360 ml 100 ml Balance 340 ml 100 ml 620 ml 360 ml 100 ml Intake Oral 240 ml 520 ml 360 ml IV Total 100 ml 100 ml 100 ml 100 ml # Voids 2 8 2 # Bowel Movements 2 0 Result Diagram: 12/29/1791712/29/17917 Objective Remarks GENERAL: WBWN WM,NAD SKIN: Warm and dry. HEAD: Normocephalic. EYES: No scleral icterus. No injection or drainage. NECK: Supple, trachea midline. No JVD or lymphadenopathy. CARDIOVASCULAR: Regular rate and rhythm without murmurs, gallops, or rubs. RESPIRATORY: Breath sounds equal bilaterally. No accessory muscle use. Decreased BS rt Rt chest wound to VAC GASTROINTESTINAL: Abdomen soft, non-tender, nondistended. MUSCULOSKELETAL: No cyanosis, or edema. BACK: Nontender without obvious deformity. No CVA tenderness. A/P Assessment and Plan IMPRESSION: 1. Persistent right lower lobe infiltrate with effusion. 2. 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 3. Hypertension. 4. Diabetes mellitus. 5. Alcohol abuse. PLAN: Cont Abx per ID Stable on RA Check bronch results DW RN Looks comfortable, non toxic Stable from pulm standpoint Available prn over weekend. Zhao Ortega MD December 30, 2017 18:03
--- NOTE | 2017-12-30 19:26 | HHI.PR ---
Subjective Remarks c/o some pleuritic chest pain on RLL Denies sob Afebrile Satting well Objective Vitals Vital Signs Date Time Temp Pulse Resp B/P (MAP) Pulse Ox O2 Delivery O2 Flow Rate FiO2 12/30/17 16:00 98.4 68 19 133/71 (91) 95 12/30/17 12:00 97.7 111 18 121/62 (81) 92 12/30/17 08:00 98.3 62 18 147/81 (103) 95 12/30/17 00:00 98.2 80 20 158/94 (115) 95 12/29/17 20:00 97.9 80 20 153/94 (113) 96 I/O 12/29/17 12/29/17 12/29/17 12/30/17 12/30/17 12/30/17 07:00 15:00 23:00 07:00 15:00 23:00 Intake Total 340 ml 100 ml 620 ml 360 ml 100 ml 1020 ml Balance 340 ml 100 ml 620 ml 360 ml 100 ml 1020 ml Intake Oral 240 ml 520 ml 360 ml 1020 ml IV Total 100 ml 100 ml 100 ml 100 ml # Voids 2 8 2 8 # Bowel Movements 2 0 2 Result Diagram: 12/29/17 0918 12/29/1718 Imaging Last Impressions Chest X-Ray 12/28/17 0000 Signed Impressions: Service Date/Time: Thursday, December 28, 2017 11:00 - CONCLUSION: Stable chest x-ray with moderate size right pleural effusion with associated consolidation and atelectasis in the right lower lobe. The prior chest CT on 12/23/2017 demonstrated imaging features suggesting empyema. Consider chest tube or surgical drainage. Tenzin Donato MD Chest CT 12/23/17 0000 Signed Impressions: Service Date/Time: Saturday, December 23, 2017 12:01 - CONCLUSION: 1. Increase in loculated air within the complex right pleural effusion since November 30. The overall size of the presumed right empyema is relatively stable. There is also now loculated air in the lower right lateral chest wall likely representing extension of the empyema into the soft tissues. Slight improvement in right basilar lung consolidation. 2. Resolution of previous left pleural effusion. 3. New right-sided posterior sixth rib fracture. Multiple remote healed rib fractures. Edis Wetzel MD Objective Remarks AAOx3 dullness to percussion and decreased breath sounds on RLL. No accessory muscle use. S1S2+ RRR Procedures none A/P Problem List: (1) Empyema lung ICD Code: J86.9 - Pyothorax without fistula Status: Acute (2) Diabetes ICD Code: E11.9 - Type 2 diabetes mellitus without complications Status: Chronic (3) HTN (hypertension) ICD Code: I10 - Essential (primary) hypertension Status: Chronic (4) Pancytopenia ICD Code: D61.818 - Other pancytopenia Status: Chronic Assessment and Plan 52-year-old man with Recurrent empyema/abscess CT results reviewed from [facility] shows suspicious for abscess in the right side -Appreciate input from cardio thoracic surgery, s/p wound VAC -Continue Teflaro IV per infectious disease specialist -CT chest reviewed and noted with persistent pulmonary infiltrates, for which pulmonary medicine has been consulted and patient is s/p bronchoscopy December 26, 2017 without signification secretions, erythema or lung lesion -Continue with bronchodilator as needed -CXR 12/26 with increase Pleural effusion and consolidation; however CXR was stable with moderate right pleural effusion with consolidation RLL - 12/30 Persistent empyema - Will discuss with CT surgery as recommended by ID. Hypertension, chronic, currently controlled -Continue Coreg and Lasix, monitor vitals Diabetes, chronic, type II, controlled with no acute complications -Accu-Cheks and sliding scale insulin Normochromic normocytic anemia H&H stable and patient at his baseline, transfuse for hemoglobin less than 7 Pancytopenia, chronic -Continue to monitor labs DVT prophylaxis: SCDs Discharge Planning Continue to monitor in the medical floor. Problem Qualifiers (1) Diabetes: Qualified Codes: E11.9 - Type 2 diabetes mellitus without complications; Z79.4 - laborer marine terminal (current) use of insulin (2) HTN (hypertension): Qualified Codes: I10 - Essential (primary) hypertension Olu Foreman MD December 30, 2017 19:26
[2017-12-30 20:00] VITALS: BP 138/73; PULSE 66; RESP 18; TEMP 98.5; O2SAT 96
[2017-12-31] VITALS: BP 162/90; PULSE 86; RESP 20; TEMP 99.1; O2SAT 96
[2017-12-31 06:49] LABS: AUTOMATED NEUTROPHIL # 1.6 TH/MM3 (1.8-7.7); BASOPHIL % 1.4 % (0.0-2.0); EOSINOPHIL # 0.3 TH/MM3 (0-0.4); EOSINOPHIL % 10.8 % (0.0-4.0); HEMOGLOBIN 7.6 GM/DL (13.0-17.0); LYMPH % 26.8 % (9.0-44.0); LYMPHOCYTE # 0.9 TH/MM3 (1.0-4.8); MEAN CELL VOLUME 90.7 FL (80.0-100.0); MEAN CORPUSCULAR HEMOGLOBIN 31.2 PG (27.0-34.0); MEAN CORPUSCULAR HGB CONC 34.4 % (32.0-36.0); MEAN PLATELET VOLUME 8.2 FL (7.0-11.0); MONO % 10.3 % (0.0-8.0); MONOCYTE # 0.3 TH/MM3 (0-0.9); NEUT % 50.7 % (16.0-70.0); PLATELET COUNT 126 TH/MM3 (150-450); RED BLOOD COUNT 2.42 MIL/MM3 (4.50-5.90); RED CELL DISTRIBUTION WIDTH 17.3 % (11.6-17.2); WHITE BLOOD COUNT 3.2 TH/MM3 (4.0-11.0)
[2017-12-31 07:11] LABS: ALBUMIN 2.1 GM/DL (3.4-5.0); AST (GOT) 17 U/L (15-37); BICARBONATE 25.4 MEQ/L (21.0-32.0); BLOOD UREA NITROGEN 11 MG/DL (7-18); CHLORIDE 104 MEQ/L (98-107); CREATININE 1.04 MG/DL (0.60-1.30); GLOMERULAR FILTRATION RATE 74 ML/MIN (>89); GLUCOSE,RANDOM 96 MG/DL (74-106); SODIUM (NA) 138 MEQ/L (136-145)
[2017-12-31 07:12] LABS: ALT (GPT) 7 U/L (12-78)
[2017-12-31 07:14] LABS: ALKALINE PHOSPHATASE 94 U/L (45-117); TOTAL BILIRUBIN ADULT 0.6 MG/DL (0.2-1.0); TOTAL PROTEIN 7.2 GM/DL (6.4-8.2)
[2017-12-31 08:00] VITALS: BP 139/69; PULSE 67; RESP 15; TEMP 98.6; O2SAT 93
[2017-12-31] MEDS: INSULIN ASPART SUPPLEMENTAL SCALE SQ SCH ×4 (08:00→19:49)
[2017-12-31] MEDS: THIAMINE HCL 100 MG TAB PO SCH (08:47)
[2017-12-31] MEDS: LISINOPRIL 20 MG TAB PO SCH (08:47)
[2017-12-31] MEDS: FOLIC ACID 1 MG TAB PO SCH (08:47)
[2017-12-31] MEDS: CARVEDILOL 12.5 MG TAB PO SCH ×2 (08:48→19:48)
[2017-12-31] MEDS: FUROSEMIDE 40 MG TAB PO SCH (08:48)
[2017-12-31] MEDS: POLYETHYLENE GLYCOL 17 GM PKG PO SCH (08:48)
[2017-12-31] MEDS: CEFTAROLINE INJ 600 MG in SODIUM CHLORIDE 0.9% INJ 100 ML IV SCH ×2 (08:49→19:48)
[2017-12-31] MEDS: SODIUM CHLORIDE 0.9% FLUSH 10 ML FLUSH IV FLUSH SCH ×2 (08:49→19:48)
--- NOTE | 2017-12-31 09:20 | HHI.IDPN ---
Subjective Subjective Remarks Patient seen and examined on behalf of Dr. Orosco is a 52 y/o CM with PMHx of HTN, diabetes, H/O DVT and alcohol abuse who was recently admitted to [facility] on 11/18/17 with weakness. While hospitalized at [facility], patient was treated for alcohol withdrawal and sepsis secondary to pneumonia. Patient developed persistent right-sided pleural effusion underwent a thoracocentesis on 11/22 with 1400 cc of fluid removed with cultures positive for MRSA. He also had a urine culture positive for MRSA. Patient had echocardiogram done on 11/21 revealing preserved EF of 60 - 65%. Patient had a PICC line placed 11/22. Patient was treated with IV Vanco, Levaquin and IV Zyvox. Patient developed acute renal failure likely secondary to vancomycin. Blood cultures were negative. Patient was accepted as a transfer to [facility] by Dr. Pena for possible decortication of lung by cardiothoracic surgery. Patient was seen by CTS at [facility] and underwent decortication as well as drainage of right chest wall abscess. Patient post op had a wound vac to the right chest wall and also had a chest tube. Upon DC patient was supposed to have been on Wound vac for right chest wall abscess but unsure if he was on it. Patient seems to have been on Teflaro IV. Patient was on Vanco IV and had acute renal failure. Patient was on Zyvox and developed severe pancytopenia. Infectious disease has been consulted for evaluation and medical management of MRSA empyema and right chest wall abscess. Overnight events reviewed patient reports some shortness of breath with ambulating in his room No fevers No rash No diarrhea does report night sweats for the past week c/o mild diffuse itching afebrile Wound vac removed. s/p bronch 12/27, negative for malignant cells CXR 12/28 shows moderate sized right pleural effusion with associated consolidation and atelectasis in the right lower lobe Antibiotics Teflaro IV Lines Line sites with no e.o infection Past Medical History reviewed (Summer Monreal) Allergies: Coded Allergies: No Known Allergies (Verified Allergy, Unknown, 11/29/17) Objective . Vital Signs Date Time Temp Pulse Resp B/P (MAP) Pulse Ox O2 Delivery O2 Flow Rate FiO2 12/31/17 08:00 98.6 67 15 139/69 (92) 93 12/31/17 00:00 99.1 86 20 162/90 (114) 96 12/30/17 20:00 98.5 66 18 138/73 (94) 96 12/30/17 16:00 98.4 68 19 133/71 (91) 95 12/30/17 12:00 97.7 111 18 121/62 (81) 92 . Laboratory Tests Test 12/29/17 09:18 12/31/17 06:11 White Blood Count 3.1 TH/MM3 3.2 TH/MM3 Red Blood Count 2.37 MIL/MM3 2.42 MIL/MM3 Hemoglobin 7.5 GM/DL 7.6 GM/DL Hematocrit 21.8 % 22.0 % Mean Corpuscular Volume 92.0 FL 90.7 FL Mean Corpuscular Hemoglobin 31.5 PG 31.2 PG Mean Corpuscular Hemoglobin Concent 34.2 % 34.4 % Red Cell Distribution Width 18.0 % 17.3 % Platelet Count 121 TH/MM3 126 TH/MM3 Mean Platelet Volume 8.0 FL 8.2 FL Neutrophils (%) (Auto) 46.5 % 50.7 % Lymphocytes (%) (Auto) 31.4 % 26.8 % Monocytes (%) (Auto) 11.6 % 10.3 % Eosinophils (%) (Auto) 7.8 % 10.8 % Basophils (%) (Auto) 2.7 % 1.4 % Neutrophils # (Auto) 1.4 TH/MM3 1.6 TH/MM3 Lymphocytes # (Auto) 1.0 TH/MM3 0.9 TH/MM3 Monocytes # (Auto) 0.4 TH/MM3 0.3 TH/MM3 Eosinophils # (Auto) 0.2 TH/MM3 0.3 TH/MM3 Basophils # (Auto) 0.1 TH/MM3 0.0 TH/MM3 CBC Comment DIFF FINAL DIFF FINAL Differential Comment Laboratory Tests Test 12/29/17 09:18 12/31/17 06:11 Blood Urea Nitrogen 8 MG/DL 11 MG/DL Creatinine 1.08 MG/DL 1.04 MG/DL Random Glucose 99 MG/DL 96 MG/DL Total Protein 7.1 GM/DL 7.2 GM/DL Albumin 2.0 GM/DL 2.1 GM/DL Calcium Level 8.0 MG/DL 8.0 MG/DL Alkaline Phosphatase 94 U/L 94 U/L Aspartate Amino Transf (AST/SGOT) 17 U/L 17 U/L Alanine Aminotransferase (ALT/SGPT) 8 U/L 7 U/L Total Bilirubin 0.4 MG/DL 0.6 MG/DL Sodium Level 137 MEQ/L 138 MEQ/L Potassium Level 4.2 MEQ/L 3.9 MEQ/L Chloride Level 102 MEQ/L 104 MEQ/L Carbon Dioxide Level 28.7 MEQ/L 25.4 MEQ/L Anion Gap 6 MEQ/L 9 MEQ/L Estimat Glomerular Filtration Rate 71 ML/MIN 74 ML/MIN C-Reactive Protein 3.00 MG/DL Imaging Last Impressions Chest X-Ray 12/28/17 0000 Signed Impressions: Service Date/Time: Thursday, December 28, 2017 11:00 - CONCLUSION: Stable chest x-ray with moderate size right pleural effusion with associated consolidation and atelectasis in the right lower lobe. The prior chest CT on 12/23/2017 demonstrated imaging features suggesting empyema. Consider chest tube or surgical drainage. Tenzin Donato MD Chest CT 12/23/17 0000 Signed Impressions: Service Date/Time: Saturday, December 23, 2017 12:01 - CONCLUSION: 1. Increase in loculated air within the complex right pleural effusion since November 30. The overall size of the presumed right empyema is relatively stable. There is also now loculated air in the lower right lateral chest wall likely representing extension of the empyema into the soft tissues. Slight improvement in right basilar lung consolidation. 2. Resolution of previous left pleural effusion. 3. New right-sided posterior sixth rib fracture. Multiple remote healed rib fractures. Edis Wetzel MD Physical Exam GENERAL: This is a well-nourished, well-developed male patient, in no apparent distress. Awake and alert. Witnessed ambulating in room. Appears comfortable on room air. SKIN: Warm and dry. No generalized rash. Bilateral lower extremity venous stasis changes noted. HEAD: Atraumatic. Normocephalic. No temporal or scalp tenderness. EYES: Pupils equal round and reactive. Extraocular motions intact. No scleral icterus. No injection or drainage. ENT: Nose without bleeding, purulent drainage or septal hematoma. Throat without erythema, tonsillar hypertrophy or exudate. Uvula midline. Airway patent. No oral lesions noted. NECK: Trachea midline. Supple, nontender, no meningeal signs. CARDIOVASCULAR: HS audible. RESPIRATORY: Decreased AE in Right base. Right chest wall with surgical scar, with scant amount of dried mucoid appearing drainage, no surrounding erythema or warmth appreciated GASTROINTESTINAL: Abdomen soft, non-tender, nondistended. MUSCULOSKELETAL: Extremities without clubbing or cyanosis. Chronic BLE pitting edema noted. No calf tenderness. Bilateral calves supple. NEUROLOGICAL: Awake and alert. Able to move all extremities. Motor and sensory grossly intact. Non focal exam. Normal speech. PSYCHIATRIC: Appropriate mood and affect. Calm and cooperative. IV line sites with no e.o infection (Summer Monreal) Assessment & Plan Remarks Assessment: Right side MRSA empyema Right MRSA chest wall abscess Acute renal failure from vanco IV Acute pancytopenia from Linezolid(Zyvox) Alcoholism, aspiration risk. PICC line in place. Leukopenia, stable Anemia, stable Recommendations: Continue Teflaro IV for above reasons. dw Pulmonology dw bronch findings. Reviewed CXR. Persistent loculated effusion. Recommend discussing with CTS about loculated pleural effusion. If no plans for surgery will consider discharging back to [place]. Follow cultures Follow clinically. Will reassess patient on Tuesday (Summer Monreal) Remarks The exam, history, and the medical decision-making described in the above note were completed with the assistance of the mid-level provider. I reviewed and agree with the findings presented. I attest that I had a [id number] encounter with the patient on the same day, and personally performed and documented my assessment and findings in the medical record. Right side MRSA empyema Right MRSA chest wall abscess Acute renal failure from vanco IV Acute pancytopenia from Linezolid(Zyvox) Continue Teflaro IV dylon CTS about persistent empyema. dylon Howard (Donna Orosco MD) Summer Monreal December 31, 2017 09:20 Donna Orosco MD December 31, 2017 17:42
--- NOTE | 2017-12-31 11:56 | HHI.PR ---
Subjective Remarks c/o mild pain in right low hemithorax. denies sob afebrile Patient states that he would like to leave with all his problems taken care off. Objective Vitals Vital Signs Date Time Temp Pulse Resp B/P (MAP) Pulse Ox O2 Delivery O2 Flow Rate FiO2 12/31/17 08:00 98.6 67 15 139/69 (92) 93 12/31/17 00:00 99.1 86 20 162/90 (114) 96 12/30/17 20:00 98.5 66 18 138/73 (94) 96 12/30/17 16:00 98.4 68 19 133/71 (91) 95 12/30/17 12:00 97.7 111 18 121/62 (81) 92 I/O 12/30/17 12/30/17 12/30/17 12/31/17 12/31/17 12/31/17 07:00 15:00 23:00 07:00 15:00 23:00 Intake Total 360 ml 100 ml 1020 ml 360 ml Balance 360 ml 100 ml 1020 ml 360 ml Intake Oral 360 ml 1020 ml 360 ml IV Total 100 ml # Voids 2 8 3 # Bowel Movements 0 2 0 Result Diagram: 12/31/17 0611 12/31/17 0611 Imaging Last Impressions Chest X-Ray 12/28/17 0000 Signed Impressions: Service Date/Time: Thursday, December 28, 2017 11:00 - CONCLUSION: Stable chest x-ray with moderate size right pleural effusion with associated consolidation and atelectasis in the right lower lobe. The prior chest CT on 12/23/2017 demonstrated imaging features suggesting empyema. Consider chest tube or surgical drainage. Tenzin Donato MD Chest CT 12/23/17 0000 Signed Impressions: Service Date/Time: Saturday, December 23, 2017 12:01 - CONCLUSION: 1. Increase in loculated air within the complex right pleural effusion since November 30. The overall size of the presumed right empyema is relatively stable. There is also now loculated air in the lower right lateral chest wall likely representing extension of the empyema into the soft tissues. Slight improvement in right basilar lung consolidation. 2. Resolution of previous left pleural effusion. 3. New right-sided posterior sixth rib fracture. Multiple remote healed rib fractures. Edis Wetzel MD Objective Remarks AAOx3 dullness to percussion and decreased breath sounds on RLL. No accessory muscle use. S1S2+ RRR Procedures none Medications and IVs Current Medications Medications (Trade) Dose Ordered Sig/Bryan Route Start Time Stop Time Status Last Admin (NS Flush) 2 ml UNSCH PRN IV FLUSH 12/20/17 18:00 (NS Flush) 2 ml BID IV FLUSH 12/20/17 21:00 12/31/17 08:49 (Narcan Inj) 0.4 mg UNSCH PRN IV PUSH 12/20/17 18:00 (Coreg) 12.5 mg Q12HR PO 12/21/17 09:00 12/31/17 08:48 (Folate) 1 mg DAILY PO 12/21/17 09:00 12/31/17 08:47 (Lasix) 40 mg DAILY PO 12/21/17 09:00 12/31/17 08:48 (Prinivil) 20 mg DAILY PO 12/21/17 09:00 12/31/17 08:47 (Vitamin B1) 100 mg DAILY PO 12/21/17 09:00 12/31/17 08:47 (Roxicodone) 10 mg Q4H PRN PO 12/21/17 00:30 12/31/17 13:14 (Morphine Inj) 2 mg Q3H PRN IV PUSH 12/21/17 00:30 12/30/17 10:58 Ceftaroline Fosamil 600 mg/ Sodium Chloride 100 ml @ 100 mls/hr Q12H IV 12/21/17 09:00 01/02/18 22:00 12/31/17 08:49 (D50w (Vial) Inj) 50 ml UNSCH PRN IV PUSH 12/21/17 11:30 (Glucagon Inj) 1 mg UNSCH PRN OTHER 12/21/17 11:30 (NovoLOG SUPPLEMENTAL SCALE) 1 ACHS SLIDING SCALE SQ 12/21/17 12:00 12/31/17 12:00 (Benadryl) 25 mg Q6H PRN PO 12/24/17 17:30 12/24/17 22:48 (Miralax) 17 gm DAILY PO 12/28/17 09:00 12/31/17 08:48 A/P Problem List: (1) Empyema lung ICD Code: J86.9 - Pyothorax without fistula Status: Acute (2) Diabetes ICD Code: E11.9 - Type 2 diabetes mellitus without complications Status: Chronic (3) HTN (hypertension) ICD Code: I10 - Essential (primary) hypertension Status: Chronic (4) Pancytopenia ICD Code: D61.818 - Other pancytopenia Status: Chronic Assessment and Plan 52-year-old man with Recurrent empyema/abscess CT results reviewed from [facility] shows suspicious for abscess in the right side -Appreciate input from cardio thoracic surgery, s/p wound VAC -Continue Teflaro IV per infectious disease specialist -CT chest reviewed and noted with persistent pulmonary infiltrates, for which pulmonary medicine has been consulted and patient is s/p bronchoscopy December 26, 2017 without signification secretions, erythema or lung lesion -Continue with bronchodilator as needed -CXR 12/26 with increase Pleural effusion and consolidation; however CXR was stable with moderate right pleural effusion with consolidation RLL - 12/30 Persistent empyema - Will discuss with CT surgery regarding possible surgical intervention vs IR drainage. Discussed with Dr Orosco. Hypertension, chronic, currently controlled -Continue Coreg and Lasix, monitor vitals -Stable Diabetes, chronic, type II, controlled with no acute complications -Accu-Cheks and sliding scale insulin Normochromic normocytic anemia H&H stable and patient at his baseline, transfuse for hemoglobin less than 7 Pancytopenia, chronic -Continue to monitor labs DVT prophylaxis: SCDs Discharge Planning Continue to monitor in the medical floor. Problem Qualifiers (1) Diabetes: Qualified Codes: E11.9 - Type 2 diabetes mellitus without complications; Z79.4 - rodent exterminator (current) use of insulin (2) HTN (hypertension): Qualified Codes: I10 - Essential (primary) hypertension Olu Foreman MD December 31, 2017 11:56
[2017-12-31 12:00] VITALS: BP 128/71; PULSE 73; RESP 16; TEMP 98.3; O2SAT 94
[2017-12-31 16:00] VITALS: BP 134/77; PULSE 72; RESP 16; TEMP 99.2; O2SAT 93
[2017-12-31 20:00] VITALS: BP 149/85; PULSE 80; RESP 18; TEMP 100.5; O2SAT 92
[2018-01-01] VITALS: BP 151/84; PULSE 74; RESP 18; TEMP 99; O2SAT 91
[2018-01-01 08:00] VITALS: BP 148/86; PULSE 82; RESP 16; TEMP 100.2; O2SAT 93
[2018-01-01] MEDS: INSULIN ASPART SUPPLEMENTAL SCALE SQ SCH ×4 (08:00→19:48)
[2018-01-01] MEDS: SODIUM CHLORIDE 0.9% FLUSH 10 ML FLUSH IV FLUSH SCH ×2 (09:00→19:48)
[2018-01-01] MEDS: CEFTAROLINE INJ 600 MG in SODIUM CHLORIDE 0.9% INJ 100 ML IV SCH ×2 (10:14→19:48)
[2018-01-01] MEDS: POLYETHYLENE GLYCOL 17 GM PKG PO SCH (10:14)
[2018-01-01] MEDS: THIAMINE HCL 100 MG TAB PO SCH (10:15)
[2018-01-01] MEDS: FOLIC ACID 1 MG TAB PO SCH (10:15)
[2018-01-01] MEDS: LISINOPRIL 20 MG TAB PO SCH (10:15)
[2018-01-01] MEDS: FUROSEMIDE 40 MG TAB PO SCH (10:15)
[2018-01-01] MEDS: CARVEDILOL 12.5 MG TAB PO SCH ×2 (10:15→19:48)
[2018-01-01 12:00] VITALS: BP 156/91; PULSE 85; RESP 18; TEMP 98.6; O2SAT 93
[2018-01-01 16:00] VITALS: BP 160/94; PULSE 82; RESP 17; TEMP 99.1; O2SAT 94
--- NOTE | 2018-01-01 17:09 | HHI.PR ---
Subjective Remarks Patient is having low-grade fevers with a T-max of 100.5. Denies chest pain, states felt shortness of breath this morning, however these has resolved. Denies diarrhea, nausea or abdominal pain. Oxygen saturation noted to be lower in the low 90s. Patient is on room air. Objective Vitals Vital Signs Date Time Temp Pulse Resp B/P (MAP) Pulse Ox O2 Delivery O2 Flow Rate FiO2 01/01/18 12:00 98.6 85 18 156/91 (112) 93 01/01/18 08:00 100.2 82 16 148/86 (106) 93 01/01/18 00:00 99.0 74 18 151/84 (106) 91 12/31/17 20:00 100.5 80 18 149/85 (106) 92 I/O 12/31/17 12/31/17 12/31/17 01/01/18 01/01/18 01/01/18 07:00 15:00 23:00 07:00 15:00 23:00 Intake Total 360 ml 800 ml Balance 360 ml 800 ml Intake Oral 360 ml 700 ml IV Total 100 ml # Voids 3 8 # Bowel Movements 0 2 Result Diagram: 12/31/17 0611 12/31/17 0611 Imaging Last Impressions Chest X-Ray 12/28/17 0000 Signed Impressions: Service Date/Time: Thursday, December 28, 2017 11:00 - CONCLUSION: Stable chest x-ray with moderate size right pleural effusion with associated consolidation and atelectasis in the right lower lobe. The prior chest CT on 12/23/2017 demonstrated imaging features suggesting empyema. Consider chest tube or surgical drainage. Tenzin Donato MD Chest CT 12/23/17 0000 Signed Impressions: Service Date/Time: Saturday, December 23, 2017 12:01 - CONCLUSION: 1. Increase in loculated air within the complex right pleural effusion since November 30. The overall size of the presumed right empyema is relatively stable. There is also now loculated air in the lower right lateral chest wall likely representing extension of the empyema into the soft tissues. Slight improvement in right basilar lung consolidation. 2. Resolution of previous left pleural effusion. 3. New right-sided posterior sixth rib fracture. Multiple remote healed rib fractures. Edis Wetzel MD Objective Remarks AAOx3 dullness to percussion and decreased breath sounds on RLL. No accessory muscle use. S1S2+ RRR Procedures none A/P Problem List: (1) Empyema lung ICD Code: J86.9 - Pyothorax without fistula Status: Acute (2) Diabetes ICD Code: E11.9 - Type 2 diabetes mellitus without complications Status: Chronic (3) HTN (hypertension) ICD Code: I10 - Essential (primary) hypertension Status: Chronic (4) Pancytopenia ICD Code: D61.818 - Other pancytopenia Status: Chronic Assessment and Plan 52-year-old man with Recurrent empyema/abscess CT results reviewed from [facility] shows suspicious for abscess in the right side -Appreciate input from cardio thoracic surgery, s/p wound VAC -Continue Teflaro IV per infectious disease specialist -CT chest reviewed and noted with persistent pulmonary infiltrates, for which pulmonary medicine has been consulted and patient is s/p bronchoscopy December 26, 2017 without signification secretions, erythema or lung lesion -Continue with bronchodilator as needed -CXR 12/26 with increase Pleural effusion and consolidation; however CXR was stable with moderate right pleural effusion with consolidation RLL - Persistent empyema - Will discuss with CT surgery regarding possible surgical intervention vs IR drainage. Discussed with Dr Orosco. Hypertension, chronic, currently controlled -Continue Coreg and Lasix, monitor vitals -Stable Diabetes, chronic, type II, controlled with no acute complications -Accu-Cheks and sliding scale insulin Normochromic normocytic anemia H&H stable and patient at his baseline, transfuse for hemoglobin less than 7 Pancytopenia, chronic -Continue to monitor labs DVT prophylaxis: SCDs Discharge Planning Continue to monitor in the medical floor. Problem Qualifiers (1) Diabetes: Qualified Codes: E11.9 - Type 2 diabetes mellitus without complications; Z79.4 - group home (current) use of insulin (2) HTN (hypertension): Qualified Codes: I10 - Essential (primary) hypertension Olu Foreman MD January 01, 2018 17:09
[2018-01-01 20:00] VITALS: BP 167/92; PULSE 84; RESP 16; TEMP 98.6; O2SAT 93
[2018-01-02] VITALS: BP 141/81; PULSE 83; RESP 18; TEMP 100.5; O2SAT 90
[2018-01-02 04:00] VITALS: TEMP 99.8
[2018-01-02] MEDS: CEFTAROLINE INJ 600 MG in SODIUM CHLORIDE 0.9% INJ 100 ML IV SCH ×2 (07:44→20:21)
[2018-01-02] MEDS: LISINOPRIL 20 MG TAB PO SCH (07:44)
[2018-01-02] MEDS: CARVEDILOL 12.5 MG TAB PO SCH ×2 (07:44→20:21)
[2018-01-02] MEDS: FOLIC ACID 1 MG TAB PO SCH (07:45)
[2018-01-02] MEDS: POLYETHYLENE GLYCOL 17 GM PKG PO SCH (07:45)
[2018-01-02] MEDS: FUROSEMIDE 40 MG TAB PO SCH (07:45)
[2018-01-02] MEDS: THIAMINE HCL 100 MG TAB PO SCH (07:45)
[2018-01-02] MEDS: SODIUM CHLORIDE 0.9% FLUSH 10 ML FLUSH IV FLUSH SCH ×2 (07:46→20:21)
[2018-01-02] MEDS: INSULIN ASPART SUPPLEMENTAL SCALE SQ SCH ×4 (07:54→20:24)
[2018-01-02 08:00] VITALS: BP 161/95; PULSE 76; RESP 17; TEMP 98; O2SAT 96
--- NOTE | 2018-01-02 09:09 | HHI.IDPN ---
Subjective Subjective Remarks Patient seen and examined on behalf of Dr. Orosco is a 52 y/o CM with PMHx of HTN, diabetes, H/O DVT and alcohol abuse who was recently admitted to [facility] on 11/18/17 with weakness. While hospitalized at [facility], patient was treated for alcohol withdrawal and sepsis secondary to pneumonia. Patient developed persistent right-sided pleural effusion underwent a thoracocentesis on 11/22 with 1400 cc of fluid removed with cultures positive for MRSA. He also had a urine culture positive for MRSA. Patient had echocardiogram done on 11/21 revealing preserved EF of 60 - 65%. Patient had a PICC line placed 11/22. Patient was treated with IV Vanco, Levaquin and IV Zyvox. Patient developed acute renal failure likely secondary to vancomycin. Blood cultures were negative. Patient was accepted as a transfer to [facility] by Dr. Pena for possible decortication of lung by cardiothoracic surgery. Patient was seen by CTS at [facility] and underwent decortication as well as drainage of right chest wall abscess. Patient post op had a wound vac to the right chest wall and also had a chest tube. Upon DC patient was supposed to have been on Wound vac for right chest wall abscess but unsure if he was on it. Patient seems to have been on Teflaro IV. Patient was on Vanco IV and had acute renal failure. Patient was on Zyvox and developed severe pancytopenia. Infectious disease has been consulted for evaluation and medical management of MRSA empyema and right chest wall abscess. Overnight events reviewed patient reports dyspnea has improved some no rash No fevers but reports night sweats no chest pain no N/V or abdominal pain No diarrhea no dysuria Tmax 100.5 s/p bronch 12/27, negative for malignant cells bronch cx negative Leukopenic, WBC 3.2 12/31 CXR 12/28 shows moderate sized right pleural effusion with associated consolidation and atelectasis in the right lower lobe Antibiotics Teflaro IV Current Medications Medications (Trade) Dose Ordered Sig/Bryan Route Start Time Stop Time Status Last Admin (NS Flush) 2 ml UNSCH PRN IV FLUSH 12/20/17 18:00 (NS Flush) 2 ml BID IV FLUSH 12/20/17 21:00 01/02/18 07:46 (Narcan Inj) 0.4 mg UNSCH PRN IV PUSH 12/20/17 18:00 (Coreg) 12.5 mg Q12HR PO 12/21/17 09:00 01/02/18 07:44 (Folate) 1 mg DAILY PO 12/21/17 09:00 01/02/18 07:45 (Lasix) 40 mg DAILY PO 12/21/17 09:00 01/02/18 07:45 (Prinivil) 20 mg DAILY PO 12/21/17 09:00 01/02/18 07:44 (Vitamin B1) 100 mg DAILY PO 12/21/17 09:00 01/02/18 07:45 (Roxicodone) 10 mg Q4H PRN PO 12/21/17 00:30 01/02/18 04:20 (Morphine Inj) 2 mg Q3H PRN IV PUSH 12/21/17 00:30 12/30/17 10:58 Ceftaroline Fosamil 600 mg/ Sodium Chloride 100 ml @ 100 mls/hr Q12H IV 12/21/17 09:00 01/02/18 22:00 01/02/18 07:44 (D50w (Vial) Inj) 50 ml UNSCH PRN IV PUSH 12/21/17 11:30 (Glucagon Inj) 1 mg UNSCH PRN OTHER 12/21/17 11:30 (NovoLOG SUPPLEMENTAL SCALE) 1 ACHS SLIDING SCALE SQ 12/21/17 12:00 01/01/18 19:48 (Benadryl) 25 mg Q6H PRN PO 12/24/17 17:30 12/24/17 22:48 (Miralax) 17 gm DAILY PO 12/28/17 09:00 01/02/18 07:45 Lines Line sites with no e.o infection Past Medical History reviewed (Summer Monreal) Allergies: Coded Allergies: No Known Allergies (Verified Allergy, Unknown, 11/29/17) Objective . Vital Signs Date Time Temp Pulse Resp B/P (MAP) Pulse Ox O2 Delivery O2 Flow Rate FiO2 01/02/18 04:00 99.8 01/02/18 04:00 99.8 01/02/18 00:00 100.5 83 18 141/81 (101) 90 01/01/18 20:00 98.6 84 16 167/92 (117) 93 01/01/18 16:00 99.1 82 17 160/94 (116) 94 01/01/18 12:00 98.6 85 18 156/91 (112) 93 Imaging Last Impressions Chest X-Ray 12/28/17 0000 Signed Impressions: Service Date/Time: Thursday, December 28, 2017 11:00 - CONCLUSION: Stable chest x-ray with moderate size right pleural effusion with associated consolidation and atelectasis in the right lower lobe. The prior chest CT on 12/23/2017 demonstrated imaging features suggesting empyema. Consider chest tube or surgical drainage. Tenzin Donato MD Chest CT 12/23/17 0000 Signed Impressions: Service Date/Time: Saturday, December 23, 2017 12:01 - CONCLUSION: 1. Increase in loculated air within the complex right pleural effusion since November 30. The overall size of the presumed right empyema is relatively stable. There is also now loculated air in the lower right lateral chest wall likely representing extension of the empyema into the soft tissues. Slight improvement in right basilar lung consolidation. 2. Resolution of previous left pleural effusion. 3. New right-sided posterior sixth rib fracture. Multiple remote healed rib fractures. Edis Wetzel MD Physical Exam GENERAL: This is a well-nourished, well-developed male patient, in no apparent distress. Awake and alert. Sitting up in bedside chair. Appears comfortable on room air. SKIN: Warm and dry. No generalized rash. Bilateral lower extremity venous stasis changes noted. HEAD: Atraumatic. Normocephalic. No temporal or scalp tenderness. EYES: Pupils equal round and reactive. Extraocular motions intact. No scleral icterus. No injection or drainage. ENT: Nose without bleeding or purulent drainage. Airway patent. MMM. No oral lesions noted. NECK: Trachea midline. CARDIOVASCULAR: Regular rate and rhythm. RESPIRATORY: Decreased AE in Right base. Right chest wall with surgical scar and surrounding edema, no active drainage, no surrounding erythema or warmth appreciated GASTROINTESTINAL: Abdomen soft, non-tender, nondistended. MUSCULOSKELETAL: Extremities without clubbing or cyanosis. Chronic BLE pitting edema noted. No calf tenderness. Bilateral calves supple. NEUROLOGICAL: Awake and alert. Able to move all extremities. Motor and sensory grossly intact. Non focal exam. Normal speech. PSYCHIATRIC: Appropriate mood and affect. Calm and cooperative. IV line sites with no e.o infection (Summer Monreal) Assessment & Plan Remarks Assessment: Right side MRSA empyema Right MRSA chest wall abscess -persistent loculated effusion -persistent fevers, Tmax 100.5 Acute renal failure from vanco IV Acute pancytopenia from Linezolid(Zyvox) Alcoholism, aspiration risk. PICC line in place. Leukopenia, stable Anemia, stable Recommendations: Continue Teflaro IV for above reasons. Persistent loculated effusion, IR guided aspiration ordered, will follow up on fluid study results Obtain Blood cultures x 2 from PICC Doppler US RUE r/o DVT Follow up on blood culture results Follow clinically (Summer Monreal) Remarks The exam, history, and the medical decision-making described in the above note were completed with the assistance of the mid-level provider. I reviewed and agree with the findings presented. I attest that I had a [id number] encounter with the patient on the same day, and personally performed and documented my assessment and findings in the medical record. Continue Teflaro IV Dw CTS team: they recommend IR guided CT placement dw Radiology who recommend putting large bore CT placement. New fevers: Blood culture: periphery and PICC. Doppler UE PICC side. Follow cultures Follow clinically. (Donna Orosco MD) Summer Monreal January 02, 2018 09:09 Donna Orosco MD January 02, 2018 17:12
--- NOTE | 2018-01-02 10:45 | RADRPT ---
EXAM DATE/TIME: 01/02/2018 00:00 [facility] COMPARISON: No previous studies available for comparison. INDICATIONS : Right pleural effusion. CONSULTATION: I have been asked to place the chest and empyema right lung and pleural space. This is enlarged comp licated septated fluid collection in both the lung and pleural space. Patient would up be better served by a large-bore chest tube, [id number]. Thank you for this consultation. The findings have been discussed [facility]. Kike Valdez MD FACR on January 02, 2018 at 10:40 Board Certified Radiologist. This report was verified electronically.
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
[2018-01-02 12:00] VITALS: BP 142/78; PULSE 68; RESP 16; TEMP 100.6; O2SAT 96
[2018-01-02 14:11] LABS: TOTAL PROTEIN 7.4 GM/DL (6.4-8.2)
[2018-01-02 16:00] VITALS: BP 159/86; PULSE 70; RESP 17; TEMP 99.7; O2SAT 96
[2018-01-02] MEDS: HEPARIN-D5W 25,000 U/250 ML 250 ML IV PRN (18:31)
[2018-01-02 18:33] LABS: HEMATOCRIT 22.7 % (39.0-51.0); HEMOGLOBIN 7.6 GM/DL (13.0-17.0); MEAN CELL VOLUME 91.1 FL (80.0-100.0); MEAN CORPUSCULAR HEMOGLOBIN 30.4 PG (27.0-34.0); MEAN CORPUSCULAR HGB CONC 33.4 % (32.0-36.0); MEAN PLATELET VOLUME 8.4 FL (7.0-11.0); PLATELET COUNT 94 TH/MM3 (150-450); RED BLOOD COUNT 2.49 MIL/MM3 (4.50-5.90); RED CELL DISTRIBUTION WIDTH 17.3 % (11.6-17.2)
--- NOTE | 2018-01-02 18:39 | HHI.PR ---
Subjective Remarks Denies cp/sob. Having low grade fevers reported night sweats denies n/v or diarrhea Objective Vitals Vital Signs Date Time Temp Pulse Resp B/P (MAP) Pulse Ox O2 Delivery O2 Flow Rate FiO2 01/02/18 12:10 16 01/02/18 12:00 100.6 68 16 142/78 (99) 96 01/02/18 08:00 98.0 76 17 161/95 (117) 96 01/02/18 04:00 99.8 01/02/18 04:00 99.8 01/02/18 00:00 100.5 83 18 141/81 (101) 90 01/01/18 20:00 98.6 84 16 167/92 (117) 93 I/O 01/01/18 01/01/18 01/01/18 01/02/18 01/02/18 01/02/18 07:00 15:00 23:00 07:00 15:00 23:00 Intake Total 460 ml Balance 460 ml Intake Oral 360 ml IV Total 100 ml # Voids 8 # Bowel Movements 1 Result Diagram: 01/02/18 1810 12/31/17 0611 Imaging Last 72 hours Impressions Upper Extremity Ultrasound 01/02/18 0000 Signed Impressions: Service Date/Time: Tuesday, January 02, 2018 09:35 - CONCLUSION: Acute appearing occlusive thrombus in the right axillary and upper basilic vein. Tenzin Magdaleno MD Objective Remarks AAOx3 dullness to percussion and decreased breath sounds on RLL. No accessory muscle use. S1S2+ RRR Procedures none A/P Problem List: (1) Empyema lung ICD Code: J86.9 - Pyothorax without fistula Status: Acute (2) Diabetes ICD Code: E11.9 - Type 2 diabetes mellitus without complications Status: Chronic (3) HTN (hypertension) ICD Code: I10 - Essential (primary) hypertension Status: Chronic (4) Pancytopenia ICD Code: D61.818 - Other pancytopenia Status: Chronic Assessment and Plan 52-year-old man with Recurrent empyema/abs[facility] suspicious for abscess in the right side -Appreciate input from cardio thoracic surgery, s/p wound VAC -Continue Teflaro IV per infectious disease specialist -CT chest reviewed and noted with persistent pulmonary infiltrates, for which pulmonary medicine has been consulted and patient is s/p bronchoscopy December 26, 2017 without signification secretions, erythema or lung lesion -Continue with bronchodilator as needed -CXR 12/26 with increase Pleural effusion and consolidation; however CXR was stable with moderate right pleural effusion with consolidation RLL - Persistent empyema - Will discuss with CT surgery regarding possible surgical intervention vs IR drainage. Discussed with Dr Orosco. - Dw CTS recommends IR CT. IR recommends large bore CT. Hypertension, chronic, currently controlled -Continue Coreg and Lasix, monitor vitals -Stable Diabetes, chronic, type II, controlled with no acute complications -Accu-Cheks and sliding scale insulin Normochromic normocytic anemia H&H stable and patient at his baseline, transfuse for hemoglobin less than 7 Pancytopenia, chronic -Continue to monitor labs DVT right axillary and upper bassilic vein -Remove PICC line from right arm. Start Iv heparin drip. DVT prophylaxis: SCDs Discharge Planning Continue to monitor in the medical floor. Problem Qualifiers (1) Diabetes: Qualified Codes: E11.9 - Type 2 diabetes mellitus without complications; Z79.4 - prison (current) use of insulin (2) HTN (hypertension): Qualified Codes: I10 - Essential (primary) hypertension Olu Foreman MD January 02, 2018 18:39
[2018-01-02 18:46] LABS: INTERNATIONAL NORMALIZED RATIO 1.3 RATIO; PROTHROMBIN TIME - PATIENT 13.3 SEC (9.8-11.6)
[2018-01-02 20:00] VITALS: BP 156/86; PULSE 85; RESP 17; TEMP 99.2; O2SAT 94
--- NOTE | 2018-01-02 20:08 | HHI.PR ---
Subjective Remarks 52 YOWM with MRSA empyema, s/p Decortication, rt lung infilt and eff Chest wound to VAC no Fever no CP No SOB Had bronch, no sig secretions, erythema or lung lesion AFB, Fungal cultures pending CXr showes mod rt pl eff On RA, ambulates Objective Vital Signs Vital Signs Date Time Temp Pulse Resp B/P (MAP) Pulse Ox O2 Delivery O2 Flow Rate FiO2 01/02/18 16:00 99.7 70 17 159/86 (110) 96 01/02/18 12:10 16 01/02/18 12:00 100.6 68 16 142/78 (99) 96 01/02/18 08:00 98.0 76 17 161/95 (117) 96 01/02/18 04:00 99.8 01/02/18 04:00 99.8 01/02/18 00:00 100.5 83 18 141/81 (101) 90 I/O 01/01/18 01/01/18 01/01/18 01/02/18 01/02/18 01/02/18 07:00 15:00 23:00 07:00 15:00 23:00 Intake Total 460 ml 1440 ml Balance 460 ml 1440 ml Intake Oral 360 ml 1440 ml IV Total 100 ml # Voids 8 9 # Bowel Movements 1 1 Result Diagram: 01/02/18 1810 12/31/17 0611 Objective Remarks GENERAL: WBWN WM,NAD SKIN: Warm and dry. HEAD: Normocephalic. EYES: No scleral icterus. No injection or drainage. NECK: Supple, trachea midline. No JVD or lymphadenopathy. CARDIOVASCULAR: Regular rate and rhythm without murmurs, gallops, or rubs. RESPIRATORY: Breath sounds equal bilaterally. No accessory muscle use. Decreased BS rt Rt chest wound to VAC GASTROINTESTINAL: Abdomen soft, non-tender, nondistended. MUSCULOSKELETAL: No cyanosis, or edema. BACK: Nontender without obvious deformity. No CVA tenderness. A/P Assessment and Plan IMPRESSION: 1. Persistent right lower lobe infiltrate with effusion. 2. 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 3. Hypertension. 4. Diabetes mellitus. 5. Alcohol abuse. PLAN: Cont Abx per ID Check bronch results DW RN Looks comfortable, non toxic Stable from pulm standpoint IR Cosulted for TC Zhao Ortega MD January 02, 2018 20:08
[2018-01-03] VITALS (7 sets, daily range): BP systolic 121–148; BP diastolic 7–86; PULSE 67–85; RESP 16–20; TEMP 97.8–99.8; O2SAT 92–97
[2018-01-03] MEDS: HEPARIN-D5W 25,000 U/250 ML 250 ML IV PRN ×2 (06:10→23:00)
[2018-01-03] MEDS: INSULIN ASPART SUPPLEMENTAL SCALE SQ SCH ×4 (08:00→20:29)
[2018-01-03] MEDS: THIAMINE HCL 100 MG TAB PO SCH (09:00)
[2018-01-03] MEDS: CARVEDILOL 12.5 MG TAB PO SCH ×2 (11:08→20:27)
[2018-01-03] MEDS: FOLIC ACID 1 MG TAB PO SCH (11:09)
[2018-01-03] MEDS: POLYETHYLENE GLYCOL 17 GM PKG PO SCH (11:09)
[2018-01-03] MEDS: FUROSEMIDE 40 MG TAB PO SCH (11:09)
[2018-01-03] MEDS: LISINOPRIL 20 MG TAB PO SCH (11:09)
[2018-01-03] MEDS ORDERED: IOHEXOL 350 MG/ML 10 ML VIAL (for RAD DIAG) IVCONTRAST ONE (13:09)
--- NOTE | 2018-01-03 13:33 | RADRPT ---
EXAM DATE/TIME: 01/03/2018 12:57 [facility] COMPARISON: CT THORAX W/O CONTRAST, December 23, 2017, 12:01. INDICATIONS : Shortness of breath. IV CONTRAST: 72 cc Omnipaque 350 (iohexol) IV RADIATION DOSE: 22.68 CTDIvol (mGy) MEDICAL HISTORY : Cardiovascular disease. Hypertension. SURGICAL HISTORY : None. ENCOUNTER: Subsequent ACUITY: 1 month PAIN SCALE: 0/10 LOCATION: chest TECHNIQUE: Volumetric scanning of the chest was performed using a pulmonary embolism protocol MIP images were re constructed. Using automated exposure control and adjustment of the mA and/or kV according to patien t size, radiation dose was kept as low as reasonably achievable to obtain optimal diagnostic quality images. DICOM format image data is available electronically for review and comparison. Follow-up recommendations for detected pulmonary nodules are based at a minimum on nodule size and pa tient risk factors according to Fleischner Society Guidelines. FINDINGS: PULMONARY ARTERIES: No filling defects are seen in the pulmonary arteries through the segmental level. LUNGS: Developing multiple hazy densities in both hemithoraces, most prominent in the left upper lung. Findi ngs are concerning for septic emboli. PLEURAE: Large, right complex empyema with both air and fluid is definitely no smaller and may actually be sli ghtly larger when compared to the prior. Developing left-sided effusion. MEDIASTINUM: There is good visualization of the great vessels of the middle mediastinum. No evidence of mediastin al or hilar adenopathy/mass. Some atherosclerotic calcification of the coronary arteries MUSCULOSKELETAL: Within normal limits for patient age. MISCELLANEOUS: The visualized upper abdominal organs demonstrate no acute abnormality. However, the liver is somewha t small and nodular suggesting some degree of cirrhosis. There is also splenomegaly with spleen measu ring 17.7 cm in the greatest AP dimension CONCLUSION: 1. Developing hazy densities in both hemithoraces, most prominent in the left upper lung. Appearance is concerning for developing septic emboli. 2. Right-sided complex empyema with air and fluid is definitely no smaller and may actually be slight ly larger when compared to prior. Developing left-sided effusion. 3. No filling defects within the pulmonary arteries to suggest large pulmonary emboli. 4. CT findings suggesting some degree of cirrhosis and portal hypertension with a small, nodular live r and splenomegaly. Sven Flaherty MD on January 03, 2018 at 13:18 Board Certified Radiologist. This report was verified electronically.
[2018-01-03] MEDS ORDERED: Vancomycin Consult Pharmacy 1 EA OTHER SCH (14:15)
--- NOTE | 2018-01-03 14:17 | HHI.IDPN ---
Subjective Subjective Remarks is a 52 y/o CM with PMHx of HTN, diabetes, H/O DVT and alcohol abuse who was recently admitted to [facility] on 11/18/17 with weakness. While hospitalized at [facility], patient was treated for alcohol withdrawal and sepsis secondary to pneumonia. Patient developed persistent right-sided pleural effusion underwent a thoracocentesis on 11/22 with 1400 cc of fluid removed with cultures positive for MRSA. He also had a urine culture positive for MRSA. Patient had echocardiogram done on 11/21 revealing preserved EF of 60 - 65%. Patient had a PICC line placed 11/22. Patient was treated with IV Vanco, Levaquin and IV Zyvox. Patient developed acute renal failure likely secondary to vancomycin. Blood cultures were negative. Patient was accepted as a transfer to [facility] by Dr. Pena for possible decortication of lung by cardiothoracic surgery. Patient was seen by CTS at [facility] and underwent decortication as well as drainage of right chest wall abscess. Patient post op had a wound vac to the right chest wall and also had a chest tube. Upon DC patient was supposed to have been on Wound vac for right chest wall abscess but unsure if he was on it. Patient seems to have been on Teflaro IV. Patient was on Vanco IV and had acute renal failure. Patient was on Zyvox and developed severe pancytopenia. Infectious disease has been consulted for evaluation and medical management of MRSA empyema and right chest wall abscess. Delayed entry patient seen at ~10:30 am Overnight events reviewed patient reports dyspnea worse today. Tearful wants to get better. Reassured him that we will get CT Chest to reassess his lungs. no rash Fevers low grade. no chest pain no N/V or abdominal pain No diarrhea no dysuria Antibiotics Teflaro IV Lines Line sites with no e.o infection Past Medical History reviewed Allergies: Coded Allergies: No Known Allergies (Verified Allergy, Unknown, 11/29/17) Objective . Vital Signs Date Time Temp Pulse Resp B/P (MAP) Pulse Ox O2 Delivery O2 Flow Rate FiO2 01/03/18 12:00 98.0 67 16 121/79 (93) 95 01/03/18 08:00 98.1 72 17 148/79 (102) 93 01/03/18 00:00 99.8 74 17 148/86 (106) 92 01/02/18 21:21 18 01/02/18 20:00 99.2 85 17 156/86 (109) 94 01/02/18 16:00 99.7 70 17 159/86 (110) 96 . Laboratory Tests Test 01/02/18 18:10 White Blood Count 3.0 TH/MM3 Red Blood Count 2.49 MIL/MM3 Hemoglobin 7.6 GM/DL Hematocrit 22.7 % Mean Corpuscular Volume 91.1 FL Mean Corpuscular Hemoglobin 30.4 PG Mean Corpuscular Hemoglobin Concent 33.4 % Red Cell Distribution Width 17.3 % Platelet Count 94 TH/MM3 Mean Platelet Volume 8.4 FL Laboratory Tests Test 01/02/18 13:25 Lactate Dehydrogenase 178 U/L Total Protein 7.4 GM/DL Microbiology Date/Time Source Procedure Growth Status 01/02/18 13:25 Blood Line Aerobic Blood Culture - Preliminary NO GROWTH IN 1 DAY Resulted 01/02/18 13:25 Blood Line Anaerobic Blood Culture - Preliminary NO GROWTH IN 1 DAY Resulted 01/02/18 13:25 Blood Line Aerobic Blood Culture - Preliminary NO GROWTH IN 1 DAY Resulted 01/02/18 13:25 Blood Line Anaerobic Blood Culture - Preliminary NO GROWTH IN 1 DAY Resulted Imaging Last Impressions Chest X-Ray 12/28/17 0000 Signed Impressions: Service Date/Time: Thursday, December 28, 2017 11:00 - CONCLUSION: Stable chest x-ray with moderate size right pleural effusion with associated consolidation and atelectasis in the right lower lobe. The prior chest CT on 12/23/2017 demonstrated imaging features suggesting empyema. Consider chest tube or surgical drainage. Tenzin Donato MD Chest CT 12/23/17 0000 Signed Impressions: Service Date/Time: Saturday, December 23, 2017 12:01 - CONCLUSION: 1. Increase in loculated air within the complex right pleural effusion since November 30. The overall size of the presumed right empyema is relatively stable. There is also now loculated air in the lower right lateral chest wall likely representing extension of the empyema into the soft tissues. Slight improvement in right basilar lung consolidation. 2. Resolution of previous left pleural effusion. 3. New right-sided posterior sixth rib fracture. Multiple remote healed rib fractures. Edis Wetzel MD Physical Exam GENERAL: This is a well-nourished, well-developed male patient, in no apparent distress. Awake and alert. Sitting up in bedside chair. Appears comfortable on room air. SKIN: Warm and dry. No generalized rash. Bilateral lower extremity venous stasis changes noted. HEAD: Atraumatic. Normocephalic. No temporal or scalp tenderness. EYES: Pupils equal round and reactive. Extraocular motions intact. No scleral icterus. No injection or drainage. ENT: Nose without bleeding or purulent drainage. Airway patent. MMM. No oral lesions noted. NECK: Trachea midline. CARDIOVASCULAR: Regular rate and rhythm. RESPIRATORY: Decreased AE in Right base. Right chest wall with surgical scar and surrounding edema, no active drainage, no surrounding erythema or warmth appreciated GASTROINTESTINAL: Abdomen soft, non-tender, nondistended. MUSCULOSKELETAL: Extremities without clubbing or cyanosis. Chronic BLE pitting edema noted. No calf tenderness. Bilateral calves supple. NEUROLOGICAL: Awake and alert. Able to move all extremities. Motor and sensory grossly intact. Non focal exam. Normal speech. PSYCHIATRIC: Appropriate mood and affect. Calm and cooperative. IV line sites with no e.o infection Assessment & Plan Remarks Right side MRSA empyema post pneumonia. Empyema Necessitans s/p wound vac for chest wall abscess on right side. Right MRSA chest wall abscess Concern for endocarditis. Due to ongoing infection it is possible the valve(s) may have seeded. Thrombocytopenia from Teflaro or sepsis. Alcoholism, aspiration risk. PICC removed. DVT Right UE. Recs DC Teflaro IV Start Cefepime IV stat Start Vanco IV (target 15-20) stat Start Micafungin IV 2D ECHO urgent. Follow cultures Follow clinically. dylon Myles: concern adequate source control not achieved and may be a source of ongoing seeding to distant sites such as valves. Concern for endocarditis.d dylon CTS: new onset fevers, SOB. CTA ordered. Left message for to call me to discuss case further. called me back at 2:45 PM we reviewed the findings of CT chest and my concern for seeding due to source control issues. He will take patient to the surgery. 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 Donna Orosco MD January 03, 2018 14:17
[2018-01-03] MEDS ORDERED: SODIUM CHLORIDE 0.9% FLUSH 10 ML FLUSH IV FLUSH PRN (14:45)
[2018-01-03] MEDS ORDERED: ceFAZolin 2 GM PREMIX 50 ML IV SCH (14:45)
[2018-01-03] MEDS ORDERED: CEFAZOLIN INJ 500 MG in SODIUM CHLORIDE 0.9% IRR BTL 500 ML IRRIGATION SCH (14:45)
[2018-01-03] MEDS ORDERED: FUROSEMIDE 20 MG/2 ML VIAL IV PUSH SCH (15:00)
--- NOTE | 2018-01-03 15:47 | HHI.PR ---
Subjective Remarks Patient c/o of sob and chest pain which starts in the lower right back and shoots to the shoulder blades. Pain is episodic and 8/10 when present. No fevers today Objective Vitals Vital Signs Date Time Temp Pulse Resp B/P (MAP) Pulse Ox O2 Delivery O2 Flow Rate FiO2 01/03/18 12:00 98.0 67 16 121/79 (93) 95 01/03/18 08:00 98.1 72 17 148/79 (102) 93 01/03/18 00:00 99.8 74 17 148/86 (106) 92 01/02/18 21:21 18 01/02/18 20:00 99.2 85 17 156/86 (109) 94 01/02/18 16:00 99.7 70 17 159/86 (110) 96 I/O 01/02/18 01/02/18 01/02/18 01/03/18 01/03/18 01/03/18 07:00 15:00 23:00 07:00 15:00 23:00 Intake Total 1540 ml 490 ml Balance 1540 ml 490 ml Intake Oral 1440 ml 240 ml IV Total 100 ml 250 ml # Voids 9 4 # Bowel Movements 1 0 Result Diagram: 01/02/18 1810 12/31/17 0611 Imaging Last [address] Angiography 01/03/18 0000 Signed Impressions: Service Date/Time: Wednesday, January 03, 2018 12:57 - CONCLUSION: 1. Developing hazy densities in both hemithoraces, most prominent in the left upper lung. Appearance is concerning for developing septic emboli. 2. Right-sided complex empyema with air and fluid is definitely no smaller and may actually be slightly larger when compared to prior. Developing left-sided effusion. 3. No filling defects within the pulmonary arteries to suggest large pulmonary emboli. 4. CT findings suggesting some degree of cirrhosis and portal hypertension with a small, nodular liver and splenomegaly. Sven Flaherty MD Upper Extremity Ultrasound 01/02/18 0000 Signed Impressions: Service Date/Time: Tuesday, January 02, 2018 09:35 - CONCLUSION: Acute appearing occlusive thrombus in the right axillary and upper basilic vein. Tenzin Magdaleno MD Objective Remarks AAOx3 dullness to percussion and decreased breath sounds on RLL. No accessory muscle use. S1S2+ RRR Procedures none A/P Problem List: (1) Empyema lung ICD Code: J86.9 - Pyothorax without fistula Status: Acute (2) Diabetes ICD Code: E11.9 - Type 2 diabetes mellitus without complications Status: Chronic (3) HTN (hypertension) ICD Code: I10 - Essential (primary) hypertension Status: Chronic (4) Pancytopenia ICD Code: D61.818 - Other pancytopenia Status: Chronic Assessment and Plan 52-year-old man with Recurrent empyema/abscess CT results reviewed from [facility] shows suspicious for abscess in the right side -Appreciate input from cardio thoracic surgery, s/p wound VAC -Continue Teflaro IV per infectious disease specialist -CT chest reviewed and noted with persistent pulmonary infiltrates, for which pulmonary medicine has been consulted and patient is s/p bronchoscopy December 26, 2017 without signification secretions, erythema or lung lesion -Continue with bronchodilator as needed -CXR 12/26 with increase Pleural effusion and consolidation; however CXR was stable with moderate right pleural effusion with consolidation RLL - Persistent empyema - Will discuss with CT surgery regarding possible surgical intervention vs IR drainage. Discussed with Dr Orosco. - Dw CTS recommends IR CT. IR recommends large bore CT. 01/03 is not complaining of worsening chest pain and shortness of breath today. I ordered a CT pulmonary angiogram given recent diagnosis of DVT in the right axillary vein. CT of the chest reviewed by me shows developing hazy densities in both hemithoraces most prominent in the left upper lung. Appearance concerning for developing septic emboli as per radiology report. Right-sided complex empyema with air and fluid is definitely not smaller and may be slightly larger when compared to prior. Developing left-sided effusion. No PE. CT findings suggestive of some degree of cirrhosis and portal hypertension with a small, nodular liver and splenomegaly. I will order abdominal ultrasound to better assess his findings. I will start the patient on oral diuretics given the development of the right pleural effusion. The case was discussed in depth with Dr. Orosco and also with cardiothoracic surgery. Cardiothoracic surgery will place chest up in a.m. Keep n.p.o. at midnight. Hypertension, chronic, currently controlle -Continue Coreg and Lasix, monitor vitals -Stable Diabetes, chronic, type II, controlled with no acute complications -Accu-Cheks and sliding scale insulin Normochromic normocytic anemia H&H stable and patient at his baseline, transfuse for hemoglobin less than 7 5/8 given that the patient is going to undergo surgery in a.m. Transfuse 2 units of packed red blood cells. Will type and cross in a.m. for 2 units to have ready for surgery. Pancytopenia, chronic -Continue to monitor labs DVT right axillary and upper bassilic vein -PICC line removed. Continue heparin drip. DVT prophylaxis: SCDs Discharge Planning Continue to monitor in the medical floor. Problem Qualifiers (1) Diabetes: Qualified Codes: E11.9 - Type 2 diabetes mellitus without complications; Z79.4 - retirement (current) use of insulin (2) HTN (hypertension): Qualified Codes: I10 - Essential (primary) hypertension Olu Foreman MD January 03, 2018 15:47
[2018-01-03] MEDS ORDERED: CHLORHEXIDINE GLUCONATE 4% SOLN 120 ML BTL TOPICAL SCH (16:00)
[2018-01-03] MEDS ORDERED: VANCOMYCIN INJ 1,750 MG in SODIUM CHLORID 0.9% 500 ML INJ 500 ML IV SCH (16:00)
[2018-01-03] MEDS: MICAFUNGIN INJ 150 MG in SODIUM CHLORIDE 0.9% INJ 100 ML IV SCH (16:16)
[2018-01-03] MEDS ORDERED: CEFEPIME INJ 2,000 MG in SODIUM CHLORIDE 0.9% INJ 100 ML IV SCH (17:00)
[2018-01-03] MEDS: FUROSEMIDE 40 MG/4 ML VIAL IV PUSH SCH (17:40)
[2018-01-03 17:48] LABS: INTERNATIONAL NORMALIZED RATIO 1.3 RATIO; PROTHROMBIN TIME - PATIENT 13.4 SEC (9.8-11.6)
[2018-01-03] MEDS: SODIUM CHLORIDE 0.9% FLUSH 10 ML FLUSH IV FLUSH SCH ×3 (17:50→21:00)
--- NOTE | 2018-01-03 20:18 | HHI.PR ---
Subjective Remarks 52 YOWM with MRSA empyema, s/p Decortication, rt lung infilt and eff Chest wound to VAC no Fever no CP No SOB Had bronch, no sig secretions, erythema or lung lesion CT chest noted CTS planning for surgery in AM Objective Vital Signs Vital Signs Date Time Temp Pulse Resp B/P (MAP) Pulse Ox O2 Delivery O2 Flow Rate FiO2 01/03/18 16:00 97.9 72 18 123/82 (96) 93 01/03/18 12:00 98.0 67 16 121/79 (93) 95 01/03/18 08:00 98.1 72 17 148/79 (102) 93 01/03/18 00:00 99.8 74 17 148/86 (106) 92 01/02/18 21:21 18 I/O 01/02/18 01/02/18 01/02/18 01/03/18 01/03/18 01/03/18 07:00 15:00 23:00 07:00 15:00 23:00 Intake Total 1540 ml 490 ml 1440 ml Balance 1540 ml 490 ml 1440 ml Intake Oral 1440 ml 240 ml 1440 ml IV Total 100 ml 250 ml # Voids 9 4 4 # Bowel Movements 1 0 2 Result Diagram: 01/02/18 1810 12/31/17 0611 Objective Remarks GENERAL: WBWN WM,NAD SKIN: Warm and dry. HEAD: Normocephalic. EYES: No scleral icterus. No injection or drainage. NECK: Supple, trachea midline. No JVD or lymphadenopathy. CARDIOVASCULAR: Regular rate and rhythm without murmurs, gallops, or rubs. RESPIRATORY: Breath sounds equal bilaterally. No accessory muscle use. Decreased BS rt Rt chest wound to VAC GASTROINTESTINAL: Abdomen soft, non-tender, nondistended. MUSCULOSKELETAL: No cyanosis, or edema. BACK: Nontender without obvious deformity. No CVA tenderness. A/P Assessment and Plan IMPRESSION: 1. Persistent right lower lobe infiltrate with effusion. 2. 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 3. Hypertension. 4. Diabetes mellitus. 5. Alcohol abuse. PLAN: Cont Abx per ID Check bronch results DW RN Looks comfortable, non toxic Stable from pulm standpoint For OR in AM Zhao Ortega MD January 03, 2018 20:18
--- NOTE | 2018-01-03 20:23 | ECHRPT ---
Indication: Acute and subacute endocarditis, unspecified CONCLUSIONS The left ventricular systolic function is normal with an estimated ejection fraction in the range of 60-65%. Left ventricular diastolic function parameters are normal. There was limited left ventricular wall motion assessment due to poor endocardial visualization. Wall thickness is measured at the upper limits of normal. [id number] mitral valve regurgitation. There is mild tricuspid valve regurgitation. BP: / HR: Rhythm: Sinus MEASUREMENTS (Male / Female) Normal Values Technical Quality:Good 2D ECHO LV Diastolic Diameter PLAX 5.7 cm 4.2 - 5.9 / 3.9 - 5.3 cm LV Systolic Diameter PLAX 4.2 cm IVS Diastolic Thickness 1.1 cm 0.6 - 1.0 / 0.6 - 0.9 cm LVPW Diastolic Thickness 1.1 cm 0.6 - 1.0 / 0.6 - 0.9 cm LV Relative Wall Thickness 0.4 LVOT Diameter 2.3 cm M-MODE Aortic Root Diameter MM 3.8 cm LA Systolic Diameter MM 4.5 cm LA Ao Ratio MM 1.2 AV Cusp Separation MM 2.3 cm DOPPLER AV Peak Velocity 132.0 cm/s AV Peak Gradient 7.0 mmHg LVOT Peak Velocity 87.4 cm/s LVOT Peak Gradient 3.1 mmHg AV Area Cont Eq pk 2.8 cm MR Peak Velocity 231.0 cm/s MR Peak Gradient 21.3 mmHg Mitral E Point Velocity 98.2 cm/s Mitral A Point Velocity 56.3 cm/s Mitral E to A Ratio 1.7 LV E' Lateral Velocity 13.2 cm/s Mitral E to LV E' Lateral Ratio 7.4 LV E' Septal Velocity 7.1 cm/s Mitral E to LV E' Septal Ratio 13.8 TR Peak Velocity 248.0 cm/s TR Peak Gradient 24.6 mmHg Right Atrial Pressure 10.0 mmHg Pulmonary Artery Systolic Pressu 34.6 mmHg Right Ventricular Systolic Press 34.6 mmHg FINDINGS LEFT VENTRICLE The left ventricular systolic function is normal with an estimated ejection fraction in the range of 60-65%. Left ventricular diastolic function parameters are normal. There was limited left ventricular wall motion assessment due to poor endocardial visualization. Wall thickness is measured at the upper limits of normal. Normal left ventricular size. RIGHT VENTRICLE Normal right ventricular size and systolic function. LEFT ATRIUM The left atrial size is mildly dilated. RIGHT ATRIUM The right atrial size is normal. ATRIAL SEPTUM Normal atrial septal thickness AORTA The aortic root and proximal ascending aorta are normal in size on limited imaging. MITRAL VALVE Structurally normal mitral valve. No mitral valve stenosis. [id number] mitral valve regurgitation. AORTIC VALVE Grossly normal No aortic valve stenosis or regurgitation. TRICUSPID VALVE Grossly normal There is mild tricuspid valve regurgitation. The estimated pulmonary arterial pressure is 34.6 mmHg. PULMONARY VALVE No pulmonary valve regurgitation or stenosis. Charles Anthony DO (Electronically Signed) Final Date:03 Jan 2018 20:23
[2018-01-03 23:03] LABS: AUTOMATED NEUTROPHIL # 1.6 TH/MM3 (1.8-7.7); BASOPHIL % 1.2 % (0.0-2.0); EOSINOPHIL # 0.4 TH/MM3 (0-0.4); EOSINOPHIL % 12.7 % (0.0-4.0); HEMATOCRIT 23.6 % (39.0-51.0); LYMPH % 27.5 % (9.0-44.0); LYMPHOCYTE # 0.9 TH/MM3 (1.0-4.8); MEAN CELL VOLUME 88.9 FL (80.0-100.0); MEAN CORPUSCULAR HEMOGLOBIN 30.1 PG (27.0-34.0); MEAN CORPUSCULAR HGB CONC 33.8 % (32.0-36.0); MEAN PLATELET VOLUME 8.4 FL (7.0-11.0); MONO % 8.7 % (0.0-8.0); MONOCYTE # 0.3 TH/MM3 (0-0.9); NEUT % 49.9 % (16.0-70.0); PLATELET COUNT 120 TH/MM3 (150-450); RED BLOOD COUNT 2.66 MIL/MM3 (4.50-5.90); RED CELL DISTRIBUTION WIDTH 16.9 % (11.6-17.2); WHITE BLOOD COUNT 3.2 TH/MM3 (4.0-11.0)
[2018-01-03 23:34] LABS: AST (GOT) 18 U/L (15-37); BICARBONATE 24.9 MEQ/L (21.0-32.0); BLOOD UREA NITROGEN 13 MG/DL (7-18); CHLORIDE 102 MEQ/L (98-107); CREATININE 1.09 MG/DL (0.60-1.30); GLOMERULAR FILTRATION RATE 70 ML/MIN (>89); GLUCOSE,RANDOM 109 MG/DL (74-106); MAGNESIUM 1.8 MG/DL (1.5-2.5); SODIUM (NA) 137 MEQ/L (136-145)
[2018-01-03 23:36] LABS: ALT (GPT) 8 U/L (12-78); PHOSPHORUS 3.4 MG/DL (2.5-4.9)
[2018-01-03 23:37] LABS: ALKALINE PHOSPHATASE 76 U/L (45-117); TOTAL BILIRUBIN ADULT 0.5 MG/DL (0.2-1.0); TOTAL PROTEIN 7.4 GM/DL (6.4-8.2)
[2018-01-04] VITALS (11 sets, daily range): BP systolic 110–144; BP diastolic 66–85; PULSE 60–74; RESP 16–20; TEMP 97.2–98.9; O2SAT 91–97
[2018-01-04] MEDS ORDERED: CHLORHEXIDINE GLUCONATE 2 % 1 PACK (2 CLOTHS) TOPICAL PRN (01:30)
[2018-01-04] MEDS ORDERED: LACTATED RINGER'S 1000 ML IV PRN (01:30)
[2018-01-04] MEDS: CEFEPIME INJ 2,000 MG in SODIUM CHLORIDE 0.9% INJ 100 ML IV SCH ×3 (06:30→20:55)
[2018-01-04] MEDS ORDERED: VANCOMYCIN INJ 1,750 MG in SODIUM CHLORID 0.9% 500 ML INJ 500 ML IV SCH (07:00)
[2018-01-04 07:49] LABS: AUTOMATED NEUTROPHIL # 1.8 TH/MM3 (1.8-7.7); BASOPHIL # 0.1 TH/MM3 (0-0.2); BASOPHIL % 2.4 % (0.0-2.0); EOSINOPHIL # 0.5 TH/MM3 (0-0.4); EOSINOPHIL % 13.6 % (0.0-4.0); HEMOGLOBIN 9.3 GM/DL (13.0-17.0); MEAN CELL VOLUME 88.2 FL (80.0-100.0); MEAN CORPUSCULAR HEMOGLOBIN 30.5 PG (27.0-34.0); MEAN CORPUSCULAR HGB CONC 34.6 % (32.0-36.0); MEAN PLATELET VOLUME 8.7 FL (7.0-11.0); MONO % 8.7 % (0.0-8.0); MONOCYTE # 0.3 TH/MM3 (0-0.9); NEUT % 48.3 % (16.0-70.0); PLATELET COUNT 113 TH/MM3 (150-450); RED BLOOD COUNT 3.06 MIL/MM3 (4.50-5.90); RED CELL DISTRIBUTION WIDTH 16.2 % (11.6-17.2); WHITE BLOOD COUNT 3.7 TH/MM3 (4.0-11.0)
[2018-01-04] MEDS: INSULIN ASPART SUPPLEMENTAL SCALE SQ SCH ×4 (08:00→21:00)
[2018-01-04 08:14] LABS: AST (GOT) 13 U/L (15-37); BICARBONATE 24.9 MEQ/L (21.0-32.0); BLOOD UREA NITROGEN 13 MG/DL (7-18); CHLORIDE 102 MEQ/L (98-107); CREATININE 1.04 MG/DL (0.60-1.30); GLOMERULAR FILTRATION RATE 74 ML/MIN (>89); GLUCOSE,RANDOM 102 MG/DL (74-106); MAGNESIUM 1.8 MG/DL (1.5-2.5); SODIUM (NA) 136 MEQ/L (136-145)
[2018-01-04 08:15] LABS: ALT (GPT) 7 U/L (12-78); PHOSPHORUS 3.8 MG/DL (2.5-4.9)
[2018-01-04 08:17] LABS: ALKALINE PHOSPHATASE 73 U/L (45-117); TOTAL BILIRUBIN ADULT 0.9 MG/DL (0.2-1.0); TOTAL PROTEIN 7.4 GM/DL (6.4-8.2)
[2018-01-04] MEDS: SODIUM CHLORIDE 0.9% FLUSH 10 ML FLUSH IV FLUSH SCH ×3 (09:00→21:00)
[2018-01-04] MEDS: MORPHINE SULFATE 4 MG/ML INJ IV PUSH PRN ×3 (09:08→20:55)
[2018-01-04] MEDS: THIAMINE HCL 100 MG TAB PO SCH (09:08)
[2018-01-04] MEDS: CARVEDILOL 12.5 MG TAB PO SCH ×2 (09:09→20:56)
[2018-01-04] MEDS: LISINOPRIL 20 MG TAB PO SCH (09:09)
[2018-01-04] MEDS: FOLIC ACID 1 MG TAB PO SCH (09:10)
[2018-01-04] MEDS: POLYETHYLENE GLYCOL 17 GM PKG PO SCH (09:12)
[2018-01-04] MEDS: FUROSEMIDE 40 MG/4 ML VIAL IV PUSH SCH ×2 (09:16→17:38)
[2018-01-04] MEDS ORDERED: BUPIVACAINE LIPOSO PF 1.3% INJ 20 ML, DEXAMETHASONE INJ 4 MG, MORPHINE INJ 8 MG in SODI... IRRIGATION ONE (09:45)
[2018-01-04] MEDS ORDERED: ceFAZolin INJ 1,000 MG VIAL ONE (11:00)
[2018-01-04] MEDS ORDERED: DO NOT ADM ANY ANTICOAGULANT DRUGS PRN (11:53)
[2018-01-04] MEDS ORDERED: Post-op Orders (for Pharmacy) OTHER ONE (11:53)
[2018-01-04] MEDS ORDERED: MIDAZOLAM HCL 2 MG/2 ML VIAL ONE (11:59)
[2018-01-04] MEDS ORDERED: KETOROLAC TROMETHAMINE 30 MG/ML (IVP) VIAL IV PUSH ONE (12:00)
[2018-01-04] MEDS ORDERED: PHENYLEPH/NS 1000 MCG/10 ML SYR IV ONE (12:00)
[2018-01-04] MEDS ORDERED: DEXAMETHASONE SOD PHOS 4 MG/ML VIAL IV ONE (12:00)
[2018-01-04] MEDS ORDERED: NORMOSOL R INJ 1,000 ML IV ONE (12:00)
[2018-01-04] MEDS ORDERED: STERILE WATER FOR INJECTION 20 ML VIAL IV ONE (12:00)
[2018-01-04] MEDS ORDERED: LIDOCAINE HCL 1% PF 5 ML SYRINGE OTHER ONE (12:00)
[2018-01-04] MEDS ORDERED: ROCURONIUM INJ 50 MG/5 ML SYRINGE IV PUSH ONE (12:00)
[2018-01-04] MEDS ORDERED: GLYCOPYRROLATE 1 MG/5 ML SYRINGE IV PUSH ONE (12:00)
[2018-01-04] MEDS ORDERED: LACTATED RINGER'S 1000 ML INJ 1,000 ML IV ONE (12:00)
[2018-01-04] MEDS ORDERED: VECURONIUM BROMIDE 20 MG VIAL IV ONE (12:00)
[2018-01-04] MEDS ORDERED: NEOSTIGMINE 5 MG/5 ML SYRINGE IV PUSH ONE (12:00)
[2018-01-04] MEDS ORDERED: PROPOFOL 200 MG/20 ML AMP IV ONE (12:00)
[2018-01-04] MEDS ORDERED: ONDANSETRON HCL 4 MG/2 ML VIAL IV PUSH ONE (12:00)
[2018-01-04] MEDS ORDERED: *RESP: ALBUTEROL 2.5 MG/3 ML NEB (PRN) PERIprocedural Use ONLY NEB ONE (12:05)
--- NOTE | 2018-01-04 12:25 | RADRPT ---
EXAM DATE/TIME: 01/04/2018 13:07 [place] COMPARISON: CHEST SINGLE AP, December 28, 2017, 11:00. INDICATIONS : Post op, thoracotomy. MEDICAL HISTORY : Cardiovascular disease. Diabetes mellitus type II. Hypertension. SURGICAL HISTORY : None. ENCOUNTER: Initial ACUITY: 1 day PAIN SCORE: 0/10 LOCATION: Bilateral chest FINDINGS: Status post thoracotomy and right side. There is a right-sided chest tube in place. There is no evide nce of pneumothorax. There are bilateral scattered pulmonary infiltrates both lung lange. There is b lunting of both costophrenic angles suggestive of bilateral effusions. The heart size is enlarged but stable. The bony structures are stable. CONCLUSION: 1. Status post placement of a right-sided chest tube with no evidence of pneumothorax. 2. Scattered bilateral pulmonary infiltrates. Judd Lang MD on January 04, 2018 at 12:22 Board Certified Radiologist. This report was verified electronically.
--- NOTE | 2018-01-04 12:53 | PD.OP ---
cc: Adalgisa Biggs MD Operative Report Date of Surgery: January 04, 2018 Preoperative Diagnosis: Postoperative Diagnosis: Procedure: 1. Right Video-Assisted Thoracoscopic Surgery (VATS). 2. Drainage of Multiloculated Pleural Fluid 3. Incision and Open Drainage of Chest Wall Fluid Collection 4. Removal of Chest Wall Foreign Body 5. Chest Wall Wound Vac Placement Surgeon: Adalgisa Biggs Cable Coverer(s): Hermes Roberts Operation and Findings: PREOPERATIVE DIAGNOSES 1. Right Empyema - s/p Decortication 2. Pulmonary Insufficiency 3. Sepsis POSTOPERATIVE DIAGNOSES 1. Right Empyema - s/p Decortication 2. Chest Wall Fluid Collection 3. Chest Wall Foreign Body 4. Pulmonary Insufficiency 5. Sepsis SURGICAL PROCEDURE 1. Right Video-Assisted Thoracoscopic Surgery (VATS). 2. Drainage of Multiloculated Pleural Fluid 3. Incision and Open Drainage of Chest Wall Fluid Collection 4. Removal of Chest Wall Foreign Body 5. Chest Wall Wound Vac Placement SURGEON Adalgisa Biggs MD ELEMENTARY SPANISH TEACHER JANET Ladd ANESTHESIA General double lumen endotracheal. NAIL ARTIST Syd Castro, SURGERY SPECIALIST Syd Carr MD PREPARATION ChloraPrep. COUNTS Needle, sponge, and instrument counts are correct. DRAINS One 32 Fr Chest Tube. COMPLICATIONS None. INDICATIONS The patient is a 52 yo gentleman with recurrent empyema s/p previous thoracotomy and decortication. DESCRIPTION OF PROCEDURE The patient was brought to the operating room and placed supine on the OR table. Following the induction of adequate general double lumen endotracheal anesthesia and placement of appropriate monitoring devices, the patient was placed in the left lateral decubitus position. The right chest and surrounding areas were then prepped and draped in a standard sterile fashion. Using an 18 gauge needle, the pleural fluid was identified in the posterior axillary line and a 5 mm camera port placed. Thoracoscopic examination revealed multiloculated fluid cavities which were drained and fluid sent for microbiological analysis. The fluid appeared serous. The right lung was noted to be consolidated and inflamed. Palpation of the chest wall around the previous well-healed thoracotomy incision revealed some fluctuance and needle aspiration demonstrated additional fluid pocket in the chest wall extending from the site of the previous thoracotomy to the area of previous chest wall abscess. The incision overlying the previous abscess drainage site was completely healed and well approximated. This incision was opened and additional fluid was aspirated resembling the fluid in the pleural space in consistency and color. Further dissection revealed the presence of what appeared to be a wound-vac sponge under the subcutaneous and granulation tissue. This was dissected free from the surrounding tissue with sharp dissection and removed in its entirety and sent for histological analysis. The cavity was copiously irrigated with antibiotic solution. Strict hemostasis was assured and the chest wall fluid cavity was packed with a wound vac sponge to be managed by the wound care team. The chest wall cavity appeared to communicate with the thoracotomy incision and the right pleural space through a common channel. The VATS port was removed and under direct thoracoscopic guidance a [address] placed in the right pleural space through an anterior incision. This was maintained in place with a non-absorbable stitch. Following confirmation of the drain in the proper place, the incision was closed with 2 layers. The chest drain was attached to a suction device, and sterile dressing applied. The patient tolerated the procedure well and was extubated and transferred to the recovery room in stable condition. Adalgisa Biggs MD January 04, 2018 12:53
--- NOTE | 2018-01-04 13:44 | HHI.IDPN ---
Subjective Subjective Remarks ID COVERAGE is a 52 y/o CM with PMHx of HTN, diabetes, H/O DVT and alcohol abuse who was recently admitted to [facility] on 11/18/17 with weakness. While hospitalized at [facility], patient was treated for alcohol withdrawal and sepsis secondary to pneumonia. Patient developed persistent right-sided pleural effusion underwent a thoracocentesis on 11/22 with 1400 cc of fluid removed with cultures positive for MRSA. He also had a urine culture positive for MRSA. Patient had echocardiogram done on 11/21 revealing preserved EF of 60 - 65%. Patient had a PICC line placed 11/22. Patient was treated with IV Vanco, Levaquin and IV Zyvox. Patient developed acute renal failure likely secondary to vancomycin. Blood cultures were negative. Patient was accepted as a transfer to [facility] by Dr. Pena for possible decortication of lung by cardiothoracic surgery. Patient was seen by CTS at [facility] and underwent decortication as well as drainage of right chest wall abscess. Patient post op had a wound vac to the right chest wall and also had a chest tube. Upon DC patient was supposed to have been on Wound vac for right chest wall abscess but unsure if he was on it. Patient seems to have been on Teflaro IV. Patient was on Vanco IV and had acute renal failure. Patient was on Zyvox and developed severe pancytopenia. Infectious disease has been consulted for evaluation and medical management of MRSA empyema and right chest wall abscess. Notes reviewed Had surgery today Feels better after the surgery Temps ok Has CT in place and wound vac in place D/W Dr Biggs No rash No N/V No diarrhea Antibiotics Vanco Cefepime Micafungin Current Medications Medications (Trade) Dose Ordered Sig/Bryan Route Start Time Stop Time Status Last Admin (Narcan Inj) 0.4 mg UNSCH PRN IV PUSH 12/20/17 18:00 (Folate) 1 mg DAILY PO 12/21/17 09:00 01/04/18 09:10 (Prinivil) 20 mg DAILY PO 12/21/17 09:00 01/04/18 09:09 (Vitamin B1) 100 mg DAILY PO 12/21/17 09:00 01/04/18 09:08 (Roxicodone) 10 mg Q4H PRN PO 12/21/17 00:30 01/04/18 06:29 (Morphine Inj) 2 mg Q3H PRN IV PUSH 12/21/17 00:30 01/04/18 09:08 (D50w (Vial) Inj) 50 ml UNSCH PRN IV PUSH 12/21/17 11:30 (Glucagon Inj) 1 mg UNSCH PRN OTHER 12/21/17 11:30 (NovoLOG SUPPLEMENTAL SCALE) 1 ACHS SLIDING SCALE SQ 12/21/17 12:00 01/03/18 20:29 (Benadryl) 25 mg Q6H PRN PO 12/24/17 17:30 12/24/17 22:48 (Miralax) 17 gm DAILY PO 12/28/17 09:00 01/04/18 09:12 Heparin Sodium/ Dextrose 250 ml @ 18 mls/hr TITRATE PRN IV 01/02/18 16:45 01/03/18 23:00 (Coreg) 25 mg Q12HR PO 01/03/18 09:00 01/04/18 09:09 Pharmacy Profile Note 0 ml @ 0 mls/hr UNSCH OTHER 01/03/18 14:15 Micafungin Sodium 150 mg/Sodium Chloride 100 ml @ 100 mls/hr Q24H IV 01/03/18 16:00 01/03/18 16:16 Cefazolin Sodium 500 mg/Sodium Chloride 505 ml @ 0 mls/hr AIR TWISTER WINDER IRRIGATION 01/03/18 14:45 01/10/18 14:44 Cefazolin Sodium/ Dextrose 50 ml @ 150 mls/hr AIR TWISTER WINDER IV 01/03/18 14:45 01/10/18 14:44 (Hibiclens 4% Top Soln) 1 applic AIR TWISTER WINDER TOPICAL 01/03/18 16:00 01/10/18 15:59 ([facility] Ordered Lab Info) SPECIFIC LAB TO BE DRAWN:VANCOMYCIN TROUGH DATE TO... ONCE ONCE .XX 01/05/18 20:45 01/05/18 20:46 (Lasix Inj) 40 mg BID@,18 IV PUSH 01/03/18 18:00 01/04/18 09:16 Lactated Ringer's 1,000 ml @ 30 mls/hr Q24H PRN IV 01/04/18 01:30 01/07/18 01:29 (Chlorhexidine 2% Cloth) 3 pack AIR TWISTER WINDER PRN TOPICAL 01/04/18 01:30 01/07/18 01:29 Cefepime HCl 2000 mg/Sodium Chloride 100 ml @ 200 mls/hr Q8H IV 01/04/18 06:00 01/04/18 06:30 (NS Flush) 2 ml BID IV FLUSH 01/04/18 21:00 (NS Flush) 2 ml UNSCH PRN IV FLUSH 01/04/18 11:30 Vancomycin HCl 1750 mg/Sodium Chloride 517.5 ml @ 250 mls/hr Q12H IV 01/04/18 21:00 ([facility]) ALL NURSING DEPARTME... UNSCH PRN .XX 01/04/18 11:53 01/05/18 11:52 Lines Line sites with no e.o infection Past Medical History reviewed Allergies: Coded Allergies: No Known Allergies (Verified Allergy, Unknown, 11/29/17) Objective . Vital Signs Date Time Temp Pulse Resp B/P (MAP) Pulse Ox O2 Delivery O2 Flow Rate FiO2 01/04/18 08:00 98.9 67 16 144/83 (103) 92 01/04/18 05:00 98.2 74 18 140/85 93 01/04/18 04:00 98.9 72 18 135/74 (94) 95 01/04/18 02:57 18 01/04/18 02:55 92 Nasal Cannula 4.00 01/04/18 02:30 98.8 72 18 131/78 96 01/04/18 02:10 98.3 69 18 142/81 91 01/04/18 02:10 98.3 73 18 142/81 (101) 91 01/04/18 02:00 Nasal Cannula 4.00 Humidified 01/04/18 00:00 98.8 71 18 133/72 (92) 96 01/03/18 23:21 97.8 71 20 125/7 93 01/03/18 23:08 98.5 72 20 131/74 93 01/03/18 20:35 Nasal Cannula 2.00 01/03/18 20:00 98.2 85 18 137/79 (98) 97 01/03/18 16:00 97.9 72 18 123/82 (96) 93 01/04/18 01/04/18 01/05/18 15:00 23:00 07:00 Intake Total 1700 ml Output Total 800 ml Balance 900 ml Other 1700 ml Output Urine Total 750 ml Estimated Blood Loss 50 ml . Laboratory Tests Test 01/02/18 18:10 01/03/18 22:49 01/04/18 06:35 White Blood Count 3.0 TH/MM3 3.2 TH/MM3 3.7 TH/MM3 Red Blood Count 2.49 MIL/MM3 2.66 MIL/MM3 3.06 MIL/MM3 Hemoglobin 7.6 GM/DL 8.0 GM/DL 9.3 GM/DL Hematocrit 22.7 % 23.6 % 27.0 % Mean Corpuscular Volume 91.1 FL 88.9 FL 88.2 FL Mean Corpuscular Hemoglobin 30.4 PG 30.1 PG 30.5 PG Mean Corpuscular Hemoglobin Concent 33.4 % 33.8 % 34.6 % Red Cell Distribution Width 17.3 % 16.9 % 16.2 % Platelet Count 94 TH/MM3 120 TH/MM3 113 TH/MM3 Mean Platelet Volume 8.4 FL 8.4 FL 8.7 FL Neutrophils (%) (Auto) 49.9 % 48.3 % Lymphocytes (%) (Auto) 27.5 % 27.0 % Monocytes (%) (Auto) 8.7 % 8.7 % Eosinophils (%) (Auto) 12.7 % 13.6 % Basophils (%) (Auto) 1.2 % 2.4 % Neutrophils # (Auto) 1.6 TH/MM3 1.8 TH/MM3 Lymphocytes # (Auto) 0.9 TH/MM3 1.0 TH/MM3 Monocytes # (Auto) 0.3 TH/MM3 0.3 TH/MM3 Eosinophils # (Auto) 0.4 TH/MM3 0.5 TH/MM3 Basophils # (Auto) 0.0 TH/MM3 0.1 TH/MM3 CBC Comment DIFF FINAL DIFF FINAL Differential Comment Laboratory Tests Test 01/03/18 22:49 01/04/18 06:35 Blood Urea Nitrogen 13 MG/DL 13 MG/DL Creatinine 1.09 MG/DL 1.04 MG/DL Random Glucose 109 MG/DL 102 MG/DL Total Protein 7.4 GM/DL 7.4 GM/DL Albumin 2.0 GM/DL 2.0 GM/DL Calcium Level 8.0 MG/DL 8.0 MG/DL Phosphorus Level 3.4 MG/DL 3.8 MG/DL Magnesium Level 1.8 MG/DL 1.8 MG/DL Alkaline Phosphatase 76 U/L 73 U/L Aspartate Amino Transf (AST/SGOT) 18 U/L 13 U/L Alanine Aminotransferase (ALT/SGPT) 8 U/L 7 U/L Total Bilirubin 0.5 MG/DL 0.9 MG/DL Sodium Level 137 MEQ/L 136 MEQ/L Potassium Level 3.8 MEQ/L 3.6 MEQ/L Chloride Level 102 MEQ/L 102 MEQ/L Carbon Dioxide Level 24.9 MEQ/L 24.9 MEQ/L Anion Gap 10 MEQ/L 9 MEQ/L Estimat Glomerular Filtration Rate 70 ML/MIN 74 ML/MIN Microbiology Date/Time Source Procedure Growth Status 01/02/18 13:25 Blood Line Aerobic Blood Culture - Preliminary NO GROWTH IN 2 DAYS Resulted 01/02/18 13:25 Blood Line Anaerobic Blood Culture - Preliminary NO GROWTH IN 2 DAYS Resulted 01/02/18 13:25 Blood Line Aerobic Blood Culture - Preliminary NO GROWTH IN 2 DAYS Resulted 01/02/18 13:25 Blood Line Anaerobic Blood Culture - Preliminary NO GROWTH IN 2 DAYS Resulted 01/04/18 10:30 Abscess Lung Fungal Smear Pending Received 01/04/18 10:30 Abscess Lung Fungal Culture Pending Received 01/04/18 10:30 Abscess Lung Acid Fast Stain Pending Received 01/04/18 10:30 Abscess Lung Mycobacterial Culture Pending Received 01/04/18 10:30 Abscess Lung Gram Stain Pending Received 01/04/18 10:30 Abscess Lung Wound Culture Pending Received Imaging Last Impressions Chest X-Ray 12/28/17 0000 Signed Impressions: Service Date/Time: Thursday, December 28, 2017 11:00 - CONCLUSION: Stable chest x-ray with moderate size right pleural effusion with associated consolidation and atelectasis in the right lower lobe. The prior chest CT on 12/23/2017 demonstrated imaging features suggesting empyema. Consider chest tube or surgical drainage. Tenzin Donato MD Chest CT 12/23/17 0000 Signed Impressions: Service Date/Time: Saturday, December 23, 2017 12:01 - CONCLUSION: 1. Increase in loculated air within the complex right pleural effusion since November 30. The overall size of the presumed right empyema is relatively stable. There is also now loculated air in the lower right lateral chest wall likely representing extension of the empyema into the soft tissues. Slight improvement in right basilar lung consolidation. 2. Resolution of previous left pleural effusion. 3. New right-sided posterior sixth rib fracture. Multiple remote healed rib fractures. Edis Wetzel MD Physical Exam GENERAL: Awake and alert. . Appears comfortable on room air. SKIN: Warm and dry. No generalized rash. Bilateral lower extremity venous stasis changes noted. HEAD: Atraumatic. Normocephalic. No temporal or scalp tenderness. EYES: Pupils equal round and reactive. Extraocular motions intact. No scleral icterus. No injection or drainage. ENT: Nose without bleeding or purulent drainage. Airway patent. MMM. No oral lesions noted. NECK: Trachea midline. CARDIOVASCULAR: Regular rate and rhythm. RESPIRATORY: Decreased breath sound R base. Has CT R side with bloody output and has wound vac below it GASTROINTESTINAL: Abdomen soft, non-tender, nondistended. MUSCULOSKELETAL: Extremities without clubbing or cyanosis. Chronic BLE pitting edema noted. No calf tenderness. Bilateral calves supple. NEUROLOGICAL: Awake and alert. Able to move all extremities. Motor and sensory grossly intact. Non focal exam. Normal speech. PSYCHIATRIC: Appropriate mood and affect. Calm and cooperative. IV line sites with no e.o infection Assessment & Plan Remarks Right side MRSA empyema post pneumonia. Empyema Necessitans s/p wound vac for chest wall abscess on right side. Right MRSA chest wall abscess Concern for endocarditis. Due to ongoing infection it is possible the valve(s) may have seeded. Thrombocytopenia from Teflaro or sepsis. Alcoholism, aspiration risk. PICC removed. DVT Right UE. Recs Continue Cefepime IV Continue Vanco IV (target 15-20) stat Continue Micafungin IV Follow new cultures Monitor progress Explained plan to patient D/W Dr Biggs D/W Helena Brown MD January 04, 2018 13:44
[2018-01-04] MEDS: MICAFUNGIN INJ 150 MG in SODIUM CHLORIDE 0.9% INJ 100 ML IV SCH (17:36)
[2018-01-04] MEDS: HEPARIN-D5W 25,000 U/250 ML 250 ML IV PRN (18:59)
--- NOTE | 2018-01-04 19:37 | HHI.PR ---
Subjective Remarks sp chest tube placement states breathing is much improved c/o some pain on site of tube insertion Afebrile On 3 liters naal canula Objective Vitals Vital Signs Date Time Temp Pulse Resp B/P (MAP) Pulse Ox O2 Delivery O2 Flow Rate FiO2 01/04/18 16:23 97 Nasal Cannula 3.00 01/04/18 16:00 97.3 61 17 114/66 (82) 93 01/04/18 13:00 98.1 65 14 126/80 (95) 91 Nasal Cannula 4 01/04/18 12:45 69 14 116/71 (86) 92 Nasal Cannula 4 01/04/18 12:30 62 14 128/82 (97) 91 Nasal Cannula 4 01/04/18 12:15 63 14 127/81 (96) 90 Nasal Cannula 4 01/04/18 12:00 73 14 128/84 (99) 90 Nasal Cannula 4 01/04/18 12:00 97.6 73 16 125/67 (86) 97 01/04/18 11:49 97.8 72 14 120/73 (89) 92 Nasal Cannula 4 01/04/18 08:00 98.9 67 16 144/83 (103) 92 01/04/18 05:00 98.2 74 18 140/85 93 01/04/18 04:00 98.9 72 18 135/74 (94) 95 01/04/18 02:57 18 01/04/18 02:55 92 Nasal Cannula 4.00 01/04/18 02:30 98.8 72 18 131/78 96 01/04/18 02:10 98.3 69 18 142/81 91 01/04/18 02:10 98.3 73 18 142/81 (101) 91 01/04/18 02:00 Nasal Cannula 4.00 Humidified 01/04/18 00:00 98.8 71 18 133/72 (92) 96 01/03/18 23:21 97.8 71 20 125/7 93 01/03/18 23:08 98.5 72 20 131/74 93 01/03/18 20:35 Nasal Cannula 2.00 01/03/18 20:00 98.2 85 18 137/79 (98) 97 I/O 01/03/18 01/03/18 01/03/18 01/04/18 01/04/18 01/04/18 07:00 15:00 23:00 07:00 15:00 23:00 Intake Total 490 ml 2327.5 ml 1050 ml 1700 ml 977.5 ml Output Total 2400 ml 800 ml 250 ml Balance 490 ml 2327.5 ml -1350 ml 900 ml 727.5 ml Intake Oral 240 ml 1440 ml 0 ml 360 ml IV Total 250 ml 887.5 ml 250 ml 617.5 ml Packed Cells 800 ml Other 1700 ml Output Urine Total 2400 ml 750 ml 250 ml Estimated Blood Loss 50 ml # Voids 4 4 # Bowel Movements 0 2 0 0 Result Diagram: 01/04/18 0635 01/04/18 0635 Imaging Last Impressions Chest X-Ray 01/04/18 0000 Signed Impressions: Service Date/Time: Thursday, January 04, 2018 13:07 - CONCLUSION: 1. Status post placement of a right-sided chest tube with no evidence of pneumothorax. 2. Scattered bilateral pulmonary infiltrates. Judd Lang MD CT Angiography 01/03/18 0000 Signed Impressions: Service Date/Time: Wednesday, January 03, 2018 12:57 - CONCLUSION: 1. Developing hazy densities in both hemithoraces, most prominent in the left upper lung. Appearance is concerning for developing septic emboli. 2. Right-sided complex empyema with air and fluid is definitely no smaller and may actually be slightly larger when compared to prior. Developing left-sided effusion. 3. No filling defects within the pulmonary arteries to suggest large pulmonary emboli. 4. CT findings suggesting some degree of cirrhosis and portal hypertension with a small, nodular liver and splenomegaly. Sven Flaherty MD Upper Extremity Ultrasound 01/02/18 0000 Signed Impressions: Service Date/Time: Tuesday, January 02, 2018 09:35 - CONCLUSION: Acute appearing occlusive thrombus in the right axillary and upper basilic vein. Tenzin Magdaleno MD Chest CT 12/23/17 0000 Signed Impressions: Service Date/Time: Saturday, December 23, 2017 12:01 - CONCLUSION: 1. Increase in loculated air within the complex right pleural effusion since November 30. The overall size of the presumed right empyema is relatively stable. There is also now loculated air in the lower right lateral chest wall likely representing extension of the empyema into the soft tissues. Slight improvement in right basilar lung consolidation. 2. Resolution of previous left pleural effusion. 3. New right-sided posterior sixth rib fracture. Multiple remote healed rib fractures. Edis Wetzel MD Objective Remarks AAOx3 chest tube in place on right post hemothorax. Draining serosanguineous fluid. Exam shows good air entry, diminished at the bases. no crackles or rhonchi S1S2+ RRR Procedures none A/P Problem List: (1) Empyema lung ICD Code: J86.9 - Pyothorax without fistula Status: Acute (2) Diabetes ICD Code: E11.9 - Type 2 diabetes mellitus without complications Status: Chronic (3) HTN (hypertension) ICD Code: I10 - Essential (primary) hypertension Status: Chronic (4) Pancytopenia ICD Code: D61.818 - Other pancytopenia Status: Chronic Assessment and Plan 52-year-old man with Recurrent empyema/abscess CT results reviewed from [facility] shows suspicious for abscess in the right side -Appreciate input from cardio thoracic surgery, s/p wound VAC -Continue Teflaro IV per infectious disease specialist -CT chest reviewed and noted with persistent pulmonary infiltrates, for which pulmonary medicine has been consulted and patient is s/p bronchoscopy December 26, 2017 without signification secretions, erythema or lung lesion -Continue with bronchodilator as needed -CXR 12/26 with increase Pleural effusion and consolidation; however CXR was stable with moderate right pleural effusion with consolidation RLL - Persistent empyema - Will discuss with CT surgery regarding possible surgical intervention vs IR drainage. Discussed with Dr Orosco. - Dw CTS recommends IR CT. IR recommends large bore CT. 01/03 is not complaining of worsening chest pain and shortness of breath today. I ordered a CT pulmonary angiogram given recent diagnosis of DVT in the right axillary vein. CT of the chest reviewed by me shows developing hazy densities in both hemithoraces most prominent in the left upper lung. Appearance concerning for developing septic emboli as per radiology report. Right-sided complex empyema with air and fluid is definitely not smaller and may be slightly larger when compared to prior. Developing left-sided effusion. No PE. CT findings suggestive of some degree of cirrhosis and portal hypertension with a small, nodular liver and splenomegaly. I will order abdominal ultrasound to better assess his findings. I will start the patient on oral diuretics given the development of the right pleural effusion. The case was discussed in depth with Dr. Orosco and also with cardiothoracic surgery. Cardiothoracic surgery will place chest up in a.m. Keep n.p.o. at midnight. 5 status post right video-assisted thoracoscopic surgery, drainage of multiloculated pleural fluid, incision open and drainage of chest wall fluid collection, removal of chest wall foreign body, chest wall wound VAC placement. Continue IV antibiotics as per ID recommendations. Continue supplemental oxygen to keep saturation more than 92%. During surgical procedure dissection revealed the presence of what appeared to be a wound VAC sponge under the subcutaneous and granulation tissue which was removed. The patient is currently on IV vancomycin, cefepime and micafungin. Hypertension, chronic, currently controlle -Continue Coreg and Lasix, monitor vitals -Stable Diabetes, chronic, type II, controlled with no acute complications -Accu-Cheks and sliding scale insulin Normochromic normocytic anemia H&H stable and patient at his baseline, transfuse for hemoglobin less than 7 01/03 given that the patient is going to undergo surgery in a.m. Transfuse 2 units of packed red blood cells. Will type and cross in a.m. for 2 units to have ready for surgery. 5 status post transfusion of 2 units of packed red blood cells with appropriate hemoglobin response. Pancytopenia, chronic -Continue to monitor labs DVT right axillary and upper bassilic vein -PICC line removed. Resume heparin drip. This was discussed with Dr. Biggs DVT prophylaxis: SCDs Discharge Planning Continue to monitor in the medical floor. Problem Qualifiers (1) Diabetes: Qualified Codes: E11.9 - Type 2 diabetes mellitus without complications; Z79.4 - custodial (current) use of insulin (2) HTN (hypertension): Qualified Codes: I10 - Essential (primary) hypertension Olu Foreman MD January 04, 2018 19:37
--- NOTE | 2018-01-04 20:32 | HHI.PR ---
Subjective Remarks 52 YOWM with MRSA empyema, s/p Decortication, rt lung infilt and eff Chest wound to VAC no Fever no CP No SOB Had Rt VATS, drainage of loculated fluid, chest wall fluid Has Chest wall VAC device Objective Vital Signs Vital Signs Date Time Temp Pulse Resp B/P (MAP) Pulse Ox O2 Delivery O2 Flow Rate FiO2 01/04/18 16:23 97 Nasal Cannula 3.00 01/04/18 16:00 97.3 61 17 114/66 (82) 93 01/04/18 13:00 98.1 65 14 126/80 (95) 91 Nasal Cannula 4 01/04/18 12:45 69 14 116/71 (86) 92 Nasal Cannula 4 01/04/18 12:30 62 14 128/82 (97) 91 Nasal Cannula 4 01/04/18 12:15 63 14 127/81 (96) 90 Nasal Cannula 4 01/04/18 12:00 73 14 128/84 (99) 90 Nasal Cannula 4 01/04/18 12:00 97.6 73 16 125/67 (86) 97 01/04/18 11:49 97.8 72 14 120/73 (89) 92 Nasal Cannula 4 01/04/18 08:00 98.9 67 16 144/83 (103) 92 01/04/18 05:00 98.2 74 18 140/85 93 01/04/18 04:00 98.9 72 18 135/74 (94) 95 01/04/18 02:57 18 01/04/18 02:55 92 Nasal Cannula 4.00 01/04/18 02:30 98.8 72 18 131/78 96 01/04/18 02:10 98.3 69 18 142/81 91 01/04/18 02:10 98.3 73 18 142/81 (101) 91 01/04/18 02:00 Nasal Cannula 4.00 Humidified 01/04/18 00:00 98.8 71 18 133/72 (92) 96 01/03/18 23:21 97.8 71 20 125/7 93 01/03/18 23:08 98.5 72 20 131/74 93 01/03/18 20:35 Nasal Cannula 2.00 I/O 01/03/18 01/03/18 01/03/18 01/04/18 01/04/18 01/04/18 07:00 15:00 23:00 07:00 15:00 23:00 Intake Total 490 ml 2327.5 ml 1050 ml 1700 ml 977.5 ml Output Total 2400 ml 800 ml 800 ml Balance 490 ml 2327.5 ml -1350 ml 900 ml 177.5 ml Intake Oral 240 ml 1440 ml 0 ml 360 ml IV Total 250 ml 887.5 ml 250 ml 617.5 ml Packed Cells 800 ml Other 1700 ml Output Urine Total 2400 ml 750 ml 250 ml Chest Tube Drainage Total 500 ml Drainage Total 50 ml Estimated Blood Loss 50 ml # Voids 4 4 # Bowel Movements 0 2 0 0 Result Diagram: 01/04/1863401/04/18634 Objective Remarks GENERAL: WBWN WM,NAD SKIN: Warm and dry. HEAD: Normocephalic. EYES: No scleral icterus. No injection or drainage. NECK: Supple, trachea midline. No JVD or lymphadenopathy. CARDIOVASCULAR: Regular rate and rhythm without murmurs, gallops, or rubs. RESPIRATORY: Breath sounds equal bilaterally. No accessory muscle use. Decreased BS rt Rt chest wound to VAC GASTROINTESTINAL: Abdomen soft, non-tender, nondistended. MUSCULOSKELETAL: No cyanosis, or edema. BACK: Nontender without obvious deformity. No CVA tenderness. A/P Assessment and Plan IMPRESSION: 1. Persistent right lower lobe infiltrate with effusion. 2. 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 3. Hypertension. 4. Diabetes mellitus. 5. Alcohol abuse. PLAN: Cont Abx per ID DW RN Looks comfortable, non toxic Stable from pulm standpoint Chest tube to suction Zhao Ortega MD January 04, 2018 20:32
[2018-01-04] MEDS: VANCOMYCIN INJ 1,750 MG in SODIUM CHLORID 0.9% 500 ML INJ 500 ML IV SCH (20:55)
[2018-01-05] VITALS: BP 120/79; PULSE 58; RESP 18; TEMP 97.2; O2SAT 90
[2018-01-05 01:45] LABS: AUTOMATED NEUTROPHIL # 1.6 TH/MM3 (1.8-7.7); EOSINOPHIL % 0.6 % (0.0-4.0); HEMATOCRIT 28.3 % (39.0-51.0); HEMOGLOBIN 9.6 GM/DL (13.0-17.0); LYMPH % 26.6 % (9.0-44.0); LYMPHOCYTE # 0.6 TH/MM3 (1.0-4.8); MEAN CELL VOLUME 88.7 FL (80.0-100.0); MEAN CORPUSCULAR HEMOGLOBIN 30.2 PG (27.0-34.0); MEAN PLATELET VOLUME 8.8 FL (7.0-11.0); MONO % 6.3 % (0.0-8.0); MONOCYTE # 0.2 TH/MM3 (0-0.9); NEUT % 65.5 % (16.0-70.0); PLATELET COUNT 123 TH/MM3 (150-450); RED BLOOD COUNT 3.19 MIL/MM3 (4.50-5.90); RED CELL DISTRIBUTION WIDTH 16.4 % (11.6-17.2); WHITE BLOOD COUNT 2.4 TH/MM3 (4.0-11.0)
[2018-01-05] MEDS: MORPHINE SULFATE 4 MG/ML INJ IV PUSH PRN ×2 (01:48→05:53)
[2018-01-05 02:03] LABS: ALBUMIN 1.9 GM/DL (3.4-5.0); ALKALINE PHOSPHATASE 69 U/L (45-117); ALT (GPT) 9 U/L (12-78); AST (GOT) 13 U/L (15-37); BICARBONATE 26.2 MEQ/L (21.0-32.0); BLOOD UREA NITROGEN 21 MG/DL (7-18); CALCIUM 7.8 MG/DL (8.5-10.1); CHLORIDE 100 MEQ/L (98-107); CREATININE 1.23 MG/DL (0.60-1.30); GLOMERULAR FILTRATION RATE 61 ML/MIN (>89); GLUCOSE,RANDOM 245 MG/DL (74-106); MAGNESIUM 1.8 MG/DL (1.5-2.5); PHOSPHORUS 3.6 MG/DL (2.5-4.9); SODIUM (NA) 134 MEQ/L (136-145); TOTAL BILIRUBIN ADULT 0.6 MG/DL (0.2-1.0); TOTAL PROTEIN 7.2 GM/DL (6.4-8.2)
[2018-01-05 04:00] VITALS: BP 121/82; PULSE 52; RESP 18; TEMP 97.2; O2SAT 92
[2018-01-05] MEDS: CEFEPIME INJ 2,000 MG in SODIUM CHLORIDE 0.9% INJ 100 ML IV SCH ×3 (04:18→21:14)
--- NOTE | 2018-01-05 04:49 | RADRPT ---
EXAM DATE/TIME: 01/05/2018 04:06 [place] COMPARISON: CHEST SINGLE AP, January 04, 2018, 13:07. INDICATIONS : S/P Thoracotomy. MEDICAL HISTORY : Cardiovascular disease. Diabetes mellitus type II. Hypertension SURGICAL HISTORY : None. ENCOUNTER: Subsequent ACUITY: 2 days PAIN SCORE: Non-responsive. LOCATION: Bilateral chest FINDINGS: A single AP semierect portable view the chest was obtained again demonstrates a right-sided chest tub e in place with no pneumothorax. There is fluid again noted along the right upper lateral chest wall. There's been interval decrease in the bilateral airspace disease with moderate residual bilaterally. The costophrenic angles remain blunted. The heart size appears mildly prominent. CONCLUSION: 1. The right-sided chest tube remains in place with no pneumothorax. 2. Interval improvement in bilateral airspace disease with moderate residual. 3. Bilateral pleural effusions again noted. Stuart Haider MD on January 05, 2018 at 4:46 Board Certified Radiologist. This report was verified electronically.
[2018-01-05 08:00] VITALS: BP_SYST 132; BP_SYST 98; BP_DIAS 57; BP_DIAS 78; PULSE 56; PULSE 70; RESP 18; TEMP 97.2; TEMP 97.6; O2SAT 92; O2SAT 93
[2018-01-05] MEDS: INSULIN ASPART SUPPLEMENTAL SCALE SQ SCH ×4 (08:00→22:14)
[2018-01-05] MEDS: LISINOPRIL 20 MG TAB PO SCH (08:23)
[2018-01-05] MEDS: FOLIC ACID 1 MG TAB PO SCH (08:23)
[2018-01-05] MEDS: FUROSEMIDE 40 MG/4 ML VIAL IV PUSH SCH ×2 (08:23→17:56)
[2018-01-05] MEDS: CARVEDILOL 12.5 MG TAB PO SCH ×2 (08:23→21:00)
[2018-01-05] MEDS: VANCOMYCIN INJ 1,750 MG in SODIUM CHLORID 0.9% 500 ML INJ 500 ML IV SCH ×2 (08:24→21:12)
[2018-01-05] MEDS: SODIUM CHLORIDE 0.9% FLUSH 10 ML FLUSH IV FLUSH SCH ×2 (08:24→21:00)
[2018-01-05] MEDS: THIAMINE HCL 100 MG TAB PO SCH (08:26)
[2018-01-05] MEDS: POLYETHYLENE GLYCOL 17 GM PKG PO SCH (08:26)
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
[2018-01-05 12:00] VITALS: BP 98/57; PULSE 56; RESP 18; TEMP 97.2; O2SAT 93
--- NOTE | 2018-01-05 12:31 | HHI.IDPN ---
Subjective Subjective Remarks ID COVERAGE is a 52 y/o CM with PMHx of HTN, diabetes, H/O DVT and alcohol abuse who was recently admitted to [facility] on 11/18/17 with weakness. While hospitalized at [facility], patient was treated for alcohol withdrawal and sepsis secondary to pneumonia. Patient developed persistent right-sided pleural effusion underwent a thoracocentesis on 11/22 with 1400 cc of fluid removed with cultures positive for MRSA. He also had a urine culture positive for MRSA. Patient had echocardiogram done on 11/21 revealing preserved EF of 60 - 65%. Patient had a PICC line placed 11/22. Patient was treated with IV Vanco, Levaquin and IV Zyvox. Patient developed acute renal failure likely secondary to vancomycin. Blood cultures were negative. Patient was accepted as a transfer to [facility] by Dr. Pena for possible decortication of lung by cardiothoracic surgery. Patient was seen by CTS at [facility] and underwent decortication as well as drainage of right chest wall abscess. Patient post op had a wound vac to the right chest wall and also had a chest tube. Upon DC patient was supposed to have been on Wound vac for right chest wall abscess but unsure if he was on it. Patient seems to have been on Teflaro IV. Patient was on Vanco IV and had acute renal failure. Patient was on Zyvox and developed severe pancytopenia. Infectious disease has been consulted for evaluation and medical management of MRSA empyema and right chest wall abscess. Notes reviewed Temps ok Repeat surgery done 01/[address] in place and wound vac in place No rash No N/V No diarrhea Antibiotics Vanco Cefepime Micafungin Current Medications Medications (Trade) Dose Ordered Sig/Bryan Route Start Time Stop Time Status Last Admin (Narcan Inj) 0.4 mg UNSCH PRN IV PUSH 12/20/17 18:00 (Folate) 1 mg DAILY PO 12/21/17 09:00 01/05/18 08:23 (Prinivil) 20 mg DAILY PO 12/21/17 09:00 01/05/18 08:23 (Vitamin B1) 100 mg DAILY PO 12/21/17 09:00 01/05/18 08:26 (Roxicodone) 10 mg Q4H PRN PO 12/21/17 00:30 01/05/18 08:38 (Morphine Inj) 2 mg Q3H PRN IV PUSH 12/21/17 00:30 01/05/18 05:53 (D50w (Vial) Inj) 50 ml UNSCH PRN IV PUSH 12/21/17 11:30 (Glucagon Inj) 1 mg UNSCH PRN OTHER 12/21/17 11:30 (NovoLOG SUPPLEMENTAL SCALE) 1 ACHS SLIDING SCALE SQ 12/21/17 12:00 01/05/18 08:00 (Benadryl) 25 mg Q6H PRN PO 12/24/17 17:30 12/24/17 22:48 (Miralax) 17 gm DAILY PO 12/28/17 09:00 01/05/18 08:26 Heparin Sodium/ Dextrose 250 ml @ 18 mls/hr TITRATE PRN IV 01/02/18 16:45 01/04/18 18:59 (Coreg) 25 mg Q12HR PO 01/03/18 09:00 01/05/18 08:23 Pharmacy Profile Note 0 ml @ 0 mls/hr UNSCH OTHER 01/03/18 14:15 Micafungin Sodium 150 mg/Sodium Chloride 100 ml @ 100 mls/hr Q24H IV 01/03/18 16:00 01/04/18 17:36 Cefazolin Sodium 500 mg/Sodium Chloride 505 ml @ 0 mls/hr OFFSET PLATE PREPARATION SUPERVISOR IRRIGATION 01/03/18 14:45 01/10/18 14:44 Cefazolin Sodium/ Dextrose 50 ml @ 150 mls/hr OFFSET PLATE PREPARATION SUPERVISOR IV 01/03/18 14:45 01/10/18 14:44 (Hibiclens 4% Top Soln) 1 applic OFFSET PLATE PREPARATION SUPERVISOR TOPICAL 01/03/18 16:00 01/10/18 15:59 ([facility] Ordered Lab Info) SPECIFIC LAB TO BE DRAWN:VANCOMYCIN TROUGH DATE TO... ONCE ONCE .XX 01/05/18 20:45 01/05/18 20:46 (Lasix Inj) 40 mg BID@,18 IV PUSH 01/03/18 18:00 01/05/18 08:23 Lactated Ringer's 1,000 ml @ 30 mls/hr Q24H PRN IV 01/04/18 01:30 01/07/18 01:29 (Chlorhexidine 2% Cloth) 3 pack OFFSET PLATE PREPARATION SUPERVISOR PRN TOPICAL 01/04/18 01:30 01/07/18 01:29 Cefepime HCl 2000 mg/Sodium Chloride 100 ml @ 200 mls/hr Q8H IV 01/04/18 06:00 01/05/18 04:18 (NS Flush) 2 ml BID IV FLUSH 01/04/18 21:00 01/05/18 08:24 (NS Flush) 2 ml UNSCH PRN IV FLUSH 01/04/18 11:30 Vancomycin HCl 1750 mg/Sodium Chloride 517.5 ml @ 250 mls/hr Q12H IV 01/04/18 21:00 01/05/18 08:24 Lines Line sites with no e.o infection Past Medical History reviewed Allergies: Coded Allergies: No Known Allergies (Verified Allergy, Unknown, 11/29/17) Objective . Vital Signs Date Time Temp Pulse Resp B/P (MAP) Pulse Ox O2 Delivery O2 Flow Rate FiO2 01/05/18 04:00 97.2 52 18 121/82 (95) 92 01/05/18 02:01 20 01/05/18 02:01 20 01/05/18 00:00 97.2 58 18 120/79 (93) 90 01/04/18 20:00 97.2 60 20 110/72 (85) 93 01/04/18 19:30 Room Air 01/04/18 16:23 97 Nasal Cannula 3.00 01/04/18 16:00 97.3 61 17 114/66 (82) 93 01/04/18 13:00 98.1 65 14 126/80 (95) 91 Nasal Cannula 4 01/04/18 12:45 69 14 116/71 (86) 92 Nasal Cannula 4 01/04/18 12:30 62 14 128/82 (97) 91 Nasal Cannula 4 . Laboratory Tests Test 01/03/18 22:49 01/04/18 06:35 01/05/18 01:15 White Blood Count 3.2 TH/MM3 3.7 TH/MM3 2.4 TH/MM3 Red Blood Count 2.66 MIL/MM3 3.06 MIL/MM3 3.19 MIL/MM3 Hemoglobin 8.0 GM/DL 9.3 GM/DL 9.6 GM/DL Hematocrit 23.6 % 27.0 % 28.3 % Mean Corpuscular Volume 88.9 FL 88.2 FL 88.7 FL Mean Corpuscular Hemoglobin 30.1 PG 30.5 PG 30.2 PG Mean Corpuscular Hemoglobin Concent 33.8 % 34.6 % 34.0 % Red Cell Distribution Width 16.9 % 16.2 % 16.4 % Platelet Count 120 TH/MM3 113 TH/MM3 123 TH/MM3 Mean Platelet Volume 8.4 FL 8.7 FL 8.8 FL Neutrophils (%) (Auto) 49.9 % 48.3 % 65.5 % Lymphocytes (%) (Auto) 27.5 % 27.0 % 26.6 % Monocytes (%) (Auto) 8.7 % 8.7 % 6.3 % Eosinophils (%) (Auto) 12.7 % 13.6 % 0.6 % Basophils (%) (Auto) 1.2 % 2.4 % 1.0 % Neutrophils # (Auto) 1.6 TH/MM3 1.8 TH/MM3 1.6 TH/MM3 Lymphocytes # (Auto) 0.9 TH/MM3 1.0 TH/MM3 0.6 TH/MM3 Monocytes # (Auto) 0.3 TH/MM3 0.3 TH/MM3 0.2 TH/MM3 Eosinophils # (Auto) 0.4 TH/MM3 0.5 TH/MM3 0.0 TH/MM3 Basophils # (Auto) 0.0 TH/MM3 0.1 TH/MM3 0.0 TH/MM3 CBC Comment DIFF FINAL DIFF FINAL DIFF FINAL Differential Comment Laboratory Tests Test 01/03/18 22:49 01/04/18 06:35 01/05/18 01:15 Blood Urea Nitrogen 13 MG/DL 13 MG/DL 21 MG/DL Creatinine 1.09 MG/DL 1.04 MG/DL 1.23 MG/DL Random Glucose 109 MG/DL 102 MG/DL 245 MG/DL Total Protein 7.4 GM/DL 7.4 GM/DL 7.2 GM/DL Albumin 2.0 GM/DL 2.0 GM/DL 1.9 GM/DL Calcium Level 8.0 MG/DL 8.0 MG/DL 7.8 MG/DL Phosphorus Level 3.4 MG/DL 3.8 MG/DL 3.6 MG/DL Magnesium Level 1.8 MG/DL 1.8 MG/DL 1.8 MG/DL Alkaline Phosphatase 76 U/L 73 U/L 69 U/L Aspartate Amino Transf (AST/SGOT) 18 U/L 13 U/L 13 U/L Alanine Aminotransferase (ALT/SGPT) 8 U/L 7 U/L 9 U/L Total Bilirubin 0.5 MG/DL 0.9 MG/DL 0.6 MG/DL Sodium Level 137 MEQ/L 136 MEQ/L 134 MEQ/L Potassium Level 3.8 MEQ/L 3.6 MEQ/L 4.0 MEQ/L Chloride Level 102 MEQ/L 102 MEQ/L 100 MEQ/L Carbon Dioxide Level 24.9 MEQ/L 24.9 MEQ/L 26.2 MEQ/L Anion Gap 10 MEQ/L 9 MEQ/L 8 MEQ/L Estimat Glomerular Filtration Rate 70 ML/MIN 74 ML/MIN 61 ML/MIN Microbiology Date/Time Source Procedure Growth Status 01/02/18 13:25 Blood Line Aerobic Blood Culture - Preliminary NO GROWTH IN 3 DAYS Resulted 01/02/18 13:25 Blood Line Anaerobic Blood Culture - Preliminary NO GROWTH IN 3 DAYS Resulted 01/02/18 13:25 Blood Line Aerobic Blood Culture - Preliminary NO GROWTH IN 3 DAYS Resulted 01/02/18 13:25 Blood Line Anaerobic Blood Culture - Preliminary NO GROWTH IN 3 DAYS Resulted 01/04/18 10:30 Abscess Lung Fungal Smear - Final NO FUNGAL ELEMENTS SEEN. Resulted 01/04/18 10:30 Abscess Lung Fungal Culture Pending Resulted 01/04/18 10:30 Abscess Lung Acid Fast Stain Pending Received 01/04/18 10:30 Abscess Lung Mycobacterial Culture Pending Received 01/04/18 10:30 Abscess Lung Gram Stain - Final Resulted 01/04/18 10:30 Abscess Lung Wound Culture Pending Resulted Imaging Last Impressions Chest X-Ray 12/28/17 0000 Signed Impressions: Service Date/Time: Thursday, December 28, 2017 11:00 - CONCLUSION: Stable chest x-ray with moderate size right pleural effusion with associated consolidation and atelectasis in the right lower lobe. The prior chest CT on 12/23/2017 demonstrated imaging features suggesting empyema. Consider chest tube or surgical drainage. Tenzin Donato MD Chest CT 12/23/17 0000 Signed Impressions: Service Date/Time: Saturday, December 23, 2017 12:01 - CONCLUSION: 1. Increase in loculated air within the complex right pleural effusion since November 30. The overall size of the presumed right empyema is relatively stable. There is also now loculated air in the lower right lateral chest wall likely representing extension of the empyema into the soft tissues. Slight improvement in right basilar lung consolidation. 2. Resolution of previous left pleural effusion. 3. New right-sided posterior sixth rib fracture. Multiple remote healed rib fractures. Edis Wetzel MD Physical Exam GENERAL: Awake and alert. NAD SKIN: Warm and dry. No generalized rash. Bilateral lower extremity venous stasis changes noted. HEAD: Atraumatic. Normocephalic. No temporal or scalp tenderness. EYES: Pupils equal round and reactive. Extraocular motions intact. No scleral icterus. No injection or drainage. ENT: Nose without bleeding or purulent drainage. Airway patent. MMM. No oral lesions noted. NECK: Trachea midline. CARDIOVASCULAR: Regular rate and rhythm. RESPIRATORY: Decreased breath sound R base. Has CT R side with bloody output and has wound vac below it GASTROINTESTINAL: Abdomen soft, non-tender, nondistended. MUSCULOSKELETAL: Extremities without clubbing or cyanosis. Chronic BLE pitting edema noted. No calf tenderness. Bilateral calves supple. NEUROLOGICAL: Awake and alert. Able to move all extremities. Motor and sensory grossly intact. Non focal exam. Normal speech. PSYCHIATRIC: Appropriate mood and affect. Calm and cooperative. IV line sites with no e.o infection Assessment & Plan Remarks Right side MRSA empyema post pneumonia. Empyema Necessitans s/p wound vac for chest wall abscess on right side. Right MRSA chest wall abscess Concern for endocarditis. Due to ongoing infection it is possible the valve(s) may have seeded. Thrombocytopenia from Teflaro or sepsis. Alcoholism, aspiration risk. PICC removed. DVT Right UE. Neutropenia, ?due to prior ETOH abuse, seems chronic Recs Continue Cefepime IV Continue Vanco IV (target 15-20) stat Continue Micafungin IV Follow new cultures and deescalate once C/S finalized Follow temps Follow CBC Monitor progress Helena Joy MD January 05, 2018 12:31
--- NOTE | 2018-01-05 14:42 | HHI.PR ---
Subjective Remarks Patient states fels better. Chest pain has improved. Denies fevers or chills Objective Vitals Vital Signs Date Time Temp Pulse Resp B/P (MAP) Pulse Ox O2 Delivery O2 Flow Rate FiO2 01/05/18 13:09 3.00 01/05/18 12:00 97.2 56 18 98/57 (71) 93 01/05/18 08:00 97.6 70 18 132/78 (96) 92 01/05/18 04:00 97.2 52 18 121/82 (95) 92 01/05/18 02:01 20 01/05/18 02:01 20 01/05/18 00:00 97.2 58 18 120/79 (93) 90 01/04/18 20:00 97.2 60 20 110/72 (85) 93 01/04/18 19:30 Room Air 01/04/18 16:23 97 Nasal Cannula 3.00 01/04/18 16:00 97.3 61 17 114/66 (82) 93 I/O 01/04/18 01/04/18 01/04/18 01/05/18 01/05/18 01/05/18 07:00 15:00 23:00 07:00 15:00 23:00 Intake Total 1050 ml 1700 ml 977.5 ml 614 ml Output Total 2400 ml 800 ml 800 ml 140 ml 30 ml Balance -1350 ml 900 ml 177.5 ml -140 ml 584 ml Intake Oral 0 ml 360 ml IV Total 250 ml 617.5 ml 500 ml Packed Cells 800 ml Other 1700 ml 114 ml Output Urine Total 2400 ml 750 ml 250 ml Chest Tube Drainage Total 500 ml 130 ml 30 ml Drainage Total 50 ml 10 ml Estimated Blood Loss 50 ml # Bowel Movements 0 0 Result Diagram: 01/05/18 0115 01/05/18 0115 Objective Remarks AAOx3 chest tube in place on right post hemothorax. Draining serosanguineous fluid. Exam shows good air entry, diminished at the bases. no crackles or rhonchi S1S2+ RRR Procedures none A/P Problem List: (1) Empyema lung ICD Code: J86.9 - Pyothorax without fistula Status: Acute (2) Diabetes ICD Code: E11.9 - Type 2 diabetes mellitus without complications Status: Chronic (3) HTN (hypertension) ICD Code: I10 - Essential (primary) hypertension Status: Chronic (4) Pancytopenia ICD Code: D61.818 - Other pancytopenia Status: Chronic Assessment and Plan 52-year-old man with Recurrent empyema/abscess CT results reviewed from [facility] shows suspicious for abscess in the right side -Appreciate input from cardio thoracic surgery, s/p wound VAC -Continue Teflaro IV per infectious disease specialist -CT chest reviewed and noted with persistent pulmonary infiltrates, for which pulmonary medicine has been consulted and patient is s/p bronchoscopy December 26, 2017 without signification secretions, erythema or lung lesion -Continue with bronchodilator as needed -CXR 12/26 with increase Pleural effusion and consolidation; however CXR was stable with moderate right pleural effusion with consolidation RLL - Persistent empyema - Will discuss with CT surgery regarding possible surgical intervention vs IR drainage. Discussed with Dr Orosco. - Dw CTS recommends IR CT. IR recommends large bore CT. 01/03 is not complaining of worsening chest pain and shortness of breath today. I ordered a CT pulmonary angiogram given recent diagnosis of DVT in the right axillary vein. CT of the chest reviewed by me shows developing hazy densities in both hemithoraces most prominent in the left upper lung. Appearance concerning for developing septic emboli as per radiology report. Right-sided complex empyema with air and fluid is definitely not smaller and may be slightly larger when compared to prior. Developing left-sided effusion. No PE. CT findings suggestive of some degree of cirrhosis and portal hypertension with a small, nodular liver and splenomegaly. I will order abdominal ultrasound to better assess his findings. I will start the patient on oral diuretics given the development of the right pleural effusion. The case was discussed in depth with Dr. Orosco and also with cardiothoracic surgery. Cardiothoracic surgery will place chest up in a.m. Keep n.p.o. at midnight. 01/04 status post right video-assisted thoracoscopic surgery, drainage of multiloculated pleural fluid, incision open and drainage of chest wall fluid collection, removal of chest wall foreign body, chest wall wound VAC placement. Continue IV antibiotics as per ID recommendations. Continue supplemental oxygen to keep saturation more than 92%. During surgical procedure dissection revealed the presence of what appeared to be a wound VAC sponge under the subcutaneous and granulation tissue which was removed. The patient is currently on IV vancomycin, cefepime and micafungin. 01/05 Continue IV antibiotics. Chest tube as per CT surgery. Still having drainage. Hypertension, chronic, currently controlle -Continue Coreg and Lasix, monitor vitals -Stable Diabetes, chronic, type II, controlled with no acute complications -Accu-Cheks and sliding scale insulin Normochromic normocytic anemia H&H stable and patient at his baseline, transfuse for hemoglobin less than 7 01/03 given that the patient is going to undergo surgery in a.m. Transfuse 2 units of packed red blood cells. Will type and cross in a.m. for 2 units to have ready for surgery. 01/04 status post transfusion of 2 units of packed red blood cells with appropriate hemoglobin response. Pancytopenia, chronic -Continue to monitor labs DVT right axillary and upper bassilic vein -PICC line removed. Resume heparin drip. This was discussed with Dr. Biggs 01/05 Continue IV heparin drip. DVT prophylaxis: SCDs Discharge Planning Continue to monitor in the medical floor. Problem Qualifiers (1) Diabetes: Qualified Codes: E11.9 - Type 2 diabetes mellitus without complications; Z79.4 - terminal manager (current) use of insulin (2) HTN (hypertension): Qualified Codes: I10 - Essential (primary) hypertension Olu Foreman MD January 05, 2018 14:41
--- NOTE | 2018-01-05 15:56 | HHI.PR ---
Subjective Remarks 52 YOWM with MRSA empyema, s/p Decortication, rt lung infilt and eff Chest wound to VAC no Fever no CP No SOB Had Rt VATS, drainage of loculated fluid, chest wall fluid Has Chest wall VAC device Breathing much better Up on the bedside Objective Vital Signs Vital Signs Date Time Temp Pulse Resp B/P (MAP) Pulse Ox O2 Delivery O2 Flow Rate FiO2 01/05/18 13:09 3.00 01/05/18 12:00 97.2 56 18 98/57 (71) 93 01/05/18 08:00 97.6 70 18 132/78 (96) 92 01/05/18 04:00 97.2 52 18 121/82 (95) 92 01/05/18 02:01 20 01/05/18 02:01 20 01/05/18 00:00 97.2 58 18 120/79 (93) 90 01/04/18 20:00 97.2 60 20 110/72 (85) 93 01/04/18 19:30 Room Air 01/04/18 16:23 97 Nasal Cannula 3.00 01/04/18 16:00 97.3 61 17 114/66 (82) 93 I/O 01/04/18 01/04/18 01/04/18 01/05/18 01/05/18 01/05/18 07:00 15:00 23:00 07:00 15:00 23:00 Intake Total 1050 ml 1700 ml 977.5 ml 614 ml Output Total 2400 ml 800 ml 800 ml 140 ml 30 ml Balance -1350 ml 900 ml 177.5 ml -140 ml 584 ml Intake Oral 0 ml 360 ml IV Total 250 ml 617.5 ml 500 ml Packed Cells 800 ml Other 1700 ml 114 ml Output Urine Total 2400 ml 750 ml 250 ml Chest Tube Drainage Total 500 ml 130 ml 30 ml Drainage Total 50 ml 10 ml Estimated Blood Loss 50 ml # Bowel Movements 0 0 Result Diagram: 01/05/1811401/05/18114 Objective Remarks GENERAL: WBWN WM,NAD SKIN: Warm and dry. HEAD: Normocephalic. EYES: No scleral icterus. No injection or drainage. NECK: Supple, trachea midline. No JVD or lymphadenopathy. CARDIOVASCULAR: Regular rate and rhythm without murmurs, gallops, or rubs. RESPIRATORY: Breath sounds equal bilaterally. No accessory muscle use. Decreased BS rt Rt chest wound to VAC GASTROINTESTINAL: Abdomen soft, non-tender, nondistended. MUSCULOSKELETAL: No cyanosis, or edema. BACK: Nontender without obvious deformity. No CVA tenderness. A/P Assessment and Plan IMPRESSION: 1. Persistent right lower lobe infiltrate with effusion. 2. 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 3. Hypertension. 4. Diabetes mellitus. 5. Alcohol abuse. PLAN: Cont Abx per ID DW RN Looks comfortable, non toxic Stable from pulm standpoint Chest tube to suction Supplement 02 Zhao Ortega MD January 05, 2018 15:56
[2018-01-05 16:00] VITALS: BP 119/70; PULSE 53; RESP 18; TEMP 97.2; O2SAT 94
[2018-01-05] MEDS: MICAFUNGIN INJ 150 MG in SODIUM CHLORIDE 0.9% INJ 100 ML IV SCH (16:00)
[2018-01-05 20:00] VITALS: BP 123/76; PULSE 63; RESP 18; TEMP 97.2; O2SAT 91
[2018-01-05] MEDS ORDERED: PHARMACY ORDERED LAB ONE (20:45)
[2018-01-06] VITALS: BP 144/87; PULSE 62; RESP 18; TEMP 97.4; O2SAT 94
[2018-01-06] MEDS: HEPARIN-D5W 25,000 U/250 ML 250 ML IV PRN (00:40)
[2018-01-06] MEDS: CEFEPIME INJ 2,000 MG in SODIUM CHLORIDE 0.9% INJ 100 ML IV SCH ×3 (04:51→21:41)
[2018-01-06 06:29] LABS: CREATININE 1.09 MG/DL (0.60-1.30)
[2018-01-06 08:00] VITALS: BP 145/98; PULSE 56; RESP 18; TEMP 97.2; O2SAT 95
[2018-01-06] MEDS: INSULIN ASPART SUPPLEMENTAL SCALE SQ SCH ×4 (08:00→21:27)
[2018-01-06] MEDS: SODIUM CHLORIDE 0.9% FLUSH 10 ML FLUSH IV FLUSH SCH ×2 (09:00→21:27)
[2018-01-06] MEDS: POLYETHYLENE GLYCOL 17 GM PKG PO SCH (09:16)
[2018-01-06] MEDS: FOLIC ACID 1 MG TAB PO SCH (09:17)
[2018-01-06] MEDS: FUROSEMIDE 40 MG/4 ML VIAL IV PUSH SCH ×2 (09:17→17:41)
[2018-01-06] MEDS: THIAMINE HCL 100 MG TAB PO SCH (09:17)
[2018-01-06] MEDS: LISINOPRIL 20 MG TAB PO SCH (09:18)
[2018-01-06] MEDS: CARVEDILOL 12.5 MG TAB PO SCH ×2 (09:18→21:00)
[2018-01-06] MEDS: MORPHINE SULFATE 4 MG/ML INJ IV PUSH PRN (10:44)
--- NOTE | 2018-01-06 10:44 | PD.WCN.NOT ---
Wound Consult Description: Consult for VAC PLACEMENT right chest wall per Dr Biggs after speaking with him regarding the patient and events leading up to and including OR findings. Communicated with: Dr Dian Ayala, RN Recommendation: Wound VAC dressing to be changed every Tuesday by DEBURRER ONLY Settings 125mmHg low continuous suction If air leak occurs please reinforce only. Trouble shoot by checking machine settings, canister is locked in to place or not full, tubing is not kinked or clamped. Additional Information: Patient seen on for wound VAC change to right lateral chest as ordered. Neg Pressure Wound Therapy Wound Location Wound Location: Right side lateral chest distal to chest tube. Wound Description Length: 0.5cm Width: 6cm Depth: 1.9cm Wound bed appearance: ~60% red granulation tissue ~20% yellow adipose tissue ~20% black cauterized tissue Periwound appearance: Other (9 kd removed from foam and wound margins) Settings Suction: 125 mmHg, Continuous Intensity: Low Other Information: Bridged, Windowpaned Foam type: Black Number of pieces: 1 Additonal Information Vac drape cut away from dressing at chest tube site. 9 Kd removed from patient wound margins and foam dressing. NS was instilled in black foam dressing to help loosen from wound bed. One piece of black granufoam removed from wound bed. Wound bed was cleansed with NS and gauze and inspected for any remaining black foam and verified with MOY Ayala. Wound bed was moist, noted with mostly red granulated tissue, minimal adipose tissue, and minimal black diffuse tissue that appears to have been cauterized. Wound margins are sharp and open with an unremarkable periwound after kd were removed. Periwound was skin prepped using Bards barrier film and then covered with VAC drape in a window pane fashion to protect intact skin. Black granufoam was cut in a spiral fashion with one piece placed into wound bed and brought up and out of wound and secured to periwound with the sensitrac pad. Wound VAC was started and noted without leaks. Canister was not changed at this time and noted with <50ml of sanguinous appearing drainage. Next dressing change is Tuesday using a small black foam with expected change of canister. Sakshi Payan [facility] January 06, 2018 10:44
[2018-01-06 12:00] VITALS: BP 145/81; PULSE 55; RESP 18; TEMP 97.3; O2SAT 93
--- NOTE | 2018-01-06 12:34 | HHI.PR ---
Subjective Remarks Patient states pain is controlled Denies fevers or chills Chest tube is still draining serosanguineous fluid - approx 100 cc Sob is much improving. Objective Vitals Vital Signs Date Time Temp Pulse Resp B/P (MAP) Pulse Ox O2 Delivery O2 Flow Rate FiO2 01/06/18 08:00 97.2 56 18 145/98 (114) 95 01/06/18 00:00 97.4 62 18 144/87 (106) 94 01/05/18 20:00 97.2 63 18 123/76 (92) 91 01/05/18 16:00 97.2 53 18 119/70 (86) 94 01/05/18 16:00 97.2 53 18 119/70 (86) 94 01/05/18 13:09 3.00 I/O 01/05/18 01/05/18 01/05/18 01/06/18 01/06/18 01/06/18 07:00 15:00 23:00 07:00 15:00 23:00 Intake Total 614 ml 940 ml 1190 ml Output Total 140 ml 30 ml 1125 ml 1050 ml Balance -140 ml 584 ml -185 ml 140 ml Intake Oral 840 ml 240 ml IV Total 500 ml 100 ml 950 ml Other 114 ml Output Urine Total 1000 ml 1000 ml Chest Tube Drainage Total 130 ml 30 ml 100 ml 50 ml Drainage Total 10 ml 25 ml # Bowel Movements 0 Result Diagram: 01/05/18 0115 01/06/18 0529 Imaging Last 72 hours Impressions Chest X-Ray 01/05/18 0500 Signed Impressions: Service Date/Time: December 04:06 - CONCLUSION: 1. The right-sided chest tube remains in place with no pneumothorax. 2. Interval improvement in bilateral airspace disease with moderate residual. 3. Bilateral pleural effusions again noted. Stuart Haider MD Chest X-Ray 01/04/18 0000 Signed Impressions: Service Date/Time: Thursday, January 04, 2018 13:07 - CONCLUSION: 1. Status post placement of a right-sided chest tube with no evidence of pneumothorax. 2. Scattered bilateral pulmonary infiltrates. Judd Lang MD Objective Remarks AAOx3 chest tube in place on right post hemothorax. Draining serosanguineous fluid. Exam shows good air entry, diminished at the bases. no crackles or rhonchi S1S2+ RRR Procedures none A/P Problem List: (1) Empyema lung ICD Code: J86.9 - Pyothorax without fistula Status: Acute (2) Diabetes ICD Code: E11.9 - Type 2 diabetes mellitus without complications Status: Chronic (3) HTN (hypertension) ICD Code: I10 - Essential (primary) hypertension Status: Chronic (4) Pancytopenia ICD Code: D61.818 - Other pancytopenia Status: Chronic Assessment and Plan 52-year-old man with Recurrent empyema/abscess CT results reviewed from [facility] shows suspicious for abscess in the right side -Appreciate input from cardio thoracic surgery, s/p wound VAC -Continue Teflaro IV per infectious disease specialist -CT chest reviewed and noted with persistent pulmonary infiltrates, for which pulmonary medicine has been consulted and patient is s/p bronchoscopy December 26, 2017 without signification secretions, erythema or lung lesion -Continue with bronchodilator as needed -CXR 12/26 with increase Pleural effusion and consolidation; however CXR was stable with moderate right pleural effusion with consolidation RLL - Persistent empyema - Will discuss with CT surgery regarding possible surgical intervention vs IR drainage. Discussed with Dr Orosco. - Dw CTS recommends IR CT. IR recommends large bore CT. 01/03 is not complaining of worsening chest pain and shortness of breath today. I ordered a CT pulmonary angiogram given recent diagnosis of DVT in the right axillary vein. CT of the chest reviewed by me shows developing hazy densities in both hemithoraces most prominent in the left upper lung. Appearance concerning for developing septic emboli as per radiology report. Right-sided complex empyema with air and fluid is definitely not smaller and may be slightly larger when compared to prior. Developing left-sided effusion. No PE. CT findings suggestive of some degree of cirrhosis and portal hypertension with a small, nodular liver and splenomegaly. I will order abdominal ultrasound to better assess his findings. I will start the patient on oral diuretics given the development of the right pleural effusion. The case was discussed in depth with Dr. Orosco and also with cardiothoracic surgery. Cardiothoracic surgery will place chest up in a.m. Keep n.p.o. at midnight. 01/04 status post right video-assisted thoracoscopic surgery, drainage of multiloculated pleural fluid, incision open and drainage of chest wall fluid collection, removal of chest wall foreign body, chest wall wound VAC placement. Continue IV antibiotics as per ID recommendations. Continue supplemental oxygen to keep saturation more than 92%. During surgical procedure dissection revealed the presence of what appeared to be a wound VAC sponge under the subcutaneous and granulation tissue which was removed. The patient is currently on IV vancomycin, cefepime and micafungin. 01/06 Continue IV antibiotics. Chest tube as per CT surgery. Still having drainage. Discussed with CT surgery - chest tube will remain until next week. Hypertension, chronic, currently controlle -Continue Coreg and Lasix, monitor vitals -Stable Diabetes, chronic, type II, controlled with no acute complications -Accu-Cheks and sliding scale insulin Normochromic normocytic anemia H&H stable and patient at his baseline, transfuse for hemoglobin less than 7 01/03 given that the patient is going to undergo surgery in a.m. Transfuse 2 units of packed red blood cells. Will type and cross in a.m. for 2 units to have ready for surgery. 01/04 status post transfusion of 2 units of packed red blood cells with appropriate hemoglobin response. Pancytopenia, chronic -Continue to monitor labs DVT right axillary and upper bassilic vein -PICC line removed. Resume heparin drip. This was discussed with Dr. Biggs 01/05 Continue IV heparin drip. DVT prophylaxis: SCDs Discharge Planning Continue to monitor in the medical floor. Problem Qualifiers (1) Diabetes: Qualified Codes: E11.9 - Type 2 diabetes mellitus without complications; Z79.4 - MCC (current) use of insulin (2) HTN (hypertension): Qualified Codes: I10 - Essential (primary) hypertension Olu Foreman MD January 06, 2018 12:34
--- NOTE | 2018-01-06 12:52 | HHI.IDPN ---
Subjective Subjective Remarks ID COVERAGE is a 52 y/o CM with PMHx of HTN, diabetes, H/O DVT and alcohol abuse who was recently admitted to [facility] on 11/18/17 with weakness. While hospitalized at [facility], patient was treated for alcohol withdrawal and sepsis secondary to pneumonia. Patient developed persistent right-sided pleural effusion underwent a thoracocentesis on 11/22 with 1400 cc of fluid removed with cultures positive for MRSA. He also had a urine culture positive for MRSA. Patient had echocardiogram done on 11/21 revealing preserved EF of 60 - 65%. Patient had a PICC line placed 11/22. Patient was treated with IV Vanco, Levaquin and IV Zyvox. Patient developed acute renal failure likely secondary to vancomycin. Blood cultures were negative. Patient was accepted as a transfer to [facility] by Dr. Pena for possible decortication of lung by cardiothoracic surgery. Patient was seen by CTS at [facility] and underwent decortication as well as drainage of right chest wall abscess. Patient post op had a wound vac to the right chest wall and also had a chest tube. Upon DC patient was supposed to have been on Wound vac for right chest wall abscess but unsure if he was on it. Patient seems to have been on Teflaro IV. Patient was on Vanco IV and had acute renal failure. Patient was on Zyvox and developed severe pancytopenia. Infectious disease has been consulted for evaluation and medical management of MRSA empyema and right chest wall abscess. Notes reviewed Temps ok Pain during wound vac change OR C/S negative so far Repeat surgery done 01/[address] in [address] and wound vac in place No rash No N/V No diarrhea Antibiotics Vanco Cefepime Micafungin Current Medications Medications (Trade) Dose Ordered Sig/Bryan Route Start Time Stop Time Status Last Admin (Narcan Inj) 0.4 mg UNSCH PRN IV PUSH 12/20/17 18:00 (Folate) 1 mg DAILY PO 12/21/17 09:00 01/06/18 09:17 (Prinivil) 20 mg DAILY PO 12/21/17 09:00 01/06/18 09:18 (Vitamin B1) 100 mg DAILY PO 12/21/17 09:00 01/06/18 09:17 (Roxicodone) 10 mg Q4H PRN PO 12/21/17 00:30 01/06/18 09:17 (Morphine Inj) 2 mg Q3H PRN IV PUSH 12/21/17 00:30 01/06/18 10:44 (D50w (Vial) Inj) 50 ml UNSCH PRN IV PUSH 12/21/17 11:30 (Glucagon Inj) 1 mg UNSCH PRN OTHER 12/21/17 11:30 (NovoLOG SUPPLEMENTAL SCALE) 1 ACHS SLIDING SCALE SQ 12/21/17 12:00 01/06/18 12:00 (Benadryl) 25 mg Q6H PRN PO 12/24/17 17:30 12/24/17 22:48 (Miralax) 17 gm DAILY PO 12/28/17 09:00 01/06/18 09:16 Heparin Sodium/ Dextrose 250 ml @ 18 mls/hr TITRATE PRN IV 01/02/18 16:45 01/06/18 00:40 (Coreg) 25 mg Q12HR PO 01/03/18 09:00 01/06/18 09:18 Pharmacy Profile Note 0 ml @ 0 mls/hr UNSCH OTHER 01/03/18 14:15 Micafungin Sodium 150 mg/Sodium Chloride 100 ml @ 100 mls/hr Q24H IV 01/03/18 16:00 01/05/18 16:00 Cefazolin Sodium 500 mg/Sodium Chloride 505 ml @ 0 mls/hr REINSPECTOR IRRIGATION 01/03/18 14:45 01/10/18 14:44 Cefazolin Sodium/ Dextrose 50 ml @ 150 mls/hr REINSPECTOR IV 01/03/18 14:45 01/10/18 14:44 (Hibiclens 4% Top Soln) 1 applic REINSPECTOR TOPICAL 01/03/18 16:00 01/10/18 15:59 (Lasix Inj) 40 mg BID@,18 IV PUSH 01/03/18 18:00 01/06/18 09:17 Lactated Ringer's 1,000 ml @ 30 mls/hr Q24H PRN IV 01/04/18 01:30 01/07/18 01:29 (Chlorhexidine 2% Cloth) 3 pack REINSPECTOR PRN TOPICAL 01/04/18 01:30 01/07/18 01:29 Cefepime HCl 2000 mg/Sodium Chloride 100 ml @ 200 mls/hr Q8H IV 01/04/18 06:00 01/06/18 04:51 (NS Flush) 2 ml BID IV FLUSH 01/04/18 21:00 01/05/18 08:24 (NS Flush) 2 ml UNSCH PRN IV FLUSH 01/04/18 11:30 Vancomycin HCl 1750 mg/Sodium Chloride 517.5 ml @ 250 mls/hr Q12H IV 01/04/18 21:00 Future Hold 01/05/18 21:12 Lines Line sites with no e.o infection Past Medical History reviewed Allergies: Coded Allergies: No Known Allergies (Verified Allergy, Unknown, 11/29/17) Objective . Vital Signs Date Time Temp Pulse Resp B/P (MAP) Pulse Ox O2 Delivery O2 Flow Rate FiO2 01/06/18 08:00 97.2 56 18 145/98 (114) 95 01/06/18 00:00 97.4 62 18 144/87 (106) 94 01/05/18 20:00 97.2 63 18 123/76 (92) 91 01/05/18 16:00 97.2 53 18 119/70 (86) 94 01/05/18 16:00 97.2 53 18 119/70 (86) 94 01/05/18 13:09 3.00 . Laboratory Tests Test 01/05/18 01:15 White Blood Count 2.4 TH/MM3 Red Blood Count 3.19 MIL/MM3 Hemoglobin 9.6 GM/DL Hematocrit 28.3 % Mean Corpuscular Volume 88.7 FL Mean Corpuscular Hemoglobin 30.2 PG Mean Corpuscular Hemoglobin Concent 34.0 % Red Cell Distribution Width 16.4 % Platelet Count 123 TH/MM3 Mean Platelet Volume 8.8 FL Neutrophils (%) (Auto) 65.5 % Lymphocytes (%) (Auto) 26.6 % Monocytes (%) (Auto) 6.3 % Eosinophils (%) (Auto) 0.6 % Basophils (%) (Auto) 1.0 % Neutrophils # (Auto) 1.6 TH/MM3 Lymphocytes # (Auto) 0.6 TH/MM3 Monocytes # (Auto) 0.2 TH/MM3 Eosinophils # (Auto) 0.0 TH/MM3 Basophils # (Auto) 0.0 TH/MM3 CBC Comment DIFF FINAL Differential Comment Laboratory Tests Test 01/05/18 01:15 01/06/18 05:29 Blood Urea Nitrogen 21 MG/DL Creatinine 1.23 MG/DL 1.09 MG/DL Random Glucose 245 MG/DL Total Protein 7.2 GM/DL Albumin 1.9 GM/DL Calcium Level 7.8 MG/DL Phosphorus Level 3.6 MG/DL Magnesium Level 1.8 MG/DL Alkaline Phosphatase 69 U/L Aspartate Amino Transf (AST/SGOT) 13 U/L Alanine Aminotransferase (ALT/SGPT) 9 U/L Total Bilirubin 0.6 MG/DL Sodium Level 134 MEQ/L Potassium Level 4.0 MEQ/L Chloride Level 100 MEQ/L Carbon Dioxide Level 26.2 MEQ/L Anion Gap 8 MEQ/L Estimat Glomerular Filtration Rate 61 ML/MIN 70 ML/MIN Microbiology Date/Time Source Procedure Growth Status 01/04/18 10:30 Abscess Lung Fungal Smear - Final NO FUNGAL ELEMENTS SEEN. Resulted 01/04/18 10:30 Abscess Lung Fungal Culture Pending Resulted 01/04/18 10:30 Abscess Lung Acid Fast Stain Pending Received 01/04/18 10:30 Abscess Lung Mycobacterial Culture Pending Received 01/04/18 10:30 Abscess Lung Gram Stain - Final Resulted 01/04/18 10:30 Abscess Lung Wound Culture - Preliminary NO GROWTH IN 48 HOURS. Resulted Imaging Last Impressions Chest X-Ray 12/28/17 0000 Signed Impressions: Service Date/Time: Thursday, December 28, 2017 11:00 - CONCLUSION: Stable chest x-ray with moderate size right pleural effusion with associated consolidation and atelectasis in the right lower lobe. The prior chest CT on 12/23/2017 demonstrated imaging features suggesting empyema. Consider chest tube or surgical drainage. Tenzin Donato MD Chest CT 12/23/17 0000 Signed Impressions: Service Date/Time: Saturday, December 23, 2017 12:01 - CONCLUSION: 1. Increase in loculated air within the complex right pleural effusion since November 30. The overall size of the presumed right empyema is relatively stable. There is also now loculated air in the lower right lateral chest wall likely representing extension of the empyema into the soft tissues. Slight improvement in right basilar lung consolidation. 2. Resolution of previous left pleural effusion. 3. New right-sided posterior sixth rib fracture. Multiple remote healed rib fractures. Edis Wetzel MD Physical Exam GENERAL: Awake and alert. NAD. Sitting at side of bed SKIN: Warm and dry. No generalized rash. Bilateral lower extremity venous stasis changes noted. HEAD: Atraumatic. Normocephalic. No temporal or scalp tenderness. EYES: Pupils equal round and reactive. Extraocular motions intact. No scleral icterus. No injection or drainage. ENT: Nose without bleeding or purulent drainage. Airway patent. MMM. No oral lesions noted. NECK: Trachea midline. CARDIOVASCULAR: Regular rate and rhythm. RESPIRATORY: Decreased breath sound R base. Has CT R side with bloody output and has wound vac below it GASTROINTESTINAL: Abdomen soft, non-tender, nondistended. MUSCULOSKELETAL: Extremities without clubbing or cyanosis. Chronic BLE pitting edema noted. No calf tenderness. Bilateral calves supple. NEUROLOGICAL: Awake and alert. Able to move all extremities. Motor and sensory grossly intact. Non focal exam. Normal speech. PSYCHIATRIC: Appropriate mood and affect. Calm and cooperative. IV line sites with no e.o infection Assessment & Plan Remarks Right side MRSA empyema post pneumonia. Empyema Necessitans s/p wound vac for chest wall abscess on right side. Right MRSA chest wall abscess Concern for endocarditis. Due to ongoing infection it is possible the valve(s) may have seeded. Thrombocytopenia from Teflaro or sepsis. Alcoholism, aspiration risk. PICC removed. DVT Right UE. Neutropenia, ?due to prior ETOH abuse, seems chronic Recs Continue Cefepime IV Continue Vanco IV (target 15-20) stat Stop Micafungin IV Follow new cultures and deescalate once C/S finalized Follow temps Follow CBC Monitor progress Dr Giron available if needed this Dr Orosco back on Tuesday Helena Joy MD January 06, 2018 12:52
[2018-01-06] MEDS ORDERED: ALUMINUM/MAGNESIUM/SIMETH 30 ML CUP PO ONE (15:15)
[2018-01-06 16:00] VITALS: BP 129/80; PULSE 58; RESP 18; TEMP 97.2; O2SAT 93
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
--- NOTE | 2018-01-06 19:42 | HHI.PR ---
Subjective Remarks 52 YOWM with MRSA empyema, s/p Decortication, rt lung infilt and eff Chest wound to VAC no Fever no CP No SOB Had Rt VATS, drainage of loculated fluid, chest wall fluid Has Chest wall VAC device Breathing much better Objective Vital Signs Vital Signs Date Time Temp Pulse Resp B/P (MAP) Pulse Ox O2 Delivery O2 Flow Rate FiO2 01/06/18 16:00 97.2 58 18 129/80 (96) 93 01/06/18 12:00 97.3 55 18 145/81 (102) 93 01/06/18 08:00 97.2 56 18 145/98 (114) 95 01/06/18 00:00 97.4 62 18 144/87 (106) 94 01/05/18 20:00 97.2 63 18 123/76 (92) 91 I/O 01/05/18 01/05/18 01/05/18 01/06/18 01/06/18 01/06/18 07:00 15:00 23:00 07:00 15:00 23:00 Intake Total 614 ml 940 ml 1190 ml 1144 ml Output Total 140 ml 30 ml 1125 ml 1050 ml 1750 ml Balance -140 ml 584 ml -185 ml 140 ml -606 ml Intake Oral 840 ml 240 ml 840 ml IV Total 500 ml 100 ml 950 ml 304 ml Other 114 ml Output Urine Total 1000 ml 1000 ml 1750 ml Chest Tube Drainage Total 130 ml 30 ml 100 ml 50 ml Drainage Total 10 ml 25 ml # Bowel Movements 0 0 Result Diagram: 01/05/18 0115 01/06/18 0529 Objective Remarks GENERAL: WBWN WM,NAD SKIN: Warm and dry. HEAD: Normocephalic. EYES: No scleral icterus. No injection or drainage. NECK: Supple, trachea midline. No JVD or lymphadenopathy. CARDIOVASCULAR: Regular rate and rhythm without murmurs, gallops, or rubs. RESPIRATORY: Breath sounds equal bilaterally. No accessory muscle use. Decreased BS rt Rt chest wound to VAC GASTROINTESTINAL: Abdomen soft, non-tender, nondistended. MUSCULOSKELETAL: No cyanosis, or edema. BACK: Nontender without obvious deformity. No CVA tenderness. A/P Assessment and Plan IMPRESSION: 1. Persistent right lower lobe infiltrate with effusion. 2. 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 3. Hypertension. 4. Diabetes mellitus. 5. Alcohol abuse. PLAN: Cont Abx per ID DW RN Looks comfortable, non toxic Stable from pulm standpoint Chest tube to suction Supplement 02 Hematology evaluating for leucopenia Available prn over weekend Zhao Ortega MD January 06, 2018 19:42
[2018-01-06 20:00] VITALS: BP 133/83; PULSE 56; RESP 20; TEMP 97.2; O2SAT 96
[2018-01-06] MEDS: ALUMINUM/MAGNESIUM/SIMETH 30 ML CUP PO PRN (21:26)
[2018-01-07] VITALS: BP 148/84; PULSE 56; RESP 20; TEMP 97.3; O2SAT 94
[2018-01-07] MEDS: CEFEPIME INJ 2,000 MG in SODIUM CHLORIDE 0.9% INJ 100 ML IV SCH ×3 (05:04→20:01)
[2018-01-07 06:17] LABS: CREATININE 1.15 MG/DL (0.60-1.30)
[2018-01-07 06:19] LABS: RANDOM VANCOMYCIN 19.1 COMMENT
[2018-01-07] MEDS: PANTOPRAZOLE SOD 40 MG DELAYED RELEASE TAB PO SCH (07:55)
[2018-01-07] MEDS: LISINOPRIL 20 MG TAB PO SCH (07:55)
[2018-01-07] MEDS: THIAMINE HCL 100 MG TAB PO SCH (07:55)
[2018-01-07] MEDS: CARVEDILOL 12.5 MG TAB PO SCH ×2 (07:55→20:03)
[2018-01-07] MEDS: FOLIC ACID 1 MG TAB PO SCH (07:55)
[2018-01-07] MEDS: FUROSEMIDE 40 MG/4 ML VIAL IV PUSH SCH ×2 (07:56→16:32)
[2018-01-07] MEDS: POLYETHYLENE GLYCOL 17 GM PKG PO SCH (07:56)
[2018-01-07] MEDS: SODIUM CHLORIDE 0.9% FLUSH 10 ML FLUSH IV FLUSH SCH ×2 (07:56→20:03)
[2018-01-07] MEDS: INSULIN ASPART SUPPLEMENTAL SCALE SQ SCH ×4 (07:59→20:03)
[2018-01-07 08:00] VITALS: BP 154/94; PULSE 65; RESP 17; TEMP 97.3; O2SAT 95
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
[2018-01-07 09:49] LABS: AUTOMATED NEUTROPHIL # 2.5 TH/MM3 (1.8-7.7); BASOPHIL # 0.1 TH/MM3 (0-0.2); BASOPHIL % 1.8 % (0.0-2.0); EOSINOPHIL # 0.6 TH/MM3 (0-0.4); EOSINOPHIL % 12.7 % (0.0-4.0); HEMATOCRIT 29.8 % (39.0-51.0); LYMPH % 25.2 % (9.0-44.0); LYMPHOCYTE # 1.2 TH/MM3 (1.0-4.8); MEAN CELL VOLUME 90.3 FL (80.0-100.0); MEAN CORPUSCULAR HEMOGLOBIN 30.3 PG (27.0-34.0); MEAN CORPUSCULAR HGB CONC 33.6 % (32.0-36.0); MEAN PLATELET VOLUME 8.8 FL (7.0-11.0); MONO % 7.9 % (0.0-8.0); MONOCYTE # 0.4 TH/MM3 (0-0.9); NEUT % 52.4 % (16.0-70.0); PLATELET COUNT 142 TH/MM3 (150-450); RED CELL DISTRIBUTION WIDTH 16.6 % (11.6-17.2); WHITE BLOOD COUNT 4.9 TH/MM3 (4.0-11.0)
[2018-01-07] MEDS: HEPARIN-D5W 25,000 U/250 ML 250 ML IV PRN ×2 (09:52→21:43)
[2018-01-07] MEDS: MORPHINE SULFATE 4 MG/ML INJ IV PUSH PRN ×4 (10:50→23:15)
[2018-01-07 12:00] VITALS: BP 132/73; PULSE 60; RESP 17; TEMP 97.1; O2SAT 95
--- NOTE | 2018-01-07 12:09 | HHI.PR ---
Subjective Remarks patient states pain is moderate to severe and pain medication takes th edge off Objective Vitals Vital Signs Date Time Temp Pulse Resp B/P (MAP) Pulse Ox O2 Delivery O2 Flow Rate FiO2 01/07/18 08:00 Nasal Cannula 2.00 01/07/18 08:00 97.3 65 17 154/94 (114) 95 01/07/18 00:00 97.3 56 20 148/84 (105) 94 01/06/18 20:00 97.2 56 20 133/83 (100) 96 01/06/18 16:00 97.2 58 18 129/80 (96) 93 I/O 01/06/18 01/06/18 01/06/18 01/07/18 01/07/18 01/07/18 07:00 15:00 23:00 07:00 15:00 23:00 Intake Total 1190 ml 1244 ml 460 ml Output Total 1050 ml 1800 ml 1750 ml Balance 140 ml -556 ml -1290 ml Intake Oral 240 ml 840 ml 360 ml IV Total 950 ml 404 ml 100 ml Output Urine Total 1000 ml 1750 ml 1700 ml Chest Tube Drainage Total 50 ml 50 ml 50 ml Drainage Total 0 ml 0 ml # Bowel Movements 0 1 Result Diagram: 01/07/18 0902 01/07/18 0511 Imaging Last Impressions Chest X-Ray 01/05/18 0500 Signed Impressions: Service Date/Time: December 04:06 - CONCLUSION: 1. The right-sided chest tube remains in place with no pneumothorax. 2. Interval improvement in bilateral airspace disease with moderate residual. 3. Bilateral pleural effusions again noted. Stuart Haider MD CT Angiography 01/03/18 0000 Signed Impressions: Service Date/Time: Wednesday, January 03, 2018 12:57 - CONCLUSION: 1. Developing hazy densities in both hemithoraces, most prominent in the left upper lung. Appearance is concerning for developing septic emboli. 2. Right-sided complex empyema with air and fluid is definitely no smaller and may actually be slightly larger when compared to prior. Developing left-sided effusion. 3. No filling defects within the pulmonary arteries to suggest large pulmonary emboli. 4. CT findings suggesting some degree of cirrhosis and portal hypertension with a small, nodular liver and splenomegaly. Sven Flaherty MD Upper Extremity Ultrasound 5/7/18 0000 Signed Impressions: Service Date/Time: Tuesday, January 02, 2018 09:35 - CONCLUSION: Acute appearing occlusive thrombus in the right axillary and upper basilic vein. Tenzin Magdaleno MD Chest CT 12/23/17 0000 Signed Impressions: Service Date/Time: Saturday, December 23, 2017 12:01 - CONCLUSION: 1. Increase in loculated air within the complex right pleural effusion since November 30. The overall size of the presumed right empyema is relatively stable. There is also now loculated air in the lower right lateral chest wall likely representing extension of the empyema into the soft tissues. Slight improvement in right basilar lung consolidation. 2. Resolution of previous left pleural effusion. 3. New right-sided posterior sixth rib fracture. Multiple remote healed rib fractures. Edis Wetzel MD Objective Remarks AAOx3 chest tube in place on right post hemothorax. Draining serosanguineous fluid. Exam shows good air entry, diminished at the bases. no crackles or rhonchi S1S2+ RRR Procedures none A/P Problem List: (1) Empyema lung ICD Code: J86.9 - Pyothorax without fistula Status: Acute (2) Diabetes ICD Code: E11.9 - Type 2 diabetes mellitus without complications Status: Chronic (3) HTN (hypertension) ICD Code: I10 - Essential (primary) hypertension Status: Chronic (4) Pancytopenia ICD Code: D61.818 - Other pancytopenia Status: Chronic Assessment and Plan 52-year-old man with Recurrent empyema/abscess CT results reviewed from [facility] shows suspicious for abscess in the right side -Appreciate input from cardio thoracic surgery, s/p wound VAC -Continue Teflaro IV per infectious disease specialist -CT chest reviewed and noted with persistent pulmonary infiltrates, for which pulmonary medicine has been consulted and patient is s/p bronchoscopy December 26, 2017 without signification secretions, erythema or lung lesion -Continue with bronchodilator as needed -CXR 12/26 with increase Pleural effusion and consolidation; however CXR was stable with moderate right pleural effusion with consolidation RLL - Persistent empyema - Will discuss with CT surgery regarding possible surgical intervention vs IR drainage. Discussed with Dr Orosco. - Dw CTS recommends IR CT. IR recommends large bore CT. 01/03 is not complaining of worsening chest pain and shortness of breath today. I ordered a CT pulmonary angiogram given recent diagnosis of DVT in the right axillary vein. CT of the chest reviewed by me shows developing hazy densities in both hemithoraces most prominent in the left upper lung. Appearance concerning for developing septic emboli as per radiology report. Right-sided complex empyema with air and fluid is definitely not smaller and may be slightly larger when compared to prior. Developing left-sided effusion. No PE. CT findings suggestive of some degree of cirrhosis and portal hypertension with a small, nodular liver and splenomegaly. I will order abdominal ultrasound to better assess his findings. I will start the patient on oral diuretics given the development of the right pleural effusion. The case was discussed in depth with Dr. Orosco and also with cardiothoracic surgery. Cardiothoracic surgery will place chest up in a.m. Keep n.p.o. at midnight. 01/04 status post right video-assisted thoracoscopic surgery, drainage of multiloculated pleural fluid, incision open and drainage of chest wall fluid collection, removal of chest wall foreign body, chest wall wound VAC placement. Continue IV antibiotics as per ID recommendations. Continue supplemental oxygen to keep saturation more than 92%. During surgical procedure dissection revealed the presence of what appeared to be a wound VAC sponge under the subcutaneous and granulation tissue which was removed. The patient is currently on IV vancomycin, cefepime and micafungin. Continue IV antibiotics. Chest tube as per CT surgery. Still having drainage. Discussed with CT surgery - chest tube will remain until next week. 01/07 Pain somehwat poorly controlled. Increase Morphine dose for breakthrough pain up to 4 mg. Hypertension, chronic, currently controlle -Continue Coreg and Lasix, monitor vitals -Stable Diabetes, chronic, type II, controlled with no acute complications -Accu-Cheks and sliding scale insulin Normochromic normocytic anemia H&H stable and patient at his baseline, transfuse for hemoglobin less than 7 01/03 given that the patient is going to undergo surgery in a.m. Transfuse 2 units of packed red blood cells. Will type and cross in a.m. for 2 units to have ready for surgery. 01/04 status post transfusion of 2 units of packed red blood cells with appropriate hemoglobin response. Pancytopenia, chronic -Continue to monitor labs DVT right axillary and upper bassilic vein -PICC line removed. Resume heparin drip. This was discussed with Dr. Biggs 01/05 Continue IV heparin drip. DVT prophylaxis: SCDs Discharge Planning Continue to monitor in the medical floor. Problem Qualifiers (1) Diabetes: Qualified Codes: E11.9 - Type 2 diabetes mellitus without complications; Z79.4 - care home (current) use of insulin (2) HTN (hypertension): Qualified Codes: I10 - Essential (primary) hypertension Olu Foreman MD January 07, 2018 12:09
[2018-01-07 16:00] VITALS: BP 130/64; PULSE 60; RESP 18; TEMP 97.3; O2SAT 98
[2018-01-07] MEDS ORDERED: VANCOMYCIN 1,500 MG/NS 500 ML IV ONE ×2 (18:00)
[2018-01-07 20:00] VITALS: BP 158/86; PULSE 63; RESP 20; TEMP 97.9; O2SAT 94
[2018-01-08] VITALS: BP 162/85; PULSE 62; RESP 20; TEMP 97.9; O2SAT 95
[2018-01-08] MEDS: MORPHINE SULFATE 4 MG/ML INJ IV PUSH PRN ×5 (05:52→20:34)
[2018-01-08] MEDS: CEFEPIME INJ 2,000 MG in SODIUM CHLORIDE 0.9% INJ 100 ML IV SCH ×3 (05:54→20:28)
[2018-01-08 07:28] LABS: AUTOMATED NEUTROPHIL # 2.2 TH/MM3 (1.8-7.7); BASOPHIL # 0.1 TH/MM3 (0-0.2); BASOPHIL % 1.4 % (0.0-2.0); EOSINOPHIL # 0.6 TH/MM3 (0-0.4); EOSINOPHIL % 14.5 % (0.0-4.0); HEMOGLOBIN 9.5 GM/DL (13.0-17.0); LYMPH % 25.8 % (9.0-44.0); LYMPHOCYTE # 1.1 TH/MM3 (1.0-4.8); MEAN CELL VOLUME 90.1 FL (80.0-100.0); MEAN CORPUSCULAR HEMOGLOBIN 30.7 PG (27.0-34.0); MEAN CORPUSCULAR HGB CONC 34.1 % (32.0-36.0); MEAN PLATELET VOLUME 8.8 FL (7.0-11.0); MONO % 6.8 % (0.0-8.0); MONOCYTE # 0.3 TH/MM3 (0-0.9); NEUT % 51.5 % (16.0-70.0); PLATELET COUNT 133 TH/MM3 (150-450); RED BLOOD COUNT 3.11 MIL/MM3 (4.50-5.90); RED CELL DISTRIBUTION WIDTH 16.6 % (11.6-17.2); WHITE BLOOD COUNT 4.4 TH/MM3 (4.0-11.0)
[2018-01-08 08:00] VITALS: BP 148/85; PULSE 57; RESP 17; TEMP 97.8; O2SAT 94
[2018-01-08] MEDS: INSULIN ASPART SUPPLEMENTAL SCALE SQ SCH ×4 (08:00→20:28)
[2018-01-08 08:02] LABS: ALBUMIN 2.2 GM/DL (3.4-5.0); ALKALINE PHOSPHATASE 77 U/L (45-117); ALT (GPT) 15 U/L (12-78); AST (GOT) 25 U/L (15-37); BICARBONATE 26.8 MEQ/L (21.0-32.0); BLOOD UREA NITROGEN 17 MG/DL (7-18); CALCIUM 8.3 MG/DL (8.5-10.1); CHLORIDE 104 MEQ/L (98-107); CREATININE 1.03 MG/DL (0.60-1.30); GLOMERULAR FILTRATION RATE 75 ML/MIN (>89); GLUCOSE,RANDOM 121 MG/DL (74-106); SODIUM (NA) 139 MEQ/L (136-145); TOTAL BILIRUBIN ADULT 0.5 MG/DL (0.2-1.0); TOTAL PROTEIN 7.3 GM/DL (6.4-8.2)
[2018-01-08] MEDS: PANTOPRAZOLE SOD 40 MG DELAYED RELEASE TAB PO SCH (09:07)
[2018-01-08] MEDS: CARVEDILOL 12.5 MG TAB PO SCH ×2 (09:07→20:27)
[2018-01-08] MEDS: FOLIC ACID 1 MG TAB PO SCH (09:07)
[2018-01-08] MEDS: THIAMINE HCL 100 MG TAB PO SCH (09:07)
[2018-01-08] MEDS: POLYETHYLENE GLYCOL 17 GM PKG PO SCH (09:07)
[2018-01-08] MEDS: LISINOPRIL 20 MG TAB PO SCH (09:07)
[2018-01-08] MEDS: FUROSEMIDE 40 MG/4 ML VIAL IV PUSH SCH ×2 (09:08→17:32)
[2018-01-08] MEDS: SODIUM CHLORIDE 0.9% FLUSH 10 ML FLUSH IV FLUSH SCH ×2 (09:08→20:29)
[2018-01-08] MEDS: diphenhydrAMINE HCL 25 MG CAP PO PRN (09:14)
--- NOTE | 2018-01-08 14:36 | HHI.PR ---
Subjective Remarks Pain better controlled Denies co/sob Afebrile. Objective Vitals Vital Signs Date Time Temp Pulse Resp B/P (MAP) Pulse Ox O2 Delivery O2 Flow Rate FiO2 01/08/18 08:00 97.8 57 17 148/85 (106) 94 01/08/18 00:00 97.9 62 20 162/85 (110) 95 01/07/18 20:00 97.9 63 20 158/86 (110) 94 01/07/18 16:00 97.3 60 18 130/64 (86) 98 I/O 01/07/18 01/07/18 01/07/18 01/08/18 01/08/18 01/08/18 07:00 15:00 23:00 07:00 15:00 23:00 Intake Total 460 ml 1715 ml 180 ml Output Total 1750 ml 1425 ml 700 ml Balance -1290 ml 290 ml -520 ml Intake Oral 360 ml 1000 ml IV Total 100 ml 715 ml 180 ml Output Urine Total 1700 ml 1325 ml 600 ml Chest Tube Drainage Total 50 ml 50 ml 70 ml Drainage Total 0 ml 50 ml 30 ml # Bowel Movements 1 1 Result Diagram: 01/08/18 0606 01/08/18 0606 Imaging Last Impressions Chest X-Ray 01/05/18 0500 Signed Impressions: Service Date/Time: December 04:06 - CONCLUSION: 1. The right-sided chest tube remains in place with no pneumothorax. 2. Interval improvement in bilateral airspace disease with moderate residual. 3. Bilateral pleural effusions again noted. Stuart Haider MD CT Angiography 01/03/18 0000 Signed Impressions: Service Date/Time: Wednesday, January 03, 2018 12:57 - CONCLUSION: 1. Developing hazy densities in both hemithoraces, most prominent in the left upper lung. Appearance is concerning for developing septic emboli. 2. Right-sided complex empyema with air and fluid is definitely no smaller and may actually be slightly larger when compared to prior. Developing left-sided effusion. 3. No filling defects within the pulmonary arteries to suggest large pulmonary emboli. 4. CT findings suggesting some degree of cirrhosis and portal hypertension with a small, nodular liver and splenomegaly. Sven Flaherty MD Upper Extremity Ultrasound 01/02/18 0000 Signed Impressions: Service Date/Time: Tuesday, January 02, 2018 09:35 - CONCLUSION: Acute appearing occlusive thrombus in the right axillary and upper basilic vein. Tenzin Magdaleno MD Chest CT 12/23/17 0000 Signed Impressions: Service Date/Time: Saturday, December 23, 2017 12:01 - CONCLUSION: 1. Increase in loculated air within the complex right pleural effusion since November 30. The overall size of the presumed right empyema is relatively stable. There is also now loculated air in the lower right lateral chest wall likely representing extension of the empyema into the soft tissues. Slight improvement in right basilar lung consolidation. 2. Resolution of previous left pleural effusion. 3. New right-sided posterior sixth rib fracture. Multiple remote healed rib fractures. Edis Wetzel MD Objective Remarks AAOx3 chest tube in place on right post hemothorax. Draining serosanguineous fluid. Exam shows good air entry, diminished at the bases. no crackles or rhonchi S1S2+ RRR Procedures none A/P Problem List: (1) Empyema lung ICD Code: J86.9 - Pyothorax without fistula Status: Acute (2) Diabetes ICD Code: E11.9 - Type 2 diabetes mellitus without complications Status: Chronic (3) HTN (hypertension) ICD Code: I10 - Essential (primary) hypertension Status: Chronic (4) Pancytopenia ICD Code: D61.818 - Other pancytopenia Status: Chronic Assessment and Plan 52-year-old man with Recurrent empyema/abscess CT results reviewed from [facility] shows suspicious for abscess in the right side -Appreciate input from cardio thoracic surgery, s/p wound VAC -Continue Teflaro IV per infectious disease specialist -CT chest reviewed and noted with persistent pulmonary infiltrates, for which pulmonary medicine has been consulted and patient is s/p bronchoscopy December 26, 2017 without signification secretions, erythema or lung lesion -Continue with bronchodilator as needed -CXR 12/26 with increase Pleural effusion and consolidation; however CXR was stable with moderate right pleural effusion with consolidation RLL - Persistent empyema - Will discuss with CT surgery regarding possible surgical intervention vs IR drainage. Discussed with Dr Orosco. - Dw CTS recommends IR CT. IR recommends large bore CT. 01/03 is not complaining of worsening chest pain and shortness of breath today. I ordered a CT pulmonary angiogram given recent diagnosis of DVT in the right axillary vein. CT of the chest reviewed by me shows developing hazy densities in both hemithoraces most prominent in the left upper lung. Appearance concerning for developing septic emboli as per radiology report. Right-sided complex empyema with air and fluid is definitely not smaller and may be slightly larger when compared to prior. Developing left-sided effusion. No PE. CT findings suggestive of some degree of cirrhosis and portal hypertension with a small, nodular liver and splenomegaly. I will order abdominal ultrasound to better assess his findings. I will start the patient on oral diuretics given the development of the right pleural effusion. The case was discussed in depth with Dr. Orosco and also with cardiothoracic surgery. Cardiothoracic surgery will place chest up in a.m. Keep n.p.o. at midnight. 01/04 status post right video-assisted thoracoscopic surgery, drainage of multiloculated pleural fluid, incision open and drainage of chest wall fluid collection, removal of chest wall foreign body, chest wall wound VAC placement. Continue IV antibiotics as per ID recommendations. Continue supplemental oxygen to keep saturation more than 92%. During surgical procedure dissection revealed the presence of what appeared to be a wound VAC sponge under the subcutaneous and granulation tissue which was removed. The patient is currently on IV vancomycin, cefepime and micafungin. Continue IV antibiotics. Chest tube as per CT surgery. Still having drainage. Discussed with CT surgery - chest tube will remain until next week. 01/07 Pain somehwat poorly controlled. Increase Morphine dose for breakthrough pain up to 4 mg. 01/08 Pain better controlled. Continue oxycodone and morphine IV for breakthrough pain. Hypertension, chronic, currently controlle -Continue Coreg and Lasix, monitor vitals -Stable Diabetes, chronic, type II, controlled with no acute complications -Accu-Cheks and sliding scale insulin Normochromic normocytic anemia H&H stable and patient at his baseline, transfuse for hemoglobin less than 7 8 given that the patient is going to undergo surgery in a.m. Transfuse 2 units of packed red blood cells. Will type and cross in a.m. for 2 units to have ready for surgery. 01/04 status post transfusion of 2 units of packed red blood cells with appropriate hemoglobin response. Pancytopenia, chronic -Continue to monitor labs DVT right axillary and upper bassilic vein -PICC line removed. Resume heparin ip. This was discussed with Dr. Biggs 01/05 Continue IV heparin drip. DVT prophylaxis: SCDs Discharge Planning Continue to monitor in the medical floor. Problem Qualifiers (1) Diabetes: Qualified Codes: E11.9 - Type 2 diabetes mellitus without complications; Z79.4 - senior living (current) use of insulin (2) HTN (hypertension): Qualified Codes: I10 - Essential (primary) hypertension Olu Foreman MD January 08, 2018 14:36
[2018-01-08] MEDS: HEPARIN-D5W 25,000 U/250 ML 250 ML IV PRN (14:39)
[2018-01-08 16:00] VITALS: BP 137/75; PULSE 58; RESP 17; TEMP 97.8; O2SAT 97
[2018-01-08] MEDS ORDERED: PHARMACY ORDERED LAB ONE (17:45)
[2018-01-08 20:00] VITALS: BP 148/90; PULSE 64; RESP 20; TEMP 97.5; O2SAT 91
[2018-01-08] MEDS: VANCOMYCIN 1,500 MG/NS 500 ML IV SCH ×2 (20:28)
[2018-01-09] VITALS: BP 129/74; PULSE 60; RESP 20; TEMP 97.8; O2SAT 98
[2018-01-09] MEDS: MORPHINE SULFATE 4 MG/ML INJ IV PUSH PRN ×6 (01:50→20:27)
[2018-01-09] MEDS: CEFEPIME INJ 2,000 MG in SODIUM CHLORIDE 0.9% INJ 100 ML IV SCH ×3 (04:49→20:28)
[2018-01-09 07:02] LABS: AUTOMATED NEUTROPHIL # 1.9 TH/MM3 (1.8-7.7); BASOPHIL % 1.2 % (0.0-2.0); EOSINOPHIL # 0.6 TH/MM3 (0-0.4); EOSINOPHIL % 15.9 % (0.0-4.0); HEMATOCRIT 27.4 % (39.0-51.0); HEMOGLOBIN 9.4 GM/DL (13.0-17.0); LYMPH % 26.3 % (9.0-44.0); MEAN CELL VOLUME 90.2 FL (80.0-100.0); MEAN CORPUSCULAR HEMOGLOBIN 30.9 PG (27.0-34.0); MEAN CORPUSCULAR HGB CONC 34.2 % (32.0-36.0); MEAN PLATELET VOLUME 8.3 FL (7.0-11.0); MONO % 7.5 % (0.0-8.0); MONOCYTE # 0.3 TH/MM3 (0-0.9); NEUT % 49.1 % (16.0-70.0); PLATELET COUNT 121 TH/MM3 (150-450); RED BLOOD COUNT 3.04 MIL/MM3 (4.50-5.90); RED CELL DISTRIBUTION WIDTH 16.8 % (11.6-17.2); WHITE BLOOD COUNT 3.9 TH/MM3 (4.0-11.0)
[2018-01-09] MEDS: FOLIC ACID 1 MG TAB PO SCH (07:45)
[2018-01-09] MEDS: FUROSEMIDE 40 MG/4 ML VIAL IV PUSH SCH ×2 (07:45→16:35)
[2018-01-09] MEDS: THIAMINE HCL 100 MG TAB PO SCH (07:45)
[2018-01-09] MEDS: PANTOPRAZOLE SOD 40 MG DELAYED RELEASE TAB PO SCH (07:46)
[2018-01-09] MEDS: LISINOPRIL 20 MG TAB PO SCH (07:46)
[2018-01-09] MEDS: CARVEDILOL 12.5 MG TAB PO SCH ×2 (07:46→20:29)
[2018-01-09] MEDS: VANCOMYCIN 1,500 MG/NS 500 ML IV SCH ×4 (07:46→20:29)
[2018-01-09] MEDS: POLYETHYLENE GLYCOL 17 GM PKG PO SCH (07:46)
[2018-01-09] MEDS: SODIUM CHLORIDE 0.9% FLUSH 10 ML FLUSH IV FLUSH SCH ×2 (07:47→20:30)
[2018-01-09] MEDS: INSULIN ASPART SUPPLEMENTAL SCALE SQ SCH ×4 (07:58→20:30)
[2018-01-09 08:00] VITALS: BP 146/93; PULSE 60; RESP 18; TEMP 97.8; O2SAT 94
[2018-01-09] MEDS: HEPARIN-D5W 25,000 U/250 ML 250 ML IV PRN (11:46)
--- NOTE | 2018-01-09 11:56 | PD.WCN.NOT ---
Wound Consult Description: Right side lateral chest distal to chest tube. Recommendation: Wound VAC dressing to be changed every Tuesday by [facility]END[facility] ONLY Settings 125mmHg low continuous suction If air leak occurs please reinforce only. Trouble shoot by checking machine settings, canister is locked in to place or not full, tubing is not kinked or clamped. Neg Pressure Wound Therapy Wound Location Wound Location: Right side lateral chest distal to chest tube. Wound Description Length: 1.0cm Width: 5.0cm Depth: ~4.0cm Wound bed appearance: ~80% red granulation tissue ~10% yellow adipose tissue ~10% black cauterized tissue Periwound appearance: Unremarkable Settings Suction: 125 mmHg, Continuous Intensity: Low Other Information: Bridged, Windowpaned, Mushroomed Foam type: Black Number of pieces: 1 Additonal Information Patient was seen today by ghost writer for follow up wound vac change. Patient alert and oriented x4,Denies any severe discomfort.Dressing to Chest tube Dry intact.Vac dressing removed ~10cm single black sponge removed from wound bas without difficulty.Wound cleansed with normal saline pat dry.Skin prep applied to periwound and wound was window paned with drape.Single 12cm black sponge gently packed into wound base track pad applied and suction started @ 125mmHg low continuous with no leaks noted.Patient tolerated wound vac dressing change well. Ostomy Date of Surgery: January 04, 2018 [facility]ida V[facility]quez [facility] January 09, 2018 11:56
[2018-01-09 12:00] VITALS: BP 137/84; PULSE 69; RESP 18; TEMP 97.5; O2SAT 93
--- NOTE | 2018-01-09 12:09 | HHI.PR ---
Subjective Remarks Chest pain controlled Denies fevers/chills Denies sob Objective Vitals Vital Signs Date Time Temp Pulse Resp B/P (MAP) Pulse Ox O2 Delivery O2 Flow Rate FiO2 01/09/18 10:20 16 01/09/18 09:11 20 01/09/18 08:30 Room Air 2.00 Nasal Cannula 01/09/18 08:00 97.8 60 18 146/93 (110) 94 01/09/18 00:00 97.8 60 20 129/74 (92) 98 01/08/18 20:23 Nasal Cannula 2.00 01/08/18 20:00 97.5 64 20 148/90 (109) 91 01/08/18 16:00 97.8 58 17 137/75 (95) 97 I/O 01/08/18 01/08/18 01/08/18 01/09/18 01/09/18 01/09/18 07:00 15:00 23:00 07:00 15:00 23:00 Intake Total 180 ml 100 ml 1775 ml 1251 ml Output Total 700 ml 3450 ml 2100 ml 750 ml Balance -520 ml 100 ml -1675 ml -849 ml -750 ml Intake Oral 1500 ml 360 ml IV Total 180 ml 100 ml 275 ml 891 ml Output Urine Total 600 ml 3300 ml 2000 ml 750 ml Stool Total 0 ml Chest Tube Drainage Total 70 ml 150 ml 100 ml Drainage Total 30 ml 0 ml 0 ml # Bowel Movements 1 Result Diagram: 01/09/18 0646 01/08/18 0606 Objective Remarks AAOx3 chest tube in place on right post hemothorax. Draining serosanguineous fluid. Exam shows good air entry, diminished at the bases. no crackles or rhonchi S1S2+ RRR Procedures none A/P Problem List: (1) Empyema lung ICD Code: J86.9 - Pyothorax without fistula Status: Acute (2) Diabetes ICD Code: E11.9 - Type 2 diabetes mellitus without complications Status: Chronic (3) HTN (hypertension) ICD Code: I10 - Essential (primary) hypertension Status: Chronic (4) Pancytopenia ICD Code: D61.818 - Other pancytopenia Status: Chronic Assessment and Plan 52-year-old man with Recurrent empyema/abscess CT results reviewed from [facility] shows suspicious for abscess in the right side -Appreciate input from cardio thoracic surgery, s/p wound VAC -sp treatment with Teflaro -CT chest reviewed and noted with persistent pulmonary infiltrates, for which pulmonary medicine has been consulted and patient is s/p bronchoscopy December 26, 2017 without signification secretions, erythema or lung lesion -Continue with bronchodilator as needed -CXR 12/26 with increase Pleural effusion and consolidation; however CXR was stable with moderate right pleural effusion with consolidation RLL - Persistent empyema - Will discuss with CT surgery regarding possible surgical intervention vs IR drainage. Discussed with Dr Orosco. - Dw CTS recommends IR CT. IR recommends large bore CT. 01/03 is not complaining of worsening chest pain and shortness of breath today. I ordered a CT pulmonary angiogram given recent diagnosis of DVT in the right axillary vein. CT of the chest reviewed by me shows developing hazy densities in both hemithoraces most prominent in the left upper lung. Appearance concerning for developing septic emboli as per radiology report. Right-sided complex empyema with air and fluid is definitely not smaller and may be slightly larger when compared to prior. Developing left-sided effusion. No PE. CT findings suggestive of some degree of cirrhosis and portal hypertension with a small, nodular liver and splenomegaly. I will order abdominal ultrasound to better assess his findings. I will start the patient on oral diuretics given the development of the right pleural effusion. The case was discussed in depth with Dr. Orosco and also with cardiothoracic surgery. Cardiothoracic surgery will place chest up in a.m. Keep n.p.o. at midnight. 01/04 status post right video-assisted thoracoscopic surgery, drainage of multiloculated pleural fluid, incision open and drainage of chest wall fluid collection, removal of chest wall foreign body, chest wall wound VAC placement. Continue IV antibiotics as per ID recommendations. Continue supplemental oxygen to keep saturation more than 92%. During surgical procedure dissection revealed the presence of what appeared to be a wound VAC sponge under the subcutaneous and granulation tissue which was removed. The patient is currently on IV vancomycin, cefepime and micafungin. Continue IV antibiotics. Chest tube as per CT surgery. Still having drainage. Discussed with CT surgery - chest tube will remain until next week. 01/07 Pain somehwat poorly controlled. Increase Morphine dose for breakthrough pain up to 4 mg. 01/08 Pain better controlled. Continue oxycodone and morphine IV for breakthrough pain. 01/09 Continue antibiotics per ID. Patient on IV Cefepime and IV Vancomycin. Continue pain control with oxycodone and IV morphine. Hypertension, chronic, currently controlle -Continue Coreg and Lasix, monitor vitals -Stable Diabetes, chronic, type II, controlled with no acute complications -Accu-Cheks and sliding scale insulin Normochromic normocytic anemia H&H stable and patient at his baseline, transfuse for hemoglobin less than 7 01/03 given that the patient is going to undergo surgery in a.m. Transfuse 2 units of packed red blood cells. Will type and cross in a.m. for 2 units to have ready for surgery. 01/04 status post transfusion of 2 units of packed red blood cells with appropriate hemoglobin response. Pancytopenia, chronic -Continue to monitor labs - Hematology consulted. As per hematologyconservative management with observation. Will likely resolve after resolution of infection. DVT right axillary and upper bassilic vein -PICC line removed. Resume heparin drip. This was discussed with Dr. Biggs 01/05 Continue IV heparin drip. DVT prophylaxis: SCDs Discharge Planning Continue to monitor in the medical floor. Problem Qualifiers (1) Diabetes: Qualified Codes: E11.9 - Type 2 diabetes mellitus without complications; Z79.4 - senior care (current) use of insulin (2) HTN (hypertension): Qualified Codes: I10 - Essential (primary) hypertension Olu Foreman MD January 09, 2018 12:09
--- NOTE | 2018-01-09 15:07 | HHI.IDPN ---
Subjective Subjective Remarks is a 52 y/o CM with PMHx of HTN, diabetes, H/O DVT and alcohol abuse who was recently admitted to [facility] on 11/18/17 with weakness. While hospitalized at [facility], patient was treated for alcohol withdrawal and sepsis secondary to pneumonia. Patient developed persistent right-sided pleural effusion underwent a thoracocentesis on 11/22 with 1400 cc of fluid removed with cultures positive for MRSA. He also had a urine culture positive for MRSA. Patient had echocardiogram done on 11/21 revealing preserved EF of 60 - 65%. Patient had a PICC line placed 11/22. Patient was treated with IV Vanco, Levaquin and IV Zyvox. Patient developed acute renal failure likely secondary to vancomycin. Blood cultures were negative. Patient was accepted as a transfer to [facility] by Dr. Pena for possible decortication of lung by cardiothoracic surgery. Patient was seen by CTS at [facility] and underwent decortication as well as drainage of right chest wall abscess. Patient post op had a wound vac to the right chest wall and also had a chest tube. Upon DC patient was supposed to have been on Wound vac for right chest wall abscess but unsure if he was on it. Patient seems to have been on Teflaro IV. Patient was on Vanco IV and had acute renal failure. Patient was on Zyvox and developed severe pancytopenia. Infectious disease has been consulted for evaluation and medical management of MRSA empyema and right chest wall abscess. Notes reviewed Temps ok Pain during wound vac change OR C/S negative so far Repeat surgery done 01/[address] and wound vac in place No rash No N/V No diarrhea Says feel better when breathing than before. Antibiotics Vanco Cefepime Micafungin Lines Line sites with no e.o infection Past Medical History reviewed Allergies: Coded Allergies: No Known Allergies (Verified Allergy, Unknown, 11/29/17) Objective . Vital Signs Date Time Temp Pulse Resp B/P (MAP) Pulse Ox O2 Delivery O2 Flow Rate FiO2 01/09/18 13:25 16 01/09/18 12:35 16 01/09/18 12:00 97.5 69 18 137/84 (101) 93 01/09/18 08:30 Room Air 2.00 Nasal Cannula 01/09/18 08:00 97.8 60 18 146/93 (110) 94 01/09/18 00:00 97.8 60 20 129/74 (92) 98 01/08/18 20:23 Nasal Cannula 2.00 01/08/18 20:00 97.5 64 20 148/90 (109) 91 01/08/18 16:00 97.8 58 17 137/75 (95) 97 01/09/18 01/09/18 01/10/18 15:00 23:00 07:00 Output Total 750 ml Balance -750 ml Output Urine Total 750 ml . Laboratory Tests Test 01/08/18 06:06 01/09/18 06:46 White Blood Count 4.4 TH/MM3 3.9 TH/MM3 Red Blood Count 3.11 MIL/MM3 3.04 MIL/MM3 Hemoglobin 9.5 GM/DL 9.4 GM/DL Hematocrit 28.0 % 27.4 % Mean Corpuscular Volume 90.1 FL 90.2 FL Mean Corpuscular Hemoglobin 30.7 PG 30.9 PG Mean Corpuscular Hemoglobin Concent 34.1 % 34.2 % Red Cell Distribution Width 16.6 % 16.8 % Platelet Count 133 TH/MM3 121 TH/MM3 Mean Platelet Volume 8.8 FL 8.3 FL Neutrophils (%) (Auto) 51.5 % 49.1 % Lymphocytes (%) (Auto) 25.8 % 26.3 % Monocytes (%) (Auto) 6.8 % 7.5 % Eosinophils (%) (Auto) 14.5 % 15.9 % Basophils (%) (Auto) 1.4 % 1.2 % Neutrophils # (Auto) 2.2 TH/MM3 1.9 TH/MM3 Lymphocytes # (Auto) 1.1 TH/MM3 1.0 TH/MM3 Monocytes # (Auto) 0.3 TH/MM3 0.3 TH/MM3 Eosinophils # (Auto) 0.6 TH/MM3 0.6 TH/MM3 Basophils # (Auto) 0.1 TH/MM3 0.0 TH/MM3 CBC Comment DIFF FINAL DIFF FINAL Differential Comment Laboratory Tests Test 01/08/18 06:06 Blood Urea Nitrogen 17 MG/DL Creatinine 1.03 MG/DL Random Glucose 121 MG/DL Total Protein 7.3 GM/DL Albumin 2.2 GM/DL Calcium Level 8.3 MG/DL Alkaline Phosphatase 77 U/L Aspartate Amino Transf (AST/SGOT) 25 U/L Alanine Aminotransferase (ALT/SGPT) 15 U/L Total Bilirubin 0.5 MG/DL Sodium Level 139 MEQ/L Potassium Level 3.8 MEQ/L Chloride Level 104 MEQ/L Carbon Dioxide Level 26.8 MEQ/L Anion Gap 8 MEQ/L Estimat Glomerular Filtration Rate 75 ML/MIN Imaging Last Impressions Chest X-Ray 12/28/17 0000 Signed Impressions: Service Date/Time: Thursday, December 28, 2017 11:00 - CONCLUSION: Stable chest x-ray with moderate size right pleural effusion with associated consolidation and atelectasis in the right lower lobe. The prior chest CT on 12/23/2017 demonstrated imaging features suggesting empyema. Consider chest tube or surgical drainage. Tenzin Donato MD Chest CT 12/23/17 0000 Signed Impressions: Service Date/Time: Saturday, December 23, 2017 12:01 - CONCLUSION: 1. Increase in loculated air within the complex right pleural effusion since November 30. The overall size of the presumed right empyema is relatively stable. There is also now loculated air in the lower right lateral chest wall likely representing extension of the empyema into the soft tissues. Slight improvement in right basilar lung consolidation. 2. Resolution of previous left pleural effusion. 3. New right-sided posterior sixth rib fracture. Multiple remote healed rib fractures. Edis Wetzel MD Physical Exam GENERAL: Awake and alert. NAD. Sitting at side of bed SKIN: Warm and dry. No generalized rash. Bilateral lower extremity venous stasis changes noted. HEAD: Atraumatic. Normocephalic. No temporal or scalp tenderness. EYES: Pupils equal round and reactive. Extraocular motions intact. No scleral icterus. No injection or drainage. ENT: Nose without bleeding or purulent drainage. Airway patent. MMM. No oral lesions noted. NECK: Trachea midline. CARDIOVASCULAR: Regular rate and rhythm. RESPIRATORY: Decreased breath sound R base. Has CT R side with bloody output and has wound vac below it GASTROINTESTINAL: Abdomen soft, non-tender, nondistended. MUSCULOSKELETAL: Extremities without clubbing or cyanosis. Chronic BLE pitting edema noted. No calf tenderness. Bilateral calves supple. NEUROLOGICAL: Awake and alert. Able to move all extremities. Motor and sensory grossly intact. Non focal exam. Normal speech. PSYCHIATRIC: Appropriate mood and affect. Calm and cooperative. IV line sites with no e.o infection Assessment & Plan Remarks Right side MRSA empyema post pneumonia. Empyema Necessitans s/p wound vac for chest wall abscess on right side. Right MRSA chest wall abscess Concern for endocarditis. Due to ongoing infection it is possible the valve(s) may have seeded. Thrombocytopenia from Teflaro or sepsis. Alcoholism, aspiration risk. PICC removed. DVT Right UE. Neutropenia, ?due to prior ETOH abuse, seems chronic Recs Continue Cefepime IV Continue Vanco IV (target 15-20) stat for MRSA empyema Follow new cultures and deescalate once C/S finalized Follow temps Follow CBC Monitor progress Patient explained the wound vac found in OR and OR findings dw him. He is thankful of care provided and thankful source control being achieved. Reports to me plan for repeat CT chest by CT surgery team. Donna Orosco MD January 09, 2018 15:07
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
[2018-01-09 16:00] VITALS: BP 137/90; PULSE 69; RESP 18; TEMP 97.8; O2SAT 93
--- NOTE | 2018-01-09 19:47 | HHI.PR ---
Subjective Remarks 52 YOWM with MRSA empyema, s/p Decortication, rt lung infilt and eff Chest wound to VAC no Fever no CP No SOB Had Rt VATS, drainage of loculated fluid, chest wall fluid Has Chest wall VAC device Objective Vital Signs Vital Signs Date Time Temp Pulse Resp B/P (MAP) Pulse Ox O2 Delivery O2 Flow Rate FiO2 01/09/18 16:40 20 01/09/18 16:18 18 01/09/18 16:00 97.8 69 18 137/90 (106) 93 01/09/18 12:00 97.5 69 18 137/84 (101) 93 01/09/18 08:30 Room Air 2.00 Nasal Cannula 01/09/18 08:00 97.8 60 18 146/93 (110) 94 01/09/18 00:00 97.8 60 20 129/74 (92) 98 01/08/18 20:23 Nasal Cannula 2.00 01/08/18 20:00 97.5 64 20 148/90 (109) 91 I/O 01/08/18 01/08/18 01/08/18 01/09/18 01/09/18 01/09/18 07:00 15:00 23:00 07:00 15:00 23:00 Intake Total 180 ml 100 ml 1775 ml 1251 ml 840 ml Output Total 700 ml 3450 ml 2100 ml 750 ml 2200 ml Balance -520 ml 100 ml -1675 ml -849 ml -750 ml -1360 ml Intake Oral 1500 ml 360 ml 840 ml IV Total 180 ml 100 ml 275 ml 891 ml Output Urine Total 600 ml 3300 ml 2000 ml 750 ml 2200 ml Stool Total 0 ml Chest Tube Drainage Total 70 ml 150 ml 100 ml Drainage Total 30 ml 0 ml 0 ml # Bowel Movements 1 1 Result Diagram: 01/09/18 0646 01/08/18 0606 Objective Remarks GENERAL: WBWN WM,NAD SKIN: Warm and dry. HEAD: Normocephalic. EYES: No scleral icterus. No injection or drainage. NECK: Supple, trachea midline. No JVD or lymphadenopathy. CARDIOVASCULAR: Regular rate and rhythm without murmurs, gallops, or rubs. RESPIRATORY: Breath sounds equal bilaterally. No accessory muscle use. Decreased BS rt Rt chest wound to VAC GASTROINTESTINAL: Abdomen soft, non-tender, nondistended. MUSCULOSKELETAL: No cyanosis, or edema. BACK: Nontender without obvious deformity. No CVA tenderness. A/P Assessment and Plan IMPRESSION: 1. Persistent right lower lobe infiltrate with effusion. 2. 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 3. Hypertension. 4. Diabetes mellitus. 5. Alcohol abuse. PLAN: Cont Abx per ID DW RN Looks comfortable, non toxic Stable from pulm standpoint Chest tube to suction Supplement 02 Zhao Ortega MD January 09, 2018 19:47
[2018-01-09 20:00] VITALS: BP 129/90; PULSE 69; RESP 18; TEMP 97.8; O2SAT 94
[2018-01-09] MEDS ORDERED: PHARMACY ORDERED LAB-VANCO TROUGH ONE (20:45)
[2018-01-10] VITALS: BP 136/85; PULSE 71; RESP 17; TEMP 98.1; O2SAT 93
[2018-01-10] MEDS: MORPHINE SULFATE 4 MG/ML INJ IV PUSH PRN ×4 (01:14→20:06)
[2018-01-10] MEDS: CEFEPIME INJ 2,000 MG in SODIUM CHLORIDE 0.9% INJ 100 ML IV SCH (05:26)
[2018-01-10] MEDS: HEPARIN-D5W 25,000 U/250 ML 250 ML IV PRN ×2 (05:35→22:45)
[2018-01-10 07:38] VITALS: BP 137/90; PULSE 68; RESP 18; TEMP 97.8; O2SAT 92
[2018-01-10 07:42] LABS: CREATININE 1.07 MG/DL (0.60-1.30)
[2018-01-10] MEDS: INSULIN ASPART SUPPLEMENTAL SCALE SQ SCH ×4 (08:00→20:16)
[2018-01-10] MEDS: SODIUM CHLORIDE 0.9% FLUSH 10 ML FLUSH IV FLUSH SCH ×2 (09:00→21:00)
[2018-01-10] MEDS: FOLIC ACID 1 MG TAB PO SCH (09:17)
[2018-01-10] MEDS: THIAMINE HCL 100 MG TAB PO SCH (09:17)
[2018-01-10] MEDS: PANTOPRAZOLE SOD 40 MG DELAYED RELEASE TAB PO SCH (09:17)
[2018-01-10] MEDS: CARVEDILOL 12.5 MG TAB PO SCH ×2 (09:17→20:06)
[2018-01-10] MEDS: LISINOPRIL 20 MG TAB PO SCH (09:17)
[2018-01-10] MEDS: POLYETHYLENE GLYCOL 17 GM PKG PO SCH (09:18)
[2018-01-10] MEDS: FUROSEMIDE 40 MG/4 ML VIAL IV PUSH SCH ×2 (09:18→17:22)
--- NOTE | 2018-01-10 10:51 | HHI.IDPN ---
Subjective Subjective Remarks Patient seen and examined on behalf of Dr. Orosco is a 52 y/o CM with PMHx of HTN, diabetes, H/O DVT and alcohol abuse who was recently admitted to [facility] on 11/18/17 with weakness. While hospitalized at [facility], patient was treated for alcohol withdrawal and sepsis secondary to pneumonia. Patient developed persistent right-sided pleural effusion underwent a thoracocentesis on 11/22 with 1400 cc of fluid removed with cultures positive for MRSA. He also had a urine culture positive for MRSA. Patient had echocardiogram done on 11/21 revealing preserved EF of 60 - 65%. Patient had a PICC line placed 11/22. Patient was treated with IV Vanco, Levaquin and IV Zyvox. Patient developed acute renal failure likely secondary to vancomycin. Blood cultures were negative. Patient was accepted as a transfer to [facility] by Dr. Pena for possible decortication of lung by cardiothoracic surgery. Patient was seen by CTS at [facility] and underwent decortication as well as drainage of right chest wall abscess. Patient post op had a wound vac to the right chest wall and also had a chest tube. Upon DC patient was supposed to have been on Wound vac for right chest wall abscess but unsure if he was on it. Patient seems to have been on Teflaro IV. Patient was on Vanco IV and had acute renal failure. Patient was on Zyvox and developed severe pancytopenia. Infectious disease has been consulted for evaluation and medical management of MRSA empyema and right chest wall abscess. Notes reviewed reports some dyspnea with PT today but states he did more today than he has in 6 weeks and he recovered quickly overall feels much better he is concerned about taking the CT out too soon no fevers or chills no rash no N/V no diarrhea + dysuria this am, no hematuria afebrile OR C/S negative so far Repeat surgery done 01/[address] and wound vac in place Pancytopenia with WBC 3.9 01/09 Antibiotics IV Vanco IV Cefepime Lines Line sites with no e.o infection Past Medical History reviewed (Summer Monreal) Allergies: Coded Allergies: No Known Allergies (Verified Allergy, Unknown, 11/29/17) Objective . Vital Signs Date Time Temp Pulse Resp B/P (MAP) Pulse Ox O2 Delivery O2 Flow Rate FiO2 01/10/18 07:38 97.8 68 18 137/90 (106) 92 01/10/18 00:00 98.1 71 17 136/85 (102) 93 01/09/18 20:00 97.8 69 18 129/90 (103) 94 01/09/18 16:40 20 01/09/18 16:18 18 01/09/18 16:00 97.8 69 18 137/90 (106) 93 01/09/18 12:00 97.5 69 18 137/84 (101) 93 01/10/18 01/10/18 01/11/18 15:00 23:00 07:00 Output Total 110 ml Balance -110 ml Chest Tube Drainage Total 100 ml Drainage Total 10 ml . Laboratory Tests Test 01/09/18 06:46 White Blood Count 3.9 TH/MM3 Red Blood Count 3.04 MIL/MM3 Hemoglobin 9.4 GM/DL Hematocrit 27.4 % Mean Corpuscular Volume 90.2 FL Mean Corpuscular Hemoglobin 30.9 PG Mean Corpuscular Hemoglobin Concent 34.2 % Red Cell Distribution Width 16.8 % Platelet Count 121 TH/MM3 Mean Platelet Volume 8.3 FL Neutrophils (%) (Auto) 49.1 % Lymphocytes (%) (Auto) 26.3 % Monocytes (%) (Auto) 7.5 % Eosinophils (%) (Auto) 15.9 % Basophils (%) (Auto) 1.2 % Neutrophils # (Auto) 1.9 TH/MM3 Lymphocytes # (Auto) 1.0 TH/MM3 Monocytes # (Auto) 0.3 TH/MM3 Eosinophils # (Auto) 0.6 TH/MM3 Basophils # (Auto) 0.0 TH/MM3 CBC Comment DIFF FINAL Differential Comment Laboratory Tests Test 01/10/18 05:20 Creatinine 1.07 MG/DL Estimat Glomerular Filtration Rate 72 ML/MIN Imaging Last Impressions Chest X-Ray 01/05/18 0500 Signed Impressions: Service Date/Time: December 04:06 - CONCLUSION: 1. The right-sided chest tube remains in place with no pneumothorax. 2. Interval improvement in bilateral airspace disease with moderate residual. 3. Bilateral pleural effusions again noted. Stuart Haider MD CT Angiography 01/03/18 0000 Signed Impressions: Service Date/Time: Wednesday, January 03, 2018 12:57 - CONCLUSION: 1. Developing hazy densities in both hemithoraces, most prominent in the left upper lung. Appearance is concerning for developing septic emboli. 2. Right-sided complex empyema with air and fluid is definitely no smaller and may actually be slightly larger when compared to prior. Developing left-sided effusion. 3. No filling defects within the pulmonary arteries to suggest large pulmonary emboli. 4. CT findings suggesting some degree of cirrhosis and portal hypertension with a small, nodular liver and splenomegaly. Sven Flaherty MD Upper Extremity Ultrasound 01/02/18 0000 Signed Impressions: Service Date/Time: Tuesday, January 02, 2018 09:35 - CONCLUSION: Acute appearing occlusive thrombus in the right axillary and upper basilic vein. Tenzin Magdaleno MD Chest CT 12/23/17 0000 Signed Impressions: Service Date/Time: Saturday, December 23, 2017 12:01 - CONCLUSION: 1. Increase in loculated air within the complex right pleural effusion since November 30. The overall size of the presumed right empyema is relatively stable. There is also now loculated air in the lower right lateral chest wall likely representing extension of the empyema into the soft tissues. Slight improvement in right basilar lung consolidation. 2. Resolution of previous left pleural effusion. 3. New right-sided posterior sixth rib fracture. Multiple remote healed rib fractures. Edis Wetzel MD Physical Exam GENERAL: Well developed, well nourished male, INAD. Awake and alert. Standing at bedside having just completed PT. SKIN: Warm and dry. No generalized rash. Bilateral lower extremity venous stasis changes noted. HEAD: Atraumatic. Normocephalic. EYES: Pupils equal round and reactive. Extraocular motions intact. No scleral icterus. No injection or drainage. ENT: Nose without bleeding or purulent drainage. Airway patent. MMM. No oral lesions noted. NECK: Trachea midline. CARDIOVASCULAR: Regular rate and rhythm. RESPIRATORY: Decreased breath sound R base. Has CT R side with bloody output and has wound vac below it GASTROINTESTINAL: Abdomen soft, non-tender, nondistended. MUSCULOSKELETAL: Extremities without clubbing or cyanosis. Chronic BLE pitting edema noted R>L but RLE appears more edematous today. No calf tenderness. Bilateral calves supple. NEUROLOGICAL: Awake and alert. Able to move all extremities. Motor and sensory grossly intact. Non focal exam. Normal speech. PSYCHIATRIC: Appropriate mood and affect. Calm and cooperative. IV line sites with no e.o infection (Summer Monreal) Assessment & Plan Remarks Right side MRSA empyema post pneumonia. Empyema Necessitans s/p wound vac for chest wall abscess on right side. Right MRSA chest wall abscess Concern for endocarditis. Due to ongoing infection it is possible the valve(s) may have seeded. Thrombocytopenia from Teflaro or sepsis. Alcoholism, aspiration risk. PICC removed. DVT Right UE BLE edema and chronic venous stasis changes L>R but RLE appears more edematous today Neutropenia, ?due to prior ETOH abuse, seems chronic -hematology following Thrombocytopenia -platelets low but appear stable Dysuria Recs Discontinue IV Cefepime Continue Vanco IV (target 15-20) for MRSA empyema Follow new cultures and deescalate once C/S finalized Obtain Hepatitis profile HIV ordered - discussed with patient who has agreed to consent for HIV testing Urinalysis 2/2 c/o dysuria Lac Hydrin BLE Doppler US BLE r/o DVT Follow temps Follow CBC Monitor progress Further recommendations to follow (Summer Monreal) Remarks The exam, history, and the medical decision-making described in the above note were completed with the assistance of the mid-level provider. I reviewed and agree with the findings presented. I attest that I had a [id number] encounter with the patient on the same day, and personally performed and documented my assessment and findings in the medical record. Feels better Had CT removed today Wound vac still in place. Decreased AE in Rt base. Continue Vanco IV (target 15-20) DC Cefepime IV dw Pharmacist to address vanco dosing last dose was last night (Donna Orosco MD) Summer Monreal January 10, 2018 10:51 Donna Orosco MD January 10, 2018 14:21
[2018-01-10 11:54] VITALS: BP 125/78; PULSE 64; RESP 18; TEMP 97.8; O2SAT 92
[2018-01-10 12:43] LABS: BILIRUBIN, URINE NEG (NEG); BLOOD, URINE LARGE (NEG); GLUCOSE,URINE NEG (NEG); HYALINE CAST, URINE 8 /lpf (RARE); KETONE, URINE NEG (NEG); MUCUS URINE FEW /lpf (OCC); NITRITE,URINE NEG (NEG); URINE COLOR LIGHT-YELLOW (YELLW/STRAW); URINE LEUKOCYTE ESTERASE NEG (NEG)
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
[2018-01-10 16:00] VITALS: BP 132/79; PULSE 76; RESP 18; TEMP 97.3; O2SAT 94
--- NOTE | 2018-01-10 16:02 | RADRPT ---
EXAM DATE/TIME: 01/10/2018 15:24 [place] COMPARISON: No previous studies available for comparison. INDICATIONS : Bilateral leg swelling. MEDICAL HISTORY : Hypertension. Chest pain. Diabetes. Acute kidney disease. Pleural effusion. Chest wall abscess. MRS A. SURGICAL HISTORY : Orbital socket repair. Broken jaw surgery. ENCOUNTER: Subsequent ACUITY: 1 month PAIN SCORE: 1/10 LOCATION: Bilateral leg. TECHNIQUE: Venous ultrasound of the left and right leg was performed from the inguinal ligament to the proximal calf. Real-time, color Doppler and spectral tracing, compression and augmentation techniques were us ed. FINDINGS: RIGHT LEG: There is normal compressibility of the deep venous system from the inguinal region to the proximal ca lf. No echogenic clot is seen in the lumen of the common femoral, femoral, popliteal, and posterior tibial veins. There is a normal response of the venous system to proximal and distal augmentation an d respiration. LEFT LEG: There is normal compressibility of the deep venous system from the inguinal region to the proximal ca lf. No echogenic clot is seen in the lumen of the common femoral, femoral, popliteal, and posterior tibial veins. There is a normal response of the venous system to proximal and distal augmentation an d respiration. CONCLUSION: Normal examination. Andrez Holder MD on January 10, 2018 at 15:59 Board Certified Radiologist. This report was verified electronically.
--- NOTE | 2018-01-10 16:54 | HHI.PR ---
Subjective Remarks chest tube removed Patient denies cp/sob Afebrile Objective Vitals Vital Signs Date Time Temp Pulse Resp B/P (MAP) Pulse Ox O2 Delivery O2 Flow Rate FiO2 01/10/18 16:00 97.3 76 18 132/79 (96) 94 01/10/18 11:54 97.8 64 18 125/78 (94) 92 01/10/18 08:00 Room Air 01/10/18 07:38 97.8 68 18 137/90 (106) 92 01/10/18 00:00 98.1 71 17 136/85 (102) 93 01/09/18 20:00 97.8 69 18 129/90 (103) 94 I/O 01/09/18 01/09/18 01/09/18 01/10/18 01/10/18 01/10/18 07:00 15:00 23:00 07:00 15:00 23:00 Intake Total 1251 ml 940 ml 1665 ml Output Total 2100 ml 750 ml 2950 ml 1900 ml 110 ml Balance -849 ml -750 ml -2010 ml -235 ml -110 ml Intake Oral 360 ml 840 ml 800 ml IV Total 891 ml 100 ml 865 ml Output Urine Total 2000 ml 750 ml 2950 ml 1900 ml Stool Total 0 ml Chest Tube Drainage Total 100 ml 100 ml Drainage Total 0 ml 10 ml # Bowel Movements 1 Result Diagram: 01/09/18 0646 01/10/18 0520 Objective Remarks AAOx3 Lungs clear to auscultation bilaterally. Slightly diminished breath sounds on right hemithorax. S1S2+ RRR Procedures none A/P Problem List: (1) Empyema lung ICD Code: J86.9 - Pyothorax without fistula Status: Acute (2) Diabetes ICD Code: E11.9 - Type 2 diabetes mellitus without complications Status: Chronic (3) HTN (hypertension) ICD Code: I10 - Essential (primary) hypertension Status: Chronic (4) Pancytopenia ICD Code: D61.818 - Other pancytopenia Status: Chronic Assessment and Plan 52-year-old man with Recurrent empyema/abscess CT results reviewed from [facility] shows suspicious for abscess in the right side -Appreciate input from cardio thoracic surgery, s/p wound VAC -sp treatment with Teflaro -CT chest reviewed and noted with persistent pulmonary infiltrates, for which pulmonary medicine has been consulted and patient is s/p bronchoscopy December 26, 2017 without signification secretions, erythema or lung lesion -Continue with bronchodilator as needed -CXR 12/26 with increase Pleural effusion and consolidation; however CXR was stable with moderate right pleural effusion with consolidation RLL - Persistent empyema - Will discuss with CT surgery regarding possible surgical intervention vs IR drainage. Discussed with Dr Orosco. - Dw CTS recommends IR CT. IR recommends large bore CT. 01/03 is not complaining of worsening chest pain and shortness of breath today. I ordered a CT pulmonary angiogram given recent diagnosis of DVT in the right axillary vein. CT of the chest reviewed by me shows developing hazy densities in both hemithoraces most prominent in the left upper lung. Appearance concerning for developing septic emboli as per radiology report. Right-sided complex empyema with air and fluid is definitely not smaller and may be slightly larger when compared to prior. Developing left-sided effusion. No PE. CT findings suggestive of some degree of cirrhosis and portal hypertension with a small, nodular liver and splenomegaly. I will order abdominal ultrasound to better assess his findings. I will start the patient on oral diuretics given the development of the right pleural effusion. The case was discussed in depth with Dr. Orosco and also with cardiothoracic surgery. Cardiothoracic surgery will place chest up in a.m. Keep n.p.o. at midnight. 01/04 status post right video-assisted thoracoscopic surgery, drainage of multiloculated pleural fluid, incision open and drainage of chest wall fluid collection, removal of chest wall foreign body, chest wall wound VAC placement. Continue IV antibiotics as per ID recommendations. Continue supplemental oxygen to keep saturation more than 92%. During surgical procedure dissection revealed the presence of what appeared to be a wound VAC sponge under the subcutaneous and granulation tissue which was removed. The patient is currently on IV vancomycin, cefepime and micafungin. Continue IV antibiotics. Chest tube as per CT surgery. Still having drainage. Discussed with CT surgery - chest tube will remain until next week. 01/07 Pain somehwat poorly controlled. Increase Morphine dose for breakthrough pain up to 4 mg. 01/08 Pain better controlled. Continue oxycodone and morphine IV for breakthrough pain. 01/09 Continue antibiotics per ID. Patient on IV Cefepime and IV Vancomycin. Continue pain control with oxycodone and IV morphine. 01/10 Continue diuretics as per ID. Continue pain control with IV morphine and oxycodone. Patient status post chest tube removal. Chest x-ray in a.m. Hypertension, chronic, currently controlle -Continue Coreg and Lasix, monitor vitals -Stable Diabetes, chronic, type II, controlled with no acute complications -Accu-Cheks and sliding scale insulin Normochromic normocytic anemia H&H stable and patient at his baseline, transfuse for hemoglobin less than 7 01/03 given that the patient is going to undergo surgery in a.m. Transfuse 2 units of packed red blood cells. Will type and cross in a.m. for 2 units to have ready for surgery. 01/04 status post transfusion of 2 units of packed red blood cells with appropriate hemoglobin response. Pancytopenia, chronic -Continue to monitor labs - Hematology consulted. As per hematology conservative management with observation. Will likely resolve after resolution of infection. DVT right axillary and upper bassilic vein -PICC line removed. Resume heparin drip. This was discussed with Dr. Biggs 01/05 Continue IV heparin drip. DVT prophylaxis: SCDs Discharge Planning Continue to monitor in the medical floor. Discharge pending thoracic surgery and ID clearance. Problem Qualifiers (1) Diabetes: Qualified Codes: E11.9 - Type 2 diabetes mellitus without complications; Z79.4 - senior care (current) use of insulin (2) HTN (hypertension): Qualified Codes: I10 - Essential (primary) hypertension Olu Foreman MD January 10, 2018 16:54
[2018-01-10] MEDS: ALUMINUM/MAGNESIUM/SIMETH 30 ML CUP PO PRN (17:22)
[2018-01-10] MEDS ORDERED: VANCOMYCIN 1,000 MG/NS 250 ML IV ONE ×2 (18:00)
--- NOTE | 2018-01-10 18:55 | HHI.PR ---
Subjective Remarks 52 YOWM with MRSA empyema, s/p Decortication, rt lung infilt and eff no Fever no CP No SOB Chest tube removed Comfortable. Objective Vital Signs Vital Signs Date Time Temp Pulse Resp B/P (MAP) Pulse Ox O2 Delivery O2 Flow Rate FiO2 01/10/18 16:00 97.3 76 18 132/79 (96) 94 01/10/18 11:54 97.8 64 18 125/78 (94) 92 01/10/18 08:00 Room Air 01/10/18 07:38 97.8 68 18 137/90 (106) 92 01/10/18 00:00 98.1 71 17 136/85 (102) 93 01/09/18 20:00 97.8 69 18 129/90 (103) 94 I/O 01/09/18 01/09/18 01/09/18 01/10/18 01/10/18 01/10/18 07:00 15:00 23:00 07:00 15:00 23:00 Intake Total 1251 ml 940 ml 1665 ml 960 ml Output Total 2100 ml 750 ml 2950 ml 1900 ml 110 ml 2100 ml Balance -849 ml -750 ml -2010 ml -235 ml -110 ml -1140 ml Intake Oral 360 ml 840 ml 800 ml 960 ml IV Total 891 ml 100 ml 865 ml Output Urine Total 2000 ml 750 ml 2950 ml 1900 ml 2100 ml Stool Total 0 ml Chest Tube Drainage Total 100 ml 100 ml Drainage Total 0 ml 10 ml # Bowel Movements 1 1 Result Diagram: 01/09/18 0646 01/10/18 0520 Objective Remarks GENERAL: WBWN WM,NAD SKIN: Warm and dry. HEAD: Normocephalic. EYES: No scleral icterus. No injection or drainage. NECK: Supple, trachea midline. No JVD or lymphadenopathy. CARDIOVASCULAR: Regular rate and rhythm without murmurs, gallops, or rubs. RESPIRATORY: Breath sounds equal bilaterally. No accessory muscle use. Decreased BS rt Rt chest wound to VAC GASTROINTESTINAL: Abdomen soft, non-tender, nondistended. MUSCULOSKELETAL: No cyanosis, or edema. BACK: Nontender without obvious deformity. No CVA tenderness. A/P Assessment and Plan IMPRESSION: 1. Persistent right lower lobe infiltrate with effusion. 2. 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 3. Hypertension. 4. Diabetes mellitus. 5. Alcohol abuse. PLAN: Cont Abx per ID DW RN Looks comfortable, non toxic Stable from pulm standpoint Supplement 02 Zhao Ortega MD January 10, 2018 18:55
[2018-01-10 20:00] VITALS: BP 155/83; PULSE 86; RESP 20; TEMP 97.4; O2SAT 92
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
[2018-01-10] MEDS: diphenhydrAMINE HCL 25 MG CAP PO PRN (20:16)
[2018-01-10] MEDS: LACTIC ACID (AMMONIUM LACTATE) 12% LOTION 225 GM BTL TOPICAL SCH (20:16)
[2018-01-11] VITALS: BP 148/94; PULSE 69; RESP 20; TEMP 98; O2SAT 91
[2018-01-11] MEDS: MORPHINE SULFATE 4 MG/ML INJ IV PUSH PRN ×4 (05:12→23:54)
[2018-01-11 08:00] VITALS: BP 152/66; PULSE 65; RESP 16; TEMP 98.2; O2SAT 91
[2018-01-11] MEDS: INSULIN ASPART SUPPLEMENTAL SCALE SQ SCH ×4 (08:00→21:00)
[2018-01-11] MEDS: POLYETHYLENE GLYCOL 17 GM PKG PO SCH (08:39)
[2018-01-11] MEDS: FUROSEMIDE 40 MG/4 ML VIAL IV PUSH SCH ×2 (08:41→17:32)
[2018-01-11] MEDS: PANTOPRAZOLE SOD 40 MG DELAYED RELEASE TAB PO SCH (08:41)
[2018-01-11] MEDS: FOLIC ACID 1 MG TAB PO SCH (08:41)
[2018-01-11] MEDS: CARVEDILOL 12.5 MG TAB PO SCH ×2 (08:41→22:32)
[2018-01-11] MEDS: SODIUM CHLORIDE 0.9% FLUSH 10 ML FLUSH IV FLUSH SCH ×2 (08:41→21:00)
[2018-01-11] MEDS: LISINOPRIL 20 MG TAB PO SCH (08:41)
[2018-01-11] MEDS: LACTIC ACID (AMMONIUM LACTATE) 12% LOTION 225 GM BTL TOPICAL SCH ×4 (08:42→22:31)
[2018-01-11] MEDS: THIAMINE HCL 100 MG TAB PO SCH (08:52)
--- NOTE | 2018-01-11 09:16 | RADRPT ---
EXAM DATE/TIME: 01/11/2018 08:23 [facility] COMPARISON: CT PULMONARY ANGIOGRAM, January 03, 2018, 12:57. CHEST SINGLE AP, January 05, 2018, 4:06. INDICATIONS : Evaluate pneumothorax. Chest tube removed yesterday. MEDICAL HISTORY : Hypertension. Chest pain. Diabetes. Acute kidney disease. Pleural effusion. Chest wall abscess. MRSA. SURGICAL HISTORY : Orbital socket repair. Broken jaw surgery. ENCOUNTER: Subsequent ACUITY: 2 days PAIN SCORE: 0/10 LOCATION: Bilateral chest FINDINGS: Single view chest of the chest removal of the patient's right-sided chest tube. There is no pneumotho rax. There are consolidative changes in the right lung base. There is right basilar effusion. There is loc ulated fluid along the right lung apex. The left lung demonstrates only minimal fluid at the left saira g base. The parenchyma on the left appears clear. Visualized bony structures demonstrate an old, healed right-sided rib fracture. In addition, there is acute fracture of the right sixth posterior rib. The remainder of the bony structures are grossly in tact. CONCLUSION: 1. No pneumothorax following chest tube removal. 2. Continued consolidation and effusion at the right lung base with a small area of loculated fluid a t the right lung apex. Angel Valdez MD on January 11, 2018 at 9:10 Board Certified Radiologist. This report was verified electronically.
[2018-01-11 10:39] LABS: ALBUMIN 2.4 GM/DL (3.4-5.0); AST (GOT) 22 U/L (15-37); BICARBONATE 25.8 MEQ/L (21.0-32.0); BLOOD UREA NITROGEN 16 MG/DL (7-18); CALCIUM 8.6 MG/DL (8.5-10.1); CHLORIDE 100 MEQ/L (98-107); CREATININE 1.24 MG/DL (0.60-1.30); GLOMERULAR FILTRATION RATE 61 ML/MIN (>89); GLUCOSE,RANDOM 213 MG/DL (74-106); SODIUM (NA) 136 MEQ/L (136-145)
[2018-01-11 10:40] LABS: ALT (GPT) 15 U/L (12-78)
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
[2018-01-11 11:05] LABS: ALKALINE PHOSPHATASE 94 U/L (45-117); TOTAL BILIRUBIN ADULT 0.5 MG/DL (0.2-1.0); TOTAL PROTEIN 9.6 GM/DL (6.4-8.2)
[2018-01-11 12:00] VITALS: BP 133/74; PULSE 64; RESP 16; TEMP 97.4; O2SAT 94
[2018-01-11 12:46] LABS: AUTOMATED NEUTROPHIL # 1.5 TH/MM3 (1.8-7.7); BASOPHIL # 0.1 TH/MM3 (0-0.2); BASOPHIL % 2.2 % (0.0-2.0); EOSINOPHIL # 0.6 TH/MM3 (0-0.4); EOSINOPHIL % 16.9 % (0.0-4.0); HEMATOCRIT 29.4 % (39.0-51.0); HEMOGLOBIN 9.8 GM/DL (13.0-17.0); LYMPH % 29.2 % (9.0-44.0); LYMPHOCYTE # 1.1 TH/MM3 (1.0-4.8); MEAN CELL VOLUME 90.4 FL (80.0-100.0); MEAN CORPUSCULAR HEMOGLOBIN 30.2 PG (27.0-34.0); MEAN CORPUSCULAR HGB CONC 33.4 % (32.0-36.0); MEAN PLATELET VOLUME 8.5 FL (7.0-11.0); MONO % 10.2 % (0.0-8.0); MONOCYTE # 0.4 TH/MM3 (0-0.9); NEUT % 41.5 % (16.0-70.0); PLATELET COUNT 135 TH/MM3 (150-450); RED BLOOD COUNT 3.25 MIL/MM3 (4.50-5.90); RED CELL DISTRIBUTION WIDTH 17.3 % (11.6-17.2); WHITE BLOOD COUNT 3.6 TH/MM3 (4.0-11.0)
--- NOTE | 2018-01-11 12:49 | HHI.IDPN ---
Subjective Subjective Remarks Patient seen and examined on with Dr. Orosco is a 52 y/o CM with PMHx of HTN, diabetes, H/O DVT and alcohol abuse who was recently admitted to [facility] on 11/18/17 with weakness. While hospitalized at [facility], patient was treated for alcohol withdrawal and sepsis secondary to pneumonia. Patient developed persistent right-sided pleural effusion underwent a thoracocentesis on 11/22 with 1400 cc of fluid removed with cultures positive for MRSA. He also had a urine culture positive for MRSA. Patient had echocardiogram done on 11/21 revealing preserved EF of 60 - 65%. Patient had a PICC line placed 11/22. Patient was treated with IV Vanco, Levaquin and IV Zyvox. Patient developed acute renal failure likely secondary to vancomycin. Blood cultures were negative. Patient was accepted as a transfer to [facility] by Dr. Pena for possible decortication of lung by cardiothoracic surgery. Patient was seen by CTS at [facility] and underwent decortication as well as drainage of right chest wall abscess. Patient post op had a wound vac to the right chest wall and also had a chest tube. Upon DC patient was supposed to have been on Wound vac for right chest wall abscess but unsure if he was on it. Patient seems to have been on Teflaro IV. Patient was on Vanco IV and had acute renal failure. Patient was on Zyvox and developed severe pancytopenia. Infectious disease has been consulted for evaluation and medical management of MRSA empyema and right chest wall abscess. Notes reviewed Chest tube discontinued yesterday states he feels well reports some pain from wound vac change earlier today no fever or chills no rash no N/V no dysuria no diarrhea afebrile OR C/S negative so far Repeat surgery done 01/03 CXR shows continued consolidation and effusion at the right lung base with a small area of loculated fluid at the right lung apex. Pancytopenia with WBC 3.9 01/09 Doppler neg for DVT Hepatitis and HIV negative UA with large blood and 47 RBCs no indication for cx Repeat CBC pending Antibiotics IV Vanco Lines Line sites with no e.o infection Past Medical History reviewed (Summer Monreal) Allergies: Coded Allergies: No Known Allergies (Verified Allergy, Unknown, 11/29/17) Objective . Vital Signs Date Time Temp Pulse Resp B/P (MAP) Pulse Ox O2 Delivery O2 Flow Rate FiO2 01/11/18 12:00 97.4 64 16 133/74 (93) 94 01/11/18 08:00 98.2 65 16 152/66 (94) 91 01/11/18 08:00 Room Air 01/11/18 00:00 98.0 69 20 148/94 (112) 91 01/11/18 00:00 20 01/10/18 21:00 20 01/10/18 20:00 97.4 86 20 155/83 (107) 92 01/10/18 20:00 Room Air 01/10/18 16:00 97.3 76 18 132/79 (96) 94 01/11/18 01/11/18 01/12/18 15:00 23:00 07:00 Intake Total 250 ml Balance 250 ml IV Total 250 ml . Laboratory Tests Test 01/11/18 12:18 Laboratory Tests Test 01/10/18 05:20 01/11/18 09:30 Creatinine 1.07 MG/DL 1.24 MG/DL Estimat Glomerular Filtration Rate 72 ML/MIN 61 ML/MIN Blood Urea Nitrogen 16 MG/DL Random Glucose 213 MG/DL Total Protein 9.6 GM/DL Albumin 2.4 GM/DL Calcium Level 8.6 MG/DL Alkaline Phosphatase 94 U/L Aspartate Amino Transf (AST/SGOT) 22 U/L Alanine Aminotransferase (ALT/SGPT) 15 U/L Total Bilirubin 0.5 MG/DL Sodium Level 136 MEQ/L Potassium Level 3.7 MEQ/L Chloride Level 100 MEQ/L Carbon Dioxide Level 25.8 MEQ/L Anion Gap 10 MEQ/L Imaging Last Impressions Chest X-Ray 01/05/18 0500 Signed Impressions: Service Date/Time: December 04:06 - CONCLUSION: 1. The right-sided chest tube remains in place with no pneumothorax. 2. Interval improvement in bilateral airspace disease with moderate residual. 3. Bilateral pleural effusions again noted. Stuart Haider MD CT Angiography 01/03/18 0000 Signed Impressions: Service Date/Time: Wednesday, January 03, 2018 12:57 - CONCLUSION: 1. Developing hazy densities in both hemithoraces, most prominent in the left upper lung. Appearance is concerning for developing septic emboli. 2. Right-sided complex empyema with air and fluid is definitely no smaller and may actually be slightly larger when compared to prior. Developing left-sided effusion. 3. No filling defects within the pulmonary arteries to suggest large pulmonary emboli. 4. CT findings suggesting some degree of cirrhosis and portal hypertension with a small, nodular liver and splenomegaly. Sven Flaherty MD Upper Extremity Ultrasound 01/02/18 0000 Signed Impressions: Service Date/Time: Tuesday, January 02, 2018 09:35 - CONCLUSION: Acute appearing occlusive thrombus in the right axillary and upper basilic vein. Tenzin Magdaleno MD Chest CT 12/23/17 0000 Signed Impressions: Service Date/Time: Saturday, December 23, 2017 12:01 - CONCLUSION: 1. Increase in loculated air within the complex right pleural effusion since November 30. The overall size of the presumed right empyema is relatively stable. There is also now loculated air in the lower right lateral chest wall likely representing extension of the empyema into the soft tissues. Slight improvement in right basilar lung consolidation. 2. Resolution of previous left pleural effusion. 3. New right-sided posterior sixth rib fracture. Multiple remote healed rib fractures. Edis Wetzel MD Physical Exam GENERAL: Well developed, well nourished male, INAD. Awake and alert. Standing at bedside having just completed PT. SKIN: Warm and dry. No generalized rash. Bilateral lower extremity venous stasis changes noted, improved with Amlactin. HEAD: Atraumatic. Normocephalic. EYES: Pupils equal round and reactive. Extraocular motions intact. No scleral icterus. No injection or drainage. ENT: Nose without bleeding or purulent drainage. Airway patent. MMM. No oral lesions noted. NECK: Trachea midline. CARDIOVASCULAR: Regular rate and rhythm. RESPIRATORY: CT out, dressing with no active drainage. Nonlabored. Diminished in right lung lange. Wound vac in place with smaller sponge. GASTROINTESTINAL: Abdomen soft, non-tender, nondistended. MUSCULOSKELETAL: Extremities without clubbing or cyanosis. Chronic BLE pitting edema noted R>L. No calf tenderness. Bilateral calves supple. NEUROLOGICAL: Awake and alert. Able to move all extremities. Motor and sensory grossly intact. Non focal exam. Normal speech. PSYCHIATRIC: Appropriate mood and affect. Calm and cooperative. IV line sites with no e.o infection (Summer Monreal) Assessment & Plan Remarks Right side MRSA empyema post pneumonia. Empyema Necessitans s/p wound vac for chest wall abscess on right side. Right MRSA chest wall abscess Concern for endocarditis. Due to ongoing infection it is possible the valve(s) may have seeded. Thrombocytopenia from Teflaro or sepsis. Alcoholism, aspiration risk. PICC removed. DVT Right UE BLE edema and chronic venous stasis changes L>R but RLE appears more edematous today Neutropenia, ?due to prior ETOH abuse, seems chronic -hematology following Thrombocytopenia -platelets low but appear stable Dysuria Recs CXR shows increased consolidation and effusion in right lung base Resume IV Cefepime Continue Vanco IV (target 15-20) for MRSA empyema - monitor kidney function Continue Lac Hydrin BLE repeat CXR in 2 days. Consider Chest US if effusion appears to be larger. Continue on IV Lasix. CAN Mathew maximizing diuresis management. Follow temps Follow CBC Monitor progress Further recommendations to follow Dw patient and Dr. Mathew (Summer Monreal) Remarks The exam, history, and the medical decision-making described in the above note were completed with the assistance of the mid-level provider. I reviewed and agree with the findings presented. I attest that I had a [id number] encounter with the patient on the same day, and personally performed and documented my assessment and findings in the medical record. Wound vac changed Dressing to be changed later today. AE decreased on Rt side CXR reviewed by me: Rt lung with infiltrates worse and effusion Pedal edema ?HCAP pneumonia MRSA empyema Recs Continue Vanco IV Start Cefepime IV Can More: consider increasing diuresis repeat CXR on Tuesday. If larger effusion will dw CTS (Donna Orosco MD) Summer Monreal January 11, 2018 12:49 Donna Orosco MD January 11, 2018 14:08
[2018-01-11] MEDS: CEFEPIME INJ 2,000 MG in SODIUM CHLORIDE 0.9% INJ 100 ML IV SCH ×2 (14:00→22:31)
[2018-01-11 16:00] VITALS: BP 134/78; PULSE 67; RESP 17; TEMP 97.2; O2SAT 92
--- NOTE | 2018-01-11 16:21 | HHI.PR ---
Subjective Remarks Follow-up empyema, abscess. The patient still has some pain at the site of the wound. Reports only mild shortness of breath at this time. Denies chest pain. Objective Vitals Vital Signs Date Time Temp Pulse Resp B/P (MAP) Pulse Ox O2 Delivery O2 Flow Rate FiO2 01/11/18 12:00 97.4 64 16 133/74 (93) 94 01/11/18 08:00 98.2 65 16 152/66 (94) 91 01/11/18 08:00 Room Air 01/11/18 00:00 98.0 69 20 148/94 (112) 91 01/11/18 00:00 20 01/10/18 21:00 20 01/10/18 20:00 97.4 86 20 155/83 (107) 92 01/10/18 20:00 Room Air I/O 01/10/18 01/10/18 01/10/18 01/11/18 01/11/18 01/11/18 07:00 15:00 23:00 07:00 15:00 23:00 Intake Total 1665 ml 960 ml 240 ml 250 ml Output Total 1900 ml 110 ml 2100 ml 1500 ml Balance -235 ml -110 ml -1140 ml -1260 ml 250 ml Intake Oral 800 ml 960 ml 240 ml IV Total 865 ml 250 ml Output Urine Total 1900 ml 2100 ml 1500 ml Chest Tube Drainage Total 100 ml Drainage Total 10 ml 0 ml # Bowel Movements 1 0 Result Diagram: 01/11/18 1218 01/11/18 0930 Imaging Last Impressions Chest X-Ray 01/11/18 0800 Signed Impressions: Service Date/Time: Thursday, January 11, 2018 08:23 - CONCLUSION: 1. No pneumothorax following chest tube removal. 2. Continued consolidation and effusion at the right lung base with a small area of loculated fluid at the right lung apex. Angel Valdez MD Lower Extremity Ultrasound 01/10/18 0000 Signed Impressions: Service Date/Time: Wednesday, January 10, 2018 15:24 - CONCLUSION: Normal examination. Andrez Holder MD CT Angiography 01/03/18 0000 Signed Impressions: Service Date/Time: Wednesday, January 03, 2018 12:57 - CONCLUSION: 1. Developing hazy densities in both hemithoraces, most prominent in the left upper lung. Appearance is concerning for developing septic emboli. 2. Right-sided complex empyema with air and fluid is definitely no smaller and may actually be slightly larger when compared to prior. Developing left-sided effusion. 3. No filling defects within the pulmonary arteries to suggest large pulmonary emboli. 4. CT findings suggesting some degree of cirrhosis and portal hypertension with a small, nodular liver and splenomegaly. Sven Flaherty MD Upper Extremity Ultrasound 01/02/18 0000 Signed Impressions: Service Date/Time: Tuesday, January 02, 2018 09:35 - CONCLUSION: Acute appearing occlusive thrombus in the right axillary and upper basilic vein. Tenzin Magdaleno MD Chest CT 12/23/17 0000 Signed Impressions: Service Date/Time: Saturday, December 23, 2017 12:01 - CONCLUSION: 1. Increase in loculated air within the complex right pleural effusion since November 30. The overall size of the presumed right empyema is relatively stable. There is also now loculated air in the lower right lateral chest wall likely representing extension of the empyema into the soft tissues. Slight improvement in right basilar lung consolidation. 2. Resolution of previous left pleural effusion. 3. New right-sided posterior sixth rib fracture. Multiple remote healed rib fractures. Edis Wetzel MD Objective Remarks General: No acute distress. Heart: Regular rate and rhythm. No murmur. Lungs: Decreased breath sounds on the right. Breathing is nonlabored. Abdomen: Soft, nontender, nondistended. Extremities: 2+ bilateral lower extremity edema. Psych: Alert and oriented. Neuro: Normal speech. No focal deficits noted. Back: Wound VAC in place. Procedures 12/26/17 bronchoscopy 01/04/18 right video-assisted thoracoscopic surgery, drainage of multiloculated pleural fluid, incision and open drainage of chest wall fluid collection, removal of chest wall foreign body, chest wall wound VAC placement Urinary Catheter: No Vascular Central Line Catheter: No A/P Problem List: (1) Empyema lung ICD Code: J86.9 - Pyothorax without fistula Status: Acute (2) Diabetes ICD Code: E11.9 - Type 2 diabetes mellitus without complications Status: Chronic (3) HTN (hypertension) ICD Code: I10 - Essential (primary) hypertension Status: Chronic (4) Pancytopenia ICD Code: D61.818 - Other pancytopenia Status: Chronic Assessment and Plan 1. Recurrent empyema, abscess: Status post video-assisted thoracoscopic surgery with drainage of multiloculated pleural fluid and drainage of chest wall , fluid collection. Chest wall foreign body was removed and wound VAC was placed. Continue IV antibiotics. Chest tube removed. Chest x-ray continues to show fluid on the right side. Repeat chest x-ray Tuesday morning or sooner if symptoms worsen. May need repeat drainage of empyema. 2. Hypertension: Chronic, controlled. Continue Coreg, Lasix. 3. Diabetes mellitus type 2: Chronic. Monitor Accu-Cheks and cover with sliding scale insulin. 4. Pancytopenia: Chronic. Appreciate hematology recommendations. Cleared for transfer back to [facility] by hematology. 5. Anemia: H&H improved following transfusion. 6. DVT right axillary and basilic veins: Continue heparin drip. PICC line removed. Discussed with Dr. Orosco. Discharge Planning Pending further clinical improvement. Problem Qualifiers (1) Diabetes: Qualified Codes: E11.9 - Type 2 diabetes mellitus without complications; Z79.4 - terminal supervisor (current) use of insulin (2) HTN (hypertension): Qualified Codes: I10 - Essential (primary) hypertension Arnulfo Mathew MD January 11, 2018 16:21
[2018-01-11] MEDS: HEPARIN-D5W 25,000 U/250 ML 250 ML IV PRN (16:28)
[2018-01-11] MEDS: HYDROCHLOROTHIAZIDE 25 MG TAB PO SCH (17:33)
[2018-01-11] MEDS ORDERED: PHARMACY ORDERED LAB ONE (17:45)
[2018-01-11 20:00] VITALS: BP 134/84; PULSE 78; RESP 17; TEMP 98.1; O2SAT 94
[2018-01-11] MEDS ORDERED: VANCOMYCIN INJ 2,000 MG in SODIUM CHLORID 0.9% 500 ML INJ 500 ML IV ONE (20:00)
--- NOTE | 2018-01-11 20:42 | HHI.PR ---
Subjective Remarks 52 YOWM with MRSA empyema, s/p Decortication, rt lung infilt and eff no Fever no CP No SOB Chest tube removed Comfortable. Ambulates Objective Vital Signs Vital Signs Date Time Temp Pulse Resp B/P (MAP) Pulse Ox O2 Delivery O2 Flow Rate FiO2 01/11/18 16:00 97.2 67 17 134/78 (96) 92 01/11/18 12:00 97.4 64 16 133/74 (93) 94 01/11/18 08:00 98.2 65 16 152/66 (94) 91 01/11/18 08:00 Room Air 01/11/18 00:00 98.0 69 20 148/94 (112) 91 01/11/18 00:00 20 01/10/18 21:00 20 I/O 01/10/18 01/10/18 01/10/18 01/11/18 01/11/18 01/11/18 07:00 15:00 23:00 07:00 15:00 23:00 Intake Total 1665 ml 960 ml 240 ml 250 ml 1210 ml Output Total 1900 ml 110 ml 2100 ml 1500 ml 1700 ml Balance -235 ml -110 ml -1140 ml -1260 ml 250 ml -490 ml Intake Oral 800 ml 960 ml 240 ml 960 ml IV Total 865 ml 250 ml 250 ml Output Urine Total 1900 ml 2100 ml 1500 ml 1700 ml Chest Tube Drainage Total 100 ml Drainage Total 10 ml 0 ml # Bowel Movements 1 0 2 Result Diagram: 01/11/18 1218 01/11/18 0930 Objective Remarks GENERAL: WBWN WM,NAD SKIN: Warm and dry. HEAD: Normocephalic. EYES: No scleral icterus. No injection or drainage. NECK: Supple, trachea midline. No JVD or lymphadenopathy. CARDIOVASCULAR: Regular rate and rhythm without murmurs, gallops, or rubs. RESPIRATORY: Breath sounds equal bilaterally. No accessory muscle use. Decreased BS rt GASTROINTESTINAL: Abdomen soft, non-tender, nondistended. MUSCULOSKELETAL: No cyanosis, or edema. BACK: Nontender without obvious deformity. No CVA tenderness. A/P Assessment and Plan IMPRESSION: 1. Persistent right lower lobe infiltrate with effusion. 2. 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 3. Hypertension. 4. Diabetes mellitus. 5. Alcohol abuse. PLAN: Cont Abx per ID DW RN Looks comfortable, non toxic Stable from pulm standpoint Supplement 02 Zhao Ortega MD January 11, 2018 20:41
[2018-01-12] VITALS: BP 135/81; PULSE 74; RESP 17; TEMP 98.7; O2SAT 92
[2018-01-12] MEDS: CEFEPIME INJ 2,000 MG in SODIUM CHLORIDE 0.9% INJ 100 ML IV SCH ×3 (06:44→21:35)
[2018-01-12 08:00] VITALS: BP 132/64; PULSE 70; RESP 18; TEMP 97.3; O2SAT 92
[2018-01-12] MEDS: INSULIN ASPART SUPPLEMENTAL SCALE SQ SCH ×4 (08:00→22:35)
[2018-01-12] MEDS: SODIUM CHLORIDE 0.9% FLUSH 10 ML FLUSH IV FLUSH SCH ×2 (08:29→21:33)
[2018-01-12] MEDS: POLYETHYLENE GLYCOL 17 GM PKG PO SCH (08:30)
[2018-01-12] MEDS: PANTOPRAZOLE SOD 40 MG DELAYED RELEASE TAB PO SCH (08:30)
[2018-01-12] MEDS: CARVEDILOL 12.5 MG TAB PO SCH ×2 (08:30→21:33)
[2018-01-12] MEDS: HYDROCHLOROTHIAZIDE 25 MG TAB PO SCH (08:30)
[2018-01-12] MEDS: FOLIC ACID 1 MG TAB PO SCH (08:30)
[2018-01-12] MEDS: FUROSEMIDE 40 MG/4 ML VIAL IV PUSH SCH ×2 (08:30→18:28)
[2018-01-12] MEDS: LISINOPRIL 20 MG TAB PO SCH (08:30)
[2018-01-12] MEDS: THIAMINE HCL 100 MG TAB PO SCH (08:30)
[2018-01-12] MEDS: LACTIC ACID (AMMONIUM LACTATE) 12% LOTION 225 GM BTL TOPICAL SCH ×4 (08:31→21:37)
[2018-01-12] MEDS: MORPHINE SULFATE 4 MG/ML INJ IV PUSH PRN ×4 (08:31→22:33)
[2018-01-12 09:00] LABS: CREATININE 1.27 MG/DL (0.60-1.30)
[2018-01-12 09:04] LABS: RANDOM VANCOMYCIN 29.6 COMMENT
[2018-01-12] MEDS: HEPARIN-D5W 25,000 U/250 ML 250 ML IV PRN (10:12)
[2018-01-12 12:00] VITALS: BP 119/74; PULSE 75; RESP 19; TEMP 97.3; O2SAT 94
--- NOTE | 2018-01-12 13:27 | HHI.PR ---
Subjective Remarks Follow-up chest wall wound, empyema. Patient still complaining of pain around the wound VAC. Also still having shortness of breath. Objective Vitals Vital Signs Date Time Temp Pulse Resp B/P (MAP) Pulse Ox O2 Delivery O2 Flow Rate FiO2 01/12/18 12:00 97.3 75 19 119/74 (89) 94 01/12/18 08:00 97.3 70 18 132/64 (86) 92 01/12/18 07:40 18 01/12/18 04:40 18 01/12/18 04:03 92 2.00 01/12/18 00:00 98.7 74 17 135/81 (99) 92 01/11/18 20:00 98.1 78 17 134/84 (101) 94 01/11/18 16:00 97.2 67 17 134/78 (96) 92 I/O 01/11/18 01/11/18 01/11/18 01/12/18 01/12/18 01/12/18 07:00 15:00 23:00 07:00 15:00 23:00 Intake Total 240 ml 250 ml 1210 ml 540 ml 620 ml Output Total 1500 ml 1700 ml 2000 ml Balance -1260 ml 250 ml -490 ml -1460 ml 620 ml Intake Oral 240 ml 960 ml 440 ml IV Total 250 ml 250 ml 100 ml 620 ml Output Urine Total 1500 ml 1700 ml 2000 ml Drainage Total 0 ml # Bowel Movements 0 2 0 Result Diagram: 01/11/18 1218 01/12/18 0736 Imaging Last Impressions Chest X-Ray 01/11/18 0800 Signed Impressions: Service Date/Time: Thursday, January 11, 2018 08:23 - CONCLUSION: 1. No pneumothorax following chest tube removal. 2. Continued consolidation and effusion at the right lung base with a small area of loculated fluid at the right lung apex. Angel Valdez MD Lower Extremity Ultrasound 01/10/18 0000 Signed Impressions: Service Date/Time: Wednesday, January 10, 2018 15:24 - CONCLUSION: Normal examination. Andrez Holder MD CT Angiography 01/03/18 0000 Signed Impressions: Service Date/Time: Wednesday, January 03, 2018 12:57 - CONCLUSION: 1. Developing hazy densities in both hemithoraces, most prominent in the left upper lung. Appearance is concerning for developing septic emboli. 2. Right-sided complex empyema with air and fluid is definitely no smaller and may actually be slightly larger when compared to prior. Developing left-sided effusion. 3. No filling defects within the pulmonary arteries to suggest large pulmonary emboli. 4. CT findings suggesting some degree of cirrhosis and portal hypertension with a small, nodular liver and splenomegaly. Sven Flaherty MD Upper Extremity Ultrasound 01/02/18 0000 Signed Impressions: Service Date/Time: Tuesday, January 02, 2018 09:35 - CONCLUSION: Acute appearing occlusive thrombus in the right axillary and upper basilic vein. Tenzin Magdaleno MD Chest CT 12/23/17 0000 Signed Impressions: Service Date/Time: Saturday, December 23, 2017 12:01 - CONCLUSION: 1. Increase in loculated air within the complex right pleural effusion since November 30. The overall size of the presumed right empyema is relatively stable. There is also now loculated air in the lower right lateral chest wall likely representing extension of the empyema into the soft tissues. Slight improvement in right basilar lung consolidation. 2. Resolution of previous left pleural effusion. 3. New right-sided posterior sixth rib fracture. Multiple remote healed rib fractures. Edis Wetzel MD Objective Remarks General: No acute distress. Sitting up in a chair. Heart: Regular rate and rhythm. No murmur. Lungs: Decreased breath sounds on the right. Breathing is nonlabored. Abdomen: Soft, nontender, nondistended. Extremities: 2+ bilateral lower extremity edema. Psych: Alert and oriented. Neuro: Normal speech. No focal deficits noted. Back: Wound VAC in place. Procedures 12/26/17 bronchoscopy 01/04/18 right video-assisted thoracoscopic surgery, drainage of multiloculated pleural fluid, incision and open drainage of chest wall fluid collection, removal of chest wall foreign body, chest wall wound VAC placement Urinary Catheter: No Vascular Central Line Catheter: No A/P Problem List: (1) Empyema lung ICD Code: J86.9 - Pyothorax without fistula Status: Acute (2) Diabetes ICD Code: E11.9 - Type 2 diabetes mellitus without complications Status: Chronic (3) HTN (hypertension) ICD Code: I10 - Essential (primary) hypertension Status: Chronic (4) Pancytopenia ICD Code: D61.818 - Other pancytopenia Status: Chronic Assessment and Plan 1. Recurrent empyema, abscess: Status post video-assisted thoracoscopic surgery with drainage of multiloculated pleural fluid and drainage of chest wall , fluid collection. Chest wall foreign body was removed and wound VAC was placed. Continue IV antibiotics. Chest tube removed. Chest x-ray continues to show fluid on the right side. Repeat chest x-ray Tuesday morning or sooner if symptoms worsen. May need repeat drainage of empyema. 2. Hypertension: Chronic, controlled. Continue Coreg, Lasix. 3. Diabetes mellitus type 2: Chronic. Monitor Accu-Cheks and cover with sliding scale insulin. 4. Pancytopenia: Chronic. Appreciate hematology recommendations. Cleared for transfer back to [facility] by hematology. 5. Anemia: H&H improved following transfusion. 6. DVT right axillary and basilic veins: Continue heparin drip. PICC line removed. Discharge Planning Pending further clinical improvement. Problem Qualifiers (1) Diabetes: Qualified Codes: E11.9 - Type 2 diabetes mellitus without complications; Z79.4 - correction (current) use of insulin (2) HTN (hypertension): Qualified Codes: I10 - Essential (primary) hypertension Arnulfo Mathew MD January 12, 2018 13:27
--- NOTE | 2018-01-12 14:59 | PD.WCN.NOT ---
Wound Consult Description: Right side lateral chest distal to chest tube. Recommendation: Wound VAC dressing to be changed every Tuesday by HOUSEKEEPER ONLY Settings 125mmHg low continuous suction If air leak occurs please reinforce only. Trouble shoot by checking machine settings, canister is locked in to place or not full, tubing is not kinked or clamped. Neg Pressure Wound Therapy Wound Location Wound Location: Right side lateral chest distal to chest tube. Wound Description Length: 1.0cm Width: 4.3cm Depth: ~4.0cm Wound bed appearance: ~80% red granulation tissue ~10% yellow adipose tissue ~10% black cauterized tissue Periwound appearance: Unremarkable Settings Suction: 125 mmHg, Continuous Intensity: Low Other Information: Windowpaned, Mushroomed Foam type: Black Number of pieces: 1 Additonal Information Late entry from 01/11.Patient was seen by publications writer on for wound vac change.Patient sitting up in recliner denies any distress or discomfort at this time.Vac dressing removed without difficulty single piece of intact black sponge removed ~12cm.Wound cleansed with normal saline pat dry.Draping applied to periwound for skin integrity/protection.Single piece of black GranuFoam ~7cm gently packed into wound making contact with wound base track pad applied and suction initiated @ 125 mmHg low continuos suction with no leaks noted .canister change.patient tolerated wound care well. Ostomy Date of Surgery: January 04, 2018 Zaida Vázquez [facility] January 12, 2018 14:59
[2018-01-12 16:00] VITALS: BP 118/72; PULSE 73; RESP 19; TEMP 98.2; O2SAT 96
[2018-01-12] MEDS: VANCOMYCIN INJ 2,000 MG in SODIUM CHLORID 0.9% 500 ML INJ 500 ML IV SCH (18:33)
--- NOTE | 2018-01-12 19:21 | HHI.PR ---
Subjective Remarks 52 YOWM with MRSA empyema, s/p Decortication, rt lung infilt and eff no Fever no CP No SOB Has chest wall wound vac Comfortable. Ambulates Objective Vital Signs Vital Signs Date Time Temp Pulse Resp B/P (MAP) Pulse Ox O2 Delivery O2 Flow Rate FiO2 01/12/18 16:00 98.2 73 19 118/72 (87) 96 01/12/18 12:00 97.3 75 19 119/74 (89) 94 01/12/18 08:45 Room Air 01/12/18 08:00 97.3 70 18 132/64 (86) 92 01/12/18 07:40 18 01/12/18 04:40 18 01/12/18 04:03 92 2.00 01/12/18 00:00 98.7 74 17 135/81 (99) 92 01/11/18 20:00 98.1 78 17 134/84 (101) 94 I/O 01/11/18 01/11/18 01/11/18 01/12/18 01/12/18 01/12/18 07:00 15:00 23:00 07:00 15:00 23:00 Intake Total 240 ml 250 ml 1210 ml 540 ml 620 ml 1263 ml Output Total 1500 ml 1700 ml 2000 ml Balance -1260 ml 250 ml -490 ml -1460 ml 620 ml 1263 ml Intake Oral 240 ml 960 ml 440 ml 1140 ml IV Total 250 ml 250 ml 100 ml 620 ml 123 ml Output Urine Total 1500 ml 1700 ml 2000 ml Drainage Total 0 ml # Voids 6 # Bowel Movements 0 2 0 1 Result Diagram: 01/11/18 1218 01/12/18 0736 Objective Remarks GENERAL: WBWN WM,NAD SKIN: Warm and dry. HEAD: Normocephalic. EYES: No scleral icterus. No injection or drainage. NECK: Supple, trachea midline. No JVD or lymphadenopathy. CARDIOVASCULAR: Regular rate and rhythm without murmurs, gallops, or rubs. RESPIRATORY: Breath sounds equal bilaterally. No accessory muscle use. Decreased BS rt GASTROINTESTINAL: Abdomen soft, non-tender, nondistended. MUSCULOSKELETAL: No cyanosis, or edema. BACK: Nontender without obvious deformity. No CVA tenderness. A/P Assessment and Plan IMPRESSION: 1. Persistent right lower lobe infiltrate with effusion. 2. 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 3. Hypertension. 4. Diabetes mellitus. 5. Alcohol abuse. PLAN: Cont Abx per ID DW RN Looks comfortable, non toxic Stable from pulm standpoint Supplement 02 Wound care. Zhao Ortega MD January 12, 2018 19:21
[2018-01-12 20:00] VITALS: BP 134/75; PULSE 72; RESP 18; TEMP 97.4; O2SAT 96
[2018-01-13] VITALS: BP 155/87; PULSE 67; RESP 18; TEMP 97.4; O2SAT 94
[2018-01-13] MEDS: SODIUM CHLORIDE 0.9% FLUSH 10 ML FLUSH IV FLUSH PRN ×2 (02:33→03:27)
[2018-01-13] MEDS: HEPARIN-D5W 25,000 U/250 ML 250 ML IV PRN ×2 (02:38→21:13)
[2018-01-13] MEDS: MORPHINE SULFATE 4 MG/ML INJ IV PUSH PRN ×5 (03:27→21:01)
[2018-01-13] MEDS: CEFEPIME INJ 2,000 MG in SODIUM CHLORIDE 0.9% INJ 100 ML IV SCH ×3 (06:03→21:01)
[2018-01-13 06:10] LABS: AUTOMATED NEUTROPHIL # 1.9 TH/MM3 (1.8-7.7); BASOPHIL # 0.1 TH/MM3 (0-0.2); BASOPHIL % 2.2 % (0.0-2.0); EOSINOPHIL # 0.5 TH/MM3 (0-0.4); EOSINOPHIL % 12.3 % (0.0-4.0); HEMATOCRIT 28.1 % (39.0-51.0); HEMOGLOBIN 9.5 GM/DL (13.0-17.0); LYMPH % 29.6 % (9.0-44.0); LYMPHOCYTE # 1.3 TH/MM3 (1.0-4.8); MEAN CELL VOLUME 90.9 FL (80.0-100.0); MEAN CORPUSCULAR HEMOGLOBIN 30.7 PG (27.0-34.0); MEAN CORPUSCULAR HGB CONC 33.8 % (32.0-36.0); MEAN PLATELET VOLUME 8.5 FL (7.0-11.0); MONO % 11.9 % (0.0-8.0); MONOCYTE # 0.5 TH/MM3 (0-0.9); PLATELET COUNT 120 TH/MM3 (150-450); RED BLOOD COUNT 3.09 MIL/MM3 (4.50-5.90); WHITE BLOOD COUNT 4.2 TH/MM3 (4.0-11.0)
[2018-01-13 06:34] LABS: BICARBONATE 26.1 MEQ/L (21.0-32.0); CALCIUM 8.6 MG/DL (8.5-10.1); CREATININE 1.2 MG/DL (0.60-1.30)
--- NOTE | 2018-01-13 07:16 | RADRPT ---
EXAM DATE/TIME: 01/13/2018 05:54 [place] COMPARISON: CHEST SINGLE AP, January 11, 2018, 8:23. INDICATIONS : Short of breath, evaluate empyema MEDICAL HISTORY : Hypertension. chest wall abcess, acute kidney disease, MRSA SURGICAL HISTORY : orbital socket repair, surgical repair of jaw ENCOUNTER: Subsequent ACUITY: 4 - 6 days PAIN SCORE: 0/10 LOCATION: Bilateral chest FINDINGS: There continues to be a patchy infiltrate in the right lower lung along with a right-sided effusion. These findings are stable compared to the prior exam. The left lung is clear and well-aerated. No new or focal infiltrates are seen in the left lung. The heart size is within normal limits. The bony str uctures are grossly intact. CONCLUSION: Stable appearance of the chest compared to the prior examination of 01/11/2018. No new or significant changes are demonstrated. Judd Lang MD on January 13, 2018 at 7:13 Board Certified Radiologist. This report was verified electronically.
[2018-01-13 08:00] VITALS: BP 113/73; PULSE 73; RESP 18; TEMP 98.1; O2SAT 94
[2018-01-13] MEDS: INSULIN ASPART SUPPLEMENTAL SCALE SQ SCH ×4 (08:00→21:01)
--- NOTE | 2018-01-13 08:39 | HHI.IDPN ---
Subjective Subjective Remarks Patient seen and examined on on behalf of Dr. Orosco is a 52 y/o CM with PMHx of HTN, diabetes, H/O DVT and alcohol abuse who was recently admitted to [facility] on 11/18/17 with weakness. While hospitalized at [facility], patient was treated for alcohol withdrawal and sepsis secondary to pneumonia. Patient developed persistent right-sided pleural effusion underwent a thoracocentesis on 11/22 with 1400 cc of fluid removed with cultures positive for MRSA. He also had a urine culture positive for MRSA. Patient had echocardiogram done on 11/21 revealing preserved EF of 60 - 65%. Patient had a PICC line placed 11/22. Patient was treated with IV Vanco, Levaquin and IV Zyvox. Patient developed acute renal failure likely secondary to vancomycin. Blood cultures were negative. Patient was accepted as a transfer to [facility] by Dr. Pena for possible decortication of lung by cardiothoracic surgery. Patient was seen by CTS at [facility] and underwent decortication as well as drainage of right chest wall abscess. Patient post op had a wound vac to the right chest wall and also had a chest tube. Upon DC patient was supposed to have been on Wound vac for right chest wall abscess but unsure if he was on it. Patient seems to have been on Teflaro IV. Patient was on Vanco IV and had acute renal failure. Patient was on Zyvox and developed severe pancytopenia. Infectious disease has been consulted for evaluation and medical management of MRSA empyema and right chest wall abscess. Notes reviewed patient reports difficulty breathing yesterday but better today Patient states he bent over and felt something pop open in his upper back yesterday no fever or chills no rash no N/V no dysuria no diarrhea afebrile Repeat surgery done 01/03. C/S negative. CXR shows continued consolidation and effusion at the right lung base with a small area of loculated fluid at the right lung apex. Repeat CXR today shows patchy infiltrate in the right lower lung along with right sided effusion, no significant change noted, appears slightly improved, images reviewed by mn Pancytopenia with WBC 4.2, and platelets stable at 120 01/13 Doppler neg for DVT Hepatitis and HIV negative Antibiotics IV Vanco IV Cefepime Lines Line sites with no e.o infection Past Medical History reviewed (Summer Monreal) Allergies: Coded Allergies: No Known Allergies (Verified Allergy, Unknown, 11/29/17) Objective . Vital Signs Date Time Temp Pulse Resp B/P (MAP) Pulse Ox O2 Delivery O2 Flow Rate FiO2 01/13/18 00:00 97.4 67 18 155/87 (109) 94 01/12/18 20:00 97.4 72 18 134/75 (94) 96 01/12/18 16:00 98.2 73 19 118/72 (87) 96 01/12/18 12:00 97.3 75 19 119/74 (89) 94 01/12/18 08:45 Room Air . Laboratory Tests Test 01/11/18 12:18 01/13/18 05:42 White Blood Count 3.6 TH/MM3 4.2 TH/MM3 Red Blood Count 3.25 MIL/MM3 3.09 MIL/MM3 Hemoglobin 9.8 GM/DL 9.5 GM/DL Hematocrit 29.4 % 28.1 % Mean Corpuscular Volume 90.4 FL 90.9 FL Mean Corpuscular Hemoglobin 30.2 PG 30.7 PG Mean Corpuscular Hemoglobin Concent 33.4 % 33.8 % Red Cell Distribution Width 17.3 % 17.0 % Platelet Count 135 TH/MM3 120 TH/MM3 Mean Platelet Volume 8.5 FL 8.5 FL Neutrophils (%) (Auto) 41.5 % 44.0 % Lymphocytes (%) (Auto) 29.2 % 29.6 % Monocytes (%) (Auto) 10.2 % 11.9 % Eosinophils (%) (Auto) 16.9 % 12.3 % Basophils (%) (Auto) 2.2 % 2.2 % Neutrophils # (Auto) 1.5 TH/MM3 1.9 TH/MM3 Lymphocytes # (Auto) 1.1 TH/MM3 1.3 TH/MM3 Monocytes # (Auto) 0.4 TH/MM3 0.5 TH/MM3 Eosinophils # (Auto) 0.6 TH/MM3 0.5 TH/MM3 Basophils # (Auto) 0.1 TH/MM3 0.1 TH/MM3 CBC Comment DIFF FINAL DIFF FINAL Differential Comment Laboratory Tests Test 01/11/18 09:30 01/12/18 07:36 01/13/18 05:42 Blood Urea Nitrogen 16 MG/DL 18 MG/DL Creatinine 1.24 MG/DL 1.27 MG/DL 1.20 MG/DL Random Glucose 213 MG/DL 99 MG/DL Total Protein 9.6 GM/DL Albumin 2.4 GM/DL Calcium Level 8.6 MG/DL 8.6 MG/DL Alkaline Phosphatase 94 U/L Aspartate Amino Transf (AST/SGOT) 22 U/L Alanine Aminotransferase (ALT/SGPT) 15 U/L Total Bilirubin 0.5 MG/DL Sodium Level 136 MEQ/L 139 MEQ/L Potassium Level 3.7 MEQ/L 3.9 MEQ/L Chloride Level 100 MEQ/L 103 MEQ/L Carbon Dioxide Level 25.8 MEQ/L 26.1 MEQ/L Anion Gap 10 MEQ/L 10 MEQ/L Estimat Glomerular Filtration Rate 61 ML/MIN 59 ML/MIN 63 ML/MIN Imaging Last Impressions Chest X-Ray 01/13/18 0600 Signed Impressions: Service Date/Time: Saturday, January 13, 2018 05:54 - CONCLUSION: Stable appearance of the chest compared to the prior examination of 01/11/2018. No new or significant changes are demonstrated. Judd Lang MD Lower Extremity Ultrasound 01/10/18 0000 Signed Impressions: Service Date/Time: Wednesday, January 10, 2018 15:24 - CONCLUSION: Normal examination. Andrez Holder MD CT Angiography 01/03/18 0000 Signed Impressions: Service Date/Time: Wednesday, January 03, 2018 12:57 - CONCLUSION: 1. Developing hazy densities in both hemithoraces, most prominent in the left upper lung. Appearance is concerning for developing septic emboli. 2. Right-sided complex empyema with air and fluid is definitely no smaller and may actually be slightly larger when compared to prior. Developing left-sided effusion. 3. No filling defects within the pulmonary arteries to suggest large pulmonary emboli. 4. CT findings suggesting some degree of cirrhosis and portal hypertension with a small, nodular liver and splenomegaly. Sven Flaherty MD Upper Extremity Ultrasound 01/02/18 0000 Signed Impressions: Service Date/Time: Tuesday, January 02, 2018 09:35 - CONCLUSION: Acute appearing occlusive thrombus in the right axillary and upper basilic vein. Tenzin Magdaleno MD Chest CT 12/23/17 0000 Signed Impressions: Service Date/Time: Saturday, December 23, 2017 12:01 - CONCLUSION: 1. Increase in loculated air within the complex right pleural effusion since November 30. The overall size of the presumed right empyema is relatively stable. There is also now loculated air in the lower right lateral chest wall likely representing extension of the empyema into the soft tissues. Slight improvement in right basilar lung consolidation. 2. Resolution of previous left pleural effusion. 3. New right-sided posterior sixth rib fracture. Multiple remote healed rib fractures. Edis Wetzel MD Physical Exam GENERAL: Well developed, well nourished male patient, INAD. Awake and alert. Sitting up in bedside recliner. SKIN: Warm and dry. No generalized rash. Bilateral lower extremity venous stasis changes noted, improved with Amlactin. HEAD: Atraumatic. Normocephalic. EYES: Pupils equal round and reactive. Extraocular motions intact. No scleral icterus. No injection or drainage. ENT: Nose without bleeding or purulent drainage. Airway patent. MMM. No oral lesions noted. NECK: Trachea midline. CARDIOVASCULAR: Regular rate and rhythm. RESPIRATORY: Nonlabored. Diminished in right lung lange. Wound vac in place with smaller sponge. Small incision right upper back over scapular area slightly open with brownish drainage noted. More inferior second incision open with no active drainage noted. GASTROINTESTINAL: Abdomen soft, non-tender, nondistended. MUSCULOSKELETAL: Extremities without clubbing or cyanosis. Chronic BLE pitting edema noted R>L. No calf tenderness. Bilateral calves supple. NEUROLOGICAL: Awake and alert. Able to move all extremities. Motor and sensory grossly intact. Non focal exam. Normal speech. PSYCHIATRIC: Appropriate mood and affect. Calm and cooperative. IV line sites with no e.o infection (Summer Monreal) Assessment & Plan Remarks Right side MRSA empyema post pneumonia. Empyema Necessitans s/p wound vac for chest wall abscess on right side, due to wound vac change today Right MRSA chest wall abscess 01/11 CXR with right lung infiltrates and effusion ?HCAP pneumonia Concern for endocarditis. Due to ongoing infection it is possible the valve(s) may have seeded. Thrombocytopenia from Teflaro or sepsis. Alcoholism, aspiration risk. PICC removed. DVT Right UE BLE edema and chronic venous stasis changes L>R, Neg for DVT Neutropenia, ?due to prior ETOH abuse, seems chronic -hematology following Thrombocytopenia -platelets low but appear stable Dysuria resolved, UA neg Recs Repeat CXR today shows patchy infiltrate in the right lower lung along with right sided effusion, no significant change noted, appears slightly improved, images reviewed by me Continue IV Cefepime Continue Vanco IV (target 15-20) for MRSA empyema - monitor kidney function Continue Lac Hydrin BLE Continue on IV Lasix and HCTZ Wound cx right sided upper back incision with brownish colored drainage noted, wound cx ordered. Follow up on results. Follow temps Follow CBC Monitor progress Further recommendations to follow (Summer Monreal) Remarks The exam, history, and the medical decision-making described in the above note were completed with the assistance of the mid-level provider. I reviewed and agree with the findings presented. I attest that I had a [id number] encounter with the patient on the same day, and personally performed and documented my assessment and findings in the medical record. Breathing better. No fevers, no rash, no diarrhea. CXR better. Pleural effusion. AE decreased in bases. HS audible. Recs: Prior CT site with yellowish discharge. Cultures sent. Continue Cefepime IV Continue Vanco IV Follow cultures Follow clinically. covering for me over the weekend. (Donna Orosco MD) Summer Monreal January 13, 2018 08:39 Donna Orosco MD January 13, 2018 14:51
[2018-01-13] MEDS: HYDROCHLOROTHIAZIDE 25 MG TAB PO SCH (08:52)
[2018-01-13] MEDS: THIAMINE HCL 100 MG TAB PO SCH (08:52)
[2018-01-13] MEDS: LISINOPRIL 20 MG TAB PO SCH (08:52)
[2018-01-13] MEDS: CARVEDILOL 12.5 MG TAB PO SCH ×2 (08:52→21:01)
[2018-01-13] MEDS: FOLIC ACID 1 MG TAB PO SCH (08:52)
[2018-01-13] MEDS: PANTOPRAZOLE SOD 40 MG DELAYED RELEASE TAB PO SCH (08:52)
[2018-01-13] MEDS: POLYETHYLENE GLYCOL 17 GM PKG PO SCH (08:53)
[2018-01-13] MEDS: FUROSEMIDE 40 MG/4 ML VIAL IV PUSH SCH ×2 (08:53→17:36)
[2018-01-13] MEDS: LACTIC ACID (AMMONIUM LACTATE) 12% LOTION 225 GM BTL TOPICAL SCH ×4 (08:53→21:05)
[2018-01-13] MEDS: SODIUM CHLORIDE 0.9% FLUSH 10 ML FLUSH IV FLUSH SCH ×2 (08:56→21:02)
[2018-01-13 12:00] VITALS: BP 115/70; PULSE 73; RESP 19; TEMP 98; O2SAT 92
--- NOTE | 2018-01-13 14:38 | HHI.PR ---
Subjective Remarks Follow up chest wall wound, empyema. Wound care is changing the patient's wound vac. Patient reports that it is painful. He has no other complaints at this time. Denies dyspnea. Objective Vitals Vital Signs Date Time Temp Pulse Resp B/P (MAP) Pulse Ox O2 Delivery O2 Flow Rate FiO2 01/13/18 12:00 98.0 73 19 115/70 (85) 92 01/13/18 08:00 98.1 73 18 113/73 (86) 94 01/13/18 00:00 97.4 67 18 155/87 (109) 94 01/12/18 20:00 97.4 72 18 134/75 (94) 96 01/12/18 16:00 98.2 73 19 118/72 (87) 96 I/O 01/12/18 01/12/18 01/12/18 01/13/18 01/13/18 01/13/18 07:00 15:00 23:00 07:00 15:00 23:00 Intake Total 540 ml 620 ml 1807 ml 186 ml Output Total 2000 ml 750 ml 800 ml Balance -1460 ml 620 ml 1057 ml -614 ml Intake Oral 440 ml 1140 ml IV Total 100 ml 620 ml 667 ml 186 ml Output Urine Total 2000 ml 750 ml 800 ml Drainage Total 0 ml 0 ml # Voids 6 # Bowel Movements 0 1 Result Diagram: 01/13/18 0542 01/13/18 0542 Imaging Last Impressions Chest X-Ray 01/13/18 0600 Signed Impressions: Service Date/Time: Saturday, January 13, 2018 05:54 - CONCLUSION: Stable appearance of the chest compared to the prior examination of 01/11/2018. No new or significant changes are demonstrated. Judd Lang MD Lower Extremity Ultrasound 01/10/18 0000 Signed Impressions: Service Date/Time: Wednesday, January 10, 2018 15:24 - CONCLUSION: Normal examination. Andrez Holder MD CT Angiography 01/03/18 0000 Signed Impressions: Service Date/Time: Wednesday, January 03, 2018 12:57 - CONCLUSION: 1. Developing hazy densities in both hemithoraces, most prominent in the left upper lung. Appearance is concerning for developing septic emboli. 2. Right-sided complex empyema with air and fluid is definitely no smaller and may actually be slightly larger when compared to prior. Developing left-sided effusion. 3. No filling defects within the pulmonary arteries to suggest large pulmonary emboli. 4. CT findings suggesting some degree of cirrhosis and portal hypertension with a small, nodular liver and splenomegaly. Sven Flaherty MD Upper Extremity Ultrasound 01/02/18 0000 Signed Impressions: Service Date/Time: Tuesday, January 02, 2018 09:35 - CONCLUSION: Acute appearing occlusive thrombus in the right axillary and upper basilic vein. Tenzin Magdaleno MD Chest CT 12/23/17 0000 Signed Impressions: Service Date/Time: Saturday, December 23, 2017 12:01 - CONCLUSION: 1. Increase in loculated air within the complex right pleural effusion since November 30. The overall size of the presumed right empyema is relatively stable. There is also now loculated air in the lower right lateral chest wall likely representing extension of the empyema into the soft tissues. Slight improvement in right basilar lung consolidation. 2. Resolution of previous left pleural effusion. 3. New right-sided posterior sixth rib fracture. Multiple remote healed rib fractures. Edis Wetzel MD Objective Remarks General: No acute distress. Heart: Regular rate and rhythm. No murmur. Lungs: Decreased breath sounds on the right. Breathing is nonlabored. Abdomen: Soft, nontender, nondistended. Extremities: 2+ bilateral lower extremity edema. Psych: Alert and oriented. Neuro: Normal speech. No focal deficits noted. Back: Wound examined. No surrounding erythema. Procedures 12/26/17 bronchoscopy 01/04/18 right video-assisted thoracoscopic surgery, drainage of multiloculated pleural fluid, incision and open drainage of chest wall fluid collection, removal of chest wall foreign body, chest wall wound VAC placement Urinary Catheter: No Vascular Central Line Catheter: No A/P Problem List: (1) Empyema lung ICD Code: J86.9 - Pyothorax without fistula Status: Acute (2) Diabetes ICD Code: E11.9 - Type 2 diabetes mellitus without complications Status: Chronic (3) HTN (hypertension) ICD Code: I10 - Essential (primary) hypertension Status: Chronic (4) Pancytopenia ICD Code: D61.818 - Other pancytopenia Status: Chronic Assessment and Plan 1. Recurrent empyema, abscess: Status post video-assisted thoracoscopic surgery with drainage of multiloculated pleural fluid and drainage of chest wall , fluid collection. Chest wall foreign body was removed and wound VAC was placed. Continue IV antibiotics. Chest tube removed. Chest x-ray continues to show fluid on the right side. Repeat chest x-ray is unchanged. Discussed with CT surgery. 2. Hypertension: Chronic, controlled. Continue Coreg, Lasix, HCTZ. 3. Diabetes mellitus type 2: Chronic. Monitor Accu-Cheks and cover with sliding scale insulin. 4. Pancytopenia: Chronic. Appreciate hematology recommendations. Cleared for transfer back to [facility] by hematology. 5. Anemia: H&H improved following transfusion. 6. DVT right axillary and basilic veins: Continue heparin drip. PICC line removed. Will need to be transitioned to oral anticoagulation. Discharge Planning Pending further clinical improvement. Problem Qualifiers (1) Diabetes: Qualified Codes: E11.9 - Type 2 diabetes mellitus without complications; Z79.4 - care home (current) use of insulin (2) HTN (hypertension): Qualified Codes: I10 - Essential (primary) hypertension Arnulfo Mathew MD January 13, 2018 14:38
--- NOTE | 2018-01-13 14:44 | PD.WCN.NOT ---
Wound Consult Description: Right side lateral chest distal to previous chest tube. Communicated with: Dr Mathew Patient Recommendation: Wound VAC dressing to be changed every Tuesday by [facility] [employer]IST ONLY Settings 125mmHg low continuous suction If air leak occurs please reinforce only using VAC drape or transparent film. Trouble shoot by checking machine settings, canister is locked in to place or not full, tubing is not kinked or clamped. Additional Information: Patient seen on 7 for wound VAC change to right lateral chest. Neg Pressure Wound Therapy Wound Location Wound Location: Right side lateral chest distal to previous chest tube. Wound Description Length: 1.2 cm Width: 5 cm Depth: 1.5 cm Underminin.1cm of undermining noted superiorly within the wound bed Wound bed appearance: ~80% red granulation tissue ~10% yellow adipose tissue ~10% black cauterized tissue Periwound appearance: Unremarkable Settings Suction: 125 mmHg, Continuous Intensity: Low Other Information: Bridged, Windowpaned, Mushroomed Foam type: Black Number of pieces: 1 Additonal Information Wound VAC dressing removed with patient stating pain at the periwound site with drape removal. One piece of black granufoam removed from right lateral chest wound. Wound cleansed with wound cleanser and gauze. Wound was measured above. Periwound was skin prepped using Cavilon barrier film spray prior to window paning using VAC drape. One piece of black granufoam was cut and placed into wound bed including the undermined area and pulled back ~0.5cm to allow for tissue growth and coiled into wound bed and brought up and out to place sensitrac pad bridged inferiorly to wound bed and secured with VAC drape. Machine started with ordered settings of 125mmHg low continuous suction. Leak noted at beginning which was found at the top of the drape and reinforced using VAC drape. Patient tolerated wound VAC dressing change fairly. Dr Mathew at bedside during VAC dressing application. Next dressing change is Tuesday by research professional. Sakshi Payan [facility] January 13, 2018 14:44
[2018-01-13 15:39] VITALS: BP 121/62; PULSE 83; RESP 18; TEMP 97.7; O2SAT 97
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
[2018-01-13] MEDS: VANCOMYCIN INJ 2,000 MG in SODIUM CHLORID 0.9% 500 ML INJ 500 ML IV SCH (17:36)
--- NOTE | 2018-01-13 17:44 | HHI.PR ---
Subjective Remarks 52 YOWM with MRSA empyema, s/p Decortication, rt lung infilt and eff no Fever no CP No SOB Has chest wall wound vac Comfortable. Ambulates Objective Vital Signs Vital Signs Date Time Temp Pulse Resp B/P (MAP) Pulse Ox O2 Delivery O2 Flow Rate FiO2 01/13/18 15:39 97.7 83 18 121/62 (81) 97 01/13/18 12:00 98.0 73 19 115/70 (85) 92 01/13/18 08:00 98.1 73 18 113/73 (86) 94 01/13/18 00:00 97.4 67 18 155/87 (109) 94 01/12/18 20:00 97.4 72 18 134/75 (94) 96 I/O 01/12/18 01/12/18 01/12/18 01/13/18 01/13/18 01/13/18 07:00 15:00 23:00 07:00 15:00 23:00 Intake Total 540 ml 620 ml 1807 ml 186 ml Output Total 2000 ml 750 ml 800 ml Balance -1460 ml 620 ml 1057 ml -614 ml Intake Oral 440 ml 1140 ml IV Total 100 ml 620 ml 667 ml 186 ml Output Urine Total 2000 ml 750 ml 800 ml Drainage Total 0 ml 0 ml # Voids 6 # Bowel Movements 0 1 Result Diagram: 01/13/18 0542 01/13/18 0542 Objective Remarks GENERAL: WBWN WM,NAD SKIN: Warm and dry. HEAD: Normocephalic. EYES: No scleral icterus. No injection or drainage. NECK: Supple, trachea midline. No JVD or lymphadenopathy. CARDIOVASCULAR: Regular rate and rhythm without murmurs, gallops, or rubs. RESPIRATORY: Breath sounds equal bilaterally. No accessory muscle use. Decreased BS rt GASTROINTESTINAL: Abdomen soft, non-tender, nondistended. MUSCULOSKELETAL: No cyanosis, or edema. BACK: Nontender without obvious deformity. No CVA tenderness. A/P Assessment and Plan IMPRESSION: 1. Persistent right lower lobe infiltrate with effusion. 2. 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 3. Hypertension. 4. Diabetes mellitus. 5. Alcohol abuse. PLAN: Cont Abx per ID DW RN Looks comfortable, non toxic Stable from pulm standpoint Supplement 02 Wound care. Available prn over weekend. Zhao Ortega MD January 13, 2018 17:44
[2018-01-13] MEDS ORDERED: PHARMACY ORDERED LAB ONE (17:45)
[2018-01-13 20:00] VITALS: BP 124/78; PULSE 71; RESP 20; TEMP 98; O2SAT 96
[2018-01-14] VITALS: BP 119/81; PULSE 74; RESP 20; O2SAT 93
[2018-01-14] MEDS: MORPHINE SULFATE 4 MG/ML INJ IV PUSH PRN ×6 (03:18→23:17)
[2018-01-14] MEDS: CEFEPIME INJ 2,000 MG in SODIUM CHLORIDE 0.9% INJ 100 ML IV SCH ×3 (06:19→23:52)
[2018-01-14 06:24] LABS: HEMATOCRIT 28.4 % (39.0-51.0); HEMOGLOBIN 9.6 GM/DL (13.0-17.0); MEAN CELL VOLUME 91.2 FL (80.0-100.0); MEAN CORPUSCULAR HEMOGLOBIN 30.7 PG (27.0-34.0); MEAN CORPUSCULAR HGB CONC 33.7 % (32.0-36.0); MEAN PLATELET VOLUME 8.6 FL (7.0-11.0); PLATELET COUNT 109 TH/MM3 (150-450); RED BLOOD COUNT 3.12 MIL/MM3 (4.50-5.90); RED CELL DISTRIBUTION WIDTH 17.2 % (11.6-17.2); WHITE BLOOD COUNT 3.8 TH/MM3 (4.0-11.0)
[2018-01-14 08:00] VITALS: BP 132/82; PULSE 72; RESP 16; TEMP 97.6; O2SAT 91
[2018-01-14] MEDS: INSULIN ASPART SUPPLEMENTAL SCALE SQ SCH ×4 (08:00→20:13)
[2018-01-14] MEDS: FUROSEMIDE 40 MG/4 ML VIAL IV PUSH SCH ×2 (08:23→17:26)
[2018-01-14] MEDS: LISINOPRIL 20 MG TAB PO SCH (08:24)
[2018-01-14] MEDS: LACTIC ACID (AMMONIUM LACTATE) 12% LOTION 225 GM BTL TOPICAL SCH ×4 (08:24→20:14)
[2018-01-14] MEDS: HYDROCHLOROTHIAZIDE 25 MG TAB PO SCH (08:24)
[2018-01-14] MEDS: PANTOPRAZOLE SOD 40 MG DELAYED RELEASE TAB PO SCH (08:24)
[2018-01-14] MEDS: THIAMINE HCL 100 MG TAB PO SCH (08:24)
[2018-01-14] MEDS: CARVEDILOL 12.5 MG TAB PO SCH ×2 (08:24→20:14)
[2018-01-14] MEDS: FOLIC ACID 1 MG TAB PO SCH (08:24)
[2018-01-14] MEDS: POLYETHYLENE GLYCOL 17 GM PKG PO SCH (08:25)
[2018-01-14] MEDS: SODIUM CHLORIDE 0.9% FLUSH 10 ML FLUSH IV FLUSH SCH ×2 (08:25→20:14)
[2018-01-14 12:00] VITALS: BP 132/78; PULSE 73; RESP 16; TEMP 97.6; O2SAT 97
[2018-01-14] MEDS: HEPARIN-D5W 25,000 U/250 ML 250 ML IV PRN (14:40)
--- NOTE | 2018-01-14 14:41 | HHI.PR ---
Subjective Remarks Follow up wound, empyema. Patient states that his pain is well controlled at this time. Denies chest pain, dyspnea. Objective Vitals Vital Signs Date Time Temp Pulse Resp B/P (MAP) Pulse Ox O2 Delivery O2 Flow Rate FiO2 01/14/18 12:00 97.6 73 16 132/78 (96) 97 01/14/18 08:00 97.6 72 16 132/82 (99) 91 01/14/18 00:00 74 20 119/81 (94) 93 01/13/18 20:00 98.0 71 20 124/78 (93) 96 01/13/18 15:39 97.7 83 18 121/62 (81) 97 I/O 01/13/18 01/13/18 01/13/18 01/14/18 01/14/18 01/14/18 07:00 15:00 23:00 07:00 15:00 23:00 Intake Total 186 ml Output Total 800 ml 700 ml 810 ml Balance -614 ml -700 ml -810 ml IV Total 186 ml Output Urine Total 800 ml 700 ml 800 ml Drainage Total 0 ml 10 ml Result Diagram: 01/14/18 0557 01/13/18 0542 Imaging Last Impressions Chest X-Ray 01/13/18 0600 Signed Impressions: Service Date/Time: Saturday, January 13, 2018 05:54 - CONCLUSION: Stable appearance of the chest compared to the prior examination of 01/11/2018. No new or significant changes are demonstrated. Judd Lang MD Lower Extremity Ultrasound 01/10/18 0000 Signed Impressions: Service Date/Time: Wednesday, January 10, 2018 15:24 - CONCLUSION: Normal examination. Andrez Holder MD CT Angiography 01/03/18 0000 Signed Impressions: Service Date/Time: Wednesday, January 03, 2018 12:57 - CONCLUSION: 1. Developing hazy densities in both hemithoraces, most prominent in the left upper lung. Appearance is concerning for developing septic emboli. 2. Right-sided complex empyema with air and fluid is definitely no smaller and may actually be slightly larger when compared to prior. Developing left-sided effusion. 3. No filling defects within the pulmonary arteries to suggest large pulmonary emboli. 4. CT findings suggesting some degree of cirrhosis and portal hypertension with a small, nodular liver and splenomegaly. Sven Flaherty MD Upper Extremity Ultrasound 01/02/18 0000 Signed Impressions: Service Date/Time: Tuesday, January 02, 2018 09:35 - CONCLUSION: Acute appearing occlusive thrombus in the right axillary and upper basilic vein. Tenzin Magdaleno MD Chest CT 12/23/17 0000 Signed Impressions: Service Date/Time: Saturday, December 23, 2017 12:01 - CONCLUSION: 1. Increase in loculated air within the complex right pleural effusion since November 30. The overall size of the presumed right empyema is relatively stable. There is also now loculated air in the lower right lateral chest wall likely representing extension of the empyema into the soft tissues. Slight improvement in right basilar lung consolidation. 2. Resolution of previous left pleural effusion. 3. New right-sided posterior sixth rib fracture. Multiple remote healed rib fractures. Edis Wetzel MD Objective Remarks General: No acute distress. Sitting up in a chair. Heart: Regular rate and rhythm. No murmur. Lungs: Decreased breath sounds on the right. Breathing is nonlabored. Abdomen: Soft, nontender, nondistended. Extremities: 2+ bilateral lower extremity edema. Psych: Alert and oriented. Neuro: Normal speech. No focal deficits noted. Back: Wound vac in place. Procedures 12/26/17 bronchoscopy 01/04/18 right video-assisted thoracoscopic surgery, drainage of multiloculated pleural fluid, incision and open drainage of chest wall fluid collection, removal of chest wall foreign body, chest wall wound VAC placement Urinary Catheter: No Vascular Central Line Catheter: No A/P Problem List: (1) Empyema lung ICD Code: J86.9 - Pyothorax without fistula Status: Acute (2) Diabetes ICD Code: E11.9 - Type 2 diabetes mellitus without complications Status: Chronic (3) HTN (hypertension) ICD Code: I10 - Essential (primary) hypertension Status: Chronic (4) Pancytopenia ICD Code: D61.818 - Other pancytopenia Status: Chronic Assessment and Plan 01/14/18: No change. Wound vac in place. Continue antibiotics. 1. Recurrent empyema, abscess: Status post video-assisted thoracoscopic surgery with drainage of multiloculated pleural fluid and drainage of chest wall , fluid collection. Chest wall foreign body was removed and wound VAC was placed. Continue antibiotics. Chest tube removed. Chest x-ray continues to show fluid on the right side. Repeat chest x-ray is unchanged. 2. Hypertension: Chronic, controlled. Continue Coreg, Lasix, HCTZ. 3. Diabetes mellitus type 2: Chronic. Monitor Accu-Cheks and cover with sliding scale insulin. 4. Pancytopenia: Chronic. Appreciate hematology recommendations. Cleared for transfer back to [facility] by hematology. 5. Anemia: H&H improved following transfusion. 6. DVT right axillary and basilic veins: Continue heparin drip. PICC line removed. Will need to be transitioned to oral anticoagulation. Discharge Planning Pending further clinical improvement. Problem Qualifiers (1) Diabetes: Qualified Codes: E11.9 - Type 2 diabetes mellitus without complications; Z79.4 - halfway (current) use of insulin (2) HTN (hypertension): Qualified Codes: I10 - Essential (primary) hypertension Arnulfo Mathew MD January 14, 2018 14:41
[2018-01-14 16:00] VITALS: BP 129/68; PULSE 72; RESP 17; TEMP 98; O2SAT 93
[2018-01-14 20:00] VITALS: BP 127/74; PULSE 71; RESP 17; TEMP 97.9; O2SAT 94
[2018-01-14] MEDS: VANCOMYCIN INJ 1,750 MG in SODIUM CHLORID 0.9% 500 ML INJ 500 ML IV SCH (20:14)
[2018-01-15] VITALS: BP 117/74; PULSE 74; RESP 17; TEMP 97.4; O2SAT 94
[2018-01-15] MEDS: CEFEPIME INJ 2,000 MG in SODIUM CHLORIDE 0.9% INJ 100 ML IV SCH ×3 (04:18→22:02)
[2018-01-15] MEDS: MORPHINE SULFATE 4 MG/ML INJ IV PUSH PRN ×4 (04:23→22:53)
[2018-01-15 08:00] VITALS: BP 113/76; PULSE 71; RESP 18; TEMP 98; O2SAT 92
[2018-01-15] MEDS: INSULIN ASPART SUPPLEMENTAL SCALE SQ SCH ×4 (08:00→19:51)
[2018-01-15] MEDS: HYDROCHLOROTHIAZIDE 25 MG TAB PO SCH (08:10)
[2018-01-15] MEDS: THIAMINE HCL 100 MG TAB PO SCH (08:10)
[2018-01-15] MEDS: FUROSEMIDE 40 MG/4 ML VIAL IV PUSH SCH ×2 (08:10→17:41)
[2018-01-15] MEDS: CARVEDILOL 12.5 MG TAB PO SCH ×2 (08:11→19:51)
[2018-01-15] MEDS: LISINOPRIL 20 MG TAB PO SCH (08:12)
[2018-01-15] MEDS: POLYETHYLENE GLYCOL 17 GM PKG PO SCH (08:12)
[2018-01-15] MEDS: LACTIC ACID (AMMONIUM LACTATE) 12% LOTION 225 GM BTL TOPICAL SCH ×4 (08:13→19:52)
[2018-01-15] MEDS: PANTOPRAZOLE SOD 40 MG DELAYED RELEASE TAB PO SCH (08:15)
[2018-01-15 08:57] LABS: CREATININE 1.22 MG/DL (0.60-1.30)
[2018-01-15] MEDS: SODIUM CHLORIDE 0.9% FLUSH 10 ML FLUSH IV FLUSH SCH ×2 (10:08→19:50)
[2018-01-15] MEDS: FOLIC ACID 1 MG TAB PO SCH (10:12)
--- NOTE | 2018-01-15 11:37 | HHI.PR ---
Subjective Remarks Follow up DVT, wound. Patient has no complaints at this time. Denies chest pain , dyspnea. Pain from wound is controlled. Objective Vitals Vital Signs Date Time Temp Pulse Resp B/P (MAP) Pulse Ox O2 Delivery O2 Flow Rate FiO2 01/15/18 08:00 98.0 71 18 113/76 (88) 92 01/15/18 00:00 97.4 74 17 117/74 (88) 94 01/14/18 20:00 97.9 71 17 127/74 (91) 94 01/14/18 16:00 98.0 72 17 129/68 (88) 93 01/14/18 12:00 97.6 73 16 132/78 (96) 97 I/O 01/14/18 01/14/18 01/14/18 01/15/18 01/15/18 01/15/18 07:00 15:00 23:00 07:00 15:00 23:00 Intake Total 720 ml 955 ml Output Total 810 ml 1200 ml 1500 ml Balance -810 ml -480 ml -545 ml Intake Oral 720 ml 240 ml IV Total 715 ml Output Urine Total 800 ml 1200 ml 1500 ml Drainage Total 10 ml # Bowel Movements 2 Result Diagram: 01/14/18 0557 01/15/18 0738 Imaging Last Impressions Chest X-Ray 01/13/18 0600 Signed Impressions: Service Date/Time: Saturday, January 13, 2018 05:54 - CONCLUSION: Stable appearance of the chest compared to the prior examination of 01/11/2018. No new or significant changes are demonstrated. Judd Lang MD Lower Extremity Ultrasound 01/10/18 0000 Signed Impressions: Service Date/Time: Wednesday, January 10, 2018 15:24 - CONCLUSION: Normal examination. Andrez Holder MD CT Angiography 01/03/18 0000 Signed Impressions: Service Date/Time: Wednesday, January 03, 2018 12:57 - CONCLUSION: 1. Developing hazy densities in both hemithoraces, most prominent in the left upper lung. Appearance is concerning for developing septic emboli. 2. Right-sided complex empyema with air and fluid is definitely no smaller and may actually be slightly larger when compared to prior. Developing left-sided effusion. 3. No filling defects within the pulmonary arteries to suggest large pulmonary emboli. 4. CT findings suggesting some degree of cirrhosis and portal hypertension with a small, nodular liver and splenomegaly. Sven Flaherty MD Upper Extremity Ultrasound 01/02/18 0000 Signed Impressions: Service Date/Time: Tuesday, January 02, 2018 09:35 - CONCLUSION: Acute appearing occlusive thrombus in the right axillary and upper basilic vein. Tenzin Magdaleno MD Chest CT 12/23/17 0000 Signed Impressions: Service Date/Time: Saturday, December 23, 2017 12:01 - CONCLUSION: 1. Increase in loculated air within the complex right pleural effusion since November 30. The overall size of the presumed right empyema is relatively stable. There is also now loculated air in the lower right lateral chest wall likely representing extension of the empyema into the soft tissues. Slight improvement in right basilar lung consolidation. 2. Resolution of previous left pleural effusion. 3. New right-sided posterior sixth rib fracture. Multiple remote healed rib fractures. Edis Wetzel MD Objective Remarks General: No acute distress. Sitting up in a chair. Heart: Regular rate and rhythm. No murmur. Lungs: Decreased breath sounds on the right, otherwise clear. Breathing is nonlabored. Abdomen: Soft, nontender, nondistended. Extremities: 2+ bilateral lower extremity edema. Psych: Alert and oriented. Neuro: Normal speech. No focal deficits noted. Back: Wound vac in place. Procedures 12/26/17 bronchoscopy 01/04/18 right video-assisted thoracoscopic surgery, drainage of multiloculated pleural fluid, incision and open drainage of chest wall fluid collection, removal of chest wall foreign body, chest wall wound VAC placement Urinary Catheter: No Vascular Central Line Catheter: No A/P Problem List: (1) Empyema lung ICD Code: J86.9 - Pyothorax without fistula Status: Acute (2) Diabetes ICD Code: E11.9 - Type 2 diabetes mellitus without complications Status: Chronic (3) HTN (hypertension) ICD Code: I10 - Essential (primary) hypertension Status: Chronic (4) Pancytopenia ICD Code: D61.818 - Other pancytopenia Status: Chronic Assessment and Plan 01/15/18: Transition from heparin drip to Xarelto for treatment of RUE DVT. Wound vac in place. Continue antibiotics. 1. Recurrent empyema, abscess: Status post video-assisted thoracoscopic surgery with drainage of multiloculated pleural fluid and drainage of chest wall , fluid collection. Chest wall foreign body was removed and wound VAC was placed. Continue antibiotics. Chest tube removed. Chest x-ray continues to show fluid on the right side. Repeat chest x-ray is unchanged. 2. Hypertension: Chronic, controlled. Continue Coreg, Lasix, HCTZ. 3. Diabetes mellitus type 2: Chronic. Monitor Accu-Cheks and cover with sliding scale insulin. 4. Pancytopenia: Chronic. Appreciate hematology recommendations. Cleared for transfer back to [facility] by hematology. 5. Anemia: H&H improved following transfusion. 6. DVT right axillary and basilic veins: PICC line removed. Transition to Xarelto. D/C heparin drip. Discharge Planning Pending further clinical improvement. Problem Qualifiers (1) Diabetes: Qualified Codes: E11.9 - Type 2 diabetes mellitus without complications; Z79.4 - [employer] (current) use of insulin (2) HTN (hypertension): Qualified Codes: I10 - Essential (primary) hypertension Arnulfo Mathew MD January 15, 2018 11:36
[2018-01-15 12:00] VITALS: BP 133/93; PULSE 67; RESP 16; TEMP 97.2; O2SAT 93
[2018-01-15] MEDS: RIVAROXABAN 15 MG TAB PO SCH ×2 (13:14→19:51)
[2018-01-15 16:00] VITALS: BP 118/64; PULSE 81; RESP 18; TEMP 98.2; O2SAT 93
[2018-01-15] MEDS ORDERED: PHARMACY ORDERED LAB ONE (19:45)
[2018-01-15] MEDS: VANCOMYCIN INJ 1,750 MG in SODIUM CHLORID 0.9% 500 ML INJ 500 ML IV SCH (19:50)
[2018-01-15 20:00] VITALS: BP 126/73; PULSE 76; RESP 17; TEMP 98; O2SAT 98
[2018-01-16] VITALS: BP 126/75; PULSE 75; RESP 17; TEMP 98; O2SAT 96
[2018-01-16] MEDS: MORPHINE SULFATE 4 MG/ML INJ IV PUSH PRN ×4 (04:33→22:38)
[2018-01-16] MEDS: CEFEPIME INJ 2,000 MG in SODIUM CHLORIDE 0.9% INJ 100 ML IV SCH (04:33)
[2018-01-16 08:00] VITALS: BP 120/71; PULSE 66; RESP 17; TEMP 97.9; O2SAT 93
[2018-01-16] MEDS: INSULIN ASPART SUPPLEMENTAL SCALE SQ SCH ×4 (08:00→21:00)
[2018-01-16 08:06] LABS: AUTOMATED NEUTROPHIL # 1.8 TH/MM3 (1.8-7.7); BASOPHIL # 0.1 TH/MM3 (0-0.2); EOSINOPHIL # 0.5 TH/MM3 (0-0.4); EOSINOPHIL % 10.6 % (0.0-4.0); HEMATOCRIT 28.3 % (39.0-51.0); HEMOGLOBIN 9.5 GM/DL (13.0-17.0); LYMPH % 32.4 % (9.0-44.0); LYMPHOCYTE # 1.4 TH/MM3 (1.0-4.8); MEAN CELL VOLUME 90.3 FL (80.0-100.0); MEAN CORPUSCULAR HEMOGLOBIN 30.4 PG (27.0-34.0); MEAN CORPUSCULAR HGB CONC 33.6 % (32.0-36.0); MEAN PLATELET VOLUME 8.9 FL (7.0-11.0); MONO % 14.5 % (0.0-8.0); MONOCYTE # 0.6 TH/MM3 (0-0.9); NEUT % 40.5 % (16.0-70.0); PLATELET COUNT 110 TH/MM3 (150-450); RED BLOOD COUNT 3.13 MIL/MM3 (4.50-5.90); RED CELL DISTRIBUTION WIDTH 17.3 % (11.6-17.2); WHITE BLOOD COUNT 4.3 TH/MM3 (4.0-11.0)
--- NOTE | 2018-01-16 08:29 | HHI.IDPN ---
Subjective Subjective Remarks Patient seen and examined on on behalf of Dr. Orosco is a 52 y/o CM with PMHx of HTN, diabetes, H/O DVT and alcohol abuse who was recently admitted to [facility] on 11/18/17 with weakness. While hospitalized at [facility], patient was treated for alcohol withdrawal and sepsis secondary to pneumonia. Patient developed persistent right-sided pleural effusion underwent a thoracocentesis on 11/22 with 1400 cc of fluid removed with cultures positive for MRSA. He also had a urine culture positive for MRSA. Patient had echocardiogram done on 11/21 revealing preserved EF of 60 - 65%. Patient had a PICC line placed 11/22. Patient was treated with IV Vanco, Levaquin and IV Zyvox. Patient developed acute renal failure likely secondary to vancomycin. Blood cultures were negative. Patient was accepted as a transfer to [facility] by Dr. Pena for possible decortication of lung by cardiothoracic surgery. Patient was seen by CTS at [facility] and underwent decortication as well as drainage of right chest wall abscess. Patient post op had a wound vac to the right chest wall and also had a chest tube. Upon DC patient was supposed to have been on Wound vac for right chest wall abscess but unsure if he was on it. Patient seems to have been on Teflaro IV. Patient was on Vanco IV and had acute renal failure. Patient was on Zyvox and developed severe pancytopenia. Infectious disease has been consulted for evaluation and medical management of MRSA empyema and right chest wall abscess. Notes reviewed patient reports an uneventful weekend breathing well, no SOB no fever or chills no rash no N/V no dysuria no diarrhea afebrile Repeat surgery done 01/03. C/S negative. CXR shows continued consolidation and effusion at the right lung base with a small area of loculated fluid at the right lung apex. Repeat CXR 01/13 shows patchy infiltrate in the right lower lung along with right sided effusion, no significant change noted, appears slightly improved, images reviewed by wv Pancytopenia with WBC 4.3, and platelets stable at 110 01/16 Doppler neg for DVT Hepatitis and HIV negative Wound cx 01/13 with no growth Antibiotics PO Doxycycline Lines Line sites with no e.o infection Past Medical History reviewed (Summer Monreal) Allergies: Coded Allergies: No Known Allergies (Verified Allergy, Unknown, 11/29/17) Objective . Vital Signs Date Time Temp Pulse Resp B/P (MAP) Pulse Ox O2 Delivery O2 Flow Rate FiO2 01/16/18 00:00 98.0 75 17 126/75 (92) 96 01/15/18 20:00 98.0 76 17 126/73 (90) 98 01/15/18 16:00 98.2 81 18 118/64 (82) 93 01/15/18 12:00 97.2 67 16 133/93 (106) 93 . Laboratory Tests Test 01/16/18 06:37 White Blood Count 4.3 TH/MM3 Red Blood Count 3.13 MIL/MM3 Hemoglobin 9.5 GM/DL Hematocrit 28.3 % Mean Corpuscular Volume 90.3 FL Mean Corpuscular Hemoglobin 30.4 PG Mean Corpuscular Hemoglobin Concent 33.6 % Red Cell Distribution Width 17.3 % Platelet Count 110 TH/MM3 Mean Platelet Volume 8.9 FL Neutrophils (%) (Auto) 40.5 % Lymphocytes (%) (Auto) 32.4 % Monocytes (%) (Auto) 14.5 % Eosinophils (%) (Auto) 10.6 % Basophils (%) (Auto) 2.0 % Neutrophils # (Auto) 1.8 TH/MM3 Lymphocytes # (Auto) 1.4 TH/MM3 Monocytes # (Auto) 0.6 TH/MM3 Eosinophils # (Auto) 0.5 TH/MM3 Basophils # (Auto) 0.1 TH/MM3 CBC Comment DIFF FINAL Differential Comment Laboratory Tests Test 01/15/18 07:38 Creatinine 1.22 MG/DL Estimat Glomerular Filtration Rate 62 ML/MIN Microbiology Date/Time Source Procedure Growth Status 01/13/18 09:04 Wound Back Gram Stain - Final Resulted 01/13/18 09:04 Wound Back Wound Culture - Preliminary NO GROWTH IN 48 HOURS. Resulted Imaging Last Impressions Chest X-Ray 01/13/18 0600 Signed Impressions: Service Date/Time: Saturday, January 13, 2018 05:54 - CONCLUSION: Stable appearance of the chest compared to the prior examination of 01/11/2018. No new or significant changes are demonstrated. Judd Lang MD Lower Extremity Ultrasound 01/10/18 0000 Signed Impressions: Service Date/Time: Wednesday, January 10, 2018 15:24 - CONCLUSION: Normal examination. Andrez Holder MD CT Angiography 01/03/18 0000 Signed Impressions: Service Date/Time: Wednesday, January 03, 2018 12:57 - CONCLUSION: 1. Developing hazy densities in both hemithoraces, most prominent in the left upper lung. Appearance is concerning for developing septic emboli. 2. Right-sided complex empyema with air and fluid is definitely no smaller and may actually be slightly larger when compared to prior. Developing left-sided effusion. 3. No filling defects within the pulmonary arteries to suggest large pulmonary emboli. 4. CT findings suggesting some degree of cirrhosis and portal hypertension with a small, nodular liver and splenomegaly. Sven Flaherty MD Upper Extremity Ultrasound 01/02/18 0000 Signed Impressions: Service Date/Time: Tuesday, January 02, 2018 09:35 - CONCLUSION: Acute appearing occlusive thrombus in the right axillary and upper basilic vein. Tenzin Magdaleno MD Chest CT 12/23/17 0000 Signed Impressions: Service Date/Time: Saturday, December 23, 2017 12:01 - CONCLUSION: 1. Increase in loculated air within the complex right pleural effusion since November 30. The overall size of the presumed right empyema is relatively stable. There is also now loculated air in the lower right lateral chest wall likely representing extension of the empyema into the soft tissues. Slight improvement in right basilar lung consolidation. 2. Resolution of previous left pleural effusion. 3. New right-sided posterior sixth rib fracture. Multiple remote healed rib fractures. Edis Wetzel MD Physical Exam GENERAL: Well developed, well nourished male patient, INAD. Awake and alert. Sitting up in bedside recliner. SKIN: Warm and dry. No generalized rash. Bilateral lower extremity venous stasis changes noted, improved with Amlactin. HEAD: Atraumatic. Normocephalic. EYES: Pupils equal round and reactive. Extraocular motions intact. No scleral icterus. No injection or drainage. ENT: Nose without bleeding or purulent drainage. Airway patent. MMM. No oral lesions noted. NECK: Trachea midline. CARDIOVASCULAR: Regular rate and rhythm. RESPIRATORY: Nonlabored. Diminished in right lung lange. Wound vac in place with smaller sponge. Small incision right upper back over scapular area now closed, no drainage noted. More inferior second incision open with no active drainage noted. GASTROINTESTINAL: Abdomen soft, non-tender, nondistended. MUSCULOSKELETAL: Extremities without clubbing or cyanosis. Chronic BLE pitting edema noted L>R. No calf tenderness. Bilateral calves supple. NEUROLOGICAL: Awake and alert. Able to move all extremities. Motor and sensory grossly intact. Non focal exam. Normal speech. PSYCHIATRIC: Appropriate mood and affect. Calm and cooperative. IV line sites with no e.o infection (Summer Monreal) Assessment & Plan Remarks Right side MRSA empyema post pneumonia. Empyema Necessitans s/p wound vac for chest wall abscess on right side Right MRSA chest wall abscess Prior CT side with yellowish drainage, resolved. Wound cx without any growth 01/11 and 01/13 CXR with right lung infiltrates and effusion ?HCAP pneumonia, s/p tx with IV Cefepime Concern for endocarditis. Due to ongoing infection it is possible the valve(s) may have seeded. Thrombocytopenia from Teflaro or sepsis. Alcoholism, aspiration risk. PICC removed. DVT Right UE BLE edema and chronic venous stasis changes L>R, Neg for DVT Neutropenia, ?due to prior ETOH abuse, seems chronic -hematology following Thrombocytopenia -platelets low but appear stable Dysuria resolved, UA neg Recs Discontinue IV Vanco and Cefepime PO Doxycycline started Continue Lac Hydrin BLE Monitor progress Further recommendations to follow (Summer Monreal) Remarks The exam, history, and the medical decision-making described in the above note were completed with the assistance of the mid-level provider. I reviewed and agree with the findings presented. I attest that I had a [id number] encounter with the patient on the same day, and personally performed and documented my assessment and findings in the medical record. DC IV antibiotics switch to oral doxy for 7 more days (stop date:01/23/2018) Will sign off please call back if any change in clinical condition or questions. (Donna Orosco MD) Summer Monreal January 16, 2018 08:29 Donna Orosco MD January 16, 2018 12:37
[2018-01-16] MEDS: FUROSEMIDE 40 MG/4 ML VIAL IV PUSH SCH ×2 (08:44→17:21)
[2018-01-16] MEDS: SODIUM CHLORIDE 0.9% FLUSH 10 ML FLUSH IV FLUSH SCH ×2 (08:44→21:00)
[2018-01-16] MEDS: CARVEDILOL 12.5 MG TAB PO SCH ×2 (08:45→21:33)
[2018-01-16] MEDS: FOLIC ACID 1 MG TAB PO SCH (08:45)
[2018-01-16] MEDS: POLYETHYLENE GLYCOL 17 GM PKG PO SCH (08:45)
[2018-01-16] MEDS: HYDROCHLOROTHIAZIDE 25 MG TAB PO SCH (08:45)
[2018-01-16] MEDS: LISINOPRIL 20 MG TAB PO SCH (08:46)
[2018-01-16] MEDS: DOXYCYCLINE HYCLATE 100 MG TAB PO SCH ×2 (08:46→21:33)
[2018-01-16] MEDS: PANTOPRAZOLE SOD 40 MG DELAYED RELEASE TAB PO SCH (08:46)
[2018-01-16] MEDS: THIAMINE HCL 100 MG TAB PO SCH (08:46)
[2018-01-16] MEDS: LACTIC ACID (AMMONIUM LACTATE) 12% LOTION 225 GM BTL TOPICAL SCH ×4 (08:47→21:00)
[2018-01-16] MEDS: RIVAROXABAN 15 MG TAB PO SCH ×2 (08:47→21:33)
--- NOTE | 2018-01-16 11:13 | PD.WCN.NOT ---
Wound Consult Description: Right side lateral chest distal to previous chest tube. Recommendation: Wound VAC dressing to be changed every Tuesday by WRITER PRODUCER ONLY Settings 125mmHg low continuous suction If air leak occurs please reinforce only using VAC drape or transparent film. Trouble shoot by checking machine settings, canister is locked in to place or not full, tubing is not kinked or clamped. Neg Pressure Wound Therapy Wound Location Wound Location: Right side lateral chest distal to previous chest tube. Wound Description Length: 0.8 cm Width: 4.6 cm Depth: ~0.8cm Undermining: ~3.1cm of undermining noted superiorly within the wound bed Wound bed appearance: ~90% red granulation tissue ~10% yellow adipose tissue Periwound appearance: Unremarkable Settings Suction: 125 mmHg, Continuous Intensity: Low Other Information: Bridged, Windowpaned, Mushroomed Foam type: Black Number of pieces: 1 Additonal Information Patient was seen today by handbook writer for follow up wound vac dressing change.patient alert and oriented x4.No complaints of discomfort noted.Dressing gently removed from right flank incision ~4cm single intact black sponge removed without difficulty.Wound cleansed with normal saline pat dry ,window paned and ~4cm single black sponge gently pack into proximal undermining.Sponge bridged to distal flank and track pad applied suction started @125mmHg low continuous suction with no leaks noted.Patient tolerated wound acre well dressing changed to post chest tube site as ordered sign and dated. Ostomy Date of Surgery: January 04, 2018 Zaida Vázquez [facility] January 16, 2018 11:13
--- NOTE | 2018-01-16 11:20 | HHI.PR ---
Subjective Remarks Follow-up wound, DVT. Patient had the wound VAC change this morning, so he has more pain today. Denies chest pain or dyspnea. Denies nausea or vomiting. Objective Vitals Vital Signs Date Time Temp Pulse Resp B/P (MAP) Pulse Ox O2 Delivery O2 Flow Rate FiO2 01/16/18 08:00 97.9 66 17 120/71 (87) 93 01/16/18 00:00 98.0 75 17 126/75 (92) 96 01/15/18 20:00 98.0 76 17 126/73 (90) 98 01/15/18 16:00 98.2 81 18 118/64 (82) 93 01/15/18 12:00 97.2 67 16 133/93 (106) 93 I/O 01/15/18 01/15/18 01/15/18 01/16/18 01/16/18 01/16/18 07:00 15:00 23:00 07:00 15:00 23:00 Intake Total 955 ml 350 ml 2177 ml 340 ml Output Total 1500 ml 50 ml 1400 ml 400 ml Balance -545 ml 350 ml 2127 ml -1060 ml -400 ml Intake Oral 240 ml 1560 ml 240 ml IV Total 715 ml 350 ml 617 ml 100 ml Output Urine Total 1500 ml 1400 ml 400 ml Drainage Total 50 ml # Voids 7 # Bowel Movements 1 Result Diagram: 01/16/18 0637 01/15/18 0738 Imaging Last Impressions Chest X-Ray 01/13/18 0600 Signed Impressions: Service Date/Time: Saturday, January 13, 2018 05:54 - CONCLUSION: Stable appearance of the chest compared to the prior examination of 01/11/2018. No new or significant changes are demonstrated. Judd Lang MD Lower Extremity Ultrasound 01/10/18 0000 Signed Impressions: Service Date/Time: Wednesday, January 10, 2018 15:24 - CONCLUSION: Normal examination. Andrez Holder MD CT Angiography 01/03/18 0000 Signed Impressions: Service Date/Time: Wednesday, January 03, 2018 12:57 - CONCLUSION: 1. Developing hazy densities in both hemithoraces, most prominent in the left upper lung. Appearance is concerning for developing septic emboli. 2. Right-sided complex empyema with air and fluid is definitely no smaller and may actually be slightly larger when compared to prior. Developing left-sided effusion. 3. No filling defects within the pulmonary arteries to suggest large pulmonary emboli. 4. CT findings suggesting some degree of cirrhosis and portal hypertension with a small, nodular liver and splenomegaly. Sven Flaherty MD Upper Extremity Ultrasound 01/02/18 0000 Signed Impressions: Service Date/Time: Tuesday, January 02, 2018 09:35 - CONCLUSION: Acute appearing occlusive thrombus in the right axillary and upper basilic vein. Tenzin Magdaleno MD Chest CT 12/23/17 0000 Signed Impressions: Service Date/Time: Saturday, December 23, 2017 12:01 - CONCLUSION: 1. Increase in loculated air within the complex right pleural effusion since November 30. The overall size of the presumed right empyema is relatively stable. There is also now loculated air in the lower right lateral chest wall likely representing extension of the empyema into the soft tissues. Slight improvement in right basilar lung consolidation. 2. Resolution of previous left pleural effusion. 3. New right-sided posterior sixth rib fracture. Multiple remote healed rib fractures. Edis Wetzel MD Objective Remarks General: No acute distress. Sitting up in a chair. Heart: Regular rate and rhythm. No murmur. Lungs: Breath sounds are diminished on the right, otherwise clear. Breathing is nonlabored. Abdomen: Soft, nontender, nondistended. Extremities: 2+ bilateral lower extremity edema, left greater than right. Psych: Alert and oriented. Neuro: Normal speech. No focal deficits noted. Back: Wound vac in place. Procedures 12/26/17 bronchoscopy 01/04/18 right video-assisted thoracoscopic surgery, drainage of multiloculated pleural fluid, incision and open drainage of chest wall fluid collection, removal of chest wall foreign body, chest wall wound VAC placement Urinary Catheter: No Vascular Central Line Catheter: No A/P Problem List: (1) Empyema lung ICD Code: J86.9 - Pyothorax without fistula Status: Acute (2) Diabetes ICD Code: E11.9 - Type 2 diabetes mellitus without complications Status: Chronic (3) HTN (hypertension) ICD Code: I10 - Essential (primary) hypertension Status: Chronic (4) Pancytopenia ICD Code: D61.818 - Other pancytopenia Status: Chronic Assessment and Plan 01/16/18: Continue Xarelto for treatment of right upper extremity DVT. Wound vac in place. Continue antibiotics. Continue pain control. 1. Recurrent empyema, abscess: Status post video-assisted thoracoscopic surgery with drainage of multiloculated pleural fluid and drainage of chest wall , fluid collection. Chest wall foreign body was removed and wound VAC was placed. Continue antibiotics. Chest tube removed. Chest x-ray continues to show fluid on the right side. Repeat chest x-ray is unchanged. 2. Hypertension: Chronic, controlled. Continue Coreg, Lasix, HCTZ. 3. Diabetes mellitus type 2: Chronic. Monitor Accu-Cheks and cover with sliding scale insulin. 4. Pancytopenia: Chronic. Appreciate hematology recommendations. Cleared for transfer back to [facility] by hematology. 5. Anemia: H&H improved following transfusion. 6. DVT right axillary and basilic veins: PICC line removed. Heparin drip discontinued 01/15/18. Transitioned to Xarelto. Discharge Planning Plan for discharge home with home health care when arrangements can be made. Patient will need outpatient wound VAC and follow-up with wound care. Case management assisting with discharge planning. Problem Qualifiers (1) Diabetes: Qualified Codes: E11.9 - Type 2 diabetes mellitus without complications; Z79.4 - care home (current) use of insulin (2) HTN (hypertension): Qualified Codes: I10 - Essential (primary) hypertension Arnulfo Mathew MD January 16, 2018 11:19
[2018-01-16 12:00] VITALS: BP 113/68; PULSE 75; RESP 18; TEMP 97.7; O2SAT 92
[2018-01-16 16:00] VITALS: BP 130/91; PULSE 80; RESP 17; TEMP 98.2; O2SAT 94
[2018-01-16 20:00] VITALS: BP 132/71; PULSE 77; RESP 17; TEMP 98; O2SAT 93
--- NOTE | 2018-01-16 21:07 | HHI.PR ---
Subjective Remarks 52 YOWM with MRSA empyema, s/p Decortication, rt lung infilt and eff no Fever no CP No SOB Has chest wall wound vac On RA Objective Vital Signs Vital Signs Date Time Temp Pulse Resp B/P (MAP) Pulse Ox O2 Delivery O2 Flow Rate FiO2 01/16/18 17:01 18 01/16/18 16:00 98.2 80 17 130/91 (104) 94 01/16/18 12:00 97.7 75 18 113/68 (83) 92 01/16/18 08:00 97.9 66 17 120/71 (87) 93 01/16/18 00:00 98.0 75 17 126/75 (92) 96 I/O 01/15/18 01/15/18 01/15/18 01/16/18 01/16/18 01/16/18 07:00 15:00 23:00 07:00 15:00 23:00 Intake Total 955 ml 350 ml 2177 ml 340 ml 1620 ml Output Total 1500 ml 50 ml 1400 ml 400 ml Balance -545 ml 350 ml 2127 ml -1060 ml -400 ml 1620 ml Intake Oral 240 ml 1560 ml 240 ml 1620 ml IV Total 715 ml 350 ml 617 ml 100 ml Output Urine Total 1500 ml 1400 ml 400 ml Drainage Total 50 ml # Voids 7 8 # Bowel Movements 1 2 Result Diagram: 01/16/18 0637 01/15/18 0738 Objective Remarks GENERAL: WBWN WM,NAD SKIN: Warm and dry. HEAD: Normocephalic. EYES: No scleral icterus. No injection or drainage. NECK: Supple, trachea midline. No JVD or lymphadenopathy. CARDIOVASCULAR: Regular rate and rhythm without murmurs, gallops, or rubs. RESPIRATORY: Breath sounds equal bilaterally. No accessory muscle use. Decreased BS rt GASTROINTESTINAL: Abdomen soft, non-tender, nondistended. MUSCULOSKELETAL: No cyanosis, or edema. BACK: Nontender without obvious deformity. No CVA tenderness. A/P Assessment and Plan IMPRESSION: 1. Persistent right lower lobe infiltrate with effusion. 2. 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 3. Hypertension. 4. Diabetes mellitus. 5. Alcohol abuse. PLAN: Cont Abx per ID DW RN Looks comfortable, non toxic Stable from pulm standpoint Supplement 02 Wound care. Zhao Ortega MD January 16, 2018 21:07
[2018-01-17] VITALS: BP 114/66; PULSE 71; RESP 17; TEMP 98.1; O2SAT 95
[2018-01-17] MEDS: MORPHINE SULFATE 4 MG/ML INJ IV PUSH PRN ×5 (03:41→21:42)
[2018-01-17 07:26] LABS: HEMATOCRIT 29.3 % (39.0-51.0); MEAN CELL VOLUME 90.8 FL (80.0-100.0); MEAN CORPUSCULAR HEMOGLOBIN 30.9 PG (27.0-34.0); MEAN PLATELET VOLUME 8.6 FL (7.0-11.0); PLATELET COUNT 144 TH/MM3 (150-450); RED BLOOD COUNT 3.22 MIL/MM3 (4.50-5.90); RED CELL DISTRIBUTION WIDTH 16.9 % (11.6-17.2); WHITE BLOOD COUNT 4.9 TH/MM3 (4.0-11.0)
[2018-01-17 08:00] VITALS: BP 145/82; PULSE 66; RESP 19; TEMP 97.6; O2SAT 93
[2018-01-17] MEDS: INSULIN ASPART SUPPLEMENTAL SCALE SQ SCH ×4 (08:00→21:47)
[2018-01-17] MEDS: SODIUM CHLORIDE 0.9% FLUSH 10 ML FLUSH IV FLUSH SCH ×2 (08:17→21:00)
[2018-01-17] MEDS: LACTIC ACID (AMMONIUM LACTATE) 12% LOTION 225 GM BTL TOPICAL SCH ×4 (09:00→21:00)
[2018-01-17] MEDS: CARVEDILOL 12.5 MG TAB PO SCH ×2 (10:08→21:45)
[2018-01-17] MEDS: FUROSEMIDE 40 MG/4 ML VIAL IV PUSH SCH ×2 (10:08→18:18)
[2018-01-17] MEDS: DOXYCYCLINE HYCLATE 100 MG CAP PO SCH ×2 (10:08→21:44)
[2018-01-17] MEDS: LISINOPRIL 20 MG TAB PO SCH (10:08)
[2018-01-17] MEDS: THIAMINE HCL 100 MG TAB PO SCH (10:08)
[2018-01-17] MEDS: PANTOPRAZOLE SOD 40 MG DELAYED RELEASE TAB PO SCH (10:08)
[2018-01-17] MEDS: RIVAROXABAN 15 MG TAB PO SCH ×2 (10:08→21:45)
[2018-01-17] MEDS: FOLIC ACID 1 MG TAB PO SCH (10:08)
[2018-01-17] MEDS: HYDROCHLOROTHIAZIDE 25 MG TAB PO SCH (10:08)
[2018-01-17] MEDS: POLYETHYLENE GLYCOL 17 GM PKG PO SCH (10:09)
[2018-01-17 12:00] VITALS: BP 127/75; PULSE 68; RESP 19; TEMP 97.6; O2SAT 93
--- NOTE | 2018-01-17 13:57 | HHI.PR ---
Subjective Remarks The patient was sitting up in a chair. He was looking forward to going home in the next couple of days. He said he wants to go back to work soon. He says his job is not strenuous. He said he will be staying at his parent's house while he recovers. Objective Vitals Vital Signs Date Time Temp Pulse Resp B/P (MAP) Pulse Ox O2 Delivery O2 Flow Rate FiO2 01/17/18 12:00 97.6 68 19 127/75 (92) 93 01/17/18 08:00 97.6 66 19 145/82 (103) 93 01/17/18 06:48 20 01/17/18 03:57 20 01/17/18 00:00 98.1 71 17 114/66 (82) 95 01/16/18 20:00 Room Air 01/16/18 20:00 98.0 77 17 132/71 (91) 93 01/16/18 16:00 98.2 80 17 130/91 (104) 94 I/O 01/16/18 01/16/18 01/16/18 01/17/18 01/17/18 01/17/18 07:00 15:00 23:00 07:00 15:00 23:00 Intake Total 340 ml 1620 ml 240 ml Output Total 1400 ml 400 ml 5 ml Balance -1060 ml -400 ml 1620 ml 235 ml Intake Oral 240 ml 1620 ml 240 ml IV Total 100 ml Output Urine Total 1400 ml 400 ml Drainage Total 5 ml # Voids 8 2 # Bowel Movements 2 0 Result Diagram: 01/17/18 0613 01/15/18 0738 Imaging Last Impressions Chest X-Ray 01/13/18 0600 Signed Impressions: Service Date/Time: Saturday, January 13, 2018 05:54 - CONCLUSION: Stable appearance of the chest compared to the prior examination of 01/11/2018. No new or significant changes are demonstrated. Judd Lang MD Lower Extremity Ultrasound 01/10/18 0000 Signed Impressions: Service Date/Time: Wednesday, January 10, 2018 15:24 - CONCLUSION: Normal examination. Andrez Holder MD CT Angiography 01/03/18 0000 Signed Impressions: Service Date/Time: Wednesday, January 03, 2018 12:57 - CONCLUSION: 1. Developing hazy densities in both hemithoraces, most prominent in the left upper lung. Appearance is concerning for developing septic emboli. 2. Right-sided complex empyema with air and fluid is definitely no smaller and may actually be slightly larger when compared to prior. Developing left-sided effusion. 3. No filling defects within the pulmonary arteries to suggest large pulmonary emboli. 4. CT findings suggesting some degree of cirrhosis and portal hypertension with a small, nodular liver and splenomegaly. Sven Flaherty MD Upper Extremity Ultrasound 01/02/18 0000 Signed Impressions: Service Date/Time: Tuesday, January 02, 2018 09:35 - CONCLUSION: Acute appearing occlusive thrombus in the right axillary and upper basilic vein. Tenzin Magdaleno MD Chest CT 12/23/17 0000 Signed Impressions: Service Date/Time: Saturday, December 23, 2017 12:01 - CONCLUSION: 1. Increase in loculated air within the complex right pleural effusion since November 30. The overall size of the presumed right empyema is relatively stable. There is also now loculated air in the lower right lateral chest wall likely representing extension of the empyema into the soft tissues. Slight improvement in right basilar lung consolidation. 2. Resolution of previous left pleural effusion. 3. New right-sided posterior sixth rib fracture. Multiple remote healed rib fractures. Edis Wetzel MD Objective Remarks General: No acute distress. Sitting up in a chair. Heart: Regular rate and rhythm. No murmur. Lungs: CTAB. Breathing is nonlabored. Abdomen: Soft, nontender, nondistended. Extremities: 2+ bilateral lower extremity edema, left greater than right. Psych: Calm. Neuro: Normal speech. No focal deficits noted. Back: Wound vac in place. Procedures 12/26/17 bronchoscopy 01/04/18 right video-assisted thoracoscopic surgery, drainage of multiloculated pleural fluid, incision and open drainage of chest wall fluid collection, removal of chest wall foreign body, chest wall wound VAC placement A/P Problem List: (1) Empyema lung ICD Code: J86.9 - Pyothorax without fistula Status: Acute (2) Diabetes ICD Code: E11.9 - Type 2 diabetes mellitus without complications Status: Chronic (3) HTN (hypertension) ICD Code: I10 - Essential (primary) hypertension Status: Chronic (4) Pancytopenia ICD Code: D61.818 - Other pancytopenia Status: Chronic Assessment and Plan Recurrent empyema, abscess Status post video-assisted thoracoscopic surgery with drainage of multiloculated pleural fluid and drainage of chest wall, fluid collection. Chest wall foreign body was removed and wound VAC was placed. Chest tube removed. Chest x-ray continues to show fluid on the right side. Repeat chest x -ray is unchanged. - home wound vac will need to be set-up. Appreciate case management assistance. - continue antibiotics per ID. Hypertension Chronic, controlled. - Continue Coreg, Lasix, HCTZ. Diabetes mellitus type 2 Chronic. - Monitor Accu-Cheks and cover with sliding scale insulin. Pancytopenia Chronic. Appreciate hematology recommendations. - Cleared for transfer back to [facility] by hematology. Anemia H&H improved following transfusion. - follow CBC. DVT right axillary and basilic veins PICC line removed. Heparin drip discontinued 01/15/18. - Transitioned to Xarelto. Discharge Planning d/c home with C when arranged Problem Qualifiers (1) Diabetes: Qualified Codes: E11.9 - Type 2 diabetes mellitus without complications; Z79.4 - longterm (current) use of insulin (2) HTN (hypertension): Qualified Codes: I10 - Essential (primary) hypertension Stuart Diamond DO January 17, 2018 13:57
[2018-01-17 16:00] VITALS: BP 118/64; PULSE 75; RESP 19; TEMP 97.4; O2SAT 93
--- NOTE | 2018-01-17 18:35 | HHI.PR ---
Subjective Remarks 52 YOWM with MRSA empyema, s/p Decortication, rt lung infilt and eff no CP No SOB Has chest wall wound vac On RA Anxious to go home. Objective Vital Signs Vital Signs Date Time Temp Pulse Resp B/P (MAP) Pulse Ox O2 Delivery O2 Flow Rate FiO2 01/17/18 16:00 97.4 75 19 118/64 (82) 93 01/17/18 12:00 97.6 68 19 127/75 (92) 93 01/17/18 08:00 97.6 66 19 145/82 (103) 93 01/17/18 06:48 20 01/17/18 03:57 20 01/17/18 00:00 98.1 71 17 114/66 (82) 95 01/16/18 20:00 Room Air 01/16/18 20:00 98.0 77 17 132/71 (91) 93 I/O 01/16/18 01/16/18 01/16/18 01/17/18 01/17/18 01/17/18 07:00 15:00 23:00 07:00 15:00 23:00 Intake Total 340 ml 1620 ml 240 ml 1480 ml Output Total 1400 ml 400 ml 5 ml Balance -1060 ml -400 ml 1620 ml 235 ml 1480 ml Intake Oral 240 ml 1620 ml 240 ml 1480 ml IV Total 100 ml Output Urine Total 1400 ml 400 ml Drainage Total 5 ml # Voids 8 2 4 # Bowel Movements 2 0 1 Result Diagram: 01/17/18 0613 01/15/18 0738 Objective Remarks GENERAL: WBWN WM,NAD SKIN: Warm and dry. HEAD: Normocephalic. EYES: No scleral icterus. No injection or drainage. NECK: Supple, trachea midline. No JVD or lymphadenopathy. CARDIOVASCULAR: Regular rate and rhythm without murmurs, gallops, or rubs. RESPIRATORY: Breath sounds equal bilaterally. No accessory muscle use. Decreased BS rt GASTROINTESTINAL: Abdomen soft, non-tender, nondistended. MUSCULOSKELETAL: No cyanosis, or edema. BACK: Nontender without obvious deformity. No CVA tenderness. A/P Assessment and Plan IMPRESSION: 1. Persistent right lower lobe infiltrate with effusion. 2. 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 3. Hypertension. 4. Diabetes mellitus. 5. Alcohol abuse. PLAN: Cont Abx per ID DW RN Looks comfortable, non toxic Stable from pulm standpoint Wound care. Stable on RA Zhao Ortega MD January 17, 2018 18:35
[2018-01-17 20:00] VITALS: BP 122/71; PULSE 76; RESP 18; TEMP 97.7; O2SAT 95
[2018-01-18] VITALS: BP 122/78; PULSE 80; RESP 18; TEMP 97.8; O2SAT 95
[2018-01-18] MEDS: MORPHINE SULFATE 4 MG/ML INJ IV PUSH PRN (04:41)
[2018-01-18] MEDS: DOXYCYCLINE HYCLATE 100 MG CAP PO SCH ×2 (07:49→20:20)
[2018-01-18] MEDS: LISINOPRIL 20 MG TAB PO SCH (07:49)
[2018-01-18] MEDS: FUROSEMIDE 40 MG/4 ML VIAL IV PUSH SCH (07:49)
[2018-01-18] MEDS: FOLIC ACID 1 MG TAB PO SCH (07:49)
[2018-01-18] MEDS: PANTOPRAZOLE SOD 40 MG DELAYED RELEASE TAB PO SCH (07:49)
[2018-01-18] MEDS: RIVAROXABAN 15 MG TAB PO SCH ×2 (07:49→20:20)
[2018-01-18] MEDS: CARVEDILOL 12.5 MG TAB PO SCH ×2 (07:50→20:19)
[2018-01-18] MEDS: LACTIC ACID (AMMONIUM LACTATE) 12% LOTION 225 GM BTL TOPICAL SCH ×4 (07:50→20:22)
[2018-01-18] MEDS: THIAMINE HCL 100 MG TAB PO SCH (07:50)
[2018-01-18] MEDS: POLYETHYLENE GLYCOL 17 GM PKG PO SCH (07:50)
[2018-01-18] MEDS: HYDROCHLOROTHIAZIDE 25 MG TAB PO SCH (07:50)
[2018-01-18] MEDS: INSULIN ASPART SUPPLEMENTAL SCALE SQ SCH ×4 (07:53→20:22)
[2018-01-18] MEDS: SODIUM CHLORIDE 0.9% FLUSH 10 ML FLUSH IV FLUSH SCH ×2 (07:54→20:22)
[2018-01-18 08:00] VITALS: BP 115/72; PULSE 70; RESP 17; TEMP 97.7; O2SAT 96
--- NOTE | 2018-01-18 10:21 | HHI.PR ---
Subjective Remarks The patient was resting comfortably in bed. He was looking forward to going home soon. He had no acute complaints. Discussed with nursing. Objective Vitals Vital Signs Date Time Temp Pulse Resp B/P (MAP) Pulse Ox O2 Delivery O2 Flow Rate FiO2 01/18/18 08:00 97.7 70 17 115/72 (86) 96 01/18/18 00:00 97.8 80 18 122/78 (93) 95 01/17/18 20:00 97.7 76 18 122/71 (88) 95 01/17/18 16:00 97.4 75 19 118/64 (82) 93 01/17/18 12:00 97.6 68 19 127/75 (92) 93 I/O 01/17/18 01/17/18 01/17/18 01/18/18 01/18/18 01/18/18 07:00 15:00 23:00 07:00 15:00 23:00 Intake Total 240 ml 1480 ml 720 ml Output Total 5 ml 0 ml Balance 235 ml 1480 ml 720 ml Intake Oral 240 ml 1480 ml 720 ml Drainage Total 5 ml 0 ml # Voids 2 4 3 # Bowel Movements 0 1 0 Result Diagram: 01/17/18 0613 01/15/18 0738 Imaging Last Impressions Chest X-Ray 01/13/18 0600 Signed Impressions: Service Date/Time: Saturday, January 13, 2018 05:54 - CONCLUSION: Stable appearance of the chest compared to the prior examination of 01/11/2018. No new or significant changes are demonstrated. Judd Lang MD Lower Extremity Ultrasound 01/10/18 0000 Signed Impressions: Service Date/Time: Wednesday, January 10, 2018 15:24 - CONCLUSION: Normal examination. Andrez Holder MD CT Angiography 01/03/18 0000 Signed Impressions: Service Date/Time: Wednesday, January 03, 2018 12:57 - CONCLUSION: 1. Developing hazy densities in both hemithoraces, most prominent in the left upper lung. Appearance is concerning for developing septic emboli. 2. Right-sided complex empyema with air and fluid is definitely no smaller and may actually be slightly larger when compared to prior. Developing left-sided effusion. 3. No filling defects within the pulmonary arteries to suggest large pulmonary emboli. 4. CT findings suggesting some degree of cirrhosis and portal hypertension with a small, nodular liver and splenomegaly. Sven Flaherty MD Upper Extremity Ultrasound 01/02/18 0000 Signed Impressions: Service Date/Time: Tuesday, January 02, 2018 09:35 - CONCLUSION: Acute appearing occlusive thrombus in the right axillary and upper basilic vein. Tenzin Magdaleno MD Chest CT 12/23/17 0000 Signed Impressions: Service Date/Time: Saturday, December 23, 2017 12:01 - CONCLUSION: 1. Increase in loculated air within the complex right pleural effusion since November 30. The overall size of the presumed right empyema is relatively stable. There is also now loculated air in the lower right lateral chest wall likely representing extension of the empyema into the soft tissues. Slight improvement in right basilar lung consolidation. 2. Resolution of previous left pleural effusion. 3. New right-sided posterior sixth rib fracture. Multiple remote healed rib fractures. Edis Wetzel MD Objective Remarks General: No acute distress. Sitting up in a chair. Heart: Regular rate and rhythm. No murmur. Lungs: CTAB. Breathing is nonlabored. Abdomen: Soft, nontender, nondistended. Extremities: Bilateral lower extremity edema, left greater than right. Psych: Calm. Neuro: Normal speech. No focal deficits noted. Back: Wound vac in place. Procedures 12/26/17 bronchoscopy 01/04/18 right video-assisted thoracoscopic surgery, drainage of multiloculated pleural fluid, incision and open drainage of chest wall fluid collection, removal of chest wall foreign body, chest wall wound VAC placement A/P Problem List: (1) Empyema lung ICD Code: J86.9 - Pyothorax without fistula Status: Acute (2) Diabetes ICD Code: E11.9 - Type 2 diabetes mellitus without complications Status: Chronic (3) HTN (hypertension) ICD Code: I10 - Essential (primary) hypertension Status: Chronic (4) Pancytopenia ICD Code: D61.818 - Other pancytopenia Status: Chronic Assessment and Plan Recurrent empyema, abscess Status post video-assisted thoracoscopic surgery with drainage of multiloculated pleural fluid and drainage of chest wall, fluid collection. Chest wall foreign body was removed and wound VAC was placed. Chest tube has been removed. Chest x-ray continues to show fluid on the right side. Repeat chest x-ray is unchanged. - home wound vac will need to be set-up. Appreciate case management assistance. - continue antibiotics per ID. Currently on PO doxycycline. Hypertension Chronic, controlled. - Continue Coreg, Lasix, HCTZ. Diabetes mellitus type 2 Chronic. - Monitor Accu-Cheks and cover with sliding scale insulin. Pancytopenia Chronic. Appreciate hematology recommendations. Hemoglobin improved following transfusion. - conservative management recommended. - outpt follow-up. DVT right axillary and basilic veins PICC line removed. Heparin drip discontinued 01/15/18. - Transitioned to Xarelto 15 mg BID x 21 days, then 20 mg daily. Discharge Planning d/c home with C when arranged, anticipate 01/19, possibly 01/18 Problem Qualifiers (1) Diabetes: Qualified Codes: E11.9 - Type 2 diabetes mellitus without complications; Z79.4 - assisted (current) use of insulin (2) HTN (hypertension): Qualified Codes: I10 - Essential (primary) hypertension Stuart Diamond DO January 18, 2018 10:21
[2018-01-18 12:00] VITALS: BP 120/71; PULSE 72; RESP 17; TEMP 97.7; O2SAT 96
[2018-01-18] MEDS ORDERED: MORPHINE SULFATE 2 MG/ML SYRINGE IV PUSH PRN (15:45)
--- NOTE | 2018-01-18 15:55 | PD.WCN.NOT ---
Wound Consult Description: Right side lateral chest distal to previous chest tube. Communicated with: [place] [facility] Recommendation: 1. Cleanse proximal chest tube incision site with normal saline pat dry 2. Skin prep pati wound, Cut Maxorb ll into single 1/4 inch strip and gently pack into wound base leaving tail exposed. 3. Cover with dry dressing sign and date dressing to be changed every 3 days or as needed for exudate management/dislodgement. Wound VAC dressing to be changed every Tuesday by DIP DYER ONLY Settings 125mmHg low continuous suction If air leak occurs please reinforce only using VAC drape or transparent film. Trouble shoot by checking machine settings, canister is locked in to place or not full, tubing is not kinked or clamped. Additional Information: Patient seen by consumer loan underwriter for routine wound vac dressing change.Wound vac dressing changed without difficulty.During dressing change patient verbalized discomfort in upper right flank area when asked to point to area patient identified tender/ discomfort at chest tube incision site.[place] [employer] Operator cleansed incision site with normal saline pat dry .Measurements obtained incision measures 0.5cm x 1.1cm x ~ 2.2cm minimal light erythema noted to intact periwound.Scant serous drainage noted.visible wound base has 100% pink moist non granular tissue.Maxorb ll cut in 1/4 strip gently packed into incision till resistance met tail left exposed covered with dry dressing.Patient tolerated wound care well. Neg Pressure Wound Therapy Wound Location Wound Location: Right side lateral chest distal to previous chest tube. Wound Description Length: 0.8 cm Width: 4.6 cm Depth: ~0.8cm Undermining: ~3.1cm of undermining noted superiorly within the wound bed Wound bed appearance: ~90% red granulation tissue ~10% yellow adipose tissue Settings Suction: 125 mmHg, Continuous Intensity: Low Other Information: Bridged, Windowpaned, Mushroomed Foam type: Black Number of pieces: 1 Additonal Information Patient was seen today by consumer loan underwriter for follow up wound vac dressing change.patient alert and oriented x4.No complaints of discomfort noted.Dressing gently removed from right flank incision ~4cm single intact black sponge removed without difficulty.Wound cleansed with normal saline pat dry ,window paned and ~4cm single black sponge gently pack into proximal undermining.Sponge bridged to distal flank and track pad applied suction started @125mmHg low continuous suction with no leaks noted.Patient tolerated wound acre well dressing changed to post chest tube site as ordered sign and dated. Ostomy Date of Surgery: January 04, 2018 [facility] January 18, 2018 15:55
[2018-01-18 16:00] VITALS: BP 136/81; PULSE 72; RESP 17; TEMP 97.7; O2SAT 95
[2018-01-18] MEDS: diphenhydrAMINE HCL 25 MG CAP PO PRN (16:13)
[2018-01-18] MEDS: FUROSEMIDE 20 MG TAB PO SCH (17:06)
[2018-01-18 20:00] VITALS: BP 128/66; PULSE 72; RESP 20; TEMP 97.9; O2SAT 97
--- NOTE | 2018-01-18 20:10 | HHI.PR ---
Subjective Remarks 52 YOWM with MRSA empyema, s/p Decortication, rt lung infilt and eff no CP No SOB Has chest wall wound vac On RA Anxious to go home. No new complaint Objective Vital Signs Vital Signs Date Time Temp Pulse Resp B/P (MAP) Pulse Ox O2 Delivery O2 Flow Rate FiO2 01/18/18 16:00 97.7 72 17 136/81 (99) 95 01/18/18 12:00 97.7 72 17 120/71 (87) 96 01/18/18 08:00 97.7 70 17 115/72 (86) 96 01/18/18 00:00 97.8 80 18 122/78 (93) 95 I/O 01/17/18 01/17/18 01/17/18 01/18/18 01/18/18 01/18/18 07:00 15:00 23:00 07:00 15:00 23:00 Intake Total 240 ml 1480 ml 720 ml 1000 ml Output Total 5 ml 0 ml Balance 235 ml 1480 ml 720 ml 1000 ml Intake Oral 240 ml 1480 ml 720 ml 1000 ml Drainage Total 5 ml 0 ml # Voids 2 4 3 6 # Bowel Movements 0 1 0 1 Result Diagram: 01/17/18 0613 01/15/18 0738 Objective Remarks GENERAL: WBWN WM,NAD SKIN: Warm and dry. HEAD: Normocephalic. EYES: No scleral icterus. No injection or drainage. NECK: Supple, trachea midline. No JVD or lymphadenopathy. CARDIOVASCULAR: Regular rate and rhythm without murmurs, gallops, or rubs. RESPIRATORY: Breath sounds equal bilaterally. No accessory muscle use. Decreased BS rt GASTROINTESTINAL: Abdomen soft, non-tender, nondistended. MUSCULOSKELETAL: No cyanosis, or edema. BACK: Nontender without obvious deformity. No CVA tenderness. A/P Assessment and Plan IMPRESSION: 1. Persistent right lower lobe infiltrate with effusion. 2. 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 3. Hypertension. 4. Diabetes mellitus. 5. Alcohol abuse. PLAN: Cont Abx per ID Looks comfortable, non toxic Stable from pulm standpoint Wound care. Stable on RA DC plans underway Zhao Ortega MD January 18, 2018 20:10
[2018-01-19] VITALS: BP 122/71; PULSE 81; RESP 20; TEMP 97.7; O2SAT 95
[2018-01-19 08:00] VITALS: BP 112/71; PULSE 78; RESP 19; TEMP 97.5; O2SAT 96
[2018-01-19] MEDS: INSULIN ASPART SUPPLEMENTAL SCALE SQ SCH ×4 (08:00→21:46)
[2018-01-19] MEDS: FUROSEMIDE 20 MG TAB PO SCH ×2 (08:22→17:46)
[2018-01-19] MEDS: HYDROCHLOROTHIAZIDE 25 MG TAB PO SCH (08:22)
[2018-01-19] MEDS: THIAMINE HCL 100 MG TAB PO SCH (08:22)
[2018-01-19] MEDS: DOXYCYCLINE HYCLATE 100 MG CAP PO SCH ×2 (08:22→21:36)
[2018-01-19] MEDS: PANTOPRAZOLE SOD 40 MG DELAYED RELEASE TAB PO SCH (08:22)
[2018-01-19] MEDS: POLYETHYLENE GLYCOL 17 GM PKG PO SCH (08:22)
[2018-01-19] MEDS: FOLIC ACID 1 MG TAB PO SCH (08:22)
[2018-01-19] MEDS: RIVAROXABAN 15 MG TAB PO SCH ×2 (08:22→21:36)
[2018-01-19] MEDS: LISINOPRIL 20 MG TAB PO SCH (08:22)
[2018-01-19] MEDS: CARVEDILOL 12.5 MG TAB PO SCH ×2 (08:22→21:36)
[2018-01-19] MEDS: SODIUM CHLORIDE 0.9% FLUSH 10 ML FLUSH IV FLUSH SCH ×2 (08:23→21:38)
[2018-01-19] MEDS: LACTIC ACID (AMMONIUM LACTATE) 12% LOTION 225 GM BTL TOPICAL SCH ×3 (08:24→21:39)
[2018-01-19 12:00] VITALS: BP 111/64; PULSE 73; RESP 18; TEMP 97.3; O2SAT 94
--- NOTE | 2018-01-19 12:12 | HHI.PR ---
Subjective Remarks The patient said that he was disoriented when he woke up this morning and pulled at his wound vac. He does have some discomfort along the site. No other acute complaints. Discussed with nursing. Objective Vitals Vital Signs Date Time Temp Pulse Resp B/P (MAP) Pulse Ox O2 Delivery O2 Flow Rate FiO2 01/19/18 08:00 97.5 78 19 112/71 (85) 96 01/19/18 00:00 97.7 81 20 122/71 (88) 95 01/18/18 20:00 97.9 72 20 128/66 (86) 97 01/18/18 16:00 97.7 72 17 136/81 (99) 95 I/O 01/18/18 01/18/18 01/18/18 01/19/18 01/19/18 01/19/18 07:00 15:00 23:00 07:00 15:00 23:00 Intake Total 720 ml 1000 ml 360 ml Balance 720 ml 1000 ml 360 ml Intake Oral 720 ml 1000 ml 360 ml # Voids 3 6 3 # Bowel Movements 0 1 0 Result Diagram: 01/17/18 0613 01/15/18 0738 Imaging Last Impressions Chest X-Ray 01/13/18 0600 Signed Impressions: Service Date/Time: Saturday, January 13, 2018 05:54 - CONCLUSION: Stable appearance of the chest compared to the prior examination of 01/11/2018. No new or significant changes are demonstrated. Judd Lang MD Lower Extremity Ultrasound 01/10/18 0000 Signed Impressions: Service Date/Time: Wednesday, January 10, 2018 15:24 - CONCLUSION: Normal examination. Andrez Holder MD CT Angiography 01/03/18 0000 Signed Impressions: Service Date/Time: Wednesday, January 03, 2018 12:57 - CONCLUSION: 1. Developing hazy densities in both hemithoraces, most prominent in the left upper lung. Appearance is concerning for developing septic emboli. 2. Right-sided complex empyema with air and fluid is definitely no smaller and may actually be slightly larger when compared to prior. Developing left-sided effusion. 3. No filling defects within the pulmonary arteries to suggest large pulmonary emboli. 4. CT findings suggesting some degree of cirrhosis and portal hypertension with a small, nodular liver and splenomegaly. Sven Flaherty MD Upper Extremity Ultrasound 01/02/18 0000 Signed Impressions: Service Date/Time: Tuesday, January 02, 2018 09:35 - CONCLUSION: Acute appearing occlusive thrombus in the right axillary and upper basilic vein. Tenzin Magdaleno MD Chest CT 12/23/17 0000 Signed Impressions: Service Date/Time: Saturday, December 23, 2017 12:01 - CONCLUSION: 1. Increase in loculated air within the complex right pleural effusion since November 30. The overall size of the presumed right empyema is relatively stable. There is also now loculated air in the lower right lateral chest wall likely representing extension of the empyema into the soft tissues. Slight improvement in right basilar lung consolidation. 2. Resolution of previous left pleural effusion. 3. New right-sided posterior sixth rib fracture. Multiple remote healed rib fractures. Edis Wetzel MD Objective Remarks General: No acute distress. Sitting up in a chair. Heart: Regular rate and rhythm. No murmur. Lungs: CTAB. Breathing is nonlabored. Abdomen: Soft, nontender, nondistended. Extremities: Bilateral 1+ lower extremity edema. Psych: Calm. Neuro: Normal speech. No focal deficits noted. Back: Wound vac in place. Procedures 12/26/17 bronchoscopy 01/04/18 right video-assisted thoracoscopic surgery, drainage of multiloculated pleural fluid, incision and open drainage of chest wall fluid collection, removal of chest wall foreign body, chest wall wound VAC placement A/P Problem List: (1) Empyema lung ICD Code: J86.9 - Pyothorax without fistula Status: Acute (2) Diabetes ICD Code: E11.9 - Type 2 diabetes mellitus without complications Status: Chronic (3) HTN (hypertension) ICD Code: I10 - Essential (primary) hypertension Status: Chronic (4) Pancytopenia ICD Code: D61.818 - Other pancytopenia Status: Chronic Assessment and Plan Recurrent empyema, abscess Status post video-assisted thoracoscopic surgery with drainage of multiloculated pleural fluid and drainage of chest wall, fluid collection. Chest wall foreign body was removed and wound VAC was placed. Chest tube has been removed. Chest x-ray continues to show fluid on the right side. Repeat chest x-ray is unchanged. - home wound vac will need to be set-up. Appreciate case management assistance. - continue antibiotics per ID. Currently on PO doxycycline. Hypertension Chronic, controlled. - Continue Coreg, Lasix, HCTZ. Diabetes mellitus type 2 Chronic. - Monitor Accu-Cheks and cover with sliding scale insulin. Pancytopenia Chronic. Appreciate hematology recommendations. Hemoglobin improved following transfusion. - conservative management recommended. - outpt follow-up. Lower extremity edema The pt is on Lasix as an outpt. - resume Lasix and monitor renal function. DVT right axillary and basilic veins PICC line removed. Heparin drip discontinued 01/15/18. - Transitioned to Xarelto 15 mg BID x 21 days, then 20 mg daily. Discharge Planning d/c home with HHC when arranged, wound vac arranged, and cleared by wound nurse Problem Qualifiers (1) Diabetes: Qualified Codes: E11.9 - Type 2 diabetes mellitus without complications; Z79.4 - [facility] (current) use of insulin (2) HTN (hypertension): Qualified Codes: I10 - Essential (primary) hypertension Stuart Diamond DO January 19, 2018 12:12
[2018-01-19 16:00] VITALS: BP 122/76; PULSE 78; RESP 19; TEMP 97.9; O2SAT 95
[2018-01-19 20:00] VITALS: BP 138/78; PULSE 67; RESP 18; TEMP 97.8; O2SAT 93
--- NOTE | 2018-01-19 20:11 | HHI.PR ---
Subjective Remarks 52 YOWM with MRSA empyema, s/p Decortication, rt lung infilt and eff no CP No SOB Has chest wall wound vac On RA No new complaint Objective Vital Signs Vital Signs Date Time Temp Pulse Resp B/P (MAP) Pulse Ox O2 Delivery O2 Flow Rate FiO2 01/19/18 16:00 97.9 78 19 122/76 (91) 95 01/19/18 12:00 97.3 73 18 111/64 (80) 94 01/19/18 08:00 97.5 78 19 112/71 (85) 96 01/19/18 00:00 97.7 81 20 122/71 (88) 95 I/O 01/18/18 01/18/18 01/18/18 01/19/18 01/19/18 01/19/18 07:00 15:00 23:00 07:00 15:00 23:00 Intake Total 720 ml 1000 ml 360 ml 920 ml Balance 720 ml 1000 ml 360 ml 920 ml Intake Oral 720 ml 1000 ml 360 ml 920 ml # Voids 3 6 3 6 # Bowel Movements 0 1 0 Result Diagram: 01/17/18 0613 01/15/18 0738 Objective Remarks GENERAL: WBWN WM,NAD SKIN: Warm and dry. HEAD: Normocephalic. EYES: No scleral icterus. No injection or drainage. NECK: Supple, trachea midline. No JVD or lymphadenopathy. CARDIOVASCULAR: Regular rate and rhythm without murmurs, gallops, or rubs. RESPIRATORY: Breath sounds equal bilaterally. No accessory muscle use. Decreased BS rt GASTROINTESTINAL: Abdomen soft, non-tender, nondistended. MUSCULOSKELETAL: No cyanosis, or edema. BACK: Nontender without obvious deformity. No CVA tenderness. A/P Assessment and Plan IMPRESSION: 1. Persistent right lower lobe infiltrate with effusion. 2. 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 3. Hypertension. 4. Diabetes mellitus. 5. Alcohol abuse. PLAN: Cont Abx per ID Looks comfortable, non toxic Stable from pulm standpoint Wound care. Stable on RA DC plans underway , home with wound vac pt will stay with his parents. Zhao Ortega MD January 19, 2018 20:11
[2018-01-20] VITALS: BP 113/74; PULSE 70; RESP 18; TEMP 98.2; O2SAT 95
[2018-01-20 07:30] LABS: HEMATOCRIT 28.2 % (39.0-51.0); HEMOGLOBIN 9.4 GM/DL (13.0-17.0); MEAN CORPUSCULAR HEMOGLOBIN 30.5 PG (27.0-34.0); MEAN CORPUSCULAR HGB CONC 33.5 % (32.0-36.0); MEAN PLATELET VOLUME 8.7 FL (7.0-11.0); PLATELET COUNT 129 TH/MM3 (150-450); RED BLOOD COUNT 3.09 MIL/MM3 (4.50-5.90); RED CELL DISTRIBUTION WIDTH 16.7 % (11.6-17.2); WHITE BLOOD COUNT 4.4 TH/MM3 (4.0-11.0)
[2018-01-20 07:58] LABS: BICARBONATE 24.5 MEQ/L (21.0-32.0); CALCIUM 8.7 MG/DL (8.5-10.1); CREATININE 1.4 MG/DL (0.60-1.30)
[2018-01-20 08:00] VITALS: BP 119/74; PULSE 71; RESP 18; TEMP 98.3; O2SAT 95
[2018-01-20] MEDS: INSULIN ASPART SUPPLEMENTAL SCALE SQ SCH ×4 (08:00→23:03)
[2018-01-20] MEDS: SODIUM CHLORIDE 0.9% FLUSH 10 ML FLUSH IV FLUSH SCH ×2 (09:00→22:19)
[2018-01-20] MEDS: POLYETHYLENE GLYCOL 17 GM PKG PO SCH (10:02)
[2018-01-20] MEDS: RIVAROXABAN 15 MG TAB PO SCH ×2 (10:04→22:17)
[2018-01-20] MEDS: THIAMINE HCL 100 MG TAB PO SCH (10:04)
[2018-01-20] MEDS: PANTOPRAZOLE SOD 40 MG DELAYED RELEASE TAB PO SCH (10:04)
[2018-01-20] MEDS: CARVEDILOL 12.5 MG TAB PO SCH ×2 (10:04→22:17)
[2018-01-20] MEDS: HYDROCHLOROTHIAZIDE 25 MG TAB PO SCH (10:04)
[2018-01-20] MEDS: LISINOPRIL 20 MG TAB PO SCH (10:05)
[2018-01-20] MEDS: FOLIC ACID 1 MG TAB PO SCH (10:05)
[2018-01-20] MEDS: FUROSEMIDE 20 MG TAB PO SCH (10:05)
[2018-01-20] MEDS: DOXYCYCLINE HYCLATE 100 MG CAP PO SCH ×2 (10:06→22:17)
[2018-01-20] MEDS: LACTIC ACID (AMMONIUM LACTATE) 12% LOTION 225 GM BTL TOPICAL SCH ×2 (10:07→22:19)
[2018-01-20 12:00] VITALS: BP 126/70; PULSE 76; RESP 18; TEMP 97.9; O2SAT 98
[2018-01-20] MEDS: MORPHINE SULFATE 4 MG/ML INJ IV PUSH PRN (14:26)
--- NOTE | 2018-01-20 14:41 | PD.WCN.NOT ---
Wound Consult Description: Right side lateral chest distal to previous chest tube. Recommendation: 1. Cleanse proximal chest tube incision site with normal saline pat dry 2. Skin prep pati wound, Cut Maxorb ll into single 1/4 inch strip and gently pack into wound base leaving tail exposed. 3. Cover with dry dressing sign and date dressing to be changed every 3 days or as needed for exudate management/dislodgement. Wound VAC dressing to be changed every Tuesday by CENTERLESS GRINDER OPERATOR ONLY Settings 125mmHg low continuous suction If air leak occurs please reinforce only using VAC drape or transparent film. Trouble shoot by checking machine settings, canister is locked in to place or not full, tubing is not kinked or clamped. Neg Pressure Wound Therapy Wound Location Wound Location: Right side lateral chest distal to previous chest tube. Wound Description Length: 0.8 cm Width: 4.0 cm Depth: ~0.8cm Undermining: ~2.6cm of undermining noted superiorly within the wound bed Wound bed appearance: ~90% red granulation tissue ~10% yellow adipose tissue Settings Suction: 125 mmHg, Continuous Intensity: Low Other Information: Bridged, Windowpaned, Mushroomed Foam type: Black Number of pieces: 1 Additonal Information Patient was seen today by data analyst report writer for follow up wound vac dressing change.patient alert and oriented x4.No complaints of discomfort noted.Dressing gently removed from right flank incision ~4cm single intact black sponge removed without difficulty.Wound cleansed with normal saline pat dry ,window paned and ~4cm single black sponge gently pack into proximal undermining.Sponge bridged to distal flank and track pad applied suction started @125mmHg low continuous suction with no leaks noted.Patient tolerated wound acre well dressing changed to post chest tube site as ordered sign and dated. Zaida Vázquez [facility] January 20, 2018 14:41
--- NOTE | 2018-01-20 14:56 | HHI.PR ---
Subjective Remarks 52 YOWM with MRSA empyema, s/p Decortication, rt lung infilt and eff no CP No SOB Has chest wall wound vac On RA Wound care team at BS Objective Vital Signs Vital Signs Date Time Temp Pulse Resp B/P (MAP) Pulse Ox O2 Delivery O2 Flow Rate FiO2 01/20/18 12:00 97.9 76 18 126/70 (88) 98 01/20/18 08:00 98.3 71 18 119/74 (89) 95 01/20/18 00:00 98.2 70 18 113/74 (87) 95 01/19/18 20:00 97.8 67 18 138/78 (98) 93 01/19/18 16:00 97.9 78 19 122/76 (91) 95 I/O 01/19/18 01/19/18 01/19/18 01/20/18 01/20/18 01/20/18 07:00 15:00 23:00 07:00 15:00 23:00 Intake Total 360 ml 920 ml Output Total 0 ml 0 ml Balance 360 ml 920 ml 0 ml Intake Oral 360 ml 920 ml Drainage Total 0 ml 0 ml # Voids 3 6 # Bowel Movements 0 Result Diagram: 01/20/18 0637 01/20/18 0637 Objective Remarks GENERAL: WBWN WM,NAD SKIN: Warm and dry. HEAD: Normocephalic. EYES: No scleral icterus. No injection or drainage. NECK: Supple, trachea midline. No JVD or lymphadenopathy. CARDIOVASCULAR: Regular rate and rhythm without murmurs, gallops, or rubs. RESPIRATORY: Breath sounds equal bilaterally. No accessory muscle use. Decreased BS rt GASTROINTESTINAL: Abdomen soft, non-tender, nondistended. MUSCULOSKELETAL: No cyanosis, or edema. BACK: Nontender without obvious deformity. No CVA tenderness. A/P Assessment and Plan IMPRESSION: 1. Persistent right lower lobe infiltrate with effusion. 2. 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 3. Hypertension. 4. Diabetes mellitus. 5. Alcohol abuse. PLAN: Cont Abx per ID Looks comfortable, non toxic Stable from pulm standpoint Wound care. Stable on RA DC plans underway , home with wound vac Zhao Ortega MD January 20, 2018 14:56
[2018-01-20 16:00] VITALS: BP 122/70; PULSE 75; RESP 20; TEMP 98; O2SAT 95
--- NOTE | 2018-01-20 16:22 | HHI.PR ---
Subjective Remarks The patient sitting up in a chair. He was okay with staying in the hospital if he had to wait for the wound VAC to be set up. He had no acute complaints. Discussed with nursing and case management. Objective Vitals Vital Signs Date Time Temp Pulse Resp B/P (MAP) Pulse Ox O2 Delivery O2 Flow Rate FiO2 01/20/18 12:00 97.9 76 18 126/70 (88) 98 01/20/18 08:00 98.3 71 18 119/74 (89) 95 01/20/18 00:00 98.2 70 18 113/74 (87) 95 01/19/18 20:00 97.8 67 18 138/78 (98) 93 I/O 01/19/18 01/19/18 01/19/18 01/20/18 01/20/18 01/20/18 07:00 15:00 23:00 07:00 15:00 23:00 Intake Total 360 ml 920 ml Output Total 0 ml 0 ml Balance 360 ml 920 ml 0 ml Intake Oral 360 ml 920 ml Drainage Total 0 ml 0 ml # Voids 3 6 # Bowel Movements 0 Result Diagram: 01/20/18 0637 01/20/18 0637 Imaging Last Impressions Chest X-Ray 01/13/18 0600 Signed Impressions: Service Date/Time: Saturday, January 13, 2018 05:54 - CONCLUSION: Stable appearance of the chest compared to the prior examination of 01/11/2018. No new or significant changes are demonstrated. Judd Lang MD Lower Extremity Ultrasound 01/10/18 0000 Signed Impressions: Service Date/Time: Wednesday, January 10, 2018 15:24 - CONCLUSION: Normal examination. Andrez Holder MD CT Angiography 01/03/18 0000 Signed Impressions: Service Date/Time: Wednesday, January 03, 2018 12:57 - CONCLUSION: 1. Developing hazy densities in both hemithoraces, most prominent in the left upper lung. Appearance is concerning for developing septic emboli. 2. Right-sided complex empyema with air and fluid is definitely no smaller and may actually be slightly larger when compared to prior. Developing left-sided effusion. 3. No filling defects within the pulmonary arteries to suggest large pulmonary emboli. 4. CT findings suggesting some degree of cirrhosis and portal hypertension with a small, nodular liver and splenomegaly. Sven Flaherty MD Upper Extremity Ultrasound 01/02/18 0000 Signed Impressions: Service Date/Time: Tuesday, January 02, 2018 09:35 - CONCLUSION: Acute appearing occlusive thrombus in the right axillary and upper basilic vein. Tenzin Magdaleno MD Chest CT 12/23/17 0000 Signed Impressions: Service Date/Time: Saturday, December 23, 2017 12:01 - CONCLUSION: 1. Increase in loculated air within the complex right pleural effusion since November 30. The overall size of the presumed right empyema is relatively stable. There is also now loculated air in the lower right lateral chest wall likely representing extension of the empyema into the soft tissues. Slight improvement in right basilar lung consolidation. 2. Resolution of previous left pleural effusion. 3. New right-sided posterior sixth rib fracture. Multiple remote healed rib fractures. Edis Wetzel MD Objective Remarks General: No acute distress. Sitting up in a chair. Heart: Regular rate and rhythm. No murmur. Lungs: CTAB. Breathing is nonlabored. Abdomen: Soft, nontender, nondistended. Extremities: Bilateral 1+ lower extremity edema. Psych: Calm. Neuro: Normal speech. No focal deficits noted. Back: Wound vac in place. Procedures 12/26/17 bronchoscopy 01/04/18 right video-assisted thoracoscopic surgery, drainage of multiloculated pleural fluid, incision and open drainage of chest wall fluid collection, removal of chest wall foreign body, chest wall wound VAC placement A/P Problem List: (1) Empyema lung ICD Code: J86.9 - Pyothorax without fistula Status: Acute (2) Diabetes ICD Code: E11.9 - Type 2 diabetes mellitus without complications Status: Chronic (3) HTN (hypertension) ICD Code: I10 - Essential (primary) hypertension Status: Chronic (4) Pancytopenia ICD Code: D61.818 - Other pancytopenia Status: Chronic Assessment and Plan Recurrent empyema, abscess Status post video-assisted thoracoscopic surgery with drainage of multiloculated pleural fluid and drainage of chest wall, fluid collection. Chest wall foreign body was removed and wound VAC was placed. Chest tube has been removed. Chest x-ray continues to show fluid on the right side. Repeat chest x-ray is unchanged. - home wound vac will need to be set-up. Appreciate case management assistance. - continue antibiotics per ID. Currently on PO doxycycline. Renal insufficiency May be s/t over-diuresis. - hold Lasix and HCTZ. - follow BMP. Hypertension Chronic, controlled. - Continue Coreg. - Hold Lasix, HCTZ in setting of renal insufficiency. Diabetes mellitus type 2 Chronic. - Monitor Accu-Cheks and cover with sliding scale insulin. Pancytopenia Chronic. Appreciate hematology recommendations. Hemoglobin improved following transfusion. - conservative management recommended. - outpt follow-up. Lower extremity edema The pt is on Lasix as an outpt. - hold Lasix and monitor renal function. DVT right axillary and basilic veins PICC line removed. Heparin drip discontinued 01/15/18. - Transitioned to Xarelto 15 mg BID x 21 days, then 20 mg daily. Discharge Planning d/c home with HHC when arranged, wound vac arranged, and cleared by wound nurse Problem Qualifiers (1) Diabetes: Qualified Codes: E11.9 - Type 2 diabetes mellitus without complications; Z79.4 - skilled nursing (current) use of insulin (2) HTN (hypertension): Qualified Codes: I10 - Essential (primary) hypertension Stuart Diamond DO January 20, 2018 16:22
[2018-01-20] MEDS ORDERED: SODIUM CHLOR 0.9% 1000 ML INJ 1,000 ML IV SCH (16:30)
[2018-01-20 20:00] VITALS: BP 121/69; PULSE 77; RESP 18; TEMP 97.8; O2SAT 97
[2018-01-21] VITALS: BP 129/81; PULSE 73; RESP 20; TEMP 98.1; O2SAT 93
[2018-01-21 07:51] LABS: CALCIUM 8.6 MG/DL (8.5-10.1); CREATININE 1.44 MG/DL (0.60-1.30)
[2018-01-21] MEDS: INSULIN ASPART SUPPLEMENTAL SCALE SQ SCH ×4 (07:54→20:15)
[2018-01-21 08:00] VITALS: BP 126/76; PULSE 64; RESP 16; TEMP 97.2; O2SAT 97
[2018-01-21] MEDS: POLYETHYLENE GLYCOL 17 GM PKG PO SCH (08:50)
[2018-01-21] MEDS: RIVAROXABAN 15 MG TAB PO SCH ×2 (08:51→20:14)
[2018-01-21] MEDS: PANTOPRAZOLE SOD 40 MG DELAYED RELEASE TAB PO SCH (08:51)
[2018-01-21] MEDS: THIAMINE HCL 100 MG TAB PO SCH (08:51)
[2018-01-21] MEDS: SODIUM CHLORIDE 0.9% FLUSH 10 ML FLUSH IV FLUSH SCH ×2 (08:51→20:14)
[2018-01-21] MEDS: FOLIC ACID 1 MG TAB PO SCH (08:51)
[2018-01-21] MEDS: DOXYCYCLINE HYCLATE 100 MG CAP PO SCH ×2 (08:51→20:15)
[2018-01-21] MEDS: CARVEDILOL 12.5 MG TAB PO SCH ×2 (08:51→20:15)
[2018-01-21] MEDS: LISINOPRIL 20 MG TAB PO SCH (08:51)
[2018-01-21] MEDS: LACTIC ACID (AMMONIUM LACTATE) 12% LOTION 225 GM BTL TOPICAL SCH ×2 (08:52→20:15)
--- NOTE | 2018-01-21 10:31 | HHI.FF ---
Face to Face Verification Diagnosis: (1) S/P thoracotomy (2) Empyema lung (3) Diabetes (4) Pancytopenia Home Health Nursing Order: Medical education Signs/symptoms of disease process Medication education-adverse effect Wound care and dressing changes Nursing assessment with vital signs Instructions: 1. Cleanse proximal chest tube incision site with normal saline pat dry 2. Skin prep pati wound, Cut Maxorb ll into single 1/4 inch strip and gently pack into wound base leaving tail exposed. 3. Cover with dry dressing sign and date dressing to be changed every 3 days or as needed for exudate management/dislodgement. Wound VAC dressing to be changed every Tuesday Settings 125mmHg low continuous suction I have seen patient Jovanny Lopez on 01/21/18. My clinical findings support the need for the requested home health care services because: Ltd mobility - disease progression Deconditioned w/ increased weakness Limited ability to care for self Infection w/ risk of complications I certify that my clinical findings support that this patient is homebound because: Post-op weakness Unsafe to leave home unassisted Stuart Diamond DO January 21, 2018 10:31
[2018-01-21 12:00] VITALS: BP 113/70; PULSE 78; RESP 16; TEMP 97.8; O2SAT 97
--- NOTE | 2018-01-21 12:36 | HHI.PR ---
Subjective Remarks 52 YOWM with MRSA empyema, s/p Decortication, rt lung infilt and eff no CP No SOB Has chest wall wound vac On RA Objective Vital Signs Vital Signs Date Time Temp Pulse Resp B/P (MAP) Pulse Ox O2 Delivery O2 Flow Rate FiO2 01/21/18 08:55 16 01/21/18 08:00 97.2 64 16 126/76 (93) 97 01/21/18 00:00 98.1 73 20 129/81 (97) 93 01/20/18 20:00 97.8 77 18 121/69 (86) 97 01/20/18 16:00 98.0 75 20 122/70 (87) 95 I/O 01/20/18 01/20/18 01/20/18 01/21/18 01/21/18 01/21/18 07:00 15:00 23:00 07:00 15:00 23:00 Intake Total 1600 ml Output Total 0 ml 0 ml Balance 0 ml 1600 ml 0 ml Intake Oral 1600 ml Drainage Total 0 ml 0 ml # Voids 5 Result Diagram: 01/20/18 0637 01/21/18 0550 Objective Remarks GENERAL: WBWN WM,NAD SKIN: Warm and dry. HEAD: Normocephalic. EYES: No scleral icterus. No injection or drainage. NECK: Supple, trachea midline. No JVD or lymphadenopathy. CARDIOVASCULAR: Regular rate and rhythm without murmurs, gallops, or rubs. RESPIRATORY: Breath sounds equal bilaterally. No accessory muscle use. Decreased BS rt GASTROINTESTINAL: Abdomen soft, non-tender, nondistended. MUSCULOSKELETAL: No cyanosis, or edema. BACK: Nontender without obvious deformity. No CVA tenderness. A/P Assessment and Plan IMPRESSION: 1. Persistent right lower lobe infiltrate with effusion. 2. 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 3. Hypertension. 4. Diabetes mellitus. 5. Alcohol abuse. PLAN: Cont Abx per ID Stable from pulm standpoint Wound care. Stable on RA DC plans underway , home with wound vac Vac supplies and Pump arrived Zhao Ortega MD January 21, 2018 12:36
[2018-01-21] MEDS ORDERED: SODIUM CHLOR 0.9% 1000 ML INJ 1,000 ML IV SCH (14:30)
[2018-01-21] MEDS ORDERED: XARE15TA PO (15:06)
[2018-01-21] MEDS ORDERED: XARE20TA PO (15:06)
[2018-01-21] MEDS ORDERED: PANT40TA3 PO (15:06)
[2018-01-21] MEDS ORDERED: OXYC1TAB36 PO (15:06)
[2018-01-21] MEDS ORDERED: DOXY100C PO (15:06)
[2018-01-21] MEDS ORDERED: CARV12.5 PO (15:06)
--- NOTE | 2018-01-21 15:10 | HHI.PR ---
Subjective Remarks The pt was feeling well. He was looking forward to going home tomorrow. He had no acute complaints. Discussed with nursing. Objective Vitals Vital Signs Date Time Temp Pulse Resp B/P (MAP) Pulse Ox O2 Delivery O2 Flow Rate FiO2 01/21/18 13:21 16 01/21/18 12:00 97.8 78 16 113/70 (84) 97 01/21/18 08:00 97.2 64 16 126/76 (93) 97 01/21/18 00:00 98.1 73 20 129/81 (97) 93 01/20/18 20:00 97.8 77 18 121/69 (86) 97 01/20/18 16:00 98.0 75 20 122/70 (87) 95 I/O 01/20/18 01/20/18 01/20/18 01/21/18 01/21/18 01/21/18 07:00 15:00 23:00 07:00 15:00 23:00 Intake Total 1600 ml Output Total 0 ml 0 ml Balance 0 ml 1600 ml 0 ml Intake Oral 1600 ml Drainage Total 0 ml 0 ml # Voids 5 Result Diagram: 01/20/18 0637 01/21/18 0550 Imaging Last Impressions Chest X-Ray 01/13/18 0600 Signed Impressions: Service Date/Time: Saturday, January 13, 2018 05:54 - CONCLUSION: Stable appearance of the chest compared to the prior examination of 01/11/2018. No new or significant changes are demonstrated. Judd Lang MD Lower Extremity Ultrasound 01/10/18 0000 Signed Impressions: Service Date/Time: Wednesday, January 10, 2018 15:24 - CONCLUSION: Normal examination. Andrez Holder MD CT Angiography 01/03/18 0000 Signed Impressions: Service Date/Time: Wednesday, January 03, 2018 12:57 - CONCLUSION: 1. Developing hazy densities in both hemithoraces, most prominent in the left upper lung. Appearance is concerning for developing septic emboli. 2. Right-sided complex empyema with air and fluid is definitely no smaller and may actually be slightly larger when compared to prior. Developing left-sided effusion. 3. No filling defects within the pulmonary arteries to suggest large pulmonary emboli. 4. CT findings suggesting some degree of cirrhosis and portal hypertension with a small, nodular liver and splenomegaly. Sven Flaherty MD Upper Extremity Ultrasound 01/02/18 0000 Signed Impressions: Service Date/Time: Tuesday, January 02, 2018 09:35 - CONCLUSION: Acute appearing occlusive thrombus in the right axillary and upper basilic vein. Tenzin Magdaleno MD Chest CT 12/23/17 0000 Signed Impressions: Service Date/Time: Saturday, December 23, 2017 12:01 - CONCLUSION: 1. Increase in loculated air within the complex right pleural effusion since November 30. The overall size of the presumed right empyema is relatively stable. There is also now loculated air in the lower right lateral chest wall likely representing extension of the empyema into the soft tissues. Slight improvement in right basilar lung consolidation. 2. Resolution of previous left pleural effusion. 3. New right-sided posterior sixth rib fracture. Multiple remote healed rib fractures. Edis Wetzel MD Objective Remarks General: No acute distress. Sitting up in a chair. Heart: Regular rate and rhythm. No murmur. Lungs: CTAB. Breathing is nonlabored. Abdomen: Soft, nontender, nondistended. Extremities: Bilateral 1+ lower extremity edema. Psych: Calm. Neuro: Normal speech. No focal deficits noted. Back: Wound vac in place. Procedures 12/26/17 bronchoscopy 01/04/18 right video-assisted thoracoscopic surgery, drainage of multiloculated pleural fluid, incision and open drainage of chest wall fluid collection, removal of chest wall foreign body, chest wall wound VAC placement A/P Problem List: (1) Empyema lung ICD Code: J86.9 - Pyothorax without fistula Status: Acute (2) Diabetes ICD Code: E11.9 - Type 2 diabetes mellitus without complications Status: Chronic (3) HTN (hypertension) ICD Code: I10 - Essential (primary) hypertension Status: Chronic (4) Pancytopenia ICD Code: D61.818 - Other pancytopenia Status: Chronic Assessment and Plan Recurrent empyema, abscess Status post video-assisted thoracoscopic surgery with drainage of multiloculated pleural fluid and drainage of chest wall, fluid collection. Chest wall foreign body was removed and wound VAC was placed. Chest tube has been removed. Chest x-ray continues to show fluid on the right side. Repeat chest x-ray is unchanged. - home wound vac has arrived. Appreciate case management assistance. - continue antibiotics per ID. Currently on PO doxycycline through the . Renal insufficiency May be s/t over-diuresis. - hold Lasix, lisinopril and HCTZ. - 1 L IVFs. - follow BMP. Hypertension Chronic, controlled. - Continue Coreg. - Hold Lasix, lisinopril and HCTZ in setting of renal insufficiency. Diabetes mellitus type 2 Chronic. - Monitor Accu-Cheks and cover with sliding scale insulin. Pancytopenia Chronic. Appreciate hematology recommendations. Hemoglobin improved following transfusion. - conservative management recommended. - outpt follow-up. Lower extremity edema The pt is on Lasix as an outpt. - hold Lasix and monitor renal function. DVT right axillary and basilic veins PICC line removed. Heparin drip discontinued 01/15/18. - Transitioned to Xarelto 15 mg BID x 21 days, then 20 mg daily. Discharge Planning D/c home with [facility] in AM. Problem Qualifiers (1) Diabetes: Qualified Codes: E11.9 - Type 2 diabetes mellitus without complications; Z79.4 - long term care administrator (current) use of insulin (2) HTN (hypertension): Qualified Codes: I10 - Essential (primary) hypertension Stuart Diamond DO January 21, 2018 15:10
[2018-01-21 16:00] VITALS: BP 104/57; PULSE 73; RESP 17; TEMP 97.9; O2SAT 97
--- NOTE | 2018-01-21 16:24 | HHI.DS ---
Discharge Summary Admission Date Dec 20, 2017 at 17:23 Discharge Date: January 22, 2018 Admitting Diagnosis (1) Empyema lung ICD Code: J86.9 - Pyothorax without fistula Diagnosis: Principal Status: Acute (2) Diabetes ICD Code: E11.9 - Type 2 diabetes mellitus without complications Status: Chronic (3) HTN (hypertension) ICD Code: I10 - Essential (primary) hypertension Status: Chronic (4) Pancytopenia ICD Code: D61.818 - Other pancytopenia Status: Chronic Procedures 12/26/17 bronchoscopy 01/04/18 right video-assisted thoracoscopic surgery, drainage of multiloculated pleural fluid, incision and open drainage of chest wall fluid collection, removal of chest wall foreign body, chest wall wound VAC placement Brief History - From Admission 52 y/o male with a history of DM, HTN, ETOH abuse, pleuracentesis with MRSA and a tight empyema was a transfer from [facility] for possible abscess. Patient was recently hospitalized for right lung empyema due to MRSA status post posterior lateral thoracotomy, decortication and drainage of abscess. Patient states for the last few days he has been having continuous, sore right side chest pain, 6 out of 10 with no radiation with associated shortness of breath, worse with deep breaths and movement better with pain medicine/ Roxicodone. Patient underwent a CT scan which showed possible abscess of the right side. Patient underwent a right thoracentesis today, and chest x-ray was completed and status post right thoracentesis and showed a small right basal pneumothorax status post thoracentesis with probable loculated effusion along the right lateral chest wall. The [facility] physician felt it was needed to transfer the patient to tertiary care center for drainage of the abscess. Patient denies any fever, chills, dizziness or headaches. CRP today 35.8. Patient has been treated with Teflaro IV 600 mg every 12 with an end date of 01/02/18. CBC/BMP: 01/20/18 0637 01/21/18 0550 Significant Findings Laboratory Tests Test 01/20/18 06:37 01/21/18 05:50 Red Blood Count 3.09 MIL/MM3 (4.50-5.90) Hemoglobin 9.4 GM/DL (13.0-17.0) Hematocrit 28.2 % (39.0-51.0) Platelet Count 129 TH/MM3 (150-450) Blood Urea Nitrogen 23 MG/DL (7-18) 22 MG/DL (7-18) Creatinine 1.40 MG/DL (0.60-1.30) 1.44 MG/DL (0.60-1.30) Random Glucose 118 MG/DL (74-106) Estimat Glomerular Filtration Rate 53 ML/MIN (>89) 51 ML/MIN (>89) Imaging Last Impressions Chest X-Ray 01/13/18 0600 Signed Impressions: Service Date/Time: Saturday, January 13, 2018 05:54 - CONCLUSION: Stable appearance of the chest compared to the prior examination of 01/11/2018. No new or significant changes are demonstrated. Judd Lang MD Lower Extremity Ultrasound 01/10/18 0000 Signed Impressions: Service Date/Time: Wednesday, January 10, 2018 15:24 - CONCLUSION: Normal examination. Andrez Holder MD CT Angiography 01/03/18 0000 Signed Impressions: Service Date/Time: Wednesday, January 03, 2018 12:57 - CONCLUSION: 1. Developing hazy densities in both hemithoraces, most prominent in the left upper lung. Appearance is concerning for developing septic emboli. 2. Right-sided complex empyema with air and fluid is definitely no smaller and may actually be slightly larger when compared to prior. Developing left-sided effusion. 3. No filling defects within the pulmonary arteries to suggest large pulmonary emboli. 4. CT findings suggesting some degree of cirrhosis and portal hypertension with a small, nodular liver and splenomegaly. Sven Flaherty MD Upper Extremity Ultrasound 01/02/18 0000 Signed Impressions: Service Date/Time: Tuesday, January 02, 2018 09:35 - CONCLUSION: Acute appearing occlusive thrombus in the right axillary and upper basilic vein. Tenzin Magdaleno MD Chest CT 12/23/17 0000 Signed Impressions: Service Date/Time: Saturday, December 23, 2017 12:01 - CONCLUSION: 1. Increase in loculated air within the complex right pleural effusion since November 4. The overall size of the presumed right empyema is relatively stable. There is also now loculated air in the lower right lateral chest wall likely representing extension of the empyema into the soft tissues. Slight improvement in right basilar lung consolidation. 2. Resolution of previous left pleural effusion. 3. New right-sided posterior sixth rib fracture. Multiple remote healed rib fractures. Edis Wetzel MD PE at Discharge General: No acute distress. Sitting up in a chair. Heart: Regular rate and rhythm. No murmur. Lungs: CTAB. Breathing is nonlabored. Abdomen: Soft, nontender, nondistended. Extremities: Bilateral 1+ lower extremity edema. Psych: Calm. Neuro: Normal speech. No focal deficits noted. Back: Wound vac in place. Pt update on day of discharge The patient was sitting up in a chair. He had no acute complaints. He was looking forward to going home. He said that he would move back to his home after he was done with home health care. Discussed with nursing. Hospital Course Recurrent empyema, abscess On 12/05/17 the pt had: Right Posterolateral Thoracotomy; Decortication and Drainage of Intrathoracic Abscesses; Drainage of Subcutaneous Chest Wall Abscess. Pt was transferred back to [facility] / he was supposed to continue wound vac. He was sent back here for possible fluid collection/ possible chest wall infection. Wound vac was replaced. ID was consulted and they started IV antibiotics. Pulmonology and CT surgery were also consulted. 01/04 s/p: Right Video-Assisted Thoracoscopic Surgery (VATS); Drainage of Multiloculated Pleural Fluid; Incision and Open Drainage of Chest Wall Fluid Collection; Removal of Chest Wall Foreign Body; Chest Wall Wound Vac Placement. His chest tube was continued. 01/10 the chest tube was removed without difficulty. Case management was consulted. The pt will continue with a wound vac at home. Home health care has been set-up. He will continue PO doxycycline through the per ID. He will follow up with wound care as an outpatient. Renal insufficiency We held Lasix, lisinopril and HCTZ. We also gave IVFs. He will resume Lasix 40 mg p.o. daily. Lisinopril has been decreased to 2.5 mg p.o. daily. He will have a follow-up BMP in 3-5 days. He will follow-up with nephrology as an outpatient. Hypertension We held Lasix, lisinopril and HCTZ in setting of renal insufficiency. His blood pressure remained stable. Will resume Lasix and lisinopril at 2.5 mg p.o. daily. He will follow-up with his primary care doctor. Pancytopenia Hemoglobin improved following transfusion. Hematology was consulted. Conservative management was recommended. Lower extremity edema The pt is on Lasix as an outpt. We held Lasix and monitored his renal function. We will resume Lasix at the time of discharge. DVT Involving right axillary and basilic veins. PICC line was removed. Heparin drip discontinued on 01/15/18. We transitioned to Xarelto 15 mg BID x 21 days, then 20 mg daily. He will follow up with hematology and his PCP. Pt Condition on Discharge: Stable Discharge Disposition: Disch w/ Home Health Serv Discharge Time: > 30 minutes Discharge Instructions Follow up Referrals: Nephrology - 1 Week PCP Follow-up - 1 Week Pulmonology - 2 Weeks with Zhao Ortega MD [facility] - [address] Patel New Orders: BASIC METABOLIC PROF - 1 Week New Medications: Lisinopril (Lisinopril) 2.5 Mg Tab 2.5 MG PO DAILY, #30 TAB 0 Refills Rivaroxaban (Xarelto) 15 Mg Tab 15 MG PO Q12HR for Blood Clot Prevention, #28 TAB 0 Refills Rivaroxaban (Xarelto) 20 Mg Tab 20 MG PO DAILY for Blood Clot Prevention, #30 TAB 0 Refills Start this dose following 14 days of twice daily dosing Carvedilol (Coreg) 12.5 Mg Tab 25 MG PO Q12HR for Blood Pressure Management, #120 TAB Doxycycline Hyclate (Doxycycline Hyclate) 100 Mg Cap 100 MG PO Q12HR for Infection, #4 CAP Pantoprazole (Pantoprazole) 40 Mg Tab 40 MG PO DAILY for Stomach, #30 TAB Changed Medications: Oxycodone HCl/Acetaminophen (Oxycodone-Acetaminophen 10-325) 10 Mg-325 Mg Tablet 1 TAB PO Q4HR PRN for PAIN 1 TO 10 AND/OR AGITATION for 3 Days, TAB (Medication details modified) Continued Medications: Acetaminophen (Tylenol) 325 Mg Tab 650 MG PO Q6H PRN for FEVER, TAB 0 Refills Folic Acid (Folic Acid) 0.4 Mg Tab 1 MG PO DAILY for Nutritional Supplement, TAB 0 Refills Furosemide (Lasix) 40 Mg Tab 40 MG PO DAILY, #30 TAB 0 Refills Insulin Lispro (Human) Inj (Humalog Inj) 1,000 Unit/10 Ml Vial 5-25 UNITS SQ ACHS for Blood Sugar Management, #1 VIAL 0 Refills Max dose at bedtime:( )units; sugars < 70,(0)units; sugars 150-199,(5)units; sugars 200-249,(10)units; sugars 250-299,(15)units; sugars 300-349,(20)units; sugars more than 349,(25)units. Thiamine HCl (Gnp Vitamin B-1) 100 Mg Tab 100 MG PO DAILY for Nutritional Supplement, #30 TAB Discontinued Medications: Carvedilol (Coreg) 12.5 Mg Tab 12.5 MG PO Q12HR for Blood Pressure Management, #60 TAB 0 Refills Ceftaroline Inj (Teflaro Inj) 600 Mg Inj 600 MG IV Q12H for Infection for 28 Days, BAG 0 Refills Stuart Diamond DO January 21, 2018 16:24
[2018-01-21 20:00] VITALS: BP 133/68; PULSE 66; RESP 18; TEMP 98; O2SAT 96
[2018-01-22 00:09] VITALS: BP 121/79; PULSE 65; RESP 18; TEMP 97.8; O2SAT 97
[2018-01-22 04:12] LABS: BICARBONATE 26.5 MEQ/L (21.0-32.0); CALCIUM 8.6 MG/DL (8.5-10.1); CREATININE 1.39 MG/DL (0.60-1.30); MAGNESIUM 1.9 MG/DL (1.5-2.5)
[2018-01-22] MEDS: INSULIN ASPART SUPPLEMENTAL SCALE SQ SCH ×2 (07:43→11:46)
[2018-01-22] MEDS: DOXYCYCLINE HYCLATE 100 MG CAP PO SCH (07:44)
[2018-01-22] MEDS: CARVEDILOL 12.5 MG TAB PO SCH (07:44)
[2018-01-22] MEDS: RIVAROXABAN 15 MG TAB PO SCH (07:44)
[2018-01-22] MEDS: THIAMINE HCL 100 MG TAB PO SCH (07:44)
[2018-01-22] MEDS: FOLIC ACID 1 MG TAB PO SCH (07:44)
[2018-01-22] MEDS: POLYETHYLENE GLYCOL 17 GM PKG PO SCH (07:45)
[2018-01-22] MEDS: PANTOPRAZOLE SOD 40 MG DELAYED RELEASE TAB PO SCH (07:45)
[2018-01-22] MEDS: LISINOPRIL 20 MG TAB PO SCH (07:45)
[2018-01-22] MEDS: SODIUM CHLORIDE 0.9% FLUSH 10 ML FLUSH IV FLUSH SCH (07:45)
[2018-01-22] MEDS: LACTIC ACID (AMMONIUM LACTATE) 12% LOTION 225 GM BTL TOPICAL SCH (07:46)
[2018-01-22 08:00] VITALS: BP 133/84; PULSE 66; RESP 16; TEMP 97.7; O2SAT 97
[2018-01-22] MEDS: MORPHINE SULFATE 4 MG/ML INJ IV PUSH PRN (09:19)
[2018-01-22] MEDS ORDERED: LISI2.5T3 PO (11:15)
[2018-01-22 12:00] VITALS: BP 113/73; PULSE 78; RESP 16; TEMP 97.3; O2SAT 95
== END 2018-01-22 13:19 | disposition home health service (06) | DRG 166 ==
LOC: N07B 17:23 → HCPC 01-04 11:50 → N07B 01-04 13:16
PROVIDERS: ADMIT Hospitalist; ATTEND Hospitalist
PROC: 0B9K8ZX Drainage of Right Lung, Via Natural or Artificial Opening Endoscopic, Diagnostic (ICD-10-PCS; principal; 2017-12-26)
PROC: 30233N1 Transfusion of Nonautologous Red Blood Cells into Peripheral Vein, Percutaneous Approach (ICD-10-PCS; 2018-01-03)
PROC: 0JC60ZZ Extirpation of Matter from Chest Subcutaneous Tissue and Fascia, Open Approach (ICD-10-PCS; 2018-01-04)
PROC: 0W994ZX Drainage of Right Pleural Cavity, Percutaneous Endoscopic Approach, Diagnostic (ICD-10-PCS; 2018-01-04)
PROC: 0W9 Anatomical Regions, General, Drainage (ICD-10-PCS; 2018-01-04)
DX: J86.9 Pyothorax without fistula (principal); J18.1 Lobar pneumonia, unspecified organism; D61.818 Other pancytopenia; N17.9 Acute kidney failure, unspecified; J90 Pleural effusion, not elsewhere classified; J95.811 Postprocedural pneumothorax; T81.599A Other complications of foreign body accidentally left in body following unspecified procedure, initial encounter; L02.213 Cutaneous abscess of chest wall; J98.11 Atelectasis; I82.611 Acute embolism and thrombosis of superficial veins of right upper extremity; E11.319 Type 2 diabetes mellitus with unspecified diabetic retinopathy without macular edema; D69.59 Other secondary thrombocytopenia; I10 Essential (primary) hypertension; Y84.8 Other medical procedures as the cause of abnormal reaction of the patient, or of later complication, without mention of misadventure at the time of the procedure; L29.9 Pruritus, unspecified; J98.09 Other diseases of bronchus, not elsewhere classified; I87.8 Other specified disorders of veins; R30.0 Dysuria; B95.62 Methicillin resistant Staphylococcus aureus infection as the cause of diseases classified elsewhere; R60.0 Localized edema; T36.8X5A Adverse effect of other systemic antibiotics, initial encounter; F10.20 Alcohol dependence, uncomplicated; Z87.891 Personal history of nicotine dependence; Z79.4 Long term (current) use of insulin; Z91.19 Patient's noncompliance with other medical treatment and regimen; Z86.718 Personal history of other venous thrombosis and embolism; Z86.14 Personal history of Methicillin resistant Staphylococcus aureus infection
CPT/HCPCS: 31622; 36430; 71045; 71250; 71275; 76937; 80048; 80053; 80074; 80202; 81001; 82565; 82948; 83605; 83615; 83735; 84100; 84155; 85025; 85027; 85610; 85730; 86140; 86703; 86850; 86900; 86901; 86920; 87015; 87040; 87070; 87102; 87116; 87205; 87206; 87252; 88112; 88300; 88305; 89051; 93306; 93970; 93971; 94150; 94664; C9290; J0690; J0692; J0712; J1100; J1644; J1815; J1885; J1940; J2248; J2250; J2270; J2370; J2405; J2710; J3010; J3370; J7030; J7040; J7050; J7120; J7613; P9016; Q9967